=== PATIENT | female | born 1960 | race Caucasian/White ===

== ENCOUNTER 2020-05-04 08:19 | Outpatient (CLI) | payer MEDICARE, MEDICAID, SELFPAY ==
[2020-05-04 09:36] LABS: Hematocrit 47.3 % (37.0-47.0); Hemoglobin 15.8 g/dL (12.0-15.0); Mean Corpuscular HGB Conc 33.4 g/dl (32-36); Mean Corpuscular Hemoglobin 32.7 pg (26-34); Mean Corpuscular Volume 97.9 fl (80-100); Mean Platelet Volume 8.9 fl (7.4-10.4); Platelet Count Result 335 k/mm3 (150-375); Red Blood Count 4.83 M/mm3 (4.2-5.4); Red Cell Distribution Width 12.2 % (11.5-14.5); White Blood Count 8.7 K/mm3 (4.5-10.0)
[2020-05-04 09:40] LABS: Add Urine Microscopic? YES; Appearance Urine Cloudy (Clear); Bacteria Urine Trace /hpf; Bilirubin Urine Negative (Negative); Blood Urine Negative (Negative); Color Urine Yellow (Yellow); Glucose Urine UA Negative (Negative); Ketones Urine Negative (Negative); Leukocyte Esterase Ur 3+ LEU/UL (Negative); Mucus Urine Moderate /lpf; Nitrate Urine Negative (Negative); Protein Urine Negative (Negative); Squamous Epithelial Cell Urine Many /hpf (Few); WBC Urine 0-3 /hpf
[2020-05-04 09:57] LABS: Alanine Aminotransferase 13 U/L (4-35); Albumin Level 4.2 g/dL (3.5-5.1); Alkaline Phosphatase 93 U/L (38-126); Anion Gap 6 mmol/L (8-16); Aspartate Amino Transferase 19 U/L (14-36); Bilirubin,Total 0.4 mg/dL (0.2-1.3); Blood Urea Nitrogen 10 mg/dL (7-17); Calcium 9.5 mg/dL (8.4-10.2); Carbon Dioxide 36 mmol/L (22-30); Chloride 98 mmol/L (98-107); Cholesterol 194 mg/dL (0-200); Estimated Glomerular Filt Rate > 60; Glucose 105 mg/dL (65-105); HDL Direct 43 mg/dL; Phosphorus 3.5 mg/dL (2.5-4.5); Potassium 2.9 mmol/L (3.4-5.0); Sodium 140 mmol/L (137-145); Triglycerides 84 mg/dL (<150)
[2020-05-04 10:08] LABS: LDL Cholesterol Direct 136 mg/dL
[2020-05-04 10:41] LABS: Vitamin D 25 Hydroxy 51.4 ng/mL
[2020-05-04 11:49] LABS: Iron 63 ug/dL (37-170); Percent Iron Saturation 21 % (20-50)
== END 2020-05-04 08:20 | disposition home or self-care (01) ==
PROVIDERS: PCP Emergency Medicine; Visit Provider Emergency Medicine
DX: D75.1 Secondary polycythemia (principal); F13.20 Sedative, hypnotic or anxiolytic dependence, uncomplicated; G47.30 Sleep apnea, unspecified; J43.9 Emphysema, unspecified; M85.89 Other specified disorders of bone density and structure, multiple sites; G89.4 Chronic pain syndrome; D64.9 Anemia, unspecified; E78.5 Hyperlipidemia, unspecified; Z00.01 Encounter for general adult medical examination with abnormal findings
CPT/HCPCS: 36415; 80061; 80069; 80076; 81001; 82306; 82728; 83540; 83550; 85027

== ENCOUNTER 2020-05-30 12:25 | Outpatient (CLI) | payer MEDICARE, MEDICAID, SELFPAY ==
--- NOTE | ~2020-05-30 | MM_ITS ---
EXAMINATION: MM screening [facility] BI w bandar HISTORY: Screening mammogram TECHNIQUE: Craniocaudal and mediolateral oblique 3-D tomosynthesis images were obtained and synthetic 2-D images were generated. CAD analysis was submitted and interpreted. COMPARISON: 04/01/2019, 03/04/2019 BREAST PARENCHYMAL COMPOSITION: The breasts are almost entirely fatty. FINDINGS: There is no evidence of suspicious mass, calcification, or architectural distortion to sugg est malignancy in either breast. There has been no suspicious interval change. IMPRESSION: 1. No mammographic evidence of malignancy. 2. Recommend routine screening mammography in one year. BI-RADS Category 1: Negative Reviewed, dictated and finalized at location A. PRESSER
== END 2020-05-30 12:26 | disposition home or self-care (01) ==
LOC: ANHIMG 12:29
PROVIDERS: PCP Emergency Medicine; Visit Provider Emergency Medicine
DX: Z12.31 Encounter for screening mammogram for malignant neoplasm of breast (principal)
CPT/HCPCS: 77063; 77067

== ENCOUNTER 2020-07-17 09:42 | Outpatient (CLI) | payer MEDICARE, MEDICAID, SELFPAY ==
[2020-07-17 10:24] LABS: Albumin Level 4.1 g/dL (3.5-5.1); Anion Gap 0 mmol/L (8-16); Blood Urea Nitrogen 6 mg/dL (7-17); Calcium 9.1 mg/dL (8.4-10.2); Carbon Dioxide 37 mmol/L (22-30); Chloride 100 mmol/L (98-107); Estimated Glomerular Filt Rate > 60; Glucose 78 mg/dL (65-105); Magnesium 1.7 mg/dL (1.6-2.3); Phosphorus 4.1 mg/dL (2.5-4.5); Sodium 137 mmol/L (137-145)
== END 2020-07-17 09:43 | disposition home or self-care (01) ==
PROVIDERS: PCP Emergency Medicine; Visit Provider Emergency Medicine
DX: E87.6 Hypokalemia (principal); R31.9 Hematuria, unspecified
CPT/HCPCS: 36415; 80069; 83735

== ENCOUNTER → 2020-07-24 03:22 | Outpatient (CLI) | payer MEDICARE, MEDICAID, SELFPAY ==
[2020-07-24 20:31] LABS: SARS-CoV-2 RNA PCR Negative
== END ==
PROVIDERS: PCP Emergency Medicine; Visit Provider Internal Medicine Gastroenterology
DX: Z01.812 Encounter for preprocedural laboratory examination (principal); Z20.822 Contact with and (suspected) exposure to COVID-19
CPT/HCPCS: C9803; U0003; U0005

== ENCOUNTER 2020-07-27 01:32 | Day surgery (SDC) | payer MEDICARE, MEDICAID, SELFPAY ==
[2020-07-18 12:14] VITALS: BMI 28.9
[2020-07-27 07:52] VITALS: BP 140/78; PULSE 128; RESP 16; TEMP 36.8; O2SAT 95; BMI 28.3
[2020-07-27] MEDS: LACTATED RINGERS 1,000 ML 150 ML IV CONT (08:09)
--- NOTE | 2020-07-27 08:37 | WPDANESEPPF ---
Anes - Initial Pre Proc Eval Procedure: Operation Date: 07/27/20 09:00 Proposed Procedures p Esophagogastroduodenoscopy & Colonoscopy - Jacoby Mandel MD Date/Time: 07/27/20 08:37 Surgeon: Jacoby Mandel MD Pre Op Diagnosis: diarrhea, nausea Patient Data Age: 60 Gender: F Height: 5 ft 3 in Weight: 72.5 kg Last Vital Signs Temp 98.2 F 07/27/20 07:52 Pulse 128 H 07/27/20 07:52 Resp 16 07/27/20 07:52 BP 140/78 07/27/20 07:52 Pulse Ox 95 07/27/20 07:52 Allergies Allergy/AdvReac Type Severity Reaction Status Date / Time No Known Allergies Allergy Mild Verified 07/27/20 07:50 Home Medications Medication Instructions Recorded Confirmed Type albuterol sulfate [Ventolin HFA] 1 inh INHALATION QID PRN 07/18/20 07/27/20 History cholecalciferol (vitamin D3) 1,250 mcg PO WEEKLY 07/18/20 07/18/20 History clonazepam [Klonopin] 1 mg PO BID 07/18/20 07/27/20 History duloxetine [Cymbalta] 60 mg PO DAILY 07/18/20 07/27/20 History acubfskwxyl-ihuryenvi-cmiczibi 1 inh INHALATION DAILY 07/18/20 07/27/20 History [Trelegy Ellipta] hydrocodone-acetaminophen 1 tablet PO Q8H PRN 07/18/20 07/27/20 History omeprazole 20 mg PO DAILY 07/18/20 07/27/20 History Patient hx anesthesia problems: none Family hx anesthesia problems: none [facility] Past Medical History Medical History (Updated 07/27/20 @ 08:33 by Gonzalo Burris MD) Bipolar 1 disorder COPD (chronic obstructive pulmonary disease) GERD (gastroesophageal reflux disease) MARGARITA (obstructive sleep apnea) Social History Social History Smoking packs per day: 1 Smoking cigarettes per day: 20.0 Years smoked: 40 Smoking pack-years: 40.00 Smoking status: Current every day smoker Tobacco type: cigarettes Alcohol intake: current Living arrangements: with family Gender identity (if verbalized by the patient): Female Spiritual care concerns: No Anes - Eval Final PreProcedure Day of Procedure 07/27/20 08:37 Patient weight: overweight Heart: regular rate and rhythm Lungs: clear to auscultation Airway: Mallampati scale class II Neurological: alert and oriented Last oral intake: >/= 8 hours ASA classification: III Emergent: no Anesthetic plan: proceed Anesthesia type and monitoring: general GIVS and standard monitoring Informed Consent: The patient's anesthetic plan and its attendant risks and benefits were discussed with the patient/family/POA. Questions were solicited and answers provided to the satisfaction of the patient/family/POA.
--- NOTE | 2020-07-27 08:48 | PM.HPGS ---
History of Present Illness History of Present Illness Consent: Risks, benefits, and alternatives have been discussed and questions answered. Patient agrees to proceed with procedure. Chief complaint: diarrhea, nausea Narrative: Shelley Gomez is a 60 year old female with epigastric pain and nausea/diarrhea better with omeprazole. Never had scopes. Review of Systems Constitutional: Constitutional: Denies headache(s) and Denies weakness Eyes: Eyes: Denies blurry vision ENT: Reports Normal hearing present, Denies headache(s) and Denies neck pain Cardiovascular: Cardiovascular: Denies chest pain and Denies dyspnea Respiratory: Respiratory: Denies dyspnea Gastrointestinal: Gastrointestinal: Reports no additional gastrointestinal complaints Genitourinary: Genitourinary: Denies dysuria Musculoskeletal: Musculoskeletal: Denies neck pain Integumentary/Breasts: Skin/Breast: Denies dry skin Neurologic: Reports Normal hearing present, Denies headache(s) and Denies weakness Psychiatric: Psychiatric: Denies anxiety Endocrine: Endocrine: Denies change in body appearance Hematologic/Lymphatic: Hematologic/Lymphatic: Denies easy bleeding Allergic/Immunologic: Allergic/Immunologic: Denies urticaria PMF Past Medical History Medical History (Updated 07/27/20 @ 08:49 by Jacoby Mandel MD) Bipolar 1 disorder Colon cancer screening COPD (chronic obstructive pulmonary disease) Diarrhea Epigastric pain GERD (gastroesophageal reflux disease) MARGARITA (obstructive sleep apnea) Social History Social History Smoking packs per day: 1 Smoking cigarettes per day: 20.0 Years smoked: 40 Smoking pack-years: 40.00 Smoking status: Current every day smoker Tobacco type: cigarettes Alcohol intake: current Living arrangements: with family Gender identity (if verbalized by the patient): Female Spiritual care concerns: No Meds Home Medications and Allergies Home Medications Medication Instructions Recorded Confirmed Type albuterol sulfate [Ventolin HFA] 1 inh INHALATION QID PRN 07/18/20 07/27/20 History cholecalciferol (vitamin D3) 1,250 mcg PO WEEKLY 07/18/20 07/18/20 History clonazepam [Klonopin] 1 mg PO BID 07/18/20 07/27/20 History duloxetine [Cymbalta] 60 mg PO DAILY 07/18/20 07/27/20 History agtwhgmplrj-bebnwhooz-spuqojyu 1 inh INHALATION DAILY 07/18/20 07/27/20 History [Trelegy Ellipta] hydrocodone-acetaminophen 1 tablet PO Q8H PRN 07/18/20 07/27/20 History omeprazole 20 mg PO DAILY 07/18/20 07/27/20 History Allergies Allergy/AdvReac Type Severity Reaction Status Date / Time No Known Allergies Allergy Mild Verified 07/27/20 07:50 Vital Signs Vital Signs - 24 hr 07/27/20 07:52 Temperature 98.2 F Pulse Rate 128 H Respiratory Rate 16 Blood Pressure 140/78 Pulse Oximetry 95 Exam Const: General: comfortable and no acute distress HENMT: General nose exam: Normal nares present Eyes: General: appearance normal, both eyes and all related structures Neck: Neck: no JVD Resp: Auscultation: clear to auscultation bilaterally Cardio: Rate: regular rate Rhythm: regular rhythm GI: Inspection: non-distended GI Palp: Yes Soft to palpation Skin: General skin exam: normal color Neuro: General: gait normal Speech: normal speech Extrem: General: normal to inspection Psych: Mental Status: mental status grossly normal Assessment and Plan Assessment and plan (1) Epigastric pain: Code(s): R10.13 - Epigastric pain Status: Acute Assessment and Plan: egd with bx (2) Colon cancer screening: Code(s): Z12.11 - Encounter for screening for malignant neoplasm of colon Status: Acute Assessment and Plan: colonoscopy (3) Diarrhea: Code(s): R19.7 - Diarrhea, unspecified Status: Acute
[2020-07-27] MEDS: BENZOCAINE (*SP) 60 ML SPRAY CAN (HURRICAINE) 1 SPRAY MUCOUS MEM (08:54)
--- NOTE | 2020-07-27 09:12 | SUR.OPER ---
EGD ENDED 902, COLONOSCOPY STARTED 905
[2020-07-27 09:26] VITALS: BP 113/68; PULSE 99; RESP 21; O2SAT 92
[2020-07-27 09:36] VITALS: BP 97/55; PULSE 93; RESP 18; O2SAT 92
== END 2020-07-27 10:05 | disposition home or self-care (01) ==
PROVIDERS: PCP Emergency Medicine; Visit Provider Internal Medicine Gastroenterology
PROC: 0DJ08ZZ Inspection of Upper Intestinal Tract, Via Natural or Artificial Opening Endoscopic (ICD-10-PCS; CPT 43235; principal; 2020-07-27 09:00)
DX: Z12.11 Encounter for screening for malignant neoplasm of colon (principal); D12.0 Benign neoplasm of cecum; K57.30 Diverticulosis of large intestine without perforation or abscess without bleeding; K64.8 Other hemorrhoids; R19.7 Diarrhea, unspecified; K29.50 Unspecified chronic gastritis without bleeding; D13.1 Benign neoplasm of stomach; K21.9 Gastro-esophageal reflux disease without esophagitis; J44.9 Chronic obstructive pulmonary disease, unspecified; G47.33 Obstructive sleep apnea (adult) (pediatric); F31.9 Bipolar disorder, unspecified; Z79.51 Long term (current) use of inhaled steroids; F17.210 Nicotine dependence, cigarettes, uncomplicated
CPT/HCPCS: 45385; 45380; 43239; 43251; 88305; 88342; C9803; J2704; J7120; U0003; U0005

== ENCOUNTER 2020-08-15 12:06 | Outpatient (CLI) | payer MEDICARE, MEDICAID, SELFPAY ==
[2020-08-15 12:51] LABS: Add Urine Microscopic? YES; Appearance Urine Clear (Clear); Bilirubin Urine Negative (Negative); Blood Urine Negative (Negative); Color Urine Yellow (Yellow); Glucose Urine UA Negative (Negative); Ketones Urine Negative (Negative); Leukocyte Esterase Ur 1+ LEU/UL (NEGATIVE); Mucus Urine Rare /lpf; Nitrate Urine Negative (Negative); Protein Urine Negative (Negative); RBC Urine 0-2 /hpf (0-2); Specific Grav Ur 1.011 (1.001-1.035); Squamous Epithelial Cell Urine Few /hpf (Few); Urobilinogen Urine Negative mg/dL (<2.0); WBC Urine 0-3 /hpf (0-3)
== END 2020-08-15 12:07 | disposition home or self-care (01) ==
PROVIDERS: PCP Emergency Medicine; Visit Provider Emergency Medicine
DX: E87.6 Hypokalemia (principal); R31.9 Hematuria, unspecified
CPT/HCPCS: 81001

== ENCOUNTER 2020-10-05 13:36 | Outpatient (CLI) | payer MEDICARE, MEDICAID, SELFPAY ==
--- NOTE | ~2020-10-05 | CT_ITS ---
EXAMINATION:CT lung screening DATE: 10/05/2020 14:34 INDICATION: Personal history of tobacco dependence. Current smoker with 40 pack year history. TECHNIQUE: Computed tomography (CT) of the chest was performed without intravenous contrast. Automate d exposure control and iterative reconstruction technique were employed. The dose-length product (DLP ) was 121.71 mGy-cm. COMPARISON: Chest CT 04/25/2016 FINDINGS: There is mild emphysema. There is a stable 6 mm pleural-based nodule in right upper lobe. C alcified right lung nodules and calcified right hilar lymph nodes are consistent with old granulomato us disease. There is a stable 5 mm nodule in left upper lobe. There are a few stable nodules measurin g up to 4 mm. No pleural effusion. The heart size is normal. No pericardial effusion. Calcifications in the spleen are consistent with old granulomatous disease. There is mild chronic anterior wedging o f multiple vertebral bodies. There is severe cervical and thoracic spondylosis. IMPRESSION: 1. Lung-RADS category 2: Benign appearance or behavior. Continue annual screening with noncontrast lo w-dose chest CT in 12 months. Reviewed, dictated and finalized at location A. IMPRESSION: 1. Lung-RADS category 2: Benign appearance or behavior. Continue annual screeni ng with noncontrast low-dose chest CT in 12 months.
== END 2020-10-05 13:37 | disposition home or self-care (01) ==
LOC: ANHIMG 13:39
PROVIDERS: PCP Emergency Medicine; Visit Provider Internal Medicine Pulmonary Disease
DX: Z12.2 Encounter for screening for malignant neoplasm of respiratory organs (principal); Z87.891 Personal history of nicotine dependence
CPT/HCPCS: 71271

== ENCOUNTER 2020-10-30 13:51 | Outpatient (CLI) | payer MEDICARE, MEDICAID, SELFPAY ==
[2020-10-30 15:19] LABS: Albumin Level 4.4 g/dL (3.5-5.1); Anion Gap 4 mmol/L (8-16); Blood Urea Nitrogen 9 mg/dL (7-17); Calcium 9.8 mg/dL (8.4-10.2); Carbon Dioxide 33 mmol/L (22-30); Chloride 100 mmol/L (98-107); Estimated Glomerular Filt Rate > 60; Glucose 91 mg/dL (65-110); Phosphorus 3.6 mg/dL (2.5-4.5); Potassium 4.3 mmol/L (3.4-5.0); Sodium 137 mmol/L (137-145)
== END 2020-10-30 13:52 | disposition home or self-care (01) ==
PROVIDERS: PCP Emergency Medicine; Visit Provider Emergency Medicine
DX: E87.6 Hypokalemia (principal)
CPT/HCPCS: 36415; 80069

== ENCOUNTER 2020-11-02 16:37 | Outpatient (CLI) | payer MEDICARE, MEDICAID, SELFPAY ==
--- NOTE | ~2020-11-02 | MR_ITS ---
EXAMINATION: MR brain/brain stem wo con EXAM DATE: 11/02/2020 17:16 INDICATION: Migraine headaches. TECHNIQUE: Magnetic resonance imaging (MRI) of the brain/brain stem obtained without contrast. Lion al T1, axial diffusion, gradient echo (T2*), T1, T2, FLAIR sequences obtained. There is no prior st udy for comparison. FINDINGS: There are no areas of restricted diffusion to suggest acute infarction. There is no acute hemorrhage seen on the T2*, a hemosiderin sensitive sequence. No intraparenchymal brain mass lesion. There is mild periventricular and subcortical T2/FLAIR signal hyperintensity, nonspecific but probab ly related to small vessel ischemic disease (microangiopathy). There are no extra-axial collectio ns. Flow voids are seen in the cerebral arteries on the T2-weighted sequences consistent with their expected patency. Right vertebral artery may end in the posterior inferior cerebellar artery. The orb its are unremarkable. Soft tissue is unremarkable. Trace right mastoid effusion. IMPRESSION: 1. No acute intracranial findings. 2. Chronic age related findings. Reviewed, dictated and finalized at location B.
== END 2020-11-02 16:38 | disposition home or self-care (01) ==
LOC: ANHIMG 16:43
PROVIDERS: PCP Emergency Medicine; Visit Provider Emergency Medicine
DX: G43.909 Migraine, unspecified, not intractable, without status migrainosus (principal)
CPT/HCPCS: 70551

== ENCOUNTER 2021-06-10 10:14 | Outpatient (CLI) | payer MEDICARE, MEDICAID, SELFPAY ==
[2021-06-10 11:11] LABS: Basophils Percent Auto 0.6 % (0.2-1.2); Eosinophils Absolute Auto 0.1 K/mm3 (0-0.3); Eosinophils Percent Auto 1.4 % (0-4.4); Hematocrit 45.8 % (37.0-47.0); Immature Granulocyte Absolute 0.04 K/mm3 (0.00-0.031); Immature Granulocyte Percent A 0.8 % (0-0.5); Lymphocytes Absolute Auto 1.46 K/mm3 (0.9-3.2); Lymphocytes Percent Auto 28.6 % (18.3-44.2); Mean Corpuscular HGB Conc 32.8 g/dl (32-36); Mean Corpuscular Hemoglobin 32.2 pg (26-34); Mean Corpuscular Volume 98.3 fl (80-100); Mean Platelet Volume 8.9 fl (7.4-10.4); Monocytes Absolute Auto 0.5 K/mm3 (0.1-0.6); Monocytes Percent Auto 8.8 % (2.6-8.5); Neutrophils Absolute Auto 3.1 K/mm3 (1.3-6.7); Neutrophils Percent Auto 59.8 % (45.5-73.1); Platelet Count Result 281 k/mm3 (150-375); Red Blood Count 4.66 M/mm3 (4.2-5.4); Red Cell Distribution Width 13.3 % (11.5-14.5); White Blood Count 5.1 K/mm3 (4.5-10.0)
[2021-06-10 11:26] LABS: Alanine Aminotransferase 15 U/L (4-35); Albumin Level 4.2 g/dL (3.5-5.1); Alkaline Phosphatase 84 U/L (38-126); Anion Gap 2 mmol/L (8-16); Aspartate Amino Transferase 24 U/L (14-36); Bilirubin,Total 0.4 mg/dL (0.2-1.3); Blood Urea Nitrogen 4 mg/dL (7-17); Carbon Dioxide 35 mmol/L (22-30); Chloride 100 mmol/L (98-107); Cholesterol 160 mg/dL (0-200); Estimated Glomerular Filt Rate > 60; Glucose 92 mg/dL (65-110); HDL Direct 36 mg/dL; Magnesium 1.6 mg/dL (1.6-2.3); Phosphorus 3.3 mg/dL (2.5-4.5); Potassium 3.2 mmol/L (3.4-5.0); Sodium 137 mmol/L (137-145); Triglycerides 89 mg/dL (<150)
[2021-06-10 11:38] LABS: LDL Cholesterol Direct 92 mg/dL
[2021-06-10 11:41] LABS: Vitamin D 25 Hydroxy 29.1 ng/mL
[2021-06-10 12:14] LABS: Add Urine Microscopic? YES; Appearance Urine Cloudy (Clear); Bacteria Urine Trace /hpf; Bilirubin Urine Negative (Negative); Blood Urine Negative (Negative); Color Urine Yellow (Yellow); Glucose Urine UA Negative (Negative); Ketones Urine Negative (Negative); Leukocyte Esterase Ur 3+ LEU/UL (Negative); Mucus Urine Rare /lpf; Nitrate Urine Negative (Negative); Protein Urine Negative (Negative); Specific Grav Ur 1.009 (1.001-1.035); Squamous Epithelial Cell Urine Few /hpf (Few); Urobilinogen Urine Negative mg/dL (<2.0); WBC Urine 0-3 /hpf
[2021-06-10 12:31] LABS: Folic Acid 2.8 ng/mL (2.76->20)
[2021-06-12 09:53] LABS: PCP NEGATIVE ng/mL (<25)
[2021-06-19 16:02] LABS: Amphetamines NEGATIVE; Barbiturates NEGATIVE
[2021-06-19 16:03] LABS: Benzodiazepines POSITIVE; Cocaine Metabolites NEGATIVE
[2021-06-19 16:04] LABS: Marijuana Metabolites NEGATIVE
== END 2021-06-10 10:15 | disposition home or self-care (01) ==
PROVIDERS: PCP Emergency Medicine; Visit Provider Emergency Medicine
DX: D13.30 Benign neoplasm of unspecified part of small intestine (principal); E87.6 Hypokalemia; F13.20 Sedative, hypnotic or anxiolytic dependence, uncomplicated; G43.909 Migraine, unspecified, not intractable, without status migrainosus; G47.30 Sleep apnea, unspecified; G89.4 Chronic pain syndrome; K21.9 Gastro-esophageal reflux disease without esophagitis; K31.7 Polyp of stomach and duodenum; K63.5 Polyp of colon; M85.80 Other specified disorders of bone density and structure, unspecified site; R31.9 Hematuria, unspecified; Z79.899 Other long term (current) drug therapy
CPT/HCPCS: 36415; 80061; 80069; 80076; 80307; 81001; 82306; 82607; 82746; 83735; 84443; 85025

== ENCOUNTER 2021-07-29 15:13 | Outpatient (CLI) | payer MEDICARE, MEDICAID, SELFPAY ==
--- NOTE | ~2021-07-29 | MM_ITS ---
EXAMINATION: MM screening [facility] BI w bandar HISTORY: Screening TECHNIQUE: Craniocaudal and mediolateral oblique 3-D tomosynthesis images were obtained and synthetic 2-D images were generated. CAD analysis was submitted and interpreted. COMPARISON: Comparison to multiple prior studies sequentially, with oldest reviewed study dated 01/01. BREAST PARENCHYMAL COMPOSITION: The breasts are almost entirely fatty. FINDINGS: There is no evidence of suspicious mass, calcification, or architectural distortion to sugg est malignancy in either breast. There has been no suspicious interval change. IMPRESSION: 1. No mammographic evidence of malignancy. 2. Recommend routine screening mammography in one year. BI-RADS Category 1: Negative Reviewed, dictated and finalized at location A.
== END 2021-07-29 15:14 | disposition home or self-care (01) ==
LOC: ANHIMG 15:20
PROVIDERS: PCP Emergency Medicine; Visit Provider Emergency Medicine
DX: Z12.31 Encounter for screening mammogram for malignant neoplasm of breast (principal)
CPT/HCPCS: 77063; 77067

== ENCOUNTER 2021-10-04 02:01 | Day surgery (SDC) | payer MEDICARE, MEDICAID, SELFPAY ==
[2021-09-19 14:48] VITALS: BMI 28.3
[2021-10-04 09:56] VITALS: BP 144/83; PULSE 102; RESP 18; TEMP 36.6; O2SAT 94; BMI 28.9
[2021-10-04] MEDS: LACTATED RINGERS 1,000 ML 150 ML IV CONT (10:04)
--- NOTE | 2021-10-04 10:20 | PM.HPGS ---
History of Present Illness History of Present Illness Consent: Risks, benefits, and alternatives have been discussed and questions answered. Patient agrees to proceed with procedure. Chief complaint: intestinal polyp & gastritis Narrative: Shelley Gomez is a 61 year old female with incidental finding of TA polyp in duodenum removed more than 1 year ago, here to reassess site Review of Systems Constitutional: Constitutional: Denies headache(s) and Denies weakness Eyes: Eyes: Denies blurry vision ENT: Reports Normal hearing present, Denies headache(s) and Denies neck pain Cardiovascular: Cardiovascular: Denies chest pain and Denies dyspnea Respiratory: Respiratory: Denies dyspnea Gastrointestinal: Gastrointestinal: Reports no additional gastrointestinal complaints Genitourinary: Genitourinary: Denies dysuria Musculoskeletal: Musculoskeletal: Denies neck pain Integumentary/Breasts: Skin/Breast: Denies dry skin Neurologic: Reports Normal hearing present, Denies headache(s) and Denies weakness Psychiatric: Psychiatric: Denies anxiety Endocrine: Endocrine: Denies change in body appearance Hematologic/Lymphatic: Hematologic/Lymphatic: Denies easy bleeding Allergic/Immunologic: Allergic/Immunologic: Denies urticaria PMFSH Past Medical History Medical History (Updated 10/04/21 @ 10:21 by Jacoby Mandel MD) Bipolar 1 disorder Colon cancer screening COPD (chronic obstructive pulmonary disease) Diarrhea Epigastric pain GERD (gastroesophageal reflux disease) MARGARITA (obstructive sleep apnea) Polyp of duodenum Social History Social History Smoking packs per day: 1 Smoking cigarettes per day: 20.0 Years smoked: 40 Smoking pack-years: 40.00 Smoking status: Current every day smoker Tobacco type: cigarettes Alcohol intake: never Living arrangements: with family Gender identity (if verbalized by the patient): Female Spiritual care concerns: No Meds Home Medications and Allergies Home Medications Medication Instructions Recorded Confirmed Type cholecalciferol (vitamin D3) 1,250 1,250 mcg PO WEEKLY 07/18/20 10/04/21 History mcg (50,000 unit) tablet clonazepam 1 mg tablet (Klonopin) 1 mg PO BID 07/18/20 10/04/21 History duloxetine 60 mg capsule,delayed 60 mg PO DAILY 07/18/20 10/04/21 History release (Cymbalta) hydrocodone 7.5 mg-acetaminophen 1 tablet PO Q8H PRN Pain 07/18/20 10/04/21 History 325 mg tablet fluticasone fur. 100 mcg-umeclid See Rx Instructions .Route 05/24/21 10/04/21 Rx 62.5 mcg-vilant 25 mcg .COMPLEX #60 ea inhalat.powder (Trelegy Ellipta) albuterol sulfate 90 mcg/actuation 1 inh inhalation QID PRN Shortness 06/04/21 10/04/21 Rx aerosol inhaler (Ventolin HFA) Of Breath #8.5 grams Allergies Allergy/AdvReac Type Severity Reaction Status Date / Time No Known Allergies Allergy Mild Verified 10/04/21 09:55 Vital Signs Vital Signs - 24 hr 10/04/21 09:56 Temperature 98 F Pulse Rate 102 H Respiratory Rate 18 Blood Pressure 144/83 H Pulse Oximetry 94 Oxygen Delivery Room Air Exam Const: General: comfortable and no acute distress HENMT: General nose exam: Normal nares present Eyes: General: appearance normal, both eyes and all related structures Neck: Neck: no JVD Resp: Auscultation: clear to auscultation bilaterally Cardio: Rate: regular rate Rhythm: regular rhythm GI: Inspection: non-distended GI Palp: Yes Soft to palpation Skin: General skin exam: normal color Neuro: General: gait normal Speech: normal speech Extrem: General: normal to inspection Psych: Mental Status: mental status grossly normal Assessment and Plan Assessment and plan (1) Polyp of duodenum: Code(s): K31.7 - Polyp of stomach and duodenum Status: Acute Assessment and Plan: egd
--- NOTE | 2021-10-04 10:26 | P.PNAN_ITS ---
Anes - Initial Pre Proc Eval Procedure: Operation Date: 10/04/21 11:00 Proposed Procedures p Esophagogastroduodenoscopy - Jacoby Mandel MD Date/Time: 10/04/21 10:26 Surgeon: Jacoby Mandel MD Pre Op Diagnosis: intestinal polyp & gastritis Patient Data Age: 61 Gender: F Height: 1.6 m Weight: 74 kg Last Vital Signs Temp 98 F 10/04/21 09:56 Pulse 102 H 10/04/21 09:56 Resp 18 10/04/21 09:56 BP 144/83 H 10/04/21 09:56 Pulse Ox 94 10/04/21 09:56 O2 Del Method Room Air 10/04/21 09:56 Allergies Allergy/AdvReac Type Severity Reaction Status Date / Time No Known Allergies Allergy Mild Verified 10/04/21 09:55 Home Medications Medication Instructions Recorded Confirmed Type cholecalciferol (vitamin D3) 1,250 1,250 mcg PO WEEKLY 07/18/20 10/04/21 History mcg (50,000 unit) tablet clonazepam 1 mg tablet (Klonopin) 1 mg PO BID 07/18/20 10/04/21 History duloxetine 60 mg capsule,delayed 60 mg PO DAILY 07/18/20 10/04/21 History release (Cymbalta) hydrocodone 7.5 mg-acetaminophen 1 tablet PO Q8H PRN Pain 07/18/20 10/04/21 History 325 mg tablet fluticasone fur. 100 mcg-umeclid See Rx Instructions .Route 05/24/21 10/04/21 Rx 62.5 mcg-vilant 25 mcg .COMPLEX #60 ea inhalat.powder (Trelegy Ellipta) albuterol sulfate 90 mcg/actuation 1 inh inhalation QID PRN Shortness 06/04/21 10/04/21 Rx aerosol inhaler (Ventolin HFA) Of Breath #8.5 grams Patient hx anesthesia problems: none Family hx anesthesia problems: none Results Review: All pre-operative results and documents have been reviewed as part of the pre- operative evaluation. [facility] Past Medical History Medical History (Updated 10/04/21 @ 10:21 by Jacoby Mandel MD) Bipolar 1 disorder Colon cancer screening COPD (chronic obstructive pulmonary disease) Diarrhea Epigastric pain GERD (gastroesophageal reflux disease) MARGARITA (obstructive sleep apnea) Polyp of duodenum Social History Social History Smoking packs per day: 1 Smoking cigarettes per day: 20.0 Years smoked: 40 Smoking pack-years: 40.00 Smoking status: Current every day smoker Tobacco type: cigarettes Alcohol intake: never Living arrangements: with family Gender identity (if verbalized by the patient): Female Spiritual care concerns: No Anes - Eval Final PreProcedure Day of Procedure 10/04/21 10:26 Patient weight: obese Heart: regular rate and rhythm Lungs: clear to auscultation Airway: Mallampati scale class II Neurological: alert and oriented Last oral intake: >/= 8 hours ASA classification: III Emergent: no Anesthetic plan: proceed Anesthesia type and monitoring: general GIVS and standard monitoring Results Review: All pre-operative results and documents have been reviewed as part of the pre- operative evaluation. Informed Consent: The patient's anesthetic plan and its attendant risks and benefits were discussed with the patient/family/POA. Questions were solicited and answers provided to the satisfaction of the patient/family/POA.
[2021-10-04 10:35] VITALS: BP 120/79; PULSE 92; RESP 16; O2SAT 100
[2021-10-04 10:45] VITALS: BP 115/86; PULSE 100; RESP 19; O2SAT 96
[2021-10-04 10:55] VITALS: BP 152/88; PULSE 85; RESP 14; O2SAT 97
== END 2021-10-04 11:05 | disposition home or self-care (01) ==
PROVIDERS: PCP Emergency Medicine; Visit Provider Internal Medicine Gastroenterology
PROC: 0DJ08ZZ Inspection of Upper Intestinal Tract, Via Natural or Artificial Opening Endoscopic (ICD-10-PCS; CPT 43235; principal; 2021-10-04 11:00)
DX: Z09 Encounter for follow-up examination after completed treatment for conditions other than malignant neoplasm (principal); K29.70 Gastritis, unspecified, without bleeding; Z85.068 Personal history of other malignant neoplasm of small intestine; G47.33 Obstructive sleep apnea (adult) (pediatric); R19.7 Diarrhea, unspecified; R10.13 Epigastric pain; F31.9 Bipolar disorder, unspecified; J44.9 Chronic obstructive pulmonary disease, unspecified; F17.210 Nicotine dependence, cigarettes, uncomplicated; Z79.51 Long term (current) use of inhaled steroids
CPT/HCPCS: 43235; J2704; J7120

== ENCOUNTER 2021-10-10 12:52 | Outpatient (CLI) | payer MEDICARE, MEDICAID, SELFPAY ==
--- NOTE | ~2021-10-10 | CT_ITS ---
EXAMINATION: CT lung screening DATE: 10/10/2021 13:16 INDICATION: Personal history of nicotine dependence, current smoker with 40 pack year history TECHNIQUE: Computed tomography (CT) of the chest was performed without intravenous contrast. The dose -length product (DLP) was 103.96 mGy-cm. Automated exposure control and iterative reconstruction tech Deminos were employed. COMPARISON: 10/05/2020 FINDINGS: There is mild emphysema. There is a stable 6 mm pleural-based nodule of the right upper lob e. A stable 5 mm nodule is present in the left upper lobe. There are additional small, stable pulmona ry nodules which measure up to 4 mm. No new pulmonary nodule is identified. The lungs are free of acu te opacities. No pleural effusion or pneumothorax. Calcified pulmonary nodules and calcified hilar ly mph nodes are consistent with old granulomatous disease. No pathologically enlarged thoracic lymph no luis are identified. The heart size is normal. Punctate calcifications in an otherwise normal spleen l ikely represent healed granulomatous disease. There is chronic mild anterior wedging of multiple thor acic vertebral bodies. IMPRESSION: 1. Lung-RADS category 2: Benign appearance or behavior. Continue annual screening with noncontrast lo w-dose chest CT in 12 months. Reviewed, dictated and finalized at location B. IMPRESSION: 1. Lung-RADS category 2: Benign appearance or behavior. Continue annual screeni ng with noncontrast low-dose chest CT in 12 months.
== END 2021-10-10 12:53 | disposition home or self-care (01) ==
PROVIDERS: PCP Emergency Medicine; Visit Provider Internal Medicine Pulmonary Disease
DX: Z12.2 Encounter for screening for malignant neoplasm of respiratory organs (principal); Z87.891 Personal history of nicotine dependence
CPT/HCPCS: 71271

== ENCOUNTER 2022-01-01 10:52 | Outpatient (CLI) | payer MEDICARE, MEDICAID, SELFPAY ==
[2022-01-01 10:50] VITALS: O2SAT 94
[2022-01-01 11:05] VITALS: PULSE 116; O2SAT 90
[2022-01-01 11:10] VITALS: PULSE 96; O2SAT 93
--- NOTE | 2022-01-01 11:20 | HOMEO2EVAL ---
Evaluation was performed at [facility] Home Oxygen Evaluation RC: Home Oxygen (O2) Evaluation Start: 01/01/22 11:18 Freq: Status: Active Protocol: RPE Activity Type Activity Date Activity User E-sign Co-sign Detail Recorded Client Recorded Date Recorded By Document 01/01/22 10:50 [facility] [email or web address] 01/01/22 11:20 [facility] Document 01/01/22 11:05 [facility] [email or web address] 01/01/22 11:20 [facility] Document 01/01/22 11:10 [facility] [email or web address] 01/01/22 11:20 [facility] 01/01/22 01/01/22 01/01/22 10:50 11:05 11:10 Home O2 Evaluation Test Phase Resting Exercise Resting Oxygen Delivery Room Air Room Air Room Air Pulse Oximetry (90-100 %) 94 90 93 Pulse Rate (60-100 beats/min) 116 H 96 Activity Tolerance Good Good Good Ambulation Distance (feet) 360 Ambulation Distance (meters) 109.72 Treatment Charges O2 Evaluation - Outpatient
== END 2022-01-01 10:53 | disposition home or self-care (01) ==
LOC: ANHPFT 10:54
PROVIDERS: PCP Emergency Medicine; Visit Provider Physician Assistant
DX: R06.02 Shortness of breath (principal)
CPT/HCPCS: 94618

== ENCOUNTER 2022-10-29 08:44 | Outpatient (CLI) | payer MEDICARE, MEDICAID, SELFPAY ==
[2022-10-29 09:46] LABS: Basophils Percent Auto 0.7 % (0.2-1.2); Eosinophils Absolute Auto 0.1 K/mm3 (0-0.3); Eosinophils Percent Auto 2.2 % (0-4.4); Hematocrit 47.2 % (37.0-47.0); Hemoglobin 15.1 g/dL (12.0-15.0); Immature Granulocyte Absolute 0.02 K/mm3 (0.00-0.031); Immature Granulocyte Percent A 0.3 % (0-0.5); Lymphocytes Absolute Auto 2.19 K/mm3 (0.9-3.2); Lymphocytes Percent Auto 36.3 % (18.3-44.2); Mean Corpuscular Hemoglobin 30.5 pg (26-34); Mean Corpuscular Volume 95.4 fl (80-100); Mean Platelet Volume 9.2 fl (7.4-10.4); Monocytes Absolute Auto 0.4 K/mm3 (0.1-0.6); Monocytes Percent Auto 6.6 % (2.6-8.5); Neutrophils Absolute Auto 3.3 K/mm3 (1.3-6.7); Neutrophils Percent Auto 53.9 % (45.5-73.1); Platelet Count Result 268 k/mm3 (150-375); Red Blood Count 4.95 M/mm3 (4.2-5.4); Red Cell Distribution Width 12.7 % (11.5-14.5)
[2022-10-29 10:02] LABS: Alanine Aminotransferase 16 U/L (6-35); Albumin Level 4.4 g/dL (3.5-5.1); Alkaline Phosphatase 72 U/L (38-126); Anion Gap 7 mmol/L (8-16); Aspartate Amino Transferase 23 U/L (14-36); Bilirubin,Total 0.6 mg/dL (0.2-1.3); Blood Urea Nitrogen 9 mg/dL (7-17); Calcium 9.9 mg/dL (8.4-10.2); Carbon Dioxide 33 mmol/L (22-30); Chloride 99 mmol/L (98-107); Cholesterol 146 mg/dL (0-200); Estimated Glomerular Filt Rate > 60; Glucose 102 mg/dL (65-110); HDL Direct 46 mg/dL; Magnesium 1.9 mg/dL (1.6-2.3); Phosphorus 3.8 mg/dL (2.5-4.5); Potassium 3.7 mmol/L (3.4-5.0); Sodium 139 mmol/L (137-145); Triglycerides 95 mg/dL (<150)
[2022-10-29 10:16] LABS: LDL Cholesterol Direct 64 mg/dL
[2022-10-29 10:27] LABS: Appearance Urine Turbid (Clear); Bacteria Urine 4+ /hpf; Bilirubin Urine 2+ (Negative); Blood Urine Negative (Negative); Color Urine Dark Yellow (Yellow); Glucose Urine UA Negative (Negative); Hyaline Casts Urine Present /lpf; Ketones Urine 1+ mg/dL (Negative); Leukocyte Esterase Ur 2+ LEU/UL (Negative); Need Manual Microscopic Reviewed; Nitrate Urine Negative (Negative); Non Pathogenic Casts >20; Protein Urine 1+ mg/dL (Negative); Specific Grav Ur 1.032 (1.001-1.035); Squamous Epithelial Cell Urine Many /hpf (Few); WBC Urine 51-100 /hpf; pH Urine 5.5 (5.0-9.0)
[2022-10-29 10:39] LABS: Add Urine Microscopic? YES
[2022-10-29 11:00] LABS: Iron 98 ug/dL (37-170)
[2022-10-29 11:16] LABS: Vitamin D 25 Hydroxy 55.5 ng/mL
[2022-10-29 11:37] LABS: Percent Iron Saturation 30 % (20-50)
[2022-10-29 11:46] LABS: Folic Acid 4.1 ng/mL (2.76->20)
== END 2022-10-29 08:45 | disposition home or self-care (01) ==
PROVIDERS: PCP Emergency Medicine; Visit Provider Emergency Medicine
DX: D75.1 Secondary polycythemia (principal); E53.8 Deficiency of other specified B group vitamins; E55.9 Vitamin D deficiency, unspecified; E78.5 Hyperlipidemia, unspecified; E87.8 Other disorders of electrolyte and fluid balance, not elsewhere classified; F41.1 Generalized anxiety disorder; G89.4 Chronic pain syndrome; I10 Essential (primary) hypertension; J43.2 Centrilobular emphysema; K31.7 Polyp of stomach and duodenum; M85.80 Other specified disorders of bone density and structure, unspecified site; R31.9 Hematuria, unspecified; R91.1 Solitary pulmonary nodule
CPT/HCPCS: 36415; 80061; 80069; 80076; 81001; 82306; 82607; 82728; 82746; 83540; 83550; 83735; 84443; 85025; 87086

== ENCOUNTER 2022-11-08 10:58 | Outpatient (CLI) | payer MEDICARE, MEDICAID, SELFPAY ==
--- NOTE | ~2022-11-08 | DEXA_ITS ---
Bone Density Report Name: TEQUILA OSEI Age: 62 Sex: Female Ethnicity: White Date of : 1960 Indication: postmenopausal; screening for osteoporosis; height loss; prior fracture; asthma or emphysema; hysterectomy; Referring Provider: EDWINA KAPOOR Study: Bone densitometry was performed. Exam Date: November 08, 2022 Accession number: [id number] Bone Density: Region BMD T-score Z-score Classification AP Spine(L1-L4) 1.039 -0.1 1.5 Normal Femoral Neck (Left) 0.692 -1.4 0.0 Osteopenia Total Hip (Left) 0.881 -0.5 0.6 Normal Femoral Neck (Right) 0.698 -1.4 0.0 Osteopenia Total Hip (Right) 0.812 -1.1 0.0 Osteopenia Total Hip Mean 0.846 -0.8 0.3 Normal World Health Organization criteria for BMD impression classify patients as: Normal (T-score at or above -1.0), Osteopenia (T-score between -1.0 and -2.5), or Osteoporosis (T-score at or below -2.5). 10-year Fracture Risk(1): Major Osteoporotic Fracture 14% Hip Fracture 1.2% Reported Risk Factors: [place] (), Neck BMD=0.692, BMI=28.3, previous fracture (1) FRAX(R) Version 3.08. Fracture probability calculated for an untreated patient. Fracture probability may be lower if the patient has received treatment. Clinical Information Provided by Patient: Has had a low trauma fracture Has used the following medications: Vitamin D Has the following medical conditions: Asthma or Emphysema, Hysterectomy Patient maximum height was 64 Menopause Age: 47 No regular weight bearing exercise Does not regularly consume dairy products Drinks caffeinated beverages Onset of menses at age 13 Number of children 3 Impression: The patient has low bone mass, based on the Left Femoral Neck T-score. The patient has an estimated ten-year risk of hip fracture of 1.2% and an estimated ten-year risk of major fracture of 14%, based on the WHO FRAX algorithm. The patient has risk factors, including: previous fracture. Discussion: BONE DENSITY IS LOW AT ONE OR MORE SKELETAL SITES. This patient's lowest T-score is low at one or more skeletal sites. It meets the World Health Organization's (WHO) criteria for ?low bone mass? (T-score between -1.0 and -2.5). The patient's 10-year risk of fracture as calculated by FRAX is less than the threshold where pharmacological therapy is recommended by the National Osteoporosis Foundation (NOF). However, all treatment decisions require clinical judgment and consideration of individual patient factors, including patient preferences, comorbidities, previous drug use, risk factors not captured in the FRAX model (e.g., frailty, falls, vitamin D deficiency, increased bone turnover, interval significant decline in bone density) and possible under or overestimation of fracture risk by FRAX. The patient should follow a healthful
--- NOTE | ~2022-11-08 | MM_ITS ---
EXAMINATION: MM screening [facility] BI w bandar HISTORY: Screening mammogram TECHNIQUE: Craniocaudal and mediolateral oblique 3-D tomosynthesis images were obtained and synthetic 2-D images were generated. CAD analysis was submitted and interpreted. COMPARISON: 07/29/2021, 05/30/2020, 04/01/2019 BREAST PARENCHYMAL COMPOSITION: There are scattered areas of fibroglandular density. FINDINGS: No suspicious mass, calcification, or architectural distortion are identified in either michael ast to suggest malignancy. There has been no suspicious interval change. IMPRESSION: 1. No mammographic evidence of malignancy. 2. Recommend routine screening mammography in one year. BI-RADS Category 1: Negative Reviewed, dictated and finalized at location A.
== END 2022-11-08 10:59 | disposition home or self-care (01) ==
LOC: ANHIMG 11:00
PROVIDERS: PCP Emergency Medicine; Visit Provider Emergency Medicine
DX: Z12.31 Encounter for screening mammogram for malignant neoplasm of breast (principal); M85.852 Other specified disorders of bone density and structure, left thigh; M85.851 Other specified disorders of bone density and structure, right thigh; Z78.0 Asymptomatic menopausal state
CPT/HCPCS: 77063; 77067; 77080

== ENCOUNTER 2023-08-11 15:40 | Outpatient (CLI) | payer MEDICARE, MEDICAID, SELFPAY ==
--- NOTE | ~2023-08-11 | MR_ITS ---
MRI of the lumbar spine Clinical History: Back pain, sciatica Technique: Axial T2-weighted images, and sagittal T1-weighted, T2-weighted, and and T2 fat-sat images were acquired. COMPARISON: 02/21/2018 Findings: No acute fracture seen. There is minimal grade 1 anterolisthesis of L3 over L4. There is se cecilia degenerative disc narrowing and partial fusion across the L4-L5 disc space is reactive marrow si gnal changes in this region. No suspicious bone marrow signal abnormality seen. At L1-L2, there is mild disc bulge and moderate facet arthropathy. No central canal stenosis. There i s mild left neural foraminal narrowing. Right neural foramen preserved. At L2-L3, there are mild degenerative disc narrowing with minimal disc bulge and moderate to advanced facet arthropathy. No daysi central canal stenosis. There is minimal left neural foraminal narrowing . Right neural foramen preserved. At L3-L4, there is mild disc bulge with severe facet arthropathy. No central canal stenosis. There is mild right neural foraminal narrowing. Left neural foramen preserved. At L4-L5, there is no disc bulge or herniation. There is mild facet arthropathy. No central canal landen nosis. There is probable minimal bilateral neural foraminal narrowing. At L5-S1, there is minimal disc bulge and moderate facet arthropathy. No central canal stenosis. Ther e is probable minimal bilateral neural foraminal narrowing. Paravertebral soft tissues are unremarkable. Impression: Mild degenerative change, as above. Minimal grade 1 anterolisthesis of L3 over L4. Reviewed, dictated and finalized at [facility]. Impression: Mild degenerative change, as above. Minimal grade 1 anterolisthesis of L3 over L4.
== END 2023-08-11 15:41 | disposition home or self-care (01) ==
LOC: ANHIMG 15:43
PROVIDERS: PCP Emergency Medicine; Visit Provider Emergency Medicine
DX: M54.42 Lumbago with sciatica, left side (principal); M47.896 Other spondylosis, lumbar region
CPT/HCPCS: 72148

== ENCOUNTER 2024-03-24 15:44 | Outpatient (CLI) | payer MEDICARE, MEDICAID, SELFPAY ==
--- NOTE | ~2024-03-24 | MM_ITS ---
EXAMINATION: MM screening rocco BI w bandar HISTORY: Screening TECHNIQUE: Craniocaudal and mediolateral oblique 3-D tomosynthesis images were obtained and synthetic 2-D images were generated. CAD analysis was submitted and interpreted. COMPARISON: Comparison to multiple prior studies sequentially, with oldest reviewed study dated . BREAST PARENCHYMAL COMPOSITION: Not Dense: The breasts are almost entirely fatty. FINDINGS: There is no evidence of suspicious mass, calcification, or architectural distortion to sugg est malignancy in either breast. There has been no suspicious interval change. IMPRESSION: 1. No mammographic evidence of malignancy. 2. Recommend routine screening mammography in one year. BI-RADS Category 1: Negative Reviewed, dictated and finalized at location B. 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
== END 2024-03-24 15:45 | disposition home or self-care (01) ==
LOC: ANHIMG 15:47
PROVIDERS: PCP Emergency Medicine; Visit Provider Emergency Medicine
DX: Z12.31 Encounter for screening mammogram for malignant neoplasm of breast (principal)
CPT/HCPCS: 77063; 77067

== ENCOUNTER 2024-04-29 14:35 | Outpatient (CLI) | payer MEDICARE, MEDICAID, SELFPAY ==
--- OUTSIDE RECORDS SUMMARY | 2024-04-29 14:40 | XMS_ITS | Clinical Summary ---
Author Organization [facility] Address [facility] [place] [address] [place] [address] Care Team Providers Care Fire Systems Inspector Name Role Phone Syed Llamas MD Primary Care Provider Wes García MD Unavailable [phone] Angel Luis Verdugo MD Unavailable [phone] Nik Hairston MD Unavailable [phone] Allergies No known active allergies Medications hydrocodone-acet aminophen 7.5-325 MG tabletIndication s:Chronic Pain Take 1 tablet by mouth 4 (four) times daily as needed for Pain. Indications: Chronic Pain 0 8 Active albuterol sulfate HFA 108 (90 Base) MCG/ACT inhalerIndicatio ns:Wheezing Inhale 2 puffs into the lungs every 6 (six) hours as needed for Wheezing. Indications: Wheezing Active vitamin D2, ergocalciferol, (DRISDOL) 75732 UNITS capsuleIndicatio ns:Vitamin D Deficiency Take 50,000 Units by mouth once a week. Indications: Vitamin D Deficiency 2 Active rosuvastatin (CRESTOR) 5 MG tabletIndication s:Blood Cholesterol Abnormal Take 5 mg by mouth nightly at bedtime. Indications: Blood Cholesterol Abnormal 2 Active naLOXone 0.4 MG/ML Solution CartridgeIndicat ions:Overdose Effect inject 1 milliliter by IM route over once, may repeat at 2 to 3 minute intervals as needed 2 Active senna-docusate (SENOKOT-S) 8.6-50 MG tabletIndication s:Constipation Take 1 tablet by mouth 2 (two) times daily. 60 tablet 3 Active OXYGENIndication s:Prevention of COPD Exacerbation 2 L/min by Nasal route nightly at bedtime. Indications: Prevention of COPD Worsening 3 Active Fluticasone-Umec lidin-Vilant (TRELEGY ELLIPTA) 100-62.5-25 MCG/ACT AEROSOL POWDER, BREATH ACTIVATEDIndicat ions:Prevention of COPD Exacerbation Take 1 puff by mouth daily. Indications: Prevention of COPD Worsening 3 Active lidocaine (HM LIDOCAINE PATCH) 4 % patch Place 1 patch onto the skin daily. Remove & Discard patch within 12 hours or as directed by 15 patch 3 Active DULoxetine (CYMBALTA) 60 MG capsule Take 1 capsule (60 mg total) by mouth daily. Active clonazePAM (KLONOPIN) 1 MG tablet Take 1 tablet (1 mg total) by mouth 2 (two) times daily. Active aspirin EC (ECOTRIN) 81 MG tablet Take 1 tablet (81 mg total) by mouth daily. Active Active Problems Problem Noted Date Diagnosed Date Centrilobular emphysema ([facility]/HCC [facility]/HCC) 2021 Overview (04/02/2022): Last Assessment & Plan: The patient has stage III COPD. She will continue with Trelegy 1 puff daily and albuterol MDI p.r.n.. MARGARITA (obstructive sleep apnea) 03/05/2022 Overview (06/15/2023): Last Assessment & Plan: Intolerant to CPAP therapy continues positional therapy with 2 L of oxygen via nasal cannula while sleeping Coronary artery disease invo lving eklutna coronary artery of eklutna heart without angina pectoris 02/04/2022 Hypokalemia 01/30/2022 Hyponatremia 01/29/2022 Left atrial mass 01/29/2022 Overview (06/15/2023): Last Assessment & Plan: Resected without complication. Dr. Melo monitoring Lung nodule 01/29/2022 Overview (06/15/2023): Last Assessment & Plan: CT scan ordered for August of 2023 Tobacco abuse 01/29/2022 Overview (06/15/2023): Last Assessment & Plan: Continues to decrease number cigarettes with ultimate goal of quitting. Patient has a lung cancer screening CT August of 2023 B12 deficiency 12/26/2021 Polycythemia secondary to smoking 04/08/2019 Moderate chronic obstructive pulmonary disease ([facility]) 06/02/2018 Dyspnea on exertion 10/05/2017 Closed fracture of rib of right side 05/13/2017 Heart disease 05/13/2017 Other nonspecific abnormal finding of lung field 05/13/2017 Traumatic pneumothorax 05/12/2017 Female stress incontinence 08/22/2015 Frequency 08/22/2015 Nocturia 08/22/2015 Postmenopausal atrophic vaginitis 08/22/2015 Rectocele 08/22/2015 Recurrent major depressive e pisodes, moderate ([facility]) 01/12/2015 Pain in limb 07/11/2014 Opioid dependence ([facility]) 04/07/2014 Respiratory symptoms 10/10/2013 Abnormal finding on mammography 08/12/2013 Low back pain 03/18/2013 Chronic pain 07/17/2012 Essential hypertension 07/17/2012 Generalized anxiety disorder 07/17/2012 Immunizations Name Administration Dates Next Due Hepatitis A (Generic) 04/06/1998 Influenza (Generic) 03/01/2017,01/17/2014,2009 Influenza Adult (Generic) 02/08/2019,01/14/2018 Pneumococcal (Pneumovax 23) 01/14/2018, 7 Family History Relation Status Comments Brother 1 Alive Brother 2 Alive Mother (Age 83) Sister Alive Social History Tobacco Use Types Packs/Day Years Used Date Smoking Tobacco: Every Day Cigarettes 1 40 Smokeless Tobacco: Never Tobacco Cessation:Ready to Q uit: Not Asked; Counseling Given: Not Answered Comments:Increased from 0.5 ppd to 1 ppd Alcohol Use Standard Drinks/Week Comments No 0 (1 standard drink = 0.6 oz pur e alcohol) quit 2007 OASIS D0700: Social Isolation Answer Da te Recorded Frequency of experiencing loneliness or isolatio n Never 05/29/2022 OASIS A1250: Transportation Answer Date Recorded Lack of Transportation (Medical) No 05/29/2022 Lack of Transportation (Non-Medical) No 05/29/2022 Patient Unable or Declines to Respond No 05/29/2022 OASIS B1300: Health Literacy Answer Pedro e Recorded Frequency of needing help to read materials from doctor or pharmacy Never 05/29/2022 Comments No Sex and Gender Information Value Date Recorded Sex Assigned at Not on file Legal Sex Female 4:31 PM CDT Gender Identity Not on file Sexual Orientation Not on file Last Filed Vital Signs Vital Sign Reading Time Taken Comments Blood Pressure 128/82 07/31/2023 10:31 AM CDT Pulse 98 07/31/2023 10:31 AM CDT Temperature 37.1 ??C (98.7 ??F) 07/31/2023 10:31 AM C DT Respiratory Rate 20 07/31/2023 10:31 AM CDT Oxygen Saturation 98% 07/31/2023 10:31 AM CDT Inhaled Oxygen Concentration - - Weight 74.8 kg (165 lb) 07/31/2023 10:31 AM CDT Height 160 cm (5' 3 ) 07/31/2023 10:31 AM CDT Body Mass Index 29.23 07/31/2023 10:31 AM CDT Plan of Treatment Upcoming Encounters Date Type Department Care Team (Late st Contact Info) Description 05/31/2024 11:00 AM HEARING AID TECHNICIAN Appointment [facility] [place] [address] Angel Luis Verdugo MD [address] [facility]. [facility] [address] [place], [place] [address] 06/21/2024 11:00 AM CDT Office Visit [facility], [facility] [address] [place], [place] [id number] Dilcia Macias, SALON LEADER Three [address] [address] Health Maintenance Due Date Last Done Comments ASCVD LDL 1960 ASCVD Statin 1960 Colorectal Cancer Screening Colonoscopy (10 Years) 1960 Annual Physical 1963 Hepatitis C 1978 DTaP, Tdap and Td Vaccines (1 - Tdap) 1979 Mammogram Screening 2000 Zoster Vaccines (1 of 2) 2010 Lung Cancer Screening 05/12/2018 05/12/2017 Pneumococcal Vaccine: Pediatrics (0 to 5 Years) and At-Risk Patients (6 to 64 Years) (2 of 2 - PCV) 01/14/2019 01/14/2018, 03/01/2017 RSV Immunization or 60+ Years (1 - Risk 60-74 years 1-dose series) 2020 COVID-19 Vaccine ( season) 2023 Influenza Adult (#1) 2024 02/08/2019, 01/14/2018, 03/01/2017, Additional history exists Meningococcal B Vaccine Aged Out No l onger eligible based on patient's age to complete this topic Meningococcal Vaccine Aged Out No alexy todd eligible based on patient's age to complete this topic RSV Immunizations Under 20 Months Aged Out No longer eligible based on patient's age to complete this topic Goals Goal Patient Goal Type Associated Problems Recent Progress Patient-Stated? Author Patient will return to prior living situation and remain independent in ADLs upon discharge from hospital Lifestyle No Monique Her RN Medical Devices Implanted Type Area Ceramics Technician Device Identifier Shelf Expiration Date Model / Serial / Lot Suture Sternotomy Kit - [id number] Implanted:Qty: 1 on 05/01/2022 by Arnaud England RNFA at [facility] Wire N/A: Sternum [employer] 07/05/2026 [id number] / / Description:5 wires used fro m package Wire Sut 18in Myowr2 7;.5 [place]; Ccs-1 Mfil; Cnv - [id number] Implanted:Qty: 1 on 05/01/2022 by Arnaud England RNFA at [facility] Wire N/A: [employer] 09/04/2026 [id number] / / [id number] Description:2 wires used fro m package Procedures Procedure Name Priority Date/Time Associated Diagnosis Comments CT CHEST+ABD+PEL W CON STAT 05/12/2017 12:08 PM HEARING AID TECHNICIAN from Last 3 Months or Most Recently Relevant to Health Maintenance Results * CT CHEST+ABD+PEL W CON (05/12/2017 12:08 PM HEARING AID TECHNICIAN) Anatomical Region Laterality Modality Chest, Abdomen, Pelvis Computed Tomography 05/12/2017 12:2 6 PM HEARING AID TECHNICIAN Impressions 05/12/2017 12:49 PM HEARING AID TECHNICIAN =====IMPRESSION:===== ?? 1. ??Right pneumothorax seen measuring 1 cm from the visceral to the parietal pleura. Fracture of the eighth and likely ninth ribs on the right side are seen. Fracture the seventh and 10th right ribs is also possible. 2. ??Mass in the left atrium. Atrial myxoma or other etiologies possible. Neoplasm is not excluded. 3. ??Multiple small pulmonary nodules in the lungs bilaterally. There is evidence of granulomatous disease which is possible etiology. Early metastasis or other etiologies are not excluded however. 4. ??No evidence of visceral laceration or pneumoperitoneum. 5. ??Small pericardial effusion and/or thickening. Narrative 05/12/2017 12:49 PM HEARING AID TECHNICIAN EXAMINATION: CT Chest, Abdomen and Pelvis with contrast EXAM DATE/TIME: 05/12/2017 12:05 PM REASON FOR EXAM: ??RT ABD pain, 8th rib fx with small pneumothorax on CXR ? COMPARISON: 05/12/2017 TECHNIQUE: Contrast enhanced CT examination of the chest, abdomen, and pelvis was performed with axial and multiplanar reformatted images obtained, ??CT scan was obtained with ? IV contrast. ??100 mL of Isovue 300 contrast was administered intravenously and uneventfully. ? Automated exposure control was utilized for dose reduction. FINDINGS: right pneumothorax is seen. This measures 1 cm from the visceral to the parietal pleura. There is fracture of the eighth right rib laterally. Fracture of the seventh, ninth and 10th right ribs is possible. If present, these are very subtle. The aorta shows no evidence of aneurysm or obvious dissection although present study is not optimized for this etiology. There is a mass in the left atrium measuring 2.2 cm. This extends from the intra-atrial septum. Lymph nodes in the mediastinum are seen which are normal in size. Small pericardial effusion versus thickening is seen. Calcified nodules in the anterior right lung are consistent granulomatous change. Multiple additional small noncalcified nodules are seen in the lungs bilaterally. 4 mm nodule in the right lung on image 41 is seen anteriorly. There is a 9 mm nodule which is pleural-based in the right apex posteriorly.. 6 mm nodule in the posterior left lung is seen. Pleural-based density in the left lung on image 22 is noted. This is adjacent to the major fissure. 3 mm nodule in the anterior left lung on image 77 is noted. No pleural effusion is seen. Mild atelectasis in the right lung in the dependent portion is noted. Subtle bulla versus bleb formation are seen suggestive of emphysematous change. Examination of the abdomen and pelvis shows no evidence of visceral laceration. Calcifications in the spleen are consistent granulomatous change. The pancreas, adrenal glands, kidneys, and gallbladder within normal limits. The appendix is visualized and is within normal limits. The anterior abdominal wall shows very small umbilical hernia without evidence of bowel involvement. No inguinal hernia seen. There is no evidence of bowel obstruction. There is no no pneumoperitoneum is present. No evidence of fracture in the abdomen or pelvis is seen. There is trabecular bony fusion of L4-5, possibly congenital although there is marked spur formation seen in this region. This may alternatively be due to arthropathy. Procedure Note Lionel Stokes MD - 05/12/2017 EXAMINATION: CT Chest, Abdomen and Pelvis with contrast EXAM DATE/TIME: 05/12/2017 12:05 PM REASON FOR EXAM: RT ABD pain, 8th rib fx with small pneumothorax on CXR COMPARISON: 05/12/2017 TECHNIQUE: Contrast enhanced CT examination of the chest, abdomen, and pelvis was performed with axial and multiplanar reformatted images obtained, CT scan was obtained with IV contrast. 100 mL of [id number] contrast was administered intravenously and uneventfully. Automated exposure control was utilized for dose reduction. FINDINGS: right pneumothorax is seen. This measures 1 cm from thevisceral to the parietal pleura. There is fracture of the eighth right rib laterally. Fracture of the seventh, ninth and 10th right ribs ispossible. If present, these are very subtle. The aorta shows no evidence of aneurysm or obvious dissection although present study is not optimized for this etiology. There is a mass in the left atrium measuring 2.2 cm. This extends from the intra-atrial septum. Lymph nodes in the mediastinum are seen which are normal in size. Small pericardial effusion versus thickening is seen. Calcified nodules in the anterior right lung are consistentgranulomatous change. Multiple additional small noncalcified nodules are seen in the lungs bilaterally. 4 mm nodule in the right lung on image 41 is seen anteriorly. There is a 9 mm nodule which is pleural-based in the rightapex posteriorly.. 6 mm nodule in the posterior left lung is seen.Pleural-based density in the left lung on image 22 is noted. This is adjacent to the major fissure. 3 mm nodule in the anterior left lung on image 77 isnoted. No pleural effusion is seen. Mild atelectasis in the right lung in the dependent portion is noted. Subtle bulla versus bleb formation are seen suggestive of emphysematous change. Examination of the abdomen and pelvis shows no evidence of visceral laceration. Calcifications in the spleen are consistent granulomatous change. The pancreas, adrenal glands, kidneys, and gallbladder within normal limits. The appendix is visualized and is within normal limits. The anterior abdominal wall shows very small umbilical hernia without evidence of bowel involvement. No inguinal hernia seen. There is no evidence of bowel obstruction. There is no no pneumoperitoneum is present. No evidence of fracture inthe abdomen or pelvis is seen. There is trabecular bony fusion of L4-5, possibly congenital althoughthere is marked spur formation seen in this region. This may alternatively bedue to arthropathy. =====IMPRESSION:===== 1. Right pneumothorax seen measuring 1 cm from the visceral to the parietal pleura. Fracture of the eighth and likely ninth ribs on theright side are seen. Fracture the seventh and 10th right ribs is alsopossible. 2. Mass in the left atrium. Atrial myxoma or other etiologies possible. Neoplasm is not excluded. 3. Multiple small pulmonary nodules in the lungs bilaterally. There is evidence of granulomatous disease which is possible etiology. Early metastasis or other etiologies are not excluded however. 4. No evidence of visceral laceration or pneumoperitoneum. 5. Small pericardial effusion and/or thickening. Bruno Amezcua [facility] CT Final Result from Last 3 Months or Most Recently Relevant to Health Maintenance [facility] [address] Advance Directives * Full Code (Latest Code Status on File) Date Activated Date Inactivated Comments 05/14/2022 11:30 AM 07/31/2023 10:29 AM * Full Code Date Activated Date Inactivated Comments 05/01/2022 1:00 PM 05/07/2022 3:57 PM Care Teams Fire Systems Inspector Relationship Specialty Start Date End Date Syed Llamas MD PCP - General 08/12/14 Wes García MD [address] [place] [address] Consulting Physician CRITICAL CARE MEDICINE 02/25/22 Angel Luis Verdugo MD Three [facility]. [facility] [address] [place] [address] Consulting Physician CARDIOVASCULAR DISEASE 04/28/22 Nik Hairston MD [address] [facility] [place] [address] Consulting Physician HEMATOLOGY/ONCOLOGY 04/28/22
--- OUTSIDE RECORDS SUMMARY | 2024-04-29 14:40 | XMS_ITS | Continuity of Care Document ---
Author Organization [facility] Address [address] [place] [address] [place] [address] Phone Care Team Providers Care Telecommunicator Supervisor Name Role Phone Syed Llamas MD Unavailable Unavailable Allergies, Adverse Reactions, Alerts Substance Reaction Status Criticality No Known Allergies Active No Inform ation Medications Medication Instructions Dosage Effective Dates (start - stop) Status Comments Adderall 20 mg tablet take 1 tablet by oral route every day before breakfast 20 MG - Active hydrocodone 7.5 mg-acetaminophen 325 mg tablet take 1 tablet by oral route 3 times every day as needed for pain as needed 1 tablet - Active PRN for pain, avoid driving or operate machines Klonopin 1 mg tablet take 1 tablet by oral route 2 times every day as needed 1 MG - Active avoid drivin g or operate machines, PRn for anxiety amitriptyline 50 mg tablet take 1 tablet by oral route every day at bedtime 50 MG - Active avoid driving or operate machines potassium chloride ER 20 mEq tablet,extended release take 1 tablet by oral route every day with food 20 MEQ - Active Crestor 5 mg tablet take 1 tablet by oral route every day 5 MG - Active Vitamin D2 1,250 mcg (50,000 unit) capsule take 1 capsule by oral route every week - Active Cymbalta 60 mg capsule,delayed release take 1 capsule by oral route every day 60 MG - Active Syringe 3 mL 21 gauge x 1 use for b12 injection - Active naloxone 0.4 mg/mL injection syringe inject 1 milliliter by IM route over once, may repeat at 2 to 3 minute intervals as needed - Active Trelegy Ellipta 100 mcg-62.5 mcg-25 mcg powder for inhalation inhale 1 puff by inhalation route every day at the same time each day 1.00 puff - Active Ventolin HFA 90 mcg/actuation aerosol inhaler inhale 2 puff by inhalation route every 4 - 6 hours as needed as needed - Active PRN for SOB Procedures Procedure Date PREV VISIT, EST, AGE 40-64 OFFICE/OUTPATIENT VISIT, EST OFFICE/OUTPATIENT VISIT, EST OFFICE/OUTPATIENT VISIT, EST OFFICE/OUTPATIENT VISIT, EST OFFICE/OUTPATIENT VISIT, EST OFFICE/OUTPATIENT VISIT, EST OFFICE/OUTPATIENT VISIT, EST OFFICE/OUTPATIENT VISIT, EST OFFICE/OUTPATIENT VISIT, EST OFFICE/OUTPATIENT VISIT, EST OFFICE/OUTPATIENT VISIT, EST OFFICE/OUTPATIENT VISIT, EST OFFICE/OUTPATIENT VISIT, EST OFFICE/OUTPATIENT VISIT, EST OFFICE/OUTPATIENT VISIT, EST OFFICE/OUTPATIENT VISIT, EST OFFICE/OUTPATIENT VISIT, EST OFFICE/OUTPATIENT VISIT, EST OFFICE/OUTPATIENT VISIT, EST PREV VISIT, EST, AGE 40-64 OFFICE/OUTPATIENT VISIT, EST OFFICE/OUTPATIENT VISIT, EST OFFICE/OUTPATIENT VISIT, EST OFFICE/OUTPATIENT VISIT, EST OFFICE/OUTPATIENT VISIT, EST OFFICE/OUTPATIENT VISIT, EST OFFICE/OUTPATIENT VISIT, EST OFFICE/OUTPATIENT VISIT, EST OFFICE/OUTPATIENT VISIT, EST OFFICE/OUTPATIENT VISIT, EST OFFICE/OUTPATIENT VISIT, EST OFFICE/OUTPATIENT VISIT, EST OFFICE/OUTPATIENT VISIT, EST OFFICE/OUTPATIENT VISIT, EST OFFICE/OUTPATIENT VISIT, EST OFFICE/OUTPATIENT VISIT, EST OFFICE/OUTPATIENT VISIT, EST OFFICE/OUTPATIENT VISIT, EST OFFICE/OUTPATIENT VISIT, EST OFFICE/OUTPATIENT VISIT, EST PREV VISIT, EST, AGE 40-64 OFFICE/OUTPATIENT VISIT, EST OFFICE/OUTPATIENT VISIT, EST OFFICE/OUTPATIENT VISIT, EST OFFICE/OUTPATIENT VISIT, EST OFFICE/OUTPATIENT VISIT, EST OFFICE/OUTPATIENT VISIT, EST OFFICE/OUTPATIENT VISIT, EST OFFICE/OUTPATIENT VISIT, EST OFFICE/OUTPATIENT VISIT, EST OFFICE/OUTPATIENT VISIT, EST OFFICE/OUTPATIENT VISIT, EST OFFICE/OUTPATIENT VISIT, EST OFFICE/OUTPATIENT VISIT, EST OFFICE/OUTPATIENT VISIT, EST OFFICE/OUTPATIENT VISIT, EST PPPS, subseq visit OFFICE/OUTPATIENT VISIT, EST OFFICE/OUTPATIENT VISIT, EST OFFICE/OUTPATIENT VISIT, EST OFFICE/OUTPATIENT VISIT, EST OFFICE/OUTPATIENT VISIT, EST OFFICE/OUTPATIENT VISIT, EST OFFICE/OUTPATIENT VISIT, EST OFFICE/OUTPATIENT VISIT, EST OFFICE/OUTPATIENT VISIT, EST OFFICE/OUTPATIENT VISIT, EST OFFICE/OUTPATIENT VISIT, EST OFFICE/OUTPATIENT VISIT, EST OFFICE/OUTPATIENT VISIT, EST OFFICE/OUTPATIENT VISIT, EST PPPS, initial visit OFFICE/OUTPATIENT VISIT, EST OFFICE/OUTPATIENT VISIT, EST OFFICE/OUTPATIENT VISIT, EST OFFICE/OUTPATIENT VISIT, EST OFFICE/OUTPATIENT VISIT, EST OFFICE/OUTPATIENT VISIT, EST OFFICE/OUTPATIENT VISIT, EST OFFICE/OUTPATIENT VISIT, EST OFFICE/OUTPATIENT VISIT, EST OFFICE/OUTPATIENT VISIT, EST OFFICE/OUTPATIENT VISIT, EST OFFICE/OUTPATIENT VISIT, EST Initial preventive exam OFFICE/OUTPATIENT VISIT, EST OFFICE/OUTPATIENT VISIT, EST OFFICE/OUTPATIENT VISIT, EST OFFICE/OUTPATIENT VISIT, EST OFFICE/OUTPATIENT VISIT, EST OFFICE/OUTPATIENT VISIT, EST OFFICE/OUTPATIENT VISIT, EST OFFICE/OUTPATIENT VISIT, EST OFFICE/OUTPATIENT VISIT, EST OFFICE/OUTPATIENT VISIT, EST OFFICE/OUTPATIENT VISIT, EST OFFICE/OUTPATIENT VISIT, EST OFFICE/OUTPATIENT VISIT, EST OFFICE/OUTPATIENT VISIT, EST PREV VISIT, EST, AGE 40-64 OFFICE/OUTPATIENT VISIT, EST OFFICE/OUTPATIENT VISIT, EST OFFICE/OUTPATIENT VISIT, EST OFFICE/OUTPATIENT VISIT, EST OFFICE/OUTPATIENT VISIT, EST OFFICE/OUTPATIENT VISIT, EST OFFICE/OUTPATIENT VISIT, EST OFFICE/OUTPATIENT VISIT, EST OFFICE/OUTPATIENT VISIT, EST OFFICE/OUTPATIENT VISIT, EST OFFICE/OUTPATIENT VISIT, EST OFFICE/OUTPATIENT VISIT, EST OFFICE/OUTPATIENT VISIT, EST OFFICE/OUTPATIENT VISIT, EST OFFICE/OUTPATIENT VISIT, EST PREV VISIT, EST, AGE 40-64 OFFICE/OUTPATIENT VISIT, EST OFFICE/OUTPATIENT VISIT, EST OFFICE/OUTPATIENT VISIT, EST OFFICE/OUTPATIENT VISIT, EST OFFICE/OUTPATIENT VISIT, EST OFFICE/OUTPATIENT VISIT, EST OFFICE/OUTPATIENT VISIT, EST OFFICE/OUTPATIENT VISIT, EST OFFICE/OUTPATIENT VISIT, EST OFFICE/OUTPATIENT VISIT, EST OFFICE/OUTPATIENT VISIT, EST OFFICE/OUTPATIENT VISIT, EST OFFICE/OUTPATIENT VISIT, EST PREV VISIT, EST, AGE 40-64 OFFICE/OUTPATIENT VISIT, EST OFFICE/OUTPATIENT VISIT, EST OFFICE/OUTPATIENT VISIT, EST OFFICE/OUTPATIENT VISIT, EST OFFICE/OUTPATIENT VISIT, EST OFFICE/OUTPATIENT VISIT, EST OFFICE/OUTPATIENT VISIT, EST OFFICE/OUTPATIENT VISIT, EST OFFICE/OUTPATIENT VISIT, EST OFFICE/OUTPATIENT VISIT, EST OFFICE/OUTPATIENT VISIT, EST OFFICE/OUTPATIENT VISIT, EST OFFICE/OUTPATIENT VISIT, EST OFFICE/OUTPATIENT VISIT, EST OFFICE/OUTPATIENT VISIT, EST OFFICE/OUTPATIENT VISIT, EST OFFICE/OUTPATIENT VISIT, EST OFFICE/OUTPATIENT VISIT, EST OFFICE/OUTPATIENT VISIT, EST OFFICE/OUTPATIENT VISIT, EST OFFICE/OUTPATIENT VISIT, EST OFFICE/OUTPATIENT VISIT, EST OFFICE/OUTPATIENT VISIT, EST OFFICE/OUTPATIENT VISIT, EST OFFICE/OUTPATIENT VISIT, EST OFFICE/OUTPATIENT VISIT, EST OFFICE/OUTPATIENT VISIT, EST OFFICE/OUTPATIENT VISIT, NEW Advance Directives Directive Yes / No Effective Date File Name No Information Encounters Encounter Description Practice Location Reason(s) For Visit Diagnoses Date Provider Providers Copied on Encounter PREV VISIT, EST, AGE 40-64 [facility], [address] [place], [place] [address]gege Olivier, [place], [place], [address], tel:[phone] [facility] physical (chief complaint) Encounter for general adult medical examination without abnormal findings 5 Farhad Lnych. [address], [place], [place], [address] , [place]. [phone] OFFICE/OUTPA TIENT VISIT, [facility], [address] [place], [address], tel:[phone] [facility] pain (chief complaint) anxiety1 (chief complaint) ADD (chief complaint) insomnia1 (chief complaint) Attention deficitChronic pain syndromeGeneralized anxiety disorderPrimary insomniaEncntr screen mammogram for malignant neoplasm of breast 4 Farhad Wing [address], [place], [place], [address] , [place]. [phone] OFFICE/OUTPA TIENT VISIT, [facility], [address] [place], [address], [place] tel:[phone] [facility] pain (chief complaint) anixety1 (chief complaint) ADD (chief complaint) Attention deficitChronic pain syndromeGeneralized anxiety disorder 4 Farhad Wing [address], [place], [place], [address] , [place]. [phone] OFFICE/OUTPA TIENT VISIT, [facility], [address] [place], [address], [place] tel:[phone] [facility] pain (chief complaint) anxiety1 (chief complaint) ADD (chief complaint) hernia1 (chief complaint) Attention deficitChronic pain syndromeGeneralized Anxiety DisorderIncisional hernia without obstruction or gangrene 4 Farhad Wing [address], [place], [place], [address] , [place]. tel:[phone] OFFICE/OUTPA TIENT VISIT, [facility], [address] [place], [address], tel:[phone] [facility] pain (chief complaint) anxiety1 (chief complaint) ADD (chief complaint) Attention deficitChronic pain syndromeGeneralized Anxiety Disorder Farhad Lynch. [address], [place], [place], [address] , [place]. tel:[phone] OFFICE/OUTPA TIENT VISIT, [facility], [address] [place], [address], tel:[phone] [facility] pain (chief complaint) anxiety1 (chief complaint) ADD (chief complaint) Attention deficitChronic pain syndromeGeneralized anxiety disorderEncntr screen mammogram for malignant neoplasm of breast Farhad Lynch. [address], [place], [place], [address] , [place]. tel:[phone] OFFICE/OUTPA TIENT VISIT, [facility], [address] [place], [address], [place] tel:[phone] [facility] pain (chief complaint) anxiet1 (chief complaint) memory loss1 (chief complaint) Chronic pain syndromeGeneralized anxiety disorderMemory lossAttention deficit 4 Farhad Lynch. [address] [place], [address] , [place]. tel:[phone] OFFICE/OUTPA TIENT VISIT, [facility], [address] [place], [address], [place] tel:[phone] [facility] pain (chief complaint) anxiety1 (chief complaint) skin (chief complaint) cough1 (chief complaint) Chronic pain syndromeGeneralized Anxiety DisorderSeborrheic keratosisAcute bronchitis Farhad Lynch. [address] [place], [address] , [place]. tel:[phone] OFFICE/OUTPA TIENT VISIT, [facility], [address] [place], [address], [place] tel:[phone] [facility] pain (chief complaint) anxiety1 (chief complaint) lung nodule1 (chief complaint) nevus (chief complaint) Nevus, non-neoplasticGener alized anxiety disorderSolitary lung noduleChronic pain syndrome 4 Farhad Wing [address], [place], [place], [address] , [place]. tel:[phone] OFFICE/OUTPA TIENT VISIT, [facility], [address], [place], [place], [address], [place] tel:[phone] [facility] back pain1 (chief complaint) Other spondylosis, lumbosacral region 4 Farhad Wing [address], [address], [place], [place], [address] , [place]. tel:[phone] OFFICE/OUTPA TIENT VISIT, [facility], [address], [place], [place], [address], [place] tel:[phone] [facility] pain (chief complaint) anxiety1 (chief complaint) lung nodule1 (chief complaint) back pain1 (chief complaint) nevus1 (chief complaint) Generalized Anxiety DisorderSolitary lung noduleLumbago with sciatica, left sideNevus, non-neoplasticVentr al hernia 4 Farhad Wing [address], [address], [place], [place], [address] , [place]. tel:[phone] OFFICE/OUTPA TIENT VISIT, [facility], [address] [place], [place], [address], [place] tel:[phone] [facility] pain (chief complaint) anxiety1 (chief complaint) KCL (chief complaint) lung nodule1 (chief complaint) Chronic pain syndromeGeneralized Anxiety DisorderHypokalemia Solitary lung nodule 4 Farhad Wing [address], [place], [place], [address] , [place]. tel:[phone] OFFICE/OUTPA TIENT VISIT, [facility], [address] [place], [place], [address], [place] tel:[phone] [facility] pain (chief complaint) anxiety1 (chief complaint) osteopenia 1 (chief complaint) HLP (chief complaint) Chronic pain syndromeGeneralized Anxiety DisorderMixed hyperlipidemiaOther specified disorder of bone density 4 Farhad Wing [address], [address], [place], [place], [address] , [place]. tel:[phone] OFFICE/OUTPA TIENT VISIT, [facility], [address] [place], [address], [place] tel:[phone] [facility] pain (chief complaint) anxiety1 (chief complaint) cataract1 (chief complaint) insomnia1 (chief complaint) Chronic pain syndromeGeneralized Anxiety DisorderOther insomniaOther age-related cataract 4 Farhad Wing [address], [address], [place], [place], [address] , [place]. tel:[phone] OFFICE/OUTPA TIENT VISIT, [facility], [address] [place], [address], [place] tel:[phone] [facility] pain (chief complaint) anxiety1 (chief complaint) insomnia1 (chief complaint) Chronic pain syndromeGeneralized Anxiety DisorderOther insomnia 3 Farhad Wing [address], [place], [place], [address] , [place]. tel:[phone] OFFICE/OUTPA TIENT VISIT, [facility], [address] [place] [place], [address], [place] tel:[phone] [facility] pain (chief complaint) anxiety1 (chief complaint) insomnia1 (chief complaint) Chronic pain syndromeGeneralized Anxiety DisorderOther insomniaObstructive Sleep Apnea Hypopnea 3 Farhad Wing [address], [place], [place], [address] , [place]. tel:[phone] OFFICE/OUTPA TIENT VISIT, [facility], [address] [place] [place], [address], [place] tel:[phone] [facility] hernia1 (chief complaint) pain (chief complaint) anxiety1 (chief complaint) Generalized Anxiety DisorderChronic pain syndromeIncisional hernia without obstruction or gangrene 3 Farhad Lynch. [address], [place], [place], [address] , [place]. tel:[phone] OFFICE/OUTPA TIENT VISIT, [facility], [address] [place], [address], [place] tel:[phone] [facility] pain (chief complaint) anxiety1 (chief complaint) HTN (chief complaint) bulge1 (chief complaint) kCL (chief complaint) Ventral herniaChronic pain syndromeEssential (primary) hypertensionGeneral ized Anxiety DisorderHypokalemia 3 Farhad Wing [address], [address], [place], [place], [address] , [place]. tel:[phone] OFFICE/OUTPA TIENT VISIT, [facility], [address] [place], [address], [place] [phone] [facility] pain (chief complaint) anxiety1 (chief complaint) HNT (chief complaint) Chronic pain syndromeGeneralized Anxiety DisorderEssential (primary) hypertension 3 Farhad Wing [address], [place], [place], [address] , [place]. tel:[phone] OFFICE/OUTPA TIENT VISIT, [facility], [address] [place], [address], [place] tel:[phone] [facility] hematuria1 (chief complaint) polycythem ia1 (chief complaint) lung nodule1 (chief complaint) pain (chief complaint) anxiety1 (chief complaint) Chronic pain syndromeSolitary lung noduleGeneralized Anxiety DisorderSecondary polycythemiaAsympto matic microscopic hematuria 3 Farhad Wing [address], [address], [place], [place], [address] , [place]. tel:[phone] PREV VISIT, EST, AGE 40-64 [facility], [address], [place], [place], [address], [place] tel:[phone] [facility] physical (chief complaint) Encounter for general adult medical exam w abnormal findingsGeneralized Anxiety DisorderChronic pain syndromeSolitary lung noduleEssential (primary) hypertensionCentril obular emphysemaHypokalemi aOther specified disorder of bone density 0 3 Farhad Lynch. [address], [place], [place], [address] , [place]. tel:[phone] OFFICE/OUTPA TIENT VISIT, [facility], [address], [place], [place], [address], tel:[phone] [facility] anxiety1 (chief complaint) pain (chief complaint) emphysema1 (chief complaint) sick (chief complaint) Chronic pain syndromeGeneralized Anxiety DisorderSolitary lung noduleAcute bronchitisArteriosc lerosis of cahuilla coronary artery without angina pectoris 3 Farhad Lynch. [address], [place], [place], [address] , [place]. tel:[phone] OFFICE/OUTPA TIENT VISIT, EST [facility], [address] [place], [address], [place] tel:[phone] [facility] anxiety1 (chief complaint) pain (chief complaint) lung nodule1 (chief complaint) Chronic pain syndromeGeneralized Anxiety DisorderOther specified disorder of bone densitySolitary lung noduleEncounter for oth screening for malignant neoplasm of breast 3 Farhad Lynch. [address], [place], [place], [address] , [place]. tel:[phone] OFFICE/OUTPA TIENT VISIT, EST [facility], [address], [place], [place], [address], [place] tel:[phone] [facility] anxiety1 (chief complaint) pain (chief complaint) osteopenia 1 (chief complaint) CAD (chief complaint) Other specified disorder of bone densityChronic pain syndromeGeneralized Anxiety DisorderTobacco useArteriosclerosis of cahuilla coronary artery without angina pectoris 3 Farhad Syed. [address], [place], [place], [address] , [place]. tel:[phone] OFFICE/OUTPA TIENT VISIT, [facility], [address], [place], [place], [address], [place] tel:[phone] [facility] anxiety1 (chief complaint) pain (chief complaint) CAD (chief complaint) tobacco1 (chief complaint) Chronic pain syndromeGeneralized Anxiety DisorderArterioscle rosis of cahuilla coronary artery without angina pectorisTobacco use 3 Farhad Syed. [address], [place], [place], [address] , [place]. tel:[phone] OFFICE/OUTPA TIENT VISIT, [facility], [address], [place], [place], [address], [place] tel:[phone] [facility] CAD (chief complaint) anxiety1 (chief complaint) pain (chief complaint) Benign neoplasm of connective tissueChronic pain syndromeGeneralized Anxiety DisorderArterioscle rosis of cahuilla coronary artery without angina pectoris 3 Farhad Lynch. [address], [place], [place], [address] , [place]. tel:[phone] OFFICE/OUTPA TIENT VISIT, [facility], [address] [place], [address], [place] tel:[phone] [facility] pain (chief complaint) anxiety1 (chief complaint) atrial myxoma1 (chief complaint) HTN (chief complaint) Chronic pain syndromeGeneralized Anxiety DisorderEssential (primary) hypertensionBenign neoplasm of connective tissue 3 Farhad Lynch. [address], [place], [place], [address] , [place]. tel:[phone] OFFICE/OUTPA TIENT VISIT, [facility], [address], [place], [place], [address], [place] tel:[phone] [facility] pain (chief complaint) anxiety1 (chief complaint) CAD (chief complaint) Arteriosclerosis of cahuilla coronary artery without angina pectorisChronic pain syndromeGeneralized anxiety disorderBenign neoplasm of connective tissue 2 Farhad Lynch. [address], [address], [place], [place], [address] , [place]. tel:[phone] OFFICE/OUTPA TIENT VISIT, [facility], [address] [place], [address], [place] tel:[phone] [facility] pain (chief complaint) anxiety1 (chief complaint) CAD (chief complaint) COPD1 (chief complaint) Benign neoplasm of connective tissueCentrilobular emphysemaSolitary lung noduleGeneralized anxiety disorderChronic pain syndromeArterioscle rosis of cahuilla coronary artery without angina pectoris 2 Farhad Lynch. [address], [place], [place], [address] , [place]. [phone] OFFICE/OUTPA TIENT VISIT, [facility], [address] [place], [address], [place] tel:[phone] [facility] atrial mass1 (chief complaint) Solitary lung noduleCentrilobular emphysemaInfluenzaB enign neoplasm of connective tissueArteriosclero sis of cahuilla coronary artery without angina pectoris 2 Farhad Wing [address], [place], [place], [address] , [place]. [phone] OFFICE/OUTPA TIENT VISIT, [facility], [address] [place], [address], [place] tel:[phone] [facility] pain (chief complaint) anxiety1 (chief complaint) headache1 (chief complaint) b12 (chief complaint) KCL (chief complaint) Chronic pain syndromeGeneralized anxiety disorderMigraine w/o aura, not intractable, w/o status migrainosusPrimary central sleep apneaCentrilobular emphysemaFolate deficiencyHypokalem ia 2 Farhad Lycnh. [address], [address], [place], [place], [address] , [place]. tel:[phone] OFFICE/OUTPA TIENT VISIT, [facility], [address], [place], [place], [address], tel:[phone] [facility] anxiety1 (chief complaint) pain (chief complaint) headache1 (chief complaint) Chronic pain syndromeGeneralized Anxiety DisorderMigraine w/o aura, not intractable, w/o status migrainosus 2 Farhad Lynch. [address], [place], [place], [address] , [place]. tel:[phone] OFFICE/OUTPA TIENT VISIT, [facility], [address] [place], [place], [address], tel:[phone] [facility] anxiety1 (chief complaint) pain (chief complaint) stomach1 (chief complaint) Chronic gastritis without bleedingChronic pain syndromeGeneralized Anxiety Disorder 2 Farhad Lynch. [address], [place], [place], [address] , [place]. tel:[phone] OFFICE/OUTPA TIENT VISIT, [facility], [address] [place], [address], [place] tel:[phone] [facility] anxiety1 (chief complaint) pain (chief complaint) tobacco1 (chief complaint) gastric polyp1 (chief complaint) Chronic pain syndromeGeneralized anxiety disorderTobacco usePolyp of stomach 2 Farhad Lynch. [address], [place], [place], [address] , [place]. tel:[phone] OFFICE/OUTPA TIENT VISIT, [facility], [address] [place], [address], [place] tel:[phone] [facility] pain (chief complaint) anxiety1 (chief complaint) tobacco1 (chief complaint) Chronic pain syndromeGeneralized Anxiety DisorderTobacco use 2 Farhad Lynch. [address], [place], [place], [address] , [place]. tel:[phone] OFFICE/OUTPA TIENT VISIT, [facility], [address], [place], [place], [address], [place] tel:[phone] [facility] b12 (chief complaint) gastritis1 (chief complaint) pain (chief complaint) Chronic pain syndromePolyp of stomachDeficiency of other specified B group vitamins 2 Farhad Lynch. [address], [place], [place], [address] , [place]. tel:[phone] OFFICE/OUTPA TIENT VISIT, [facility], [address], [place], [place], [address], [place] tel:[phone] [facility] anxiety1 (chief complaint) pain (chief complaint) anxiety1 (chief complaint) GERD1 (chief complaint) hematura1 (chief complaint) Chronic pain syndromeAnxiolytic dependencePolyp of stomachHematuria 2 Farhad Lynch. [address], [place], [place], [address] , [place]. tel:[phone] OFFICE/OUTPA TIENT VISIT, [facility], [address] [place], [address], [place] tel:[phone] [facility] anxiety1 (chief complaint) pain (chief complaint) hemauria1 (chief complaint) b12 (chief complaint) Chronic pain syndromeFolate deficiencyHematuria Anxiolytic dependenceEncounter for oth screening for malignant neoplasm of breast 2 Farhad Lynch. [address], [place], [place], [address] , [place]. tel:[phone] OFFICE/OUTPA TIENT VISIT, [facility], [address] [place], [address], [place] tel:[phone] [facility] anxiet1 (chief complaint) pain (chief complaint) kcl (chief complaint) osteopenia 1 (chief complaint) b12 (chief complaint) hematuria1 (chief complaint) HematuriaHypokalemi aDeficiency of other specified B group vitaminsOth disrd of bone density and structure, unspecified siteChronic pain syndromeAnxiolytic dependence 2 Farhad Lynch. [address], [place], [place], [address] , [place]. tel:[phone] OFFICE/OUTPA TIENT VISIT, EST [facility], [address], [place], [place], [address], [place] tel:[phone] [facility] anxiety1 (chief complaint) pain (chief complaint) breast1 (chief complaint) Chronic pain syndromeAnxiolytic dependenceEncounter for oth screening for malignant neoplasm of breast 2 Farhad Lynch. [address], [place], [place], [address] , [place]. tel:[phone] PREV VISIT, EST, AGE 40-64 [facility], [address], [place], [place], [address], [place] tel:[phone] [facility] Medicine physical (chief complaint) Encounter for general adult medical exam w abnormal findingsMigrainePol yp of colonSleep apneaHypokalemiaAnx iolytic dependenceChronic pain syndrome 2 Farhad Lynch. [address], [address], [place], [place], [address] , [place]. tel:[phone] OFFICE/OUTPA TIENT VISIT, EST [facility], [address], [place], [place], [address], [place] tel:[phone] [facility] Medicine anxiety1 (chief complaint) pain (chief complaint) Chronic pain syndromeAnxiolytic dependence 1 Farhad Lynch. [address], [place], [place], [address] , [place]. tel:[phone] OFFICE/OUTPA TIENT VISIT, EST [facility], [address], [place], [place], [address], [place] tel:[phone] [facility] anxiety1 (chief complaint) pain (chief complaint) headache1 (chief complaint) MigraineAnxiolytic dependenceChronic pain syndromeSleep apnea 1 Farhad Lynch. [address], [place], [place], [address] , [place]. tel:[phone] OFFICE/OUTPA TIENT VISIT, [facility], [address] [place], [place], [address], tel:[phone] [facility] anxiety1 (chief complaint) pain (chief complaint) Chronic pain syndromeAnxiolytic dependence 1 Farhad Lynch. [address], [place], [place], [address] , [place]. tel:[phone] OFFICE/OUTPA TIENT VISIT, [facility], [address] [place], [place], [address], [place] tel:[phone] [facility] anxiety1 (chief complaint) pain (chief complaint) nausea1 (chief complaint) Anxiolytic dependenceChronic pain syndromeBenign neoplasm of small intestinePolyp of colon 1 Farhad Lynch. [address] [place] [place], [address] , [place]. tel:[phone] OFFICE/OUTPA TIENT VISIT, [facility], [address] [place], [place], [address], [place] tel:[phone] [facility] headache1 (chief complaint) low k (chief complaint) pain (chief complaint) anxiety1 (chief complaint) Chronic pain syndromeAnxiolytic dependenceMigraineH ypokalemia 1 Farhad Lynch. [address] [place] [place], [address] , [place]. tel:[phone] OFFICE/OUTPA TIENT VISIT, [facility], [address] [place], [address], [place] tel:[phone] [facility] pain1 (chief complaint) headache1 (chief complaint) anxiety1 (chief complaint) hypokalemi a1 (chief complaint) MigraineHypokalemia Chronic pain syndromeAnxiolytic dependenceTobacco use 1 Farhad Lynch. [address] [place], [address] , [place]. tel:[phone] OFFICE/OUTPA TIENT VISIT, [facility], [address] [place] [place], [address], [place] tel:[phone] [facility] anxiety1 (chief complaint) pain (chief complaint) gastric polyp1 (chief complaint) headache1 (chief complaint) MigraineAnxiolytic dependenceChronic pain syndromePolyp of stomach and duodenumGERD w/o esophagitis 1 Farhad Wing [address], [place], [place], [address] , [place]. tel:[phone] OFFICE/OUTPA TIENT VISIT, [facility], [address] [place] [place], [address], [place] tel:[phone] [facility] adenoma1 (chief complaint) anxiety1 (chief complaint) hematuria1 (chief complaint) headache1 (chief complaint) pain (chief complaint) Anxiolytic dependenceChronic pain syndromeHematuriaPo lyp of colonMigraine 1 Farhad Wing [address], [place], [place], [address] , [place]. tel:[phone] OFFICE/OUTPA TIENT VISIT, [facility], [address] [place], [address], [place] tel:[phone] [facility] headache1 (chief complaint) anxiety1 (chief complaint) hypokalemi a1 (chief complaint) nausea1 (chief complaint) hematuria1 (chief complaint) headache1 (chief complaint) HypokalemiaNauseaCh ronic pain syndromeAnxiolytic dependenceHematuria Headache, unspecifiedOth disrd of bone density and structure, unspecified site 1 Farhad Wing [address], [place], [place], [address] , [place]. tel:[phone] OFFICE/OUTPA TIENT VISIT, [facility], [address] [place] [place], [address], [place] tel:[phone] [facility] pain (chief complaint) anxiety1 (chief complaint) nausea1 (chief complaint) headache1 (chief complaint) COPD1 (chief complaint) Headache, unspecifiedEmphysem aChronic pain syndromeAnxiolytic dependenceNauseaHyp okalemia 1 Farhad Wing [address], [place], [place], [address] , . tel:[phone] OFFICE/OUTPA TIENT VISIT, [facility], [address] [place] [place], [address], [place] [phone] [facility] pain (chief complaint) anxiety1 (chief complaint) headache1 (chief complaint) COPD1 (chief complaint) nausea1 (chief complaint) NauseaEmphysemaChro pipe pain syndromeAnxiolytic dependenceMigraineH ypokalemia 1 Farhad Wing [address], [place], [place], [address] , [place]. [phone] OFFICE/OUTPA TIENT VISIT, [facility], [address] [place] [place], [address], [place] tel:[phone] [facility] low KCL (chief complaint) polycythem ia1 (chief complaint) hematuria1 (chief complaint) HematuriaSecondary polycythemiaHypokal emiaDiarrheaNausea 1 aFrhad Wing [address], [place], [place], [address] , [place]. tel:[phone] OFFICE/OUTPA TIENT VISIT, [facility], [address] [place] [place], [address], [place] tel:[phone] [facility] pain (chief complaint) anxiety1 (chief complaint) mammo (chief complaint) headache1 (chief complaint) Chronic pain syndromeAnxiolytic dependenceMigraineE ncounter for oth screening for malignant neoplasm of breast 1 Farhad Wing [address], [place], [place], [address] , [place]. tel:[phone] OFFICE/OUTPA TIENT VISIT, [facility], [address], [place], [place], [address], [place] tel:[phone] [facility] chronic pain1 (chief complaint) anxiety1 (chief complaint) Chronic pain syndromeAnxiolytic dependence 0 Farhad Wing [address], [place], [place], [address] , [place]. [phone] OFFICE/OUTPA TIENT VISIT, [facility], [address], [place], [place], [address], [place] tel:[phone] [facility] physical (chief complaint) Encounter for general adult medical exam w abnormal findingsChronic pain syndromeAnxiolytic dependenceEmphysema Sleep apneaSecondary polycythemia 0 Farhad Wing [address], [place], [place], [address] , [place]. [phone] OFFICE/OUTPA TIENT VISIT, [facility], [address], [place], [place], [address], [place] tel:[phone] [facility] pain (chief complaint) anxiety1 (chief complaint) ear pain1 (chief complaint) Otalgia, left earChronic pain syndromeAnxiolytic dependence 0 Farhad Wing [address], [place], [place], [address] , [place]. tel:[phone] OFFICE/OUTPA TIENT VISIT, [facility], [address] [place], [address], [place] tel:[phone] [facility] back pain (chief complaint) anxiety1 (chief complaint) Chronic pain syndromeAnxiolytic dependence 0 Farhad Lynch. [address], [place], [place], [address] , [place]. tel:[phone] OFFICE/OUTPA TIENT VISIT, [facility], [address] [place] [place], [address], [place] tel:[phone] [facility] pain1 (chief complaint) anxiety1 (chief complaint) glucose1 (chief complaint) COPD1 (chief complaint) EmphysemaSecondary polycythemiaAnxioly tic dependenceChronic pain syndromeMetabolic syndrome 0 Farhad Lynch. [address], [place], [place], [address] , [place]. [phone] OFFICE/OUTPA TIENT VISIT, [facility], [address], [place], [place], [address], [place] tel:[phone] [facility] pain (chief complaint) anxiety1 (chief complaint) Chronic pain syndromeAnxiolytic dependence 0- 0 Farhad Lynch. [address], [place], [place], [address] , [place]. [phone] OFFICE/OUTPA TIENT VISIT, [facility], [address], [place], [place], [address], [place] tel:[phone] [facility] pain (chief complaint) anxiety1 (chief complaint) COPD1 (chief complaint) tobacco1 (chief complaint) Chronic pain syndromeGeneralized anxiety disorderTobacco useEmphysema 0 Farhad Lynch. [address], [place], [place], [address] , [place]. [phone] OFFICE/OUTPA TIENT VISIT, [facility], [address], [place], [place], [address], [place] tel:[phone] [facility] pain (chief complaint) anxiety1 (chief complaint) osteopenia 1 (chief complaint) lung (chief complaint) Generalized anxiety disorderChronic pain syndromeOth disrd of bone density and structure, unspecified siteTobacco use 0 0 Farhad Lynch. [address], [place], [place], [address] , [place]. tel:[phone] OFFICE/OUTPA TIENT VISIT, [facility], [address], [place], [place], [address], [place] tel:[phone] [facility] pain (chief complaint) anxiety1 (chief complaint) Chronic pain syndromeAnxiolytic dependence Jul- 0 Farhad Lynch. [address], [place], [place], [address] , [place]. tel:[phone] OFFICE/OUTPA TIENT VISIT, [facility], [address], [place], [place], [address], [place] tel:[phone] [facility] pain1 (chief complaint) anxiety1 (chief complaint) Chronic pain syndromeAnxiolytic dependence Jun- 0 Farhad Lynch. [address], [place], [place], [address] , [place]. tel:[phone] Referring Provider: Clinton Cooper [address], [place], [place], [address]. tel:[phone] OFFICE/OUTPA TIENT VISIT, [facility], [address], [place], [place], [address], [place] tel:[phone] [facility] pain (chief complaint) anxiety1 (chief complaint) polycythem ia1 (chief complaint) Anxiolytic dependenceChronic pain syndromeSecondary polycythemiaSleep apnea May- 0 Farhad Wing [address], [place], [place], [address] , [place]. tel:[phone] Referring Provider: Clinton Cooper [address], [place], [place], [address]. tel:[phone] OFFICE/OUTPA TIENT VISIT, [facility], [address], [place], [place], [address], [place] tel:[phone] [facility] pain1 (chief complaint) anxiety1 (chief complaint) polycythem ia1 (chief complaint) osteopenia 1 (chief complaint) Chronic pain syndromeSecondary polycythemiaAnxioly tic dependenceOth disrd of bone density and structure, unspecified siteFolate deficiency Apr- 0 Farhad Wing [address], [place], [place], [address] , [place]. tel:[phone] Referring Provider: Clinton Cooper [address], [place], [place], [address]. tel:[phone] OFFICE/OUTPA TIENT VISIT, [facility], [address], [place], [place], [address], [place] tel:[phone] [facility] anxiety1 (chief complaint) pain1 (chief complaint) Chronic pain syndromeAnxiolytic dependence 0-201 9 Farhad Lynch. [address], [place], [place], [address] , [place]. tel:[phone] Referring Provider: Clinton Cooper [address], [place], [place], [address]. tel:[phone] OFFICE/OUTPA TIENT VISIT, [facility], [address], [place], [place], [address], [place] tel:[phone] [facility] polychermi a1 (chief complaint) depression 1 (chief complaint) Secondary polycythemiaInsomni aAnxiolytic dependence 3 9 Farhad Lynch. [address], [place], [place], [address] , [place]. tel:[phone] Referring Provider: Clinton Cooper [address], [place], [place], [address]. tel:[phone] OFFICE/OUTPA TIENT VISIT, [facility], [address], [place], [place], [address], [place] tel:[phone] [facility] folate (chief complaint) polycythem ia1 (chief complaint) anxiety1 (chief complaint) chronic pain (chief complaint) Secondary polycythemiaFolate deficiencyHyperglyc emiaChronic pain syndromeAnxiolytic dependence 9 9 Farhad Lynch. [address], [place], [place], [address] , [place]. tel:[phone] Referring Provider: Clinton Cooper [address], [place], [place], [address]. tel:[phone] OFFICE/OUTPA TIENT VISIT, [facility], [address], [place], [place], [address], [place] tel:[phone] [facility] PHysical (chief complaint) Encounter for general adult medical exam w abnormal findingsChronic pain syndromeOth disrd of bone density and structure, unspecified siteEmphysemaSecond enmanuel polycythemiaSleep apneaGeneralized anxiety disorder 9 Farhad Lynch. [address], [place], [place], [address] , [place]. tel:[phone] Referring Provider: Clinton Cooper [address], [place], [place], [address]. tel:[phone] OFFICE/OUTPA TIENT VISIT, [facility], [address], [place], [place], [address], [place] tel:[phone] [facility] chronic pain (chief complaint) anxiety1 (chief complaint) osteopenia 1 (chief complaint) sleep apnea1 (chief complaint) Sleep apneaChronic pain syndromeOth disrd of bone density and structure, unspecified siteAnxiolytic dependence 9 Farhad Wing [address], [place], [place], [address] , [place]. tel:[phone] Referring Provider: Clinton Cooper [address], [place], [place], [address]. tel:[phone] OFFICE/OUTPA TIENT VISIT, [facility], [address], [place], [place], [address], [place] tel:[phone] [facility] chronic pain (chief complaint) anxiety1 (chief complaint) Chronic pain syndromeGeneralized anxiety disorder 9 Farhad Lynch. [address], [place], [place], [address] , [place]. tel:[phone] OFFICE/OUTPA TIENT VISIT, [facility], [address], [place], [place], [address], [place] tel:[phone] [facility] anxiety1 (chief complaint) pain1 (chief complaint) Chronic pain syndromeGeneralized anxiety disorder 9 Llamas Syed. [address], [place], [place], [address] , [place]. tel:[phone] Referring Provider: Clinton Cooper [address], [place], [place], [address]. tel:[phone] OFFICE/OUTPA TIENT VISIT, [facility], [address], [place], [place], [address], [place] tel:[phone] [facility] anxiety1 (chief complaint) back pain1 (chief complaint) osteopenia 1 (chief complaint) folate1 (chief complaint) sleep apnea1 (chief complaint) Generalized anxiety disorderChronic pain syndromeFolate deficiencyOth disrd of bone density and structure, unspecified siteSleep apnea 9 Farhad Lynch. [address], [place], [place], [address] , [place]. tel:[phone] Referring Provider: Clinton Cooper [address], [place], [place], [address]. tel:[phone] OFFICE/OUTPA TIENT VISIT, [facility], [address], [place], [place], [address], [place] tel:[phone] [facility] chronic pain (chief complaint) anxiety1 (chief complaint) postmeno1 (chief complaint) Chronic pain syndromeGeneralized anxiety disorderPostmenopau mikie statusEmphysema 9 Farhad Lynch. [address], [place], [place], [address] , [place]. tel:[phone] OFFICE/OUTPA TIENT VISIT, [facility], [address], [place], [place], [address], [place] tel:[phone] [facility] chrnoic pain (chief complaint) anxiety1 (chief complaint) Chronic pain syndromeGeneralized anxiety disorderTobacco use 9 Farhad Lynch. [address], [place], [place], [address] , [place]. tel:[phone] Referring Provider: Clinton Cooper [address], [place], [place], [address]. tel:[phone] OFFICE/OUTPA TIENT VISIT, [facility], [address], [place], [place], [address], [place] tel:[phone] [facility] chronic pain1 (chief complaint) anxiety1 (chief complaint) COPD1 (chief complaint) shoulder pain1 (chief complaint) sleep apnea1 (chief complaint) EmphysemaChronic pain syndromeGeneralized anxiety disorderPain in left shoulderSleep apnea 9 Farhad Lynch. [address], [place], [place], [address] , [place]. [phone] Referring Provider: Clinton Cooper [address], [place], [place], [address]. tel:[phone] OFFICE/OUTPA TIENT VISIT, [facility], [facility] [address], [place], [place], [address], [place] tel:[phone] [facility] chronic pain (chief complaint) anxiety1 (chief complaint) Chronic pain syndromeEmphysema 9 Farhad Lynch. [address], [place], [place], [address] , [place]. tel:[phone] Referring Provider: Clinton Cooper [address], [place], [place], [address]. tel:[phone] OFFICE/OUTPA TIENT VISIT, [facility], [address], [place], [place], [address], [place] tel:[phone] [facility] back pain1 (chief complaint) anxiety1 (chief complaint) COPD1 (chief complaint) sleep apnea1 (chief complaint) EmphysemaGeneralize d anxiety disorderChronic pain syndromeSleep apnea 9 Farhad Lynch. [address], [place], [place], [address] , [place]. [phone] Referring Provider: Clinton Cooper [address], [place], [place], [address]. tel:[phone] OFFICE/OUTPA TIENT VISIT, [facility], [address], [place], [place], [address], [place] tel:[phone] [facility] chronic pain1 (chief complaint) anxiety1 (chief complaint) Chronic pain syndromeGeneralized anxiety disorder 8 Farhad Lynch. [address], [place], [place], [address] , [place]. tel:[phone] OFFICE/OUTPA TIENT VISIT, [facility], [address], [place], [place], [address], [place] tel:[phone] [facility] folate1 (chief complaint) polycyther mia1 (chief complaint) sleep apnea1 (chief complaint) back pain1 (chief complaint) anxiety1 (chief complaint) EmphysemaSecondary polycythemiaFolate deficiencyChronic pain syndromeSleep apneaGeneralized anxiety disorder 8 Farhad Lynch. [address], [place], [place], [address] , [place]. tel:[phone] Referring Provider: Clinton Cooper [address], [place], [place], [address]. tel:[phone] OFFICE/OUTPA TIENT VISIT, [facility], [address], [place], [place], [address], [place] tel:[phone] [facility] Physical (chief complaint) Encounter for general adult medical exam w abnormal findingsEmphysemaSl eep apneaSecondary polycythemiaChronic pain syndrome 8 Farhad Lynch. [address], [place], [place], [address] , [place]. tel:[phone] Referring Provider: Clinton Cooper [address], [place], [place], [address]. tel:[phone] OFFICE/OUTPA TIENT VISIT, [facility], [address], [place], [place], [address], [place] tel:[phone] [facility] polycyther mia1 (chief complaint) folate1 (chief complaint) anxiety1 (chief complaint) back pain1 (chief complaint) COPD1 (chief complaint) Secondary polycythemiaFolate deficiencyChronic pain syndromeGeneralized anxiety disorderEmphysema 8 Farhad Lynch. [address], [place], [place], [address] , [place]. tel:[phone] Referring Provider: Clinton Cooper [address], [place], [place], [address]. tel:[phone] OFFICE/OUTPA TIENT VISIT, [facility], [address], [place], [place], [address], [place] tel:[phone] [facility] Medicine D (chief complaint) polychermi a1 (chief complaint) folate1 (chief complaint) back pain1 (chief complaint) anxiety1 (chief complaint) Secondary polycythemiaFolate deficiencyVitamin D deficiency, unspecifiedChronic pain syndromeGeneralized anxiety disorderSleep apnea 8 Farhad Lynch. [address], [place], [place], [address] , [place]. tel:[phone] Referring Provider: Clinton Cooper [address], [place], [place], [address]. tel:[phone] OFFICE/OUTPA TIENT VISIT, [facility], [address] [place], [place], [address], [place] tel:[phone] [facility] chronic pain1 (chief complaint) anxiety1 (chief complaint) sleep anpea1 (chief complaint) COPD1 (chief complaint) glucose1 (chief complaint) Chronic pain syndromeGeneralized anxiety disorderEmphysemaSl eep apneaHyperglycemia 8 Farhad Lynch. [address], [place], [place], [address] , [place]. tel:[phone] Referring Provider: Clinton Cooper [address], [place], [place], [address]. tel:[phone] OFFICE/OUTPA TIENT VISIT, [facility], [address] [place], [address], [place] tel:[phone] [facility] chronic pain1 (chief complaint) anxiety1 (chief complaint) COPD1 (chief complaint) Chronic pain syndromeEmphysemaGe neralized anxiety disorder 8 Farhad Wing [address], [place], [place], [address] , [place]. tel:[phone] Referring Provider: Clinton Cooper [address], [place], [place], [address]. tel:[phone] OFFICE/OUTPA TIENT VISIT, [facility], [address], [place], [place], [address], [place] tel:[phone] [facility] COPD1 (chief complaint) chronic pain (chief complaint) aniety1 (chief complaint) Body mass index (BMI) 28.0-28.9, adultEmphysemaChron ic pain syndromeGeneralized anxiety disorder 8 Farhad Wing [address], [place], [place], [address] , [place]. tel:[phone] Referring Provider: Clinton Cooper [address], [place], [place], [address]. tel:[phone] OFFICE/OUTPA TIENT VISIT, [facility], [address], [place], [place], [address], [place] tel:[phone] [facility] chronic pain (chief complaint) HLP (chief complaint) COPD1 (chief complaint) anxiety1 (chief complaint) Body mass index (BMI) 28.0-28.9, adultEmphysemaHyper lipidemiaGeneralize d anxiety disorderChronic pain syndrome 8 Farhad Wing [address], [place], [place], [address] , [place]. tel:[phone] OFFICE/OUTPA TIENT VISIT, [facility], [address], [place], [place], [address], [place] tel:[phone] [facility] COPD1 (chief complaint) chronic pain (chief complaint) anxiety1 (chief complaint) EmphysemaChronic pain syndromeGeneralized anxiety disorderTobacco use 8 Farhad Lynch. [address], [place], [place], [address] , [place]. tel:[phone] Referring Provider: Clinton Cooper [address], [place], [place], [address]. tel:[phone] OFFICE/OUTPA TIENT VISIT, [facility], [address], [place], [place], [address], [place] tel:[phone] [facility] back pain1 (chief complaint) anxiety1 (chief complaint) tobacco1 (chief complaint) rib fx1 (chief complaint) Chronic pain syndromeGeneralized anxiety disorderEmphysemaCh est pain 8 Farhad Wing [address], [place], [place], [address] , [place]. tel:[phone] Referring Provider: [address], [place], [place], [address]. tel:[phone] OFFICE/OUTPA TIENT VISIT, [facility], [address], [place], [place], [address], [place] tel:[phone] [facility] anxiety1 (chief complaint) chronic pain1 (chief complaint) tobacco1 (chief complaint) colon Ca (chief complaint) mole1 (chief complaint) Nevus, non-neoplasticGener alized anxiety disorderChronic pain syndromeEmphysema 8 Farhad Wing [address], [place], [place], [address] , [place]. tel:[phone] Referring Provider: Clinton [address], [place], [address]. tel:[phone] OFFICE/OUTPA TIENT VISIT, [facility], [address], [place], [place], [address], [place] tel:[phone] [facility] chronic pain (chief complaint) anxiety1 (chief complaint) Chronic pain syndromeGeneralized anxiety disorder 7 Farhad Wing [address], [place], [place], [address] , [place]. tel:[phone] Referring Provider: Clinton Cooper [address], [place], [place], [address]. tel:[phone] OFFICE/OUTPA TIENT VISIT, [facility], [address], [place], [address], [place] tel:[phone] [facility] COPD1 (chief complaint) anxiety1 (chief complaint) chronic pain1 (chief complaint) incontinen ce1 (chief complaint) Generalized anxiety disorderMixed incontinenceCOPDChr onic pain syndrome 7 Farhad Lynch. [address], [place], [place], [address] , [place]. tel:[phone] Referring Provider: Clinton Cooper [address], [place], [place], [address]. tel:[phone] OFFICE/OUTPA TIENT VISIT, [facility], [address], [place], [place], [address], [place] tel:[phone] [facility] anxiety1 (chief complaint) chronic pain1 (chief complaint) liver disease1 (chief complaint) incontinen ce1 (chief complaint) Chronic pain syndromeGeneralized anxiety disorderLiver diseaseMixed incontinence Farhad Lynch. [address], [place], [place], [address] , [place]. tel:[phone] Referring Provider: Clinton Cooper [address], [place], [place], [address]. tel:[phone] OFFICE/OUTPA TIENT VISIT, [facility], [address], [place], [place], [address], [place] tel:[phone] [facility] chronic meli (chief complaint) anxiety1 (chief complaint) COPD1 (chief complaint) folic (chief complaint) Chronic pain syndromeFolate deficiencyGeneraliz ed anxiety disorderCOPD 7 Farhad Lynch. [address], [place], [place], [address] , [place]. tel:[phone] Referring Provider: Clinton Cooper [address], [place], [place], [address]. tel:[phone] PREV VISIT, EST, AGE 40-64 [facility], [address], [place], [place], [address], [place] tel:[phone] [facility] PHysical (chief complaint) Encounter for general adult medical exam w abnormal findingsHyperlipide miaFolate deficiencyChronic pain syndrome aFrhad Lynch. [address], [place], [place], [address] , [place]. tel:[phone] Referring Provider: Clinton Cooper [address] [facility], [place], [place], [address]. tel:[phone] OFFICE/OUTPA TIENT VISIT, [facility], [address], [place], [place], [address], [place] [phone] [facility] chronic pain1 (chief complaint) anxiety1 (chief complaint) oAb (chief complaint) liver disease1 (chief complaint) Liver diseaseOveractive bladderGeneralized Anxiety DisorderChronic pain syndrome Farhad Lynch. [address], [place], [place], [address] , [place]. tel:[phone] Referring Provider: Clinton Cooper [address], [place], [place], [address]. tel:[phone] OFFICE/OUTPA TIENT VISIT, [facility], [address], [place], [place], [address], [place] tel:[phone] [facility] back pain1 (chief complaint) anxiety1 (chief complaint) COPD1 (chief complaint) Chronic pain syndromeGeneralized anxiety disorderCOPDTobacco use Farhad Lynch. [address], [place], [place], [address] , [place]. tel:[phone] Referring Provider: Clinton Cooper [address], [place], [address]. tel:[phone] OFFICE/OUTPA TIENT VISIT, [facility], [address], [place], [place], [address], [place] tel:[phone] [facility] back pain1 (chief complaint) anxiety1 (chief complaint) HLP (chief complaint) tobacco1 (chief complaint) Chronic pain syndromeGeneralized anxiety disorderTobacco useHyperlipidemia 7 Farhad Lynch. [address], [place], [place], [address] , [place]. tel:[phone] Referring Provider: Clinton Cooper [address], [place], [place], [address]. tel:[phone] OFFICE/OUTPA TIENT VISIT, [facility], [address], [place], [place], [address], [place] tel:[phone] [facility] COPD1 (chief complaint) chronic pain1 (chief complaint) anxiety1 (chief complaint) COPDChronic pain syndromeGeneralized anxiety disorderBody mass index (BMI) 31.0-31.9, adult August-0 7 Farhad Lynch. [address], [place], [address] , [place]. tel:[phone] Referring Provider: Clinton Cooper [address], [place], [place], [address]. tel:[phone] OFFICE/OUTPA TIENT VISIT, [facility], [address], [place], [place], [address], [place] tel:[phone] [facility] cough1 (chief complaint) Acute bronchitis, unspecified 7 Farhad Lynch. [address], [place], [place], [address] , [place]. tel:[phone] Referring Provider: Clinton Cooper [address], [place], [place], [address]. tel:[phone] OFFICE/OUTPA TIENT VISIT, [facility], [address], [place], [address], [place] tel:[phone] [facility] back pain1 (chief complaint) anxiety1 (chief complaint) COPD1 (chief complaint) sleep apnea1 (chief complaint) COPDChronic pain syndromeGeneralized anxiety disorderSleep apnea Jul-0 7 Farhad Lynch. [address], [place], [place], [address] , [place]. tel:[phone] Referring Provider: Clinton Cooper [address], [place], [place], [address]. tel:[phone] OFFICE/OUTPA TIENT VISIT, [facility], [address], [place], [place], [address], [place] tel:[phone] [facility] Anxiety1 (chief complaint) back pain1 (chief complaint) COPD1 (chief complaint) tobacco1 (chief complaint) COPDChronic pain syndromeGeneralized Anxiety DisorderTobacco use Jun- 7 Farhad Wing [address], [place], [place], [address] , [place]. [phone] Referring Provider: Clinton Cooper [address], [place], [place], [address]. tel:[phone] OFFICE/OUTPA TIENT VISIT, [facility], [address], [place], [place], [address], [place] tel:[phone] [facility] LFT (chief complaint) lung nodule (chief complaint) chronic pain1 (chief complaint) anxiety1 (chief complaint) HyperglycemiaLiver diseaseSolitary lung noduleChronic pain syndrome Fe0 7 Farhad Wing [address], [place], [address] , [place]. [phone] Referring Provider: Clinton Cooper [address], [place], [place], [address]. tel:[phone] OFFICE/OUTPA TIENT VISIT, [facility], [address], [place], [place], [address], [place] tel:[phone] [facility] COPD1 (chief complaint) back pain1 (chief complaint) anxiety1 (chief complaint) DM (chief complaint) HyperglycemiaLiver diseaseHyperlipidem iaCOPD 7 Farhad Lynch. [address], [place], [place], [address] , [place]. tel:[phone] Referring Provider: Clinton [address], [place], [place], [address]. tel:[phone] OFFICE/OUTPA TIENT VISIT, [facility], [address], [place], [place], [address], [place] tel:[phone] [facility] anxiety1 (chief complaint) back pain1 (chief complaint) COPD1 (chief complaint) tobacco1 (chief complaint) Chronic pain syndromeGeneralized anxiety disorderTobacco useEmphysema 6 Farhad Lynch. [address], [place], [place], [address] , [place]. tel:[phone] Referring Provider: Clinton Cooper [address], [place], [place], [address]. tel:[phone] OFFICE/OUTPA TIENT VISIT, [facility], [address], [place], [place], [address], [place] tel:[phone] [facility] COPD1 (chief complaint) back apin (chief complaint) anxiety1 (chief complaint) COPDGeneralized anxiety disorderChronic pain syndrome 6 Farhad Lynch. [address], [place], [place], [address] , [place]. tel:[phone] Referring Provider: Clinton Cooper [address], [place], [place], [address]. tel:[phone] OFFICE/OUTPA TIENT VISIT, [facility], [address], [place], [place], [address], [place] tel:[phone] [facility] bronchitis 1 (chief complaint) COPD1 (chief complaint) Acute bronchitisCOPD 6 Farhad Lynch. [address], [place], [place], [address] , [place]. tel:[phone] Referring Provider: Clinton Cooper [address], [place], [place], [address]. tel:[phone] OFFICE/OUTPA TIENT VISIT, EST [facility], [address], [place], [place], [address], [place] [phone] [facility] back pain1 (chief complaint) anxiety1 (chief complaint) COPD1 (chief complaint) COPDChronic pain syndromeGeneralized anxiety disorder Sep-2 6 Farhad Lynch. [address], [place], [place], [address] , [place]. tel:[phone] Referring Provider: Clinton Cooper [address], [place], [place], [address]. tel:[phone] OFFICE/OUTPA TIENT VISIT, EST [facility], [address], [place], [place], [address], [place] tel:[phone] [facility] LBP (chief complaint) COPD (chief complaint) Anxiety1 (chief complaint) Chronic pain syndromeGeneralized anxiety disorderEmphysema Dec-0 6 Farhad Lynch. [address], [place], [place], [address] , [place]. tel:[phone] Referring Provider: Clinton Cooper [address], [place], [place], [address]. tel:[phone] PREV VISIT, EST, AGE 40-64 [facility], [address], [place], [place], [address], [place] tel:[phone] [facility] Physical (chief complaint) Encounter for general adult medical exam w abnormal findingsEmphysemaLu mbagoGeneralized anxiety disorderEncntr for general adult medical exam w/o abnormal findings 0 6 Farhad Lynch. [address], [place], [place], [address] , [place]. tel:[phone] Referring Provider: Clinton Cooper [address], [place], [place], [address]. tel:[phone] OFFICE/OUTPA TIENT VISIT, [facility], [address], [place], [place], [address], [place] tel:[phone] [facility] SOB1 (chief complaint) back pain1 (chief complaint) anxiety1 (chief complaint) DyspneaGeneralized anxiety disorderLumbagoEnco unter for oth screening for malignant neoplasm of breast 6 Farhad Lynch. [address], [place], [place], [address] , [place]. tel:[phone] Referring Provider: Clinton Cooper [address], [place], [place], [address]. tel:[phone] OFFICE/OUTPA TIENT VISIT, [facility], [address], [place], [place], [address], [place] tel:[phone] [facility] sleep apnea1 (chief complaint) LBP1 (chief complaint) SOB (chief complaint) Sleep apneaDyspneaChronic pain syndromeGeneralized anxiety disorder 6 Farhad Lynch. [address], [place], [place], [address] , [place]. tel:[phone] Referring Provider: Clinton Cooper [address], [place], [place], [address]. tel:[phone] OFFICE/OUTPA TIENT VISIT, [facility], [address], [place], [place], [address], [place] tel:[phone] [facility] chronic pain (chief complaint) sleep apnea1 (chief complaint) Anxiety1 (chief complaint) Sleep apneaChronic pain syndromeGeneralized Anxiety Disorder 6 Farhad Lynch. [address], [place], [place], [address] , [place]. tel:[phone] Referring Provider: Clinton Cooper [address], [place], [place], [address]. tel:[phone] OFFICE/OUTPA TIENT VISIT, [facility], [address], [place], [place], [address], [place] tel:[phone] [facility] back pain (chief complaint) sleep apnea (chief complaint) anxiety1 (chief complaint) Other sleep apneaGeneralized anxiety disorderChronic pain syndromeEncounter for screening for osteoporosis 6 Farhad Lynch. [address], [place], [place], [address] , [place]. tel:[phone] Referring Provider: Clinton Cooper [address], [place], [address]. tel:[phone] OFFICE/OUTPA TIENT VISIT, [facility], [address], [place], [place], [address], [place] tel:[phone] [facility] anxiety1 (chief complaint) chronic pain (chief complaint) sleep apnea (chief complaint) Generalized anxiety disorderOther sleep apneaChronic pain syndrome Jun-0 6 Farhad Lynch. [address], [place], [place], [address] , [place]. tel:[phone] Referring Provider: Clinton Cooper [address], [place], [place], [address]. tel:[phone] OFFICE/OUTPA TIENT VISIT, [facility], [address], [place], [place], [address], [place] tel:[phone] [facility] Anxiety1 (chief complaint) LBP (chief complaint) sleep apnea (chief complaint) Generalized anxiety disorderOther insomniaOther sleep apneaChronic pain syndrome 0 6 Farhad Lynch. [address], [place], [place], [address] , [place]. tel:[phone] Referring Provider: Clinton Cooper [address], [place], [place], [address]. tel:[phone] OFFICE/OUTPA TIENT VISIT, [facility], [address], [place], [place], [address], [place] tel:[phone] [facility] Anxiety1 (chief complaint) chronic pain1 (chief complaint) Other sleep apneaOther insomniaGeneralized anxiety disorderEssential (primary) hypertension 6 Farhad Lynch. [address], [place], [place], [address] , [place]. [phone] Referring Provider: Clinton [address], [place], [place], [address]. tel:[phone] OFFICE/OUTPA TIENT VISIT, [facility], [address], [place], [place], [address], [place] tel:[phone] [facility] back pain1 (chief complaint) anxiety1 (chief complaint) low K (chief complaint) ear pain1 (chief complaint) HypokalemiaGenerali zed Anxiety DisorderChronic pain syndromeAcute upper respiratory infection, unspecified 5 Farhad Lynch. [address], [place], [place], [address] , [place]. tel:[phone] Referring Provider: Clinton [address], [place], [address]. tel:[phone] OFFICE/OUTPA TIENT VISIT, [facility], [address], [place], [place], [address], [place] tel:[phone] [facility] lumbago1 (chief complaint) Anxiety1 (chief complaint) cough1 (chief complaint) Other spondylosis, lumbosacral regionGeneralized anxiety disorderAcute bronchitis, unspecified 5 Farhad Wing [address], [place], [place], [address] , [place]. [phone] Referring Provider: Clinton Cooper [address], [place], [place], [address]. tel:[phone] OFFICE/OUTPA TIENT VISIT, [facility], [address], [place], [place], [address], [place] tel:[phone] [facility] axillary pain (chief complaint) lumbago (chief complaint) Anxiety1 (chief complaint) leg pain1 (chief complaint) Dietary surveillance and counselingMajor depressive disorder, recurrent, moderateOther spondylosis, lumbosacral regionLumbago with sciatica, left side 5 Farhad Lynch. [address], [place], [place], [address] , [place]. [phone] Referring Provider: Clinton Cooper [address], [place], [place], [address]. tel:[phone] OFFICE/OUTPA TIENT VISIT, [facility], [address], [place], [place], [address], [place] [phone] [facility] back pain (chief complaint) depression (chief complaint) axillary pain (chief complaint) Dietary surveillance and counselingMajor depression disorder with single episode of mild depressionLumbagoHy pokalemiaAxillary pain 5 Farhad Lynch. [address], [place], [place], [address] , [place]. tel:[phone] Referring Provider: Clinton Cooper [address], [place], [place], [address]. tel:[phone] OFFICE/OUTPA TIENT VISIT, [facility], [address], [place], [place], [address], [place] tel:[phone] [facility] anxiety (chief complaint) back apin (chief complaint) anxiety (chief complaint) Dietary surveillance and counselingLumbagoGe neralized anxiety disorder 5 Farhad Lynch. [address], [place], [place], [address] , [place]. [phone] Referring Provider: Clinton Cooper [address], [place], [place], [address]. tel:[phone] PREV VISIT, EST, AGE 40-64 [facility], [address], [place], [address], [place] tel:[phone] [facility] PHysical (chief complaint) Dietary surveillance and counselingRoutine medical exam 5 Farhad Lynch. [address], [place], [place], [address] , [place]. [phone] Referring Provider: Clinton Cooper [address], [place], [place], [address]. tel:[phone] OFFICE/OUTPA TIENT VISIT, [facility], [address], [place], [place], [address], [place] tel:[phone] [facility] back pain (chief complaint) Anxiety (chief complaint) Other chronic painGeneralized anxiety disorderScreening mammogram 5 Farhad Lynch. [address], [place], [place], [address] , [place]. [phone] Referring Provider: Clinton Cooper [address], [place], [place], [address]. tel:[phone] OFFICE/OUTPA TIENT VISIT, [facility], [address], [place], [place], [address], [place] tel:[phone] [facility] back pain (chief complaint) anxiety (chief complaint) HTN (chief complaint) LumbagoGeneralized anxiety disorderHypertensio n, UnspecifiedOpioid type dependence, unspecified use 5 Farhad Lynch. [address], [place], [address] , [place]. tel:[phone] Referring Provider: Clinton Cooper [address], [place], [place], [address]. tel:[phone] OFFICE/OUTPA TIENT VISIT, [facility], [address], [place], [place], [address], [place] tel:[phone] [facility] ear pain (chief complaint) right axillary (chief complaint) back pain (chief complaint) Pain in limbCHRONIC PAIN NECGeneralized anxiety disorder 5 Farhad Lynch. [address], [place], [place], [address] , [place]. tel:[phone] Referring Provider: Clinton Cooper [address], [place], [place], [address]. tel:[phone] OFFICE/OUTPA TIENT VISIT, [facility], [address], [place], [place], [address], [place] tel:[phone] [facility] back pain (chief complaint) anxiety (chief complaint) LumbagoGeneralized anxiety disorderMajor depressive affective disorder, single episode, mild degree 5 Farhad Lynch. [address], [place], [place], [address] , [place]. tel:[phone] Referring Provider: Syed Llamas, [address], [place], [place], [address]. tel:[phone] OFFICE/OUTPA TIENT VISIT, [facility], [address], [place], [place], [address], [place] tel:[phone] [facility] back pain (chief complaint) anxiety (chief complaint) LumbagoGeneralized anxiety disorder 5 Farhad Lynch. [address], [place], [place], [address] , [place]. tel:[phone] Referring Provider: Clinton Cooper [address], [place], [place], [address]. tel:[phone] OFFICE/OUTPA TIENT VISIT, [facility], [address], [place], [address], [place] tel:[phone] [facility] anxiety (chief complaint) back pain (chief complaint) Generalized anxiety disorderLumbagoClos ed fracture of sacrum and coccyx without mention of spinal cord injuryOpioid type dependence, unspecified use 5 Farhad Lynch. [address], [place], [address] , [place]. tel:[phone] Referring Provider: Clinton Cooper [address], [place], [place], [address]. tel:[phone] OFFICE/OUTPA TIENT VISIT, [facility], [address], [place], [place], [address], [place] tel:[phone] [facility] back pain (chief complaint) tailbone pain (chief complaint) Closed fracture of sacrum and coccyx without mention of spinal cord injuryLumbago 4 Farhad Lynch. [address], [place], [place], [address] , [place]. tel:[phone] Referring Provider: Clinton Cooper [address], [place], [place], [address]. tel:[phone] OFFICE/OUTPA TIENT VISIT, [facility], [address], [place], [place], [address], [place] tel:[phone] [facility] back pain (chief complaint) anxiety (chief complaint) LumbagoGeneralized anxiety disorder 4 Farhad Lynch. [address], [place], [place], [address] , [place]. tel:[phone] Referring Provider: Clinton Cooper [address], [place], [place], [address]. tel:[phone] OFFICE/OUTPA TIENT VISIT, [facility], [address], [place], [place], [address], [place] tel:[phone] [facility] back pain (chief complaint) Anxiety (chief complaint) CHRONIC PAIN NECGeneralized anxiety disorder 4 Farhad Lynch. [address], [place], [place], [address] , [place]. tel:[phone] Referring Provider: Clinton Cooper [address], [place], [place], [address]. tel:[phone] OFFICE/OUTPA TIENT VISIT, [facility], [address], [place], [place], [address], [place] tel:[phone] [facility] back pain (chief complaint) anxiety (chief complaint) LumbagoGeneralized anxiety disorder 4 Farhad Lynch. [address], [place], [place], [address] , [place]. tel:[phone] Referring Provider: Clinton Cooper [address], [place], [place], [address]. tel:[phone] OFFICE/OUTPA TIENT VISIT, [facility], [address], [place], [place], [address], [place] tel:[phone] [facility] back pain (chief complaint) anxiety (chief complaint) Generalized anxiety disorderLumbago 4 Farhad Lynch. [address], [place], [place], [address] , [place]. tel:[phone] Referring Provider: Clinton Cooper [address], [place], [place], [address]. tel:[phone] OFFICE/OUTPA TIENT VISIT, [facility], [address], [place], [place], [address], [place] tel:[phone] [facility] anxiety (chief complaint) back pain (chief complaint) CHRONIC PAIN NECGeneralized anxiety disorder 4 Farhad Lynch. [address], [place], [place], [address] , [place]. tel:[phone] Referring Provider: Clinton Cooper [address], [place], [place], [address]. tel:[phone] OFFICE/OUTPA TIENT VISIT, [facility], [address], [place], [place], [address], [place] tel:[phone] [facility] anxiety (chief complaint) SOB (chief complaint) back pain (chief complaint) Generalized anxiety disorderLumbagoResp iratory abnormality, unspecifiedDietary surveillance and counseling 4 Farhad Lynch. [address], [place], [place], [address] , [place]. tel:[phone] Referring Provider: Clinton Cooper [address], [place], [place], [address]. tel:[phone] OFFICE/OUTPA TIENT VISIT, [facility], [address], [place], [place], [address], [place] tel:[phone] [facility] [facility] (chief complaint) anxiety (chief complaint) Generalized anxiety disorderLumbago 4 Farhad Lynch. [address], [place], [place], [address] , [place]. tel:[phone] Referring Provider: Clinton Cooper [address], [place], [place], [address]. tel:[phone] OFFICE/OUTPA TIENT VISIT, [facility], [address], [place], [place], [address], [place] tel:[phone] [facility] back pain (chief complaint) anxiety (chief complaint) abnormal mammogram (chief complaint) Dietary surveillance and counselingHypertens ion, UnspecifiedLumbagoG eneralized anxiety disorderUnspecified abnormal mammogram 4 Farhad Wing [address], [place], [place], [address] , [place]. [phone] Referring Provider: Clinton Cooper [address], [place], [place], [address]. tel:[phone] OFFICE/OUTPA TIENT VISIT, [facility], [address], [place], [place], [address], [place] tel:[phone] [facility] back pain (chief complaint) anxiety (chief complaint) chornic pain (chief complaint) Dietary surveillance and counselingCHRONIC PAIN NECGeneralized anxiety disorder 4 Farhad Alonzo [address], [place], [place], [address] , [place]. [phone] Referring Provider: Clinton Cooper [address], [place], [place], [address]. tel:[phone] OFFICE/OUTPA TIENT VISIT, [facility], [address], [place], [place], [address], [place] tel:[phone] [facility] anxiety (chief complaint) back pain (chief complaint) Dietary surveillance and counselingGeneraliz ed anxiety disorderLumbago 4 Farhad Wing [address], [place], [place], [address] , [place]. tel:[phone] Referring Provider: Syed Llamas, [address], [place], [place], [address]. tel:[phone] OFFICE/OUTPA TIENT VISIT, [facility], [address], [place], [place], [address], [place] [phone] [facility] back pain (chief complaint) anxiety (chief complaint) knee pain (chief complaint) Dietary surveillance and counselingGeneraliz ed anxiety disorderLumbago 4 Farhad Lynch. [address], [place], [place], [address] , [place]. tel:[phone] Referring Provider: Clinton Cooper [address], [place], [place], [address]. tel:[phone] OFFICE/OUTPA TIENT VISIT, [facility], [address], [place], [place], [address], [place] [phone] [facility] back pain (chief complaint) anxiety (chief complaint) Dietary surveillance and counselingLumbagoGe neralized anxiety disorder 4 Farhad Lynch. [address], [place], [place], [address] , [place]. tel:[phone] Referring Provider: Clinton Cooper [address], [place], [place], [address]. tel:[phone] OFFICE/OUTPA TIENT VISIT, [facility], [address], [place], [place], [address], [place] tel:[phone] [facility] anxiety (chief complaint) back pain (chief complaint) Dietary surveillance and counselingGeneraliz ed anxiety disorderMajor depressive affective disorder, single episode, mild degreeLumbago 3 Farhad Lynch. [address], [place], [place], [address] , [place]. tel:[phone] Referring Provider: Clinton Cooper [address], [place], [place], [address]. tel:[phone] OFFICE/OUTPA TIENT VISIT, [facility], [address], [place], [place], [address], [place] tel:[phone] [facility] back pain (chief complaint) anxiety (chief complaint) Generalized anxiety disorderCHRONIC PAIN NECDietary surveillance and counseling 3 Farhad Lynch. [address], [place], [place], [address] , [place]. tel:[phone] Referring Provider: Syed Llamas, [address], [place], [place], [address]. tel:[phone] OFFICE/OUTPA TIENT VISIT, [facility], [address], [place], [place], [address], [place] tel:[phone] [facility] back pain (chief complaint) anxiety (chief complaint) Dietary surveillance and counselingLumbagoGe neralized anxiety disorder 3 Farhad Lynch. [address], [place], [place], [address] , [place]. tel:[phone] Referring Provider: Clinton Cooper [address], [place], [place], [address]. tel:[phone] OFFICE/OUTPA TIENT VISIT, [facility], [address], [place], [place], [address], [place] tel:[phone] [facility] back pain (chief complaint) anxiety (chief complaint) Dietary surveillance and counselingCHRONIC PAIN NECGeneralized anxiety disorder 3 Farhad Lynch. [address], [place], [place], [address] , [place]. tel:[phone] Referring Provider: Clinton Cooper [address], [place], [place], [address]. tel:[phone] OFFICE/OUTPA TIENT VISIT, [facility], [address], [place], [place], [address], [place] tel:[phone] [facility] anxiety (chief complaint) back pain (chief complaint) Dietary surveillance and counselingCHRONIC PAIN NECGeneralized anxiety disorderMajor depressive affective disorder, single episode, mild degree 3 Farhad Lynch. [address], [place], [place], [address] , [place]. [phone] Referring Provider: Clinton Cooper [address], [place], [place], [address]. tel:[phone] OFFICE/OUTPA TIENT VISIT, [facility], [address], [place], [place], [address], [place] tel:[phone] [facility] anxiety (chief complaint) back pain (chief complaint) HLP (chief complaint) Dietary surveillance and counselingGeneraliz ed anxiety disorderCHRONIC PAIN NECHypertension, Unspecified 3 Farhad Lynch. [address], [place], [place], [address] , [place]. tel:[phone] Referring Provider: Clinton Cooper [address], [place], [place], [address]. tel:[phone] [facility], [address], [place], [place], [address], [place] tel:[phone] [facility] Unspecified abnormal mammogram 3 Farhad Lynch. [address], [place], [place], [address] , [place]. [phone] Referring Provider: Clinton Cooper [address], [place], [place], [address]. tel:[phone] OFFICE/OUTPA TIENT VISIT, [facility], [address], [place], [place], [address], [place] tel:[phone] [facility] back pain (chief complaint) anxiety (chief complaint) abnormal mammogram (chief complaint) Dietary surveillance and counselingGeneraliz ed anxiety disorderCHRONIC PAIN NEC 3 Farhad Lynch. [address], [place], [place], [address] , [place]. [phone] Referring Provider: Clinton Cooper [address], [place], [place], [address]. tel:[phone] OFFICE/OUTPA TIENT VISIT, [facility], [address] [place], [address], tel:[phone] [facility] chronic pain (chief complaint) anxiety (chief complaint) HTN (chief complaint) lesion (chief complaint) Dietary surveillance and counselingCHRONIC PAIN NECGeneralized anxiety disorder 3 Farhad Lynch. [address] [place], [address] , [place]. [phone] Referring Provider: Syed Llamas, [address] [facility] [address], [place], [place], [address]. tel:[phone] OFFICE/OUTPA TIENT VISIT, [facility], [address], [place], [place], [address], tel:[phone] [facility] anxiety (chief complaint) chronic pain (chief complaint) HTN (chief complaint) Dietary surveillance and counselingCHRONIC PAIN NECGeneralized anxiety disorderHypertensio n, Unspecified 3 Farhad Lynch. [address], [place], [place], [address] , [place]. tel:[phone] Family History Family Member Type Diagnosis Age At Onset Brother Problem (finding) Alive and well Mother Problem (finding) Alive and well Father Problem (finding) Unknown Disease Payers Payer name Insurance type Covered democrat ID Authormiltona tielisa(s) [facility] [id number] Social History Type Description Quantity Date Captured Comments Alcohol Use Details No Caffeine Use Details Unknown Tobacco Use Status Heavy cigarette smok er (20-39 cigs/day) Smoking Status Heavy tobacco smoker Sex Female Vital Signs Date / Time: Height Weight BMI Pulse Rate Blood Pressure Temperature Respiratory Rate Body Surface Area Head Circumference BMI percentile Pulse Ox Inhaled Ox 2:51 PM 63.00 in 159.00 lbs 28.1 7 kg/m eter (2) 88 /min 120/74 mm[Hg] 98.1 F 16 /min Chief Complaint And Reason For Visit From encounter dated 04/25/2024 14:42'. physical (chief complaint). Description: Pt needs annual physical. Pt has chronic anxiety and depression with bipolar .Pt takes cymbalta and klonopin and doing ok.. Pt denies any suicidal or homicidal thought Pt denies any crying spells. Pt has chronic low back pain Pt denies any saddle area paresthesia Pt denies any loss of bowel or bladder control. Pt has DDD. Pt has COPD .Pt takes trelegy and she sees pulmonary .Pt denies any hemoptysis, worsening sob or cough. Pt still smoking. Pt has osteopenia .Pt takes calcium and D and is working on weight bearing exercise. Pt takes kcl for chronic low kcl. Pt currently doing ok .Pt denies any other complaints. Pt has CAD Pt sees cardiology Pt has HLP Pt takes crestor .Pt denies any myalgia. Plan Of Treatment Date Type Action Status Goal Zoster vaccine. Due on due Goal Pap/HPV testing. Due on due Goal FOBT. Due on due Goal Tdap. Due on due Goal Td vaccine. Due on due Goal Influenza vaccine. Due on due Goal Sigmoidoscopy. Due on due Goal Depression screening. Due on due Goal Lipid panel. Due on 025 due Goal Lipid panel. Due on 024 due Goal Depression screening. Due on due Goal Sigmoidoscopy. Due on due Goal Influenza vaccine. Due on due Goal Zoster vaccine. Due on due Goal Pap/HPV testing. Due on due Goal FOBT. Due on due Goal Tdap. Due on due Goal Td vaccine. Due on due Goal FOBT. Due on due Goal Pap/HPV testing. Due on due Goal Zoster vaccine. Due on due Goal Influenza vaccine. Due on due Goal Sigmoidoscopy. Due on due Goal Depression screening. Due on due Goal Lipid panel. Due on due Goal Tdap. Due on due Goal Td vaccine. Due on due Goal Td vaccine. Due on due Goal Tdap. Due on due Goal FOBT. Due on due Goal Pap/HPV testing. Due on due Goal Zoster vaccine. Due on due Goal Influenza vaccine. Due on due Goal Sigmoidoscopy. Due on due Goal Depression screening. Due on due Goal Lipid panel. Due on due Goal Td vaccine. Due on due Goal Tdap. Due on due Goal FOBT. Due on due Goal Pap/HPV testing. Due on due Goal Zoster vaccine. Due on due Goal Influenza vaccine. Due on due Goal Sigmoidoscopy. Due on due Goal Depression screening. Due on due Goal Lipid panel. Due on due Goal Td vaccine. Due on due Goal Tdap. Due on due Goal FOBT. Due on due Goal Pap/HPV testing. Due on due Goal Zoster vaccine. Due on due Goal Influenza vaccine. Due on due Goal Sigmoidoscopy. Due on due Goal Depression screening. Due on due Goal Lipid panel. Due on due Goal Lipid panel. Due on due Goal Depression screening. Due on due Goal Sigmoidoscopy. Due on due Goal Influenza vaccine. Due on due Goal Td vaccine. Due on due Goal Tdap. Due on due Goal FOBT. Due on due Goal Pap/HPV testing. Due on due Goal Zoster vaccine. Due on due Goal Zoster vaccine. Due on due Goal Pap/HPV testing. Due on due Goal FOBT. Due on due Goal Tdap. Due on due Goal Td vaccine. Due on due Goal Lipid panel. Due on due Goal Depression screening. Due on due Goal Sigmoidoscopy. Due on due Goal Influenza vaccine. Due on Ju n due Goal Influenza vaccine. Due on Ma due Goal Zoster vaccine. Due on due Goal Pap/HPV testing. Due on due Goal FOBT. Due on due Goal Tdap. Due on due Goal Td vaccine. Due on due Goal Lipid panel. Due on due Goal Depression screening. Due on due Goal Sigmoidoscopy. Due on due Goal Influenza vaccine. Due on due Goal Zoster vaccine. Due on due Goal Pap/HPV testing. Due on due Goal FOBT. Due on due Goal Sigmoidoscopy. Due on due Goal Depression screening. Due on due Goal Lipid panel. Due on due Goal Td vaccine. Due on due Goal Tdap. Due on due Goal Influenza vaccine. Due on Ap due Goal Zoster vaccine. Due on due Goal Pap/HPV testing. Due on due Goal FOBT. Due on due Goal Sigmoidoscopy. Due on due Goal Depression screening. Due on due Goal Lipid panel. Due on due Goal Td vaccine. Due on due Goal Tdap. Due on due Goal Tdap. Due on due Goal Td vaccine. Due on due Goal Lipid panel. Due on due Goal Depression screening. Due on due Goal Influenza vaccine. Due on due Goal Zoster vaccine. Due on due Goal Pap/HPV testing. Due on due Goal FOBT. Due on due Goal Sigmoidoscopy. Due on due Goal Sigmoidoscopy. Due on due Goal FOBT. Due on due Goal Pap/HPV testing. Due on due Goal Zoster vaccine. Due on due Goal Influenza vaccine. Due on due Goal Tdap. Due on due Goal Td vaccine. Due on due Goal Lipid panel. Due on due Goal Depression screening. Due on due Goal Depression screening. Due on due Goal Lipid panel. Due on due Goal Sigmoidoscopy. Due on due Goal FOBT. Due on due Goal Pap/HPV testing. Due on due Goal Zoster vaccine. Due on due Goal Influenza vaccine. Due on due Goal Tdap. Due on due Goal Td vaccine. Due on due Goal Pap/HPV testing. Due on due Goal FOBT. Due on due Goal Sigmoidoscopy. Due on due Goal Lipid panel. Due on due Goal Depression screening. Due on due Goal Zoster vaccine. Due on due Goal Influenza vaccine. Due on due Goal Tdap. Due on due Goal Td vaccine. Due on due Goal Influenza vaccine. Due on due Goal Zoster vaccine. Due on due Goal Pap/HPV testing. Due on due Goal FOBT. Due on due Goal Sigmoidoscopy. Due on due Goal Lipid panel. Due on due Goal Depression screening. Due on due Goal Td vaccine. Due on due Goal Tdap. Due on due Goal Tdap. Due on due Goal Td vaccine. Due on due Goal Influenza vaccine. Due on Oc due Goal Zoster vaccine. Due on due Goal Pap/HPV testing. Due on due Goal FOBT. Due on due Goal Sigmoidoscopy. Due on due Goal Lipid panel. Due on 023 due Goal Depression screening. Due on due Goal Depression screening. Due on due Goal Lipid panel. Due on 023 due Goal Sigmoidoscopy. Due on due Goal FOBT. Due on due Goal Tdap. Due on due Goal Td vaccine. Due on due Goal Influenza vaccine. Due on Oc due Goal Zoster vaccine. Due on due Goal Pap/HPV testing. Due on due Goal Pap/HPV testing. Due on due Goal Zoster vaccine. Due on due Goal Influenza vaccine. Due on due Goal Depression screening. Due on due Goal Lipid panel. Due on 023 due Goal Sigmoidoscopy. Due on due Goal FOBT. Due on due Goal Tdap. Due on due Goal Td vaccine. Due on due Goal Td vaccine. Due on due Goal Tdap. Due on due Goal FOBT. Due on due Goal Pap/HPV testing. Due on due Goal Zoster vaccine. Due on due Goal Influenza vaccine. Due on due Goal Depression screening. Due on due Goal Lipid panel. Due on 023 due Goal Sigmoidoscopy. Due on due Goal Sigmoidoscopy. Due on due Goal Lipid panel. Due on 023 due Goal Depression screening. Due on due Goal Td vaccine. Due on due Goal Tdap. Due on due Goal FOBT. Due on due Goal Pap/HPV testing. Due on due Goal Zoster vaccine. Due on due Goal Influenza vaccine. Due on due Goal Influenza vaccine. Due on due Goal Zoster vaccine. Due on due Goal Pap/HPV testing. Due on due Goal FOBT. Due on due Goal Sigmoidoscopy. Due on due Goal Lipid panel. Due on due Goal Depression screening. Due on due Goal Td vaccine. Due on due Goal Tdap. Due on due Goal Tdap. Due on due Goal Td vaccine. Due on due Goal Influenza vaccine. Due on Wi due Goal Zoster vaccine. Due on due Goal Pap/HPV testing. Due on due Goal FOBT. Due on due Goal Sigmoidoscopy. Due on due Goal Lipid panel. Due on due Goal Depression screening. Due on due Goal Influenza vaccine. Due on due Goal Zoster vaccine. Due on due Goal Pap/HPV testing. Due on due Goal Depression screening. Due on due Goal Lipid panel. Due on due Goal Sigmoidoscopy. Due on due Goal FOBT. Due on due Goal Tdap. Due on due Goal Td vaccine. Due on due Goal Pap/HPV testing. Due on due Goal Zoster vaccine. Due on due Goal Influenza vaccine. Due on Wi due Goal Depression screening. Due on due Goal Lipid panel. Due on due Goal Sigmoidoscopy. Due on due Goal FOBT. Due on due Goal Tdap. Due on due Goal Td vaccine. Due on due Goal Pap/HPV testing. Due on due Goal Zoster vaccine. Due on due Goal Influenza vaccine. Due on due Goal Depression screening. Due on due Goal Lipid panel. Due on due Goal Sigmoidoscopy. Due on due Goal FOBT. Due on due Goal Tdap. Due on due Goal Td vaccine. Due on due Goal Td vaccine. Due on due Goal Tdap. Due on due Goal FOBT. Due on due Goal Pap/HPV testing. Due on due Goal Zoster vaccine. Due on due Goal Influenza vaccine. Due on due Goal Depression screening. Due on due Goal Lipid panel. Due on due Goal Sigmoidoscopy. Due on due Goal Depression screening. Due on due Goal Td vaccine. Due on due Goal Tdap. Due on due Goal FOBT. Due on due Goal Pap/HPV testing. Due on due Goal Zoster vaccine. Due on due Goal Influenza vaccine. Due on due Goal Sigmoidoscopy. Due on due Goal Lipid panel. Due on due Goal Td vaccine. Due on due Goal Tdap. Due on due Goal FOBT. Due on due Goal Lipid panel. Due on due Goal Sigmoidoscopy. Due on due Goal Influenza vaccine. Due on due Goal Zoster vaccine. Due on due Goal Pap/HPV testing. Due on due Goal Depression screening. Due on due Goal Depression screening. Due on due Goal Td vaccine. Due on due Goal Tdap. Due on due Goal FOBT. Due on due Goal Lipid panel. Due on due Goal Sigmoidoscopy. Due on due Goal Influenza vaccine. Due on due Goal Zoster vaccine. Due on due Goal Pap/HPV testing. Due on due Goal Depression screening. Due on due Goal Lipid panel. Due on due Goal Sigmoidoscopy. Due on due Goal Influenza vaccine. Due on Oc due Goal Td vaccine. Due on due Goal Tdap. Due on due Goal Pap/HPV testing. Due on due Goal Zoster vaccine. Due on due Goal FOBT. Due on due Goal FOBT. Due on due Goal Zoster vaccine. Due on due Goal Pap/HPV testing. Due on due Goal Tdap. Due on due Goal Td vaccine. Due on due Goal Depression screening. Due on due Goal Lipid panel. Due on due Goal Sigmoidoscopy. Due on due Goal Influenza vaccine. Due on Se due Goal Influenza vaccine. Due on due Goal Sigmoidoscopy. Due on due Goal Lipid panel. Due on due Goal FOBT. Due on due Goal Zoster vaccine. Due on due Goal Pap/HPV testing. Due on due Goal Tdap. Due on due Goal Td vaccine. Due on due Goal Depression screening. Due on due Goal Depression screening. Due on due Goal Td vaccine. Due on due Goal Tdap. Due on due Goal Influenza vaccine. Due on due Goal Sigmoidoscopy. Due on due Goal Lipid panel. Due on due Goal FOBT. Due on due Goal Zoster vaccine. Due on due Goal Pap/HPV testing. Due on due Goal FOBT. Due on due Goal Pap/HPV testing. Due on due Goal Zoster vaccine. Due on due Goal Depression screening. Due on due Goal Td vaccine. Due on due Goal Tdap. Due on due Goal Influenza vaccine. Due on due Goal Sigmoidoscopy. Due on due Goal Lipid panel. Due on due Goal FOBT. Due on due Goal Pap/HPV testing. Due on due Goal Zoster vaccine. Due on due Goal Depression screening. Due on due Goal Td vaccine. Due on due Goal Tdap. Due on due Goal Influenza vaccine. Due on due Goal Sigmoidoscopy. Due on due Goal Lipid panel. Due on due Goal Lipid panel. Due on due Goal Sigmoidoscopy. Due on due Goal Influenza vaccine. Due on due Goal Tdap. Due on due Goal Td vaccine. Due on due Goal FOBT. Due on due Goal Pap/HPV testing. Due on due Goal Zoster vaccine. Due on due Goal Depression screening. Due on due Goal Depression screening. Due on due Goal Zoster vaccine. Due on due Goal Pap/HPV testing. Due on due Goal Lipid panel. Due on due Goal Sigmoidoscopy. Due on due Goal Influenza vaccine. Due on due Goal Tdap. Due on due Goal Td vaccine. Due on due Goal FOBT. Due on due Goal FOBT. Due on due Goal Td vaccine. Due on due Goal Tdap. Due on due Goal Depression screening. Due on due Goal Zoster vaccine. Due on due Goal Pap/HPV testing. Due on due Goal Lipid panel. Due on due Goal Sigmoidoscopy. Due on due Goal Influenza vaccine. Due on due Goal FOBT. Due on due Goal Td vaccine. Due on due Goal Tdap. Due on due Goal Depression screening. Due on due Goal Zoster vaccine. Due on due Goal Pap/HPV testing. Due on due Goal Lipid panel. Due on due Goal Sigmoidoscopy. Due on due Goal Influenza vaccine. Due on due Goal Influenza vaccine. Due on due Goal Sigmoidoscopy. Due on due Goal Lipid panel. Due on due Goal Pap/HPV testing. Due on due Goal FOBT. Due on due Goal Td vaccine. Due on due Goal Tdap. Due on due Goal Depression screening. Due on due Goal Zoster vaccine. Due on due Goal Zoster vaccine. Due on due Goal Depression screening. Due on due Goal Tdap. Due on due Goal Td vaccine. Due on due Goal Influenza vaccine. Due on due Goal Sigmoidoscopy. Due on due Goal Lipid panel. Due on due Goal Pap/HPV testing. Due on due Goal FOBT. Due on due Goal FOBT. Due on due Goal Pap/HPV testing. Due on due Goal Zoster vaccine. Due on due Goal Depression screening. Due on due Goal Tdap. Due on due Goal Td vaccine. Due on due Goal Influenza vaccine. Due on due Goal Sigmoidoscopy. Due on due Goal Lipid panel. Due on due Goal Lipid panel. Due on due Goal Sigmoidoscopy. Due on due Goal Influenza vaccine. Due on due Goal Td vaccine. Due on due Goal Tdap. Due on due Goal FOBT. Due on due Goal Pap/HPV testing. Due on due Goal Zoster vaccine. Due on due Goal Depression screening. Due on due Goal Pap/HPV testing. Due on due Goal Zoster vaccine. Due on due Goal Depression screening. Due on due Goal Lipid panel. Due on due Goal Sigmoidoscopy. Due on due Goal Influenza vaccine. Due on due Goal Td vaccine. Due on due Goal Tdap. Due on due Goal FOBT. Due on due Goal FOBT. Due on due Goal Tdap. Due on due Goal Td vaccine. Due on due Goal Influenza vaccine. Due on due Goal Sigmoidoscopy. Due on due Goal Pap/HPV testing. Due on due Goal Zoster vaccine. Due on due Goal Depression screening. Due on due Goal Lipid panel. Due on due Goal Lipid panel. Due on due Goal Depression screening. Due on due Goal Zoster vaccine. Due on due Goal FOBT. Due on due Goal Tdap. Due on due Goal Td vaccine. Due on due Goal Influenza vaccine. Due on due Goal Sigmoidoscopy. Due on due Goal Pap/HPV testing. Due on due Goal Pap/HPV testing. Due on due Goal Sigmoidoscopy. Due on due Goal Lipid panel. Due on due Goal Depression screening. Due on due Goal Zoster vaccine. Due on due Goal FOBT. Due on due Goal Tdap. Due on due Goal Td vaccine. Due on due Goal Influenza vaccine. Due on due Goal Pap/HPV testing. Due on due Goal Sigmoidoscopy. Due on due Goal Lipid panel. Due on due Goal Depression screening. Due on due Goal Zoster vaccine. Due on due Goal FOBT. Due on due Goal Tdap. Due on due Goal Td vaccine. Due on due Goal Influenza vaccine. Due on due Goal Pap/HPV testing. Due on due Goal Sigmoidoscopy. Due on due Goal Lipid panel. Due on due Goal Depression screening. Due on due Goal Zoster vaccine. Due on due Goal FOBT. Due on due Goal Tdap. Due on due Goal Td vaccine. Due on due Goal Influenza vaccine. Due on Ap due Goal Influenza vaccine. Due on Ma due Goal Td vaccine. Due on due Goal Tdap. Due on due Goal FOBT. Due on due Goal Zoster vaccine. Due on due Goal Depression screening. Due on due Goal Lipid panel. Due on due Goal Sigmoidoscopy. Due on due Goal Pap/HPV testing. Due on due Goal Depression screening. Due on due Goal Lipid panel. Due on due Goal Sigmoidoscopy. Due on due Goal Pap/HPV testing. Due on due Goal Influenza vaccine. Due on due Goal Td vaccine. Due on due Goal Tdap. Due on due Goal FOBT. Due on due Goal Zoster vaccine. Due on due Goal Depression screening. Due on due Goal Lipid panel. Due on due Goal Sigmoidoscopy. Due on due Goal Pap/HPV testing. Due on due Goal Influenza vaccine. Due on due Goal Td vaccine. Due on due Goal Tdap. Due on due Goal FOBT. Due on due Goal Zoster vaccine. Due on due Goal Colonoscopy. Due on due Goal Depression screening. Due on due Goal Lipid panel. Due on due Goal Sigmoidoscopy. Due on due Goal Pap/HPV testing. Due on due Goal Influenza vaccine. Due on due Goal Td vaccine. Due on due Goal Tdap. Due on due Goal FOBT. Due on due Goal Zoster vaccine. Due on due Goal Colonoscopy. Due on due Goal Depression screening. Due on due Goal Lipid panel. Due on due Goal Sigmoidoscopy. Due on due Goal Pap/HPV testing. Due on due Goal Influenza vaccine. Due on due Goal Td vaccine. Due on due Goal Tdap. Due on due Goal FOBT. Due on due Goal Zoster vaccine. Due on due Goal FOBT. Due on due Goal Tdap. Due on due Goal Td vaccine. Due on due Goal Influenza vaccine. Due on due Goal Pap/HPV testing. Due on due Goal Sigmoidoscopy. Due on due Goal Lipid panel. Due on due Goal Depression screening. Due on due Goal Colonoscopy. Due on due Goal Depression screening. Due on due Goal Lipid panel. Due on due Goal Sigmoidoscopy. Due on due Goal Pap/HPV testing. Due on due Goal Influenza vaccine. Due on due Goal Td vaccine. Due on due Goal Tdap. Due on due Goal FOBT. Due on due Goal FOBT. Due on due Goal Tdap. Due on due Goal Td vaccine. Due on due Goal Influenza vaccine. Due on due Goal Pap/HPV testing. Due on due Goal Sigmoidoscopy. Due on due Goal Lipid panel. Due on due Goal Depression screening. Due on due Goal Colonoscopy. Due on due Goal FOBT. Due on due Goal Tdap. Due on due Goal Td vaccine. Due on due Goal Influenza vaccine. Due on due Goal Pap/HPV testing. Due on due Goal Sigmoidoscopy. Due on due Goal Lipid panel. Due on due Goal Depression screening. Due on due Goal Colonoscopy. Due on due Goal FOBT. Due on due Goal Tdap. Due on due Goal Td vaccine. Due on due Goal Influenza vaccine. Due on due Goal Pap/HPV testing. Due on due Goal Sigmoidoscopy. Due on due Goal Lipid panel. Due on due Goal Depression screening. Due on due Goal Colonoscopy. Due on due Goal Colonoscopy. Due on due Goal Depression screening. Due on due Goal Lipid panel. Due on due Goal Sigmoidoscopy. Due on due Goal Pap/HPV testing. Due on due Goal Influenza vaccine. Due on due Goal Td vaccine. Due on due Goal Tdap. Due on due Goal FOBT. Due on due Goal Colonoscopy. Due on due Goal Depression screening. Due on due Goal Lipid panel. Due on due Goal Sigmoidoscopy. Due on due Goal Pap/HPV testing. Due on due Goal Influenza vaccine. Due on due Goal Td vaccine. Due on due Goal Tdap. Due on due Goal FOBT. Due on due Goal Sigmoidoscopy. Due on due Goal Pap/HPV testing. Due on due Goal Influenza vaccine. Due on due Goal Td vaccine. Due on due Goal Tdap. Due on due Goal FOBT. Due on due Goal Colonoscopy. Due on due Goal Depression screening. Due on due Goal Lipid panel. Due on due Goal Lipid panel. Due on due Goal Depression screening. Due on due Goal Colonoscopy. Due on due Goal FOBT. Due on due Goal Tdap. Due on due Goal Td vaccine. Due on due Goal Influenza vaccine. Due on due Goal Pap/HPV testing. Due on due Goal Sigmoidoscopy. Due on due Goal Sigmoidoscopy. Due on due Goal Lipid panel. Due on due Goal Depression screening. Due on due Goal Colonoscopy. Due on due Goal FOBT. Due on due Goal Tdap. Due on due Goal Td vaccine. Due on due Goal Influenza vaccine. Due on due Goal Pap/HPV testing. Due on due Goal Tobacco cessation counseling completed Goal Sigmoidoscopy. Due on due Goal Lipid panel. Due on due Goal Depression screening. Due on due Goal Colonoscopy. Due on due Goal FOBT. Due on due Goal Tdap. Due on due Goal Td vaccine. Due on due Goal Influenza vaccine. Due on due Goal Pap/HPV testing. Due on due Goal Tobacco cessation counseling completed Goal Pap/HPV testing. Due on due Goal Influenza vaccine. Due on due Goal Td vaccine. Due on due Goal Tdap. Due on due Goal FOBT. Due on due Goal Colonoscopy. Due on due Goal Depression screening. Due on due Goal Lipid panel. Due on due Goal Sigmoidoscopy. Due on due Goal Special diet education compl eted Goal Pap/HPV testing. Due on due Goal Influenza vaccine. Due on due Goal Td vaccine. Due on due Goal Tdap. Due on due Goal FOBT. Due on due Goal Colonoscopy. Due on due Goal Depression screening. Due on due Goal Lipid panel. Due on due Goal Sigmoidoscopy. Due on due Goal Tobacco cessation counseling completed Goal Special diet education compl eted Goal Pap/HPV testing. Due on due Goal Influenza vaccine. Due on due Goal Td vaccine. Due on due Goal Tdap. Due on due Goal FOBT. Due on due Goal Colonoscopy. Due on due Goal Depression screening. Due on due Goal Lipid panel. Due on due Goal Sigmoidoscopy. Due on due Goal Tobacco cessation counseling completed Goal Special diet education compl eted Goal Sigmoidoscopy. Due on due Goal Lipid panel. Due on due Goal Depression screening. Due on due Goal Colonoscopy. Due on due Goal FOBT. Due on due Goal Tdap. Due on due Goal Td vaccine. Due on due Goal Influenza vaccine. Due on due Goal Pap/HPV testing. Due on due Goal Tobacco cessation counseling completed Goal Special diet education compl eted Goal Sigmoidoscopy. Due on due Goal Lipid panel. Due on due Goal Depression screening. Due on due Goal Colonoscopy. Due on due Goal FOBT. Due on due Goal Tdap. Due on due Goal Td vaccine. Due on due Goal Influenza vaccine. Due on due Goal Pap/HPV testing. Due on due Goal Tobacco cessation counseling completed Goal Special diet education compl eted Goal Pap/HPV testing. Due on due Goal Influenza vaccine. Due on due Goal Td vaccine. Due on due Goal Tdap. Due on due Goal FOBT. Due on due Goal Colonoscopy. Due on due Goal Depression screening. Due on due Goal Lipid panel. Due on due Goal Sigmoidoscopy. Due on due Goal Tobacco cessation counseling completed Goal Special diet education compl eted Goal Lipid panel. Due on due Goal Depression screening. Due on due Goal Colonoscopy. Due on due Goal FOBT. Due on due Goal Tdap. Due on due Goal Td vaccine. Due on due Goal Influenza vaccine. Due on due Goal Pap/HPV testing. Due on due Goal Sigmoidoscopy. Due on due Goal Tobacco cessation counseling completed Goal Special diet education compl eted Goal Sigmoidoscopy. Due on due Goal Pap/HPV testing. Due on due Goal Influenza vaccine. Due on due Goal Td vaccine. Due on due Goal Tdap. Due on due Goal FOBT. Due on due Goal Colonoscopy. Due on due Goal Depression screening. Due on due Goal Lipid panel. Due on due Goal Special diet education compl eted Goal Sigmoidoscopy. Due on due Goal Pap/HPV testing. Due on due Goal Influenza vaccine. Due on due Goal Td vaccine. Due on due Goal Tdap. Due on due Goal FOBT. Due on due Goal Colonoscopy. Due on due Goal Depression screening. Due on due Goal Lipid panel. Due on due Goal Special diet education compl eted Goal Sigmoidoscopy. Due on due Goal Pap/HPV testing. Due on due Goal Influenza vaccine. Due on due Goal Td vaccine. Due on due Goal Tdap. Due on due Goal FOBT. Due on due Goal Colonoscopy. Due on due Goal Depression screening. Due on due Goal Lipid panel. Due on due Goal Tobacco cessation counseling completed Goal Special diet education compl eted Goal Sigmoidoscopy. Due on due Goal Pap/HPV testing. Due on due Goal Influenza vaccine. Due on due Goal Td vaccine. Due on due Goal Tdap. Due on due Goal FOBT. Due on due Goal Colonoscopy. Due on due Goal Depression screening. Due on due Goal Lipid panel. Due on due Goal Tobacco cessation counseling completed Goal Special diet education compl eted Goal Sigmoidoscopy. Due on due Goal Pap/HPV testing. Due on due Goal Influenza vaccine. Due on due Goal Td vaccine. Due on due Goal Tdap. Due on due Goal FOBT. Due on due Goal Colonoscopy. Due on due Goal Depression screening. Due on due Goal Lipid panel. Due on due Goal Tobacco cessation counseling completed Goal Special diet education compl eted Goal Sigmoidoscopy. Due on due Goal Pap/HPV testing. Due on due Goal Influenza vaccine. Due on due Goal Td vaccine. Due on due Goal Tdap. Due on due Goal FOBT. Due on due Goal Colonoscopy. Due on due Goal Depression screening. Due on due Goal Lipid panel. Due on due Goal Tobacco cessation counseling completed Goal Special diet education compl eted Goal Sigmoidoscopy. Due on due Goal Pap/HPV testing. Due on due Goal Influenza vaccine. Due on due Goal Td vaccine. Due on 18 due Goal Tdap. Due on due Goal FOBT. Due on due Goal Colonoscopy. Due on due Goal Depression screening. Due on due Goal Lipid panel. Due on due Goal Tobacco cessation counseling completed Goal Special diet education compl eted Goal Td vaccine. Due on 18 due Goal Tdap. Due on due Goal FOBT. Due on due Goal Colonoscopy. Due on due Goal Depression screening. Due on due Goal Lipid panel. Due on due Goal Sigmoidoscopy. Due on due Goal Pap/HPV testing. Due on due Goal Influenza vaccine. Due on due Goal Tobacco cessation counseling completed Goal Special diet education compl eted Goal Td vaccine. Due on 18 due Goal Tdap. Due on due Goal FOBT. Due on due Goal Colonoscopy. Due on due Goal Influenza vaccine. Due on due Goal Pap/HPV testing. Due on due Goal Sigmoidoscopy. Due on due Goal Depression screening. Due on due Goal Lipid panel. Due on due Goal Tobacco cessation counseling completed Goal Special diet education compl eted Goal Td vaccine. Due on 18 due Goal Tdap. Due on due Goal FOBT. Due on due Goal Colonoscopy. Due on due Goal Influenza vaccine. Due on due Goal Pap/HPV testing. Due on due Goal Sigmoidoscopy. Due on due Goal Depression screening. Due on due Goal Lipid panel. Due on due Goal Prescribed dietary intake co mpleted Goal Tdap. Due on due Goal Td vaccine. Due on due Goal Lipid panel. Due on due Goal Depression screening. Due on due Goal Sigmoidoscopy. Due on due Goal Pap/HPV testing. Due on due Goal Influenza vaccine. Due on due Goal Colonoscopy. Due on due Goal FOBT. Due on due Goal Special diet education compl eted Goal FOBT. Due on due Goal Colonoscopy. Due on due Goal Influenza vaccine. Due on due Goal Pap/HPV testing. Due on due Goal Sigmoidoscopy. Due on due Goal Depression screening. Due on due Goal Lipid panel. Due on due Goal Td vaccine. Due on due Goal Tdap. Due on due Goal Special diet education compl eted Goal Tdap. Due on due Goal Td vaccine. Due on due Goal Lipid panel. Due on due Goal Depression screening. Due on due Goal Sigmoidoscopy. Due on due Goal Pap/HPV testing. Due on due Goal Influenza vaccine. Due on due Goal Colonoscopy. Due on due Goal FOBT. Due on due Goal Special diet education compl eted Goal FOBT. Due on due Goal Td vaccine. Due on due Goal Tdap. Due on due Goal Colonoscopy. Due on due Goal Influenza vaccine. Due on due Goal Pap/HPV testing. Due on due Goal Sigmoidoscopy. Due on due Goal Depression screening. Due on due Goal Lipid panel. Due on due Goal Special diet education compl eted Goal FOBT. Due on due Goal Td vaccine. Due on 18 due Goal Tdap. Due on due Goal Colonoscopy. Due on due Goal Influenza vaccine. Due on due Goal Pap/HPV testing. Due on due Goal Sigmoidoscopy. Due on due Goal Depression screening. Due on due Goal Lipid panel. Due on due Goal Special diet education compl eted Goal FOBT. Due on due Goal Td vaccine. Due on 18 due Goal Tdap. Due on due Goal Colonoscopy. Due on due Goal Influenza vaccine. Due on due Goal Pap/HPV testing. Due on due Goal Sigmoidoscopy. Due on due Goal Depression screening. Due on due Goal Lipid panel. Due on due Goal Special diet education compl eted Goal Depression screening. Due on due Goal Sigmoidoscopy. Due on due Goal Pap/HPV testing. Due on due Goal Influenza vaccine. Due on due Goal Colonoscopy. Due on due Goal Tdap. Due on due Goal Td vaccine. Due on 18 due Goal FOBT. Due on due Goal Sigmoidoscopy. Due on due Goal Pap/HPV testing. Due on due Goal Colonoscopy. Due on due Goal Td vaccine. Due on due Goal Influenza vaccine. Due on due Goal Tdap. Due on due Goal FOBT. Due on due Goal Depression screening. Due on due Goal FOBT. Due on due Goal Td vaccine. Due on due Goal Colonoscopy. Due on due Goal Depression screening. Due on due Goal Sigmoidoscopy. Due on due Goal Pap/HPV testing. Due on due Goal Tdap. Due on due Goal Influenza vaccine. Due on due Goal Influenza vaccine. Due on due Goal Depression screening. Due on due Goal Colonoscopy. Due on due Goal Sigmoidoscopy. Due on due Goal Td vaccine. Due on due Goal FOBT. Due on due Goal Pap/HPV testing. Due on due Goal Tdap. Due on due Goal Td vaccine. Due on due Goal Depression screening. Due on due Goal Sigmoidoscopy. Due on due Goal Tdap. Due on due Goal Influenza vaccine. Due on due Goal FOBT. Due on due Goal Pap/HPV testing. Due on due Goal Colonoscopy. Due on due Goal Depression screening. Due on due Goal Pap/HPV testing. Due on due Goal Colonoscopy. Due on due Goal Sigmoidoscopy. Due on due Goal FOBT. Due on due Goal Influenza vaccine. Due on due Goal Td vaccine. Due on due Goal Tdap. Due on due Goal Pap/HPV testing. Due on due Goal Td vaccine. Due on due Goal Tdap. Due on due Goal Sigmoidoscopy. Due on due Goal Depression screening. Due on due Goal FOBT. Due on due Goal Colonoscopy. Due on due Goal Influenza vaccine. Due on due Goal Pap/HPV testing. Due on due Goal FOBT. Due on due Goal Tdap. Due on due Goal Colonoscopy. Due on due Goal Sigmoidoscopy. Due on due Goal Td vaccine. Due on due Goal Influenza vaccine. Due on due Goal Depression screening. Due on due Goal Influenza vaccine. Due on due Goal Sigmoidoscopy. Due on due Goal FOBT. Due on due Goal Tdap. Due on due Goal Td vaccine. Due on due Goal Pap/HPV testing. Due on due Goal Depression screening. Due on due Goal Colonoscopy. Due on due Goal Td vaccine. Due on due Goal Influenza vaccine. Due on due Goal Colonoscopy. Due on due Goal Pap/HPV testing. Due on due Goal Tdap. Due on due Goal FOBT. Due on due Goal Sigmoidoscopy. Due on due Goal Depression screening. Due on due Goal Depression screening. Due on due Goal Tdap. Due on due Goal Pap/HPV testing. Due on due Goal Td vaccine. Due on due Goal Colonoscopy. Due on due Goal FOBT. Due on due Goal Sigmoidoscopy. Due on due Goal Influenza vaccine. Due on due Goal FOBT. Due on due Goal Influenza vaccine. Due on due Goal Pap/HPV testing. Due on due Goal Depression screening. Due on due Goal Td vaccine. Due on due Goal Sigmoidoscopy. Due on due Goal Tdap. Due on due Goal Colonoscopy. Due on due Goal FOBT. Due on due Goal Colonoscopy. Due on due Goal Td vaccine. Due on due Goal Depression screening. Due on due Goal Influenza vaccine. Due on due Goal Sigmoidoscopy. Due on due Goal Tdap. Due on due Goal Pap/HPV testing. Due on due Goal Sigmoidoscopy. Due on due Goal Td vaccine. Due on due Goal Depression screening. Due on due Goal FOBT. Due on due Goal Colonoscopy. Due on due Goal Influenza vaccine. Due on due Goal Pap/HPV testing. Due on due Goal Tdap. Due on due Goal Depression screening. Due on due Goal Tdap. Due on due Goal Colonoscopy. Due on due Goal Sigmoidoscopy. Due on due Goal Td vaccine. Due on due Goal Influenza vaccine. Due on due Goal Pap/HPV testing. Due on due Goal FOBT. Due on due Goal Tdap. Due on due Goal Colonoscopy. Due on due Goal Td vaccine. Due on due Goal Depression screening. Due on due Goal Influenza vaccine. Due on due Goal Sigmoidoscopy. Due on due Goal Pap/HPV testing. Due on due Goal FOBT. Due on due Goal Td vaccine. Due on due Goal Tdap. Due on due Goal Sigmoidoscopy. Due on due Goal Colonoscopy. Due on due Goal Influenza vaccine. Due on due Goal Pap/HPV testing. Due on due Goal Depression screening. Due on due Goal FOBT. Due on due Goal Colonoscopy. Due on due Goal Td vaccine. Due on due Goal Influenza vaccine. Due on Oc due Goal Tdap. Due on due Goal Sigmoidoscopy. Due on due Goal Pap/HPV testing. Due on due Goal FOBT. Due on due Goal Depression screening. Due on due Goal Colonoscopy. Due on due Goal Td vaccine. Due on due Goal Depression screening. Due on due Goal FOBT. Due on due Goal Pap/HPV testing. Due on due Goal Tdap. Due on due Goal Influenza vaccine. Due on Oc due Goal Sigmoidoscopy. Due on due Goal Sigmoidoscopy. Due on due Goal Tdap. Due on due Goal Influenza vaccine. Due on due Goal Td vaccine. Due on 16 due Goal Pap/HPV testing. Due on due Goal Depression screening. Due on due Goal Colonoscopy. Due on 016 due Goal FOBT. Due on due Goal Sigmoidoscopy. Due on due Goal FOBT. Due on due Goal Td vaccine. Due on 16 due Goal Pap/HPV testing. Due on due Goal Colonoscopy. Due on due Goal Tdap. Due on due Goal Depression screening. Due on due Goal Influenza vaccine. Due on due Goal Pap/HPV testing. Due on due Goal Sigmoidoscopy. Due on due Goal Influenza vaccine. Due on due Goal Tdap. Due on due Goal Td vaccine. Due on 16 due Goal FOBT. Due on due Goal Colonoscopy. Due on 016 due Goal Depression screening. Due on due Goal Td vaccine. Due on 16 due Goal Colonoscopy. Due on 016 due Goal Pap/HPV testing. Due on due Goal Influenza vaccine. Due on due Goal Tdap. Due on due Goal FOBT. Due on due Goal Depression screening. Due on due Goal Sigmoidoscopy. Due on due Goal FOBT. Due on due Goal Td vaccine. Due on 16 due Goal Influenza vaccine. Due on due Goal Sigmoidoscopy. Due on due Goal Colonoscopy. Due on due Goal Tdap. Due on due Goal Pap/HPV testing. Due on due Goal Depression screening. Due on due Goal Colonoscopy. Due on due Goal Pap/HPV testing. Due on due Goal Influenza vaccine. Due on due Goal Td vaccine. Due on due Goal Sigmoidoscopy. Due on due Goal Tdap. Due on due Goal FOBT. Due on due Goal Depression screening. Due on due Goal Pap/HPV testing. Due on due Goal Tdap. Due on due Goal Td vaccine. Due on 16 due Goal Influenza vaccine. Due on due Goal Colonoscopy. Due on due Goal FOBT. Due on due Goal Depression screening. Due on due Goal Sigmoidoscopy. Due on due Goal Pap/HPV testing. Due on due Goal Depression screening. Due on due Goal Influenza vaccine. Due on due Goal Td vaccine. Due on 16 due Goal Colonoscopy. Due on 016 due Goal FOBT. Due on due Goal Tdap. Due on due Goal Sigmoidoscopy. Due on due Goal Depression screening. Due on due Goal Pap/HPV testing. Due on due Goal Influenza vaccine. Due on due Goal Colonoscopy. Due on 016 due Goal Tdap. Due on due Goal Td vaccine. Due on 16 due Goal Sigmoidoscopy. Due on due Goal FOBT. Due on due Goal Td vaccine. Due on 16 due Goal Sigmoidoscopy. Due on due Goal FOBT. Due on due Goal Tdap. Due on due Goal Colonoscopy. Due on 016 due Goal Depression screening. Due on due Goal Influenza vaccine. Due on due Goal Pap/HPV testing. Due on due Goal Colonoscopy. Due on 015 due Goal Depression screening. Due on due Goal Tdap. Due on due Goal Pap/HPV testing. Due on due Goal Sigmoidoscopy. Due on due Goal Td vaccine. Due on 15 due Goal Influenza vaccine. Due on due Goal FOBT. Due on due Goal Colonoscopy. Due on 015 due Goal Sigmoidoscopy. Due on due Goal FOBT. Due on due Goal Depression screening. Due on due Goal Influenza vaccine. Due on due Goal Td vaccine. Due on 15 due Goal Tdap. Due on due Goal Pap/HPV testing. Due on due Goal Td vaccine. Due on due Goal Tdap. Due on due Goal FOBT. Due on due Goal Depression screening. Due on due Goal Colonoscopy. Due on due Goal Pap/HPV testing. Due on due Goal Influenza vaccine. Due on due Goal Sigmoidoscopy. Due on due Goal Pap/HPV testing. Due on due Goal Tdap. Due on due Goal Depression screening. Due on due Goal Influenza vaccine. Due on due Goal Td vaccine. Due on 15 due Goal Sigmoidoscopy. Due on due Goal FOBT. Due on due Goal Colonoscopy. Due on due Goal Pap/HPV testing. Due on due Goal Tdap. Due on due Goal Depression screening. Due on due Goal Colonoscopy. Due on due Goal Sigmoidoscopy. Due on due Goal Influenza vaccine. Due on due Goal Td vaccine. Due on due Goal FOBT. Due on due Goal Depression screening. Due on due Goal Tdap. Due on due Goal Influenza vaccine. Due on due Goal Sigmoidoscopy. Due on due Goal Colonoscopy. Due on due Goal FOBT. Due on due Goal Pap/HPV testing. Due on due Goal Td vaccine. Due on 15 due Goal Colonoscopy. Due on due Goal Depression screening. Due on due Goal FOBT. Due on due Goal Influenza vaccine. Due on due Goal Pap/HPV testing. Due on due Goal Sigmoidoscopy. Due on due Goal Td vaccine. Due on 15 due Goal Tdap. Due on due Goal Tobacco cessation counseling completed Goal Tobacco cessation counseling completed Goal Tobacco cessation counseling completed Goal Tobacco cessation counseling completed Goal Tobacco cessation counseling completed Goal Tobacco cessation counseling completed Goal Tobacco cessation counseling completed Goal Tobacco cessation counseling completed Goal Tobacco cessation counseling completed Goal Tobacco cessation counseling completed Goal Tobacco cessation counseling completed Referral Ordered: Plastic Surgery (related to Nevus, non-neoplastic) ordered Referral Ordered: Referrals: Plastic Surgery. Evaluate and treat ordered Referral Referred To: Rodolfo Johnson [address] [place], [id number] Ordered: Referrals: Rodolfo Johnson. Evaluate and treat ordered Referral Ordered: Cardiology (related to Arteriosclerosis of cahuilla coronary artery without angina pectoris) ordered Referral Ordered: Referrals: Cardiology. Evaluate and treat ordered Referral Ordered: Wes Adorno -[facility] Phys[facility] : Psychiatry & Neurology : Neurology (related to Migraine w/o aura, not intractable, w/o status migrainosus) ordered Referral Referred To: Wes Adorno [address] [place] [address]
[address] [place], [place] [id number] Ordered: Referrals: [facility] Phys[facility] : Psychiatry & Neurology : Neurology. Wes Adorno. Evaluate and treat ordered Referral Ordered: Urology (related to Hematuria) ordered Referral Ordered: Referrals: Urology. Evaluate and treat ordered Referral Ordered: MRI BRAIN W/O DYE ordered Referral Referred To: Cesia HOBBS, aKndace Padilla [address] [facility]
[address] [place], [place], [phone] Ordered: Referrals: Kandace Callaway MD. Evaluate and treat ordered Referral Ordered: COLONOSCOPY AND BIOPSY ordered Referral Ordered: Hematology (related to Secondary polycythemia) ordered Referral Ordered: Referrals: Hematology. Evaluate and treat ordered Referral Ordered: Pulmonology (related to Emphysema) ordered Referral Ordered: Deep Toribio (related to Nevus, non-neoplastic) ordered Referral Referred To: Deep Toribio [facility] [address] [place], [place] [phone] Ordered: Referrals: Deep Toribio. Evaluate and treat ordered Referral Ordered: LAURI HERNANDEZ (related to Mixed incontinence) ordered Referral Referred To: LAURI HERNANDEZ [address] [place], [place], [id number] Ordered: Referrals: LAURI HERNANDEZ. Evaluate and treat ordered Referral Ordered: US EXAM, ABDOM, COMPLETE ordered Referral Ordered: CT THORAX W/O DYE ordered Referral Ordered: Pulmonology (related to Dyspnea) ordered Referral Ordered: CHEST X-RAY PA/LAT TWO-VIEWS ordered Referral Ordered: DXA BONE DENSITY, AXIAL ordered Referral Ordered: Pulmonology (related to Other sleep apnea) ordered Referral Ordered: Referrals: Pulmonology. Evaluate and treat ordered Referral Ordered: Angel Luis Velasco (related to Axillary pain) ordered Referral Referred To: Angel Luis Velasco [address] [place], [phone] Ordered: Referrals: Angel Luis Velasco. Evaluate and treat ordered Referral Ordered: MAMMOGRAM, SCREENING ordered Referral Ordered: US EXAM, EXTREMITY Bilateral axillary ordered Referral Ordered: Referral: Ortho Surg. ordered Referral Ordered: US ARTERIAL ANKLE/BRACIAL IND Bilateral ordered Referral Ordered: MRI LUMBAR SPINE W/O DYE ordered Referral Ordered: MAMMOGRAM, ONE BREAST L ordered Referral Ordered: MAMMOGRAM, ONE BREAST ordered Referral Ordered: LUMBAR XRAY AP AND LAT ONLY ordered Referral Ordered: MAMMOGRAM, BOTH BREASTS ordered Appointment Shelley Gomez BOOKED History Of Present Illness Encounter Date Complaint History Of Prese nt Illness physical Pt needs annual physical. Pt has chronic anxiety and depression with bipolar .Pt takes cymbalta and klonopin and doing ok.. Pt denies any suicidal or homicidal thought Pt denies any crying spells. Pt has chronic low back pain Pt denies any saddle area paresthesia Pt denies any loss of bowel or bladder control. Pt has DDD. Pt has COPD .Pt takes trelegy and she sees pulmonary .Pt denies any hemoptysis, worsening sob or cough. Pt still smoking. Pt has osteopenia .Pt takes calcium and D and is working on weight bearing exercise. Pt takes kcl for chronic low kcl. Pt currently doing ok .Pt denies any other complaints. Pt has CAD Pt sees cardiology Pt has HLP Pt takes crestor .Pt denies any myalgia. pain Pt has chronic l ow back pain. Pt denies any worsening pain Pt denies any loss of bladder control. .Pt failed NSAID and ultram and neurontin. Pt denies any saddle area paresthesia. Pt c/o worsening low back pain with left sciatica and left upper leg paresthesia. Pt had MRI done which showed mild DDD only . anxiety1 Pt has chronic a nxiety and depression Pt takes cymbalta and klonopin PRN and doing ok Pt denies any suicidal or homicidal thought Pt denies any crying spells. ADD Pt has attention issue with fatigue Pt takes adderall and it does help with her energy level and focus .Pt wants to go higher dose of adderall insomnia1 Pt has chronic i nsomnia pt doing ok with amitriptyline. Pt needs it refilled pt does have sleep apnea but she does not want to use cpap pain Pt has chronic l ow back pain. Pt denies any worsening pain Pt denies any loss of bladder control. .Pt failed NSAID and ultram and neurontin. Pt denies any saddle area paresthesia. Pt c/o worsening low back pain with left sciatica and left upper leg paresthesia. Pt had MRI done which showed mild DDD only . anixety1 Pt has chronic a nxiety and depression Pt takes cymbalta and klonopin PRN and doing ok Pt denies any suicidal or homicidal thought Pt denies any crying spells. ADD Patient has ADD. Patient has inattentive type. Patient feels scatterbrained. Patient feel poor focus and difficulty completing tasks. Patient states that Adderall is helping with symptoms. Patient feels more focused. Pt feels more energy. Patient denies any headache, dry mouth, headache, chest pain. Patient denies any appetite loss. hernia1 Pt has incisiona l hernia Pt denies any size change of pain pain Pt has chronic l ow back pain. Pt denies any worsening pain Pt denies any loss of bladder control. .Pt failed NSAID and ultram and neurontin. Pt denies any saddle area paresthesia. Pt c/o worsening low back pain with left sciatica and left upper leg paresthesia. Pt had MRI done which showed mild DDD only . anxiety1 Pt has chronic a nxiety and depression Pt takes cymbalta and klonopin PRN and doing ok Pt denies any suicidal or homicidal thought Pt denies any crying spells. ADD Patient has ADD. Patient has inattentive type. Patient feels scatterbrained. Patient feel poor focus and difficulty completing tasks. Patient states that Adderall is helping with symptoms. Patient feels more focused. Pt feels more energy. Patient denies any headache, dry mouth, headache, chest pain. Patient denies any appetite loss. pain Pt has chronic l ow back pain. Pt denies any worsening pain Pt denies any loss of bladder control. .Pt failed NSAID and ultram and neurontin. Pt denies any saddle area paresthesia. Pt c/o worsening low back pain with left sciatica and left upper leg paresthesia. Pt had MRI done which showed mild DDD only . anxiety1 Pt has chronic a nxiety and depression Pt takes cymbalta and klonopin PRN and doing ok Pt denies any suicidal or homicidal thought Pt denies any crying spells. ADD Patient has ADD. Patient has inattentive type. Patient feels scatterbrained. Patient feel poor focus and difficulty completing tasks. Patient states that Adderall is helping with symptoms. Patient feels more focused. Pt feels more energy. Patient denies any headache, dry mouth, headache, chest pain. Patient denies any appetite loss. Pt feels more motivated with adderall ADD Patient has ADD. Patient has inattentive type. Patient feels scatterbrained. Patient feel poor focus and difficulty completing tasks. Patient states that Adderall is helping with symptoms. Patient feels more focused. Pt feels more energy. Patient denies any headache, dry mouth, headache, chest pain. Patient denies any appetite loss. Pt states that her mood is better with adderall. pain Pt has chronic l ow back pain. Pt denies any worsening pain Pt denies any loss of bladder control. .Pt failed NSAID and ultram and neurontin. Pt denies any saddle area paresthesia. Pt c/o worsening low back pain with left sciatica and left upper leg paresthesia. Pt had MRI done which showed mild DDD only . anxiety1 Pt has chronic a nxiety and depression Pt takes cymbalta and klonopin PRN and doing ok Pt denies any suicidal or homicidal thought Pt denies any crying spells. anxiet1 Pt has chronic a nxiety and depression Pt takes cymbalta and klonopin PRN and doing ok Pt denies any suicidal or homicidal thought Pt denies any crying spells. pain Pt has chronic l ow back pain. Pt denies any worsening pain Pt denies any loss of bladder control. .Pt failed NSAID and ultram and neurontin. Pt denies any saddle area paresthesia. Pt c/o worsening low back pain with left sciatica and left upper leg paresthesia. Pt had MRI done which showed mild DDD only . memory loss1 Pt c/o short ter m memory loss Pt is very forgetful. Pt denies any headache or mental status change. Pt also has attention issue cough1 Pt c/o acute ons et of productive cough with yellow phlegm for 4-5 days Pt does have COPD and she sees pulmonary and she is on trelegy and albuterol PRn Pt denies any hemoptysis Pt denies any worsening sob. pain Pt has chronic l ow back pain. Pt denies any worsening pain Pt denies any loss of bladder control. .Pt failed NSAID and ultram and neurontin. Pt denies any saddle area paresthesia. Pt c/o worsening low back pain with left sciatica and left upper leg paresthesia. Pt had MRI done which showed mild DDD only . anxiety1 Pt has chronic a nxiety and depression Pt takes cymbalta and klonopin PRN and doing ok Pt denies any suicidal or homicidal thought Pt denies any crying spells. skin Pt has dark pigm ented skin lesion right breast Pt had biopsy done recently and suture removed and she has not head about the pathology result yet pain Pt has chronic l ow back pain. Pt denies any worsening pain Pt denies any loss of bladder control. .Pt failed NSAID and ultram and neurontin. Pt denies any saddle area paresthesia. Pt c/o worsening low back pain with left sciatica and left upper leg paresthesia. Pt had MRI done which showed mild DDD only . anxiety1 Pt has chronic a nxiety and depression Pt takes cymbalta and klonopin PRN and doing ok Pt denies any suicidal or homicidal thought Pt denies any crying spells. lung nodule1 Pt has lung nodu le Pt had chest Ct done recently which showed stable nodule. nevus Pt has nevus jack und breast and she just saw Dr. phillip and had it removed this morning . back pain1 Pt has chronic l ow back pain with left sciatica and numbness and tingling and burning feeling left upper thigh. pt states that the left sciatica to left upper thigh symptoms have been worse lately Pt denies any loss of bowel or bladder control or saddle area paresthesia. Pt had MRi of L spine done which showed mild DDD and anterolisthesis of L3 and L4. pain Pt has chronic l ow back pain. Pt denies any worsening pain Pt denies any loss of bladder control. Pt takes norco PRN and doing ok. Pt denies any new symptoms .Pt failed NSAID and ultram and neurontin. Pt denies any saddle area paresthesia. anxiety1 Pt has chronic a nxiety and depression Pt takes cymbalta and klonopin PRn and doing ok Pt denies any suicidal or homicidal thought. Pt denies any crying spells lung nodule1 Pt has lung nodu le Pt is long time smoker. Pt has COPD and she is on trelegy and doing ok. Pt denies any hemoptysis nevus1 Pt notices a wilfredo den dark raised lesion right breast area for several months and she notices some spreading dark area around it recently Pt denies any bleeding back pain1 Pt has chronic l ow back pain with left sciatica and numbness and tingling and burning feeling left upper thigh since one week ago. pt states that the left sciatica to left upper thigh started one week ago Pt denies any loss of bowel or bladder control or saddle area paresthesia Pt went to ER last thursday and she was given ketorolac shot which did not help pain Pt has chronic l ow back pain. Pt denies any worsening pain Pt denies any loss of bladder control. Pt takes norco PRN and doing ok. Pt denies any new symptoms .Pt failed NSAID and ultram and neurontin. Pt denies any saddle area paresthesia. anxiety1 Pt has chronic a nxiety and depression Pt takes cymbalta and klonopin PRn and doing ok Pt denies any suicidal or homicidal thought. Pt denies any crying spells KCL Pt has history o f low KCL pt takes kcl Pt denies any chest pain or palpitation lung nodule1 Pt has lung nodu le Pt sees pulmonary Pt denies any hemoptysis, cough. pt is on trelegy and albuterol PRN anxiety1 Pt has chronic a nxiety and depression Pt takes cymbalta and klonopin PRn and doing ok Pt denies any suicidal or homicidal thought. Pt denies any crying spells osteopenia1 Pt has osteopeni a Pt takes calcium and D Pt needs vitamin D refilled HLP Pt has HLP Pt asuncion douglas Pt denies any myalgia pain Pt has chronic l ow back pain. Pt denies any worsening pain Pt denies any loss of bladder control. Pt takes norco PRN and doing ok. Pt denies any new symptoms .Pt failed NSAID and ultram and neurontin. Pt denies any saddle area paresthesia. pain Pt has chronic l ow back pain. Pt denies any worsening pain Pt denies any loss of bladder control. Pt takes norco PRN and doing ok. Pt denies any new symptoms .Pt failed NSAID and ultram and neurontin. Pt denies any saddle area paresthesia. anxiety1 Pt has chronic a nxiety and depression Pt takes cymbalta and klonopin PRn and doing ok Pt denies any suicidal or homicidal thought. Pt denies any crying spells cataract1 Pt has bilateral cataract and she will have left cataract surgery done soon under [facility] Pt needs surgical clearance insomnia1 Pt has chronic i nsomnia Pt has sleep apnea but she does not use cpap Pt states that she took amitriptyline 50 mg qhs since last month and she sleeps ok now. pain Pt has chronic l ow back pain. Pt denies any worsening pain Pt denies any loss of bladder control. Pt takes norco PRN and doing ok. Pt denies any new symptoms .Pt failed NSAID and ultram and neurontin. Pt denies any saddle area paresthesia. anxiety1 Pt has chronic a nxiety and depression Pt takes cymbalta and klonopin PRn and doing ok Pt denies any suicidal or homicidal thought. Pt denies any crying spells insomnia1 Pt has chronic i nsomnia due to anxiety .Pt can not shut her brain down while trying to fall asleep. Pt tried amitriptyline 25 mg qhs but has not helped . pain Pt has chronic l ow back pain. Pt denies any worsening pain Pt denies any loss of bladder control. Pt takes norco PRN and doing ok. Pt denies any new symptoms .Pt failed NSAID and ultram and neurontin. Pt denies any saddle area paresthesia. anxiety1 Pt has chronic a nxiety and depression Pt takes cymbalta and klonopin PRn and doing ok Pt denies any suicidal or homicidal thought. Pt denies any crying spells insomnia1 Pt has chronic i nsomnia Pt failed OTC meds .Pt has difficulty falling asleep for hours. anxiety1 Pt has chronic a nxiety and depression pt takes cymbalta and klonopin PRn and doing ok Pt denies any suicidal or homicidal thought. Pt denies any crying spells hernia1 Pt has small inc isional hernia but she rarely has any pain Pt denies any nausea, vomiting, constipation and diarrhea Pt saw Dr. Velasco and was told the hernia is not big and since she has only mild symptoms, no surgery recommended at this time . pain Pt has chronic l ow back pain. Pt denies any worsening pain Pt denies any loss of bladder control. Pt takes norco PRN and doing ok. Pt denies any new symptoms .Pt failed NSAID and ultram and neurontin. Pt denies any saddle area paresthesia. 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 Pt denies any chest pain. Her bp is ok bulge1 Pt notices a bul ge around epigastric area whenever she coughs or lying flat. Pt denies any pain Pt did have surgical scar around the area. Pt denies any pain kCL Pt has low KCL. Pt is on KCL. Pt needs refilled pain Pt has chronic l ow back pain. Pt denies any worsening pain Pt denies any loss of bladder control. Pt takes norco PRN and doing ok. Pt denies any new symptoms .Pt failed NSAID and ultram and neurontin. Pt denies any saddle area paresthesia. Pt states that is in worsening pain and she wants more norco per day anxiety1 Pt has chronic a nxiety and depression pt takes cymbalta and klonopin PRn and doing ok Pt denies any suicidal or homicidal thought. Pt denies any crying spells anxiety1 Pt has chronic a nxiety and depression pt takes cymbalta and klonopin PRn and doing ok Pt denies any suicidal or homicidal thought. Pt denies any crying spells HNT Pt has mild HTn Pt takes toprol. Pt denies any chest pain or headache pain Pt has chronic l ow back pain. Pt denies any worsening pain Pt denies any loss of bladder control. Pt takes norco PRN and doing ok. Pt denies any new symptoms .Pt failed NSAID and ultram and neurontin. Pt denies any saddle area paresthesia. Pt states that is in worsening pain and she wants more norco per day lung nodule1 Pt has lung nodu le and she just had chest Ct done in august Pt denies any hemoptysis pain Pt has chronic l ow back pain. Pt denies any worsening pain Pt denies any loss of bladder control. Pt takes norco PRN and doing ok. Pt denies any new symptoms .Pt failed NSAID and ultram and neurontin. Pt denies any saddle area paresthesia anxiety1 Pt has chronic a nxiety and depression pt takes cymbalta and klonopin PRn and doing ok Pt denies any suicidal or homicidal thought. Pt denies any crying spells hematuria1 Pt has hematuria . pt has mild proteinuria. Pt had negative CTU and also cytology and also cystoscope by urology last year. Pt denies any urinary symptoms Pt denies any flank pain pt had repeat UA done which showed hematuria polycythemia1 Pt has secondary polycythemia Pt is seeing hematology without any diagnosis. Pt does smoke and she has untreated sleep apnea. physical Pt needs annual physical. Pt has chronic anxiety and depression with bipolar .Pt takes cymbalta and klonopin and doing ok. Pt no longer sees psychiatrist . Pt denies any suicidal or homicidal thought Pt denies any crying spells. Pt has chronic low back pain Pt denies any saddle area paresthesia Pt denies any loss of bowel or bladder control. Pt has DDD. Pt has COPD .Pt takes trelegy and she sees pulmonary .Pt denies any hemoptysis, worsening sob or cough. Pt still smoking. Pt has osteopenia .Pt takes calcium and D and is working on weight bearing exercise. Pt takes kcl for chronic low kcl. Pt currently doing ok .Pt denies any other complaints. Pt has CAD Pt sees cardiology Pt is on toprol and crestor. sick Pt c/o acute ons et of productive cough with green phlegm and purulent running nose. Pt denies any fever Pt denies any worsening sob. anxiety1 Pt has chronic a nxiety and depression pt takes cymbalta and klonopin PRn and doing ok Pt denies any suicidal or homicidal thought. Pt denies any crying spells pain Pt has chronic l ow back pain. Pt denies any worsening pain Pt denies any loss of bladder control. Pt takes norco PRN and doing ok. Pt denies any new symptoms .Pt failed NSAID and ultram and neurontin. Pt denies any saddle area paresthesia emphysema1 Pt has emphysema Pt sees pulmonary and she juts had stable chest Ct per patient. Her lung nodule is stable per patient from chest CT last month by pulmonary per patient .Pt is on trelegy and albuterol now anxiety1 Pt has chronic a nxiety and depression pt takes cymbalta and klonopin PRn and doing ok Pt denies any suicidal or homicidal thought. Pt denies any crying spells pain Pt has chronic l ow back pain. Pt denies any worsening pain Pt denies any loss of bladder control. Pt takes norco PRN and doing ok. Pt denies any new symptoms .Pt failed NSAID and ultram and neurontin. Pt denies any saddle area paresthesia lung nodule1 Pt has lung nodu le Pt sees pulmonary and she had chest ct done last week by pulmonary. anxiety1 Pt has chronic a nxiety and depression pt takes cymbalta and klonopin PRn and doing ok Pt denies any suicidal or homicidal thought. Pt denies any crying spells pain Pt has chronic l ow back pain. Pt denies any worsening pain Pt denies any loss of bladder control. Pt takes norco PRN and doing ok. Pt denies any new symptoms .Pt failed NSAID and ultram and neurontin. Pt denies any saddle area paresthesia CAD Pt has CAD with atrial myxoma removal recently. Pt denies any chest pain or sob Pt is off eliquis now Pt is on Toprol osteopenia1 Pt has osteopeni a. Pt takes calcium and D. Pt denies any fx anxiety1 Pt has chronic a nxiety and depression pt takes cymbalta and klonopin PRn and doing ok Pt denies any suicidal or homicidal thought. Pt denies any crying spells pain Pt has chronic l ow back pain. Pt denies any worsening pain Pt denies any loss of bladder control. Pt takes norco PRN and doing ok. Pt denies any new symptoms .Pt failed NSAID and ultram and neurontin. Pt denies any saddle area paresthesia CAD Pt has CAD and a lso atrial mass removal recently. Pt is on crestor .Pt is on eliquis and also toprol now by cardiology and CT surgeon Pt denies any chest pain or palpitation. Pt denies any sob tobacco1 Pt smokes 1 PPD. Pt wants to quit smoking . pain Pt has chronic l ow back pain. Pt denies any worsening pain Pt denies any loss of bladder control. Pt takes norco PRN and doing ok. Pt denies any new symptoms .Pt failed NSAID and ultram and neurontin. Pt denies any saddle area paresthesia anxiety1 Pt has chronic a nxiety and depression pt takes cymbalta and klonopin PRn and doing ok Pt denies any suicidal or homicidal thought. Pt denies any crying spells CAD Pt has CAD and s he is no crestor Pt just had open heart surgery for atrial myxoma removal. Pt has some post up chest wall pain Pt needs pain meds refilled Pt also started on two medication and one is for HTN and the other one she does not know what is for and she does not know the name of it Pt denies any chest pain or sob pain Pt has chronic l ow back pain. Pt denies any worsening pain Pt denies any loss of bladder control. Pt takes norco PRN and doing ok. Pt denies any new symptoms .Pt failed NSAID and ultram and neurontin. Pt denies any saddle area paresthesia anxiety1 Pt has chronic a nxiety and depression pt takes cymbalta and klonopin PRn and doing ok Pt denies any suicidal or homicidal thought. Pt denies any crying spells atrial myxoma1 Pt has CAD and a trial myxoma. pt is not on any blood thinners now and she will have cardiac surgery next week. Pt denies any chest pain or palpitation or sob HTN Pt has mild HTN Pt is extremely nervous about the incoming surgery. Pt denies any chest pain or headache .Pt is not on any bp meds pain Pt has chronic l ow back pain. Pt denies any worsening pain Pt denies any loss of bladder control. Pt takes norco PRN and doing ok. Pt denies any new symptoms .Pt failed NSAID and ultram and neurontin. Pt denies any saddle area paresthesia anxiety1 Pt has chronic a nxiety and depression pt takes cymbalta and klonopin PRn and doing ok Pt denies any suicidal or homicidal thought. Pt denies any crying spells CAD Pt has CAD and s he also has atrial myxoma. Pt denies any chest pain ,Pt has trae with Ct surgeon in several weeks to discuss surgery. Pt started crestor 4 weeks ago. pt denies any myalgia. Pt has appointment with [facility] next week. PT denies any chest pain pain Pt has chronic l ow back pain. Pt denies any worsening pain Pt denies any loss of bladder control. Pt takes norco PRN and doing ok. Pt denies any new symptoms .Pt failed NSAID and ultram and neurontin. Pt denies any saddle area paresthesia anxiety1 Pt has chronic a nxiety and depression pt takes cymbalta and klonopin PRn and doing ok Pt denies any suicidal or homicidal thought. Pt denies any crying spells CAD Pt has CAD and s he also has atrial myxoma. Pt denies any chest pain ,Pt has trae with Ct surgeon next week. Pt started crestor two weeks ago. pt denies any myalgia COPD1 Pt has COPD and she has night time oxygen desaturation per pulmonary and she will get night time oxygen per pulmonary Pt also will repeat chest CT by pulmonary in 6 months due to nodule atrial mass1 pt recently went to hospital for fever, weakness and sob. Pt tested positive for influenza A. She received supplement oxygen while in hospital. Pt underwent cardiac cath which showed CAD. Pt also had 6 mins walking test which she did not qualify for home oxygen. Pt does have COPD and pulmonary nodule. Pt received tamiflu. Pt currently feels much better. Pt denies any chest pain or sob or fever or weakness . pain Pt has chronic l ow back pain. Pt denies any worsening pain Pt denies any loss of bladder control. Pt takes norco PRN and doing ok. Pt denies any new symptoms .Pt failed NSAID and ultram and neurontin. Pt denies any saddle area paresthesia anxiety1 Pt has chronic a nxiety and depression pt takes cymbalta and klonopin PRn and doing ok Pt denies any suicidal or homicidal thought. Pt denies any crying spells headache1 Pt has chronic h eadache. Pt has trae with neurology soon for headache. Pt saw pulmonary and was told that she needs to use cpap at night since her oxygen is low at night, which may cause headache. Pt does have sleep apnea but she does not want to use cpap b12 Pt has low b12 P t gets b12 injection monthly Pt needs b12 refilled KCL Pt has low KCL P t denies any chest pain or palpitation. Pt takes kcl anxiety1 Pt has chronic a nxiety and depression pt takes cymbalta and klonopin PRn and doing ok Pt denies any suicidal or homicidal thought. Pt denies any crying spells pain Pt has chronic l ow back pain. Pt denies any worsening pain Pt denies any loss of bladder control. Pt takes norco PRN and doing ok. Pt denies any new symptoms .Pt failed NSAID and ultram and neurontin. Pt denies any saddle area paresthesia headache1 Pt has chronic m igraine headache .Pt has daily throbbing headache with nausea Pt failed topamax Pt also has some tension headache as well. Pt had normal MRI of brain. Pt denies any acute headache Pt denies any head injury or waking up at night with headache anxiety1 Pt has chronic a nxiety and depression pt takes cymbalta and klonopin PRn and doing ok Pt denies any suicidal or homicidal thought. Pt denies any crying spells pain Pt has chronic l ow back pain. Pt denies any worsening pain Pt denies any loss of bladder control. Pt takes norco PRN and doing ok. Pt denies any new symptoms .Pt failed NSAID and ultram and neurontin. Pt denies any saddle area paresthesia stomach1 Pt states that s he started to have GERD and stomach burning again lately. Pt had EGD done last month which showed gastritis only. Pt denies any daysi abdominal pain or nausea. Pt denies any early satiety or appetite loss. Pt restarted omeprazole again on her own but she needs refill anxiety1 Pt has chronic a nxiety and depression pt takes cymbalta and klonopin PRn and doing ok Pt denies any suicidal or homicidal thought. Pt denies any crying spells pain Pt has chronic l ow back pain. Pt denies any worsening pain Pt denies any loss of bladder control. Pt takes norco PRN and doing ok. Pt denies any new symptoms .Pt failed NSAID and ultram and neurontin. Pt denies any saddle area paresthesia tobacco1 Pt is long time smoker Pt sees pulmonary. Pt just had LDCT which was normal. Pt is on trelegy per pulmonary gastric polyp1 Pt has history o f gastric polyp. Pt denies any GERD Pt had EGD done 3 weeks ago which showed gastris only without polyp pain Pt has chronic l ow back pain. Pt denies any worsening pain Pt denies any loss of bladder control. Pt takes norco PRN and doing ok. Pt denies any new symptoms .Pt failed NSAID and ultram and neurontin. Pt denies any saddle area paresthesia anxiety1 Pt has chronic a nxiety and depression Pt takes cymbalta and klonopin and doing ok. Pt denies any suicidal or homicidal thought pt denies any crying spells. Pt doing ok with Cymbalta and klonopin tobacco1 Pt has 41 pack y ear tobacco pt needs lDCT for lung CA screening Pt denies any hemoptysis, sob or cough b12 Pt has low B12. Pt has been getting b12 injection and she feels more energy. pain Pt has chronic l ow back pain. Pt denies any worsening pain Pt denies any loss of bladder control. Pt takes norco PRN and doing ok. Pt denies any new symptoms .Pt failed NSAID and ultram and neurontin. Pt denies any saddle area paresthesia gastritis1 Pt has gastritis and gastric polyp Pt will repeat EGD soon. Pt restarted omeprazole due to recurrent gastric burning feeling. Pt denies any GERD or abdominal pain pain Pt has chronic l ow back pain. Pt denies any worsening pain Pt denies any loss of bladder control. Pt takes norco PRN and doing ok. Pt denies any new symptoms .Pt failed NSAID and ultram and neurontin. Pt denies any saddle area paresthesia anxiety1 anxiety1 Pt has chronic a nxiety and depression Pt takes cymbalta and klonopin and doing ok. Pt weaned herself off lamictal due to weird dreams. Pt denies any suicidal or homicidal thought pt denies any crying spells. Pt doing ok with Cymbalta and klonopin GERD1 Pt has gastritis and some adenoma gastric polyp pt has not been on PPI due to lack of GERD. Pt has trae with GI for EGD soon hematura1 Pt has hematuria . Pt denies any urinary symptoms Pt went to see urology. She had negative UA and cytology and cysto as well. pt was told she is ok now anxiety1 Pt has chronic a nxiety and depression and mood swings Pt denies any suicidal or homicidal thought. Pt denies any crying spells. Pt is seeing psychiatry SENIOR QUALITY TECHNICIAN at [place] and she takes cymbalta, klonopin and lamictal and doing ok currently pain Pt has chronic l ow back pain. Pt denies any worsening pain Pt denies any loss of bladder control. Pt takes norco PRN and doing ok. Pt denies any new symptoms .Pt failed NSAID and ultram and neurontin. Pt denies any saddle area paresthesia hemauria1 Pt has hematuria . Pt denies any urinary symptoms Pt has trae with urology next week b12 Pt has low b12 P t started b12 injection recently and she feels more energy kcl Pt has low kcl P t has not been taking kcl daily. osteopenia1 Pt has osteopeni a Pt takes calcium and D. Pt has low D again b12 Pt has low B12 p t feels chronic fatigue. hematuria1 Pt has recurrent hematuria pt denies any urinary symptoms. pt denies any flank pain anxiet1 Pt has chronic a nxiety and depression and mood swings Pt denies any suicidal or homicidal thought. Pt denies any crying spells. Pt is seeing psychiatry SENIOR QUALITY TECHNICIAN at [place] and she takes cymbalta, klonopin and lamictal and doing ok currently pain Pt has chronic l ow back pain. Pt denies any worsening pain Pt denies any loss of bladder control. Pt takes norco PRN and doing ok. Pt denies any new symptoms .Pt failed NSAID and ultram and neurontin. Pt denies any saddle area paresthesia pain Pt has chronic l ow back pain. Pt denies any worsening pain Pt denies any loss of bladder control. Pt takes norco PRN and doing ok. Pt denies any new symptoms .Pt failed NSAID and ultram and neurontin. Pt denies any saddle area paresthesia breast1 Pt denies any br east issue .Pt needs mammogram anxiety1 Pt has chronic a nxiety and depression and mood swings Pt denies any suicidal or homicidal thought. Pt denies any crying spells. Pt is seeing psychiatry SENIOR QUALITY TECHNICIAN at [place] and she takes cymbalta, klonopin and lamictal and doing ok currently physical Pt needs annual physical. Pt has chronic anxiety and depression with bipolar Pt sees psychiatrist .Pt takes cymbalta, lamictal and klonopin. Pt denies any suicidal or homicidal thought Pt denies any crying spells. Pt has chronic low back pain Pt denies any saddle area paresthesia Pt denies any loss of bowel or bladder control. Pt has DDD. Pt has COPD .Pt takes trelegy and she sees pulmonary .Pt denies any hemoptysis, worsening sob or cough. Pt still smoking. Pt has osteopenia .Pt takes calcium and D and is working on weight bearing exercise. Pt takes kcl for chronic low kcl. Pt currently doing ok .Pt denies any other complaints anxiety1 Pt has chronic a nxiety and depression and mood swings Pt denies any suicidal or homicidal thought. Pt denies any crying spells. Pt is seeing psychiatry SENIOR QUALITY TECHNICIAN at [place] and she takes cymbalta, klonopin and risperdal and doing ok currently pain Pt has chronic l ow back pain. Pt denies any worsening pain Pt denies any loss of bladder control. Pt takes norco PRN and doing ok. Pt denies any new symptoms .Pt failed NSAID and ultram and neurontin. Pt denies any saddle area paresthesia anxiety1 Pt has chronic a nxiety and depression and mood swings Pt denies any suicidal or homicidal thought. Pt denies any crying spells. Pt is seeing psychiatry SENIOR QUALITY TECHNICIAN at [place] and she takes cymbalta, klonopin and risperdal and doing ok currently headache1 Pt states that s he still has intermittent pressure headache, Pt denies any nausea, photophobia Pt denies any head injury or waking up at night with headache ,Pt notices more headache when she is stressed out. Pt denies any acute headache Pt had normal MRI of brain. Pt denies any vision change. Pt failed topamax. she usually wakes up in the morning with headache. Pt does have sleep apnea but she refuses to wear cpap pain Pt has chronic l ow back pain. Pt denies any worsening pain Pt denies any loss of bladder control. Pt takes norco PRN and doing ok. Pt denies any new symptoms .Pt failed NSAID and ultram and neurontin. Pt denies any saddle area paresthesia anxiety1 Pt has chronic a nxiety and depression and mood swings Pt denies any suicidal or homicidal thought. Pt denies any crying spells. Pt is seeing psychiatry SEN[facility] QUALITY TECHNICIAN at [place] and she takes cymbalta, klonopin and risperdal and doing ok currently pain Pt has chronic l ow back pain. Pt denies any worsening pain Pt denies any loss of bladder control. Pt takes norco PRN and doing ok. Pt denies any new symptoms .Pt failed NSAID and ultram and neurontin pain Pt has chronic l ow back pain. Pt denies any worsening pain Pt denies any loss of bladder control. Pt takes norco PRN and doing ok. Pt denies any new symptoms .Pt failed NSAID and ultram and neurontin anxiety1 Pt has chronic a nxiety and depression and mood swings Pt denies any suicidal or homicidal thought Pt feels more depressed with mood swings Pt is seeing psychiatry SEN[facility] QUALITY TECHNICIAN at [place] and she takes cymbalta, klonopin and risperdal and doing ok nausea1 Pt has history o f nausea and vague abd pain. Pt was on omeprazole. Pt states that she weaned herself off omeprazole several months ago since she no longer has any nausea or abd pain. Pt had colonoscopy done which showed tubular adenoma polyp and also tubular adenoma around small intestine Pt denies any change of bowel or weight loss or bleeding. Pt denies any GERD headache1 Pt has stress he adache Pt denies any head injury or waking up at night with headache Pt had normal MRi of brain Pt states that she only notices headache when she is stressed out . anxiety1 Pt has chronic a nxiety and depression and mood swings Pt denies any suicidal or homicidal thought Pt feels more depressed with mood swings Pt is seeing psychiatry SEN[facility] QUALITY TECHNICIAN at [place] and she takes cymbalta, klonopin and risperdal and doing ok pain Pt has chronic l ow back pain. Pt denies any worsening pain Pt denies any loss of bladder control. Pt takes norco PRN and doing ok. Pt denies any new symptoms .Pt failed NSAID and ultram and neurontin low k Pt has low KCL. Pt has been taking kcl and her renal function is ok anxiety1 Pt has chronic a nxiety and depression and mood swings Pt denies any suicidal or homicidal thought Pt feels more depressed with mood swings Pt saw a psychiatry SENIOR QUALITY TECHNICIAN at [place] and she was started on risperdal but she has not started it yet . pain1 Pt has chronic l ow back pain. Pt denies any worsening pain Pt denies any loss of bladder control. Pt takes norco PRN and doing ok. Pt denies any new symptoms .Pt failed NSAID and ultram and neurontin headache1 Pt still has lexx quent stress headache Pt denies any head injury or waking up at night with headache Pt still has not done MRI yet. Pt tried topamax but did not help pt has daily throbbing and pressure headache Pt has nausea and photophobia with headache. Pt has a lot of stress Pt denies head injury or waking up at night with headache. MRI of brain was again approved but she has not scheduled yet. Pt denies any acute headache hypokalemia1 Pt has persisten t low KCL. pt takes KCL. Pt denies any chest pain or palpitation anxiety1 Pt has chronic a nxiety and depression ,Pt takes cymbalta and klonopin PRn and doing ok Pt denies any suicidal or homicidal thought. Pt denies any crying spells. pain Pt has chronic l ow back pain. Pt denies any worsening pain Pt denies any loss of bladder control. Pt takes norco PRN and doing ok. 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 Pt has chronic GERD and she is doing well with omeprazole Pt denies any abd pain. headache1 Pt still has lexx quent stress headache Pt denies any head injury or waking up at night with headache Pt still has not done MRI yet. Pt tried topamax but did not help pt has daily throbbing and pressure headache Pt has nausea and photophobia with headache. Pt has a lot of stress Pt denies head injury or waking up at night with headache anxiety1 Pt has chronic a nxiety and depression ,Pt takes cymbalta and klonopin PRn and doing ok Pt denies any suicidal or homicidal thought. Pt denies any crying spells. hematuria1 Pt denies any UT I symptoms Pt had another UA done which was normal No hematuria Pt denies any flank pain headache1 Pt still has lexx quent stress headache Pt denies any head injury or waking up at night with headache Pt still has not done MRI yet. Pt is off topamax since it did not help pain Pt has chronic l ow back pain. Pt denies any worsening pain Pt denies any loss of bladder control. Pt takes norco PRN and doing ok. Pt denies any new symptoms .Pt failed NSAID and ultram and neurontin adenoma1 Pt has tubular a denoma on small intestine and also cecal area. Pt was told by nurse that she needs to repeat endoscopy in 5 years. Pt denies any GI bleeding Pt is on omeprazole daily and no nausea hematuria1 Pt denies any ut i symptoms .Pt could not urinate during last lab. Pt will go back tomorrow for above headache1 Pt still has lexx quent stress headache Pt denies any head injury or waking up at night with headache Pt has not done MRi yet. headache1 Pt has chronic l ow back pain. Pt denies any worsening pain Pt denies any loss of bladder control. Pt takes norco PRN and doing ok. Pt denies any new symptoms .Pt failed NSAID and ultram anxiety1 Pt has chronic a nxiety and depression ,Pt takes cymbalta and klonopin PRn and doing ok Pt denies any suicidal or homicidal thought. Pt denies any crying spells. hypokalemia1 Pt has persisten t low KCL. pt has mild intermittent diarrhea. pt denies any chest pain or headache . nausea1 Pt states that n ausea resolved with omeprazole. Pt has EGD and colonoscopy scheduled this Thursday. COPD Pt has COPD Pt t ildefonso bowman .Pt states that she has not heard from pulmonary yet. Pt denies any hemoptysis worsening sob or any cough headache1 pt c/o recurrent throbbing headache for 6 months Pt denies any head injury or waking up at night with headache Pt notices pain around back of neck and frontal area as well. Pt has headache almost daily. Pt states that topamax has not helped at all. Pt denies any nausea or photophobia. Pt states that she has headache daily and is around 6/10. Pt denies any radiculopathy nausea Pt states that n ausea resolved with omeprazole Pt denies any GERD Pt still has chronic non bloody diarrhea. Pt has trae with GI next month. Pt denies any abd pain anxiety Pt has chronic a nxiety and depression ,Pt takes cymbalta and klonopin PRn and doing ok Pt denies any suicidal or homicidal thought. Pt denies any crying spells. pain Pt has chronic l ow back pain. Pt denies any worsening pain Pt denies any loss of bladder control. Pt takes norco PRN and doing ok. Pt denies any new symptoms .Pt failed NSAID and ultram headache1 pt c/o recurrent throbbing headache for 3-4 months Pt denies any head injury or waking up at night with headache Pt notices pain around back of neck and frontal area as well. Pt has headache almost daily. Pt states that topamax has not helped at all. anxiety1 Pt has chronic a nxiety and depression ,Pt takes cymbalta and klonopin PRn and doing ok Pt denies any suicidal or homicidal thought. Pt denies any crying spells. pain Pt has chronic l ow back pain. Pt denies any worsening pain Pt denies any loss of bladder control. Pt takes norco PRN and doing ok. Pt denies any new symptoms .Pt failed NSAID and ultram nausea1 Pt has chronic n ausea and diarrhea. Pt denies any abdominal pain Pt has been taking omeprazole daily since two weeks ago Pt denies any daysi GERD. COPD Pt has COPD Pt s till smokes Pt uses trelegy and ventolin. Pt uses albuterol 1-2 per day still pt denies any hemoptysis, worsening sob or cough low KCL Pt has low KCL P t denies any chest pain or palpitation pt states that she has been having frequent non-bloody diarrhea for the past several months along with nausea without abd pain .Pt denies any vomiting Pt states that she feels nauseated all the time, worse in the morning and sometimes after food. polycythemia1 Pt has chronic p olycythemia Pt smokes and she has sleep apnea and she does not want to quit smoking or use cpap .Pt is seeing hematology hematuria1 Pt has microscop ic hematuria Pt denies any pelvic pain. Pt denies any urinary frequency or urgency or dysuria k.Pt denies any flank pain pain Pt has chronic l ow back pain. Pt denies any worsening pain Pt denies any loss of bladder control. Pt takes norco PRN and doing ok. Pt denies any new symptoms .Pt failed NSAID and ultram anxiety1 Pt has chronic a nxiety and depression ,Pt takes cymbalta and klonopin PRn and doing ok Pt denies any suicidal or homicidal thought. Pt denies any crying spells. mammo Pt denies any br east issue Pt needs screening mammo headache1 Pt c/o recurrent headache x 3 months Pt denies any head injury or waking up at night with headache .Pt c/o throbbing headache frontal area. Pt states that the headache is stress related. Pt has photophobia and nausea with headache. Pt states that she has been going through a lot of stress lately chronic pain1 Pt has chronic l ow back pain. Pt denies any worsening pain Pt denies any loss of bladder control. Pt takes norco PRN and doing ok. Pt denies any new symptoms .Pt failed NSAID and ultram anxiety1 Pt has chronic a nxiety and depression ,Pt takes cymbalta and klonopin PRn and doing ok Pt denies any suicidal or homicidal thought. Pt denies any crying spells. physical Pt needs annual physical Pt has chronic anxiety and depression. Pt denies any suicidal or homicidal thought .Pt denies any crying spells. Pt takes cymbalta and klonopin PRN and doing ok. Pt has choric low back pain, Pt denies any worsening pain ,pt denies any loss of bladder control. Pt has COPD. Pt sees pulmonary. Pt uses trelegy and she uses ventolin PRN. Pt denies any other complaints anxiety1 Pt has chronic a nxiety and depression Pt is on cymbalta and klonopin and doing ok. Pt denies any suicidal or homicidal thought. Pt denies any crying spells Pt denies any mood swings. pain Pt has chronic l ow back pain due to DDD Pt denies any worsening pain pt denies any loss of bladder control. Pt failed NSAID and ultram. Pt takes norco PRN for pain and doing ok. pt has mild sciatica and leg numbness. ear pain1 Pt c/o left ear pain for two weeks. Pt denies any hearing loss Pt denies any drainage. Pt denies any jaw pain Pt denies any ear injury or trauma or any water in left ear. Pt denies any sore throat back pain Additional infor mation: Pt has chronic low back pain due to DDD Pt denies any worsening pain pt denies any loss of bladder control. Pt failed NSAID and ultram. Pt takes norco PRN for pain and doing ok. pt has mild sciatica and leg numbness. anxiety1 Pt has chronic a nxiety and depression. Pt restarted cymbalta 60 mg and she is on klonopin Pt is off latuda Pt denies any mood swings or any suicidal or homicidal thought anxiety1 Pt has chronic a nxiety and depression with bipolar disorder pt states that she stopped taking cymbalta and Latuda recently since both medication causes upset stomach for her. Pt denies any suicidal or homicidal thought Pt denies any crying spells. Pt denies any mood swings currently pain1 Pt has chronic l ow back pain due to DDD Pt denies any worsening pain pt denies any loss of bladder control. Pt failed NSAID and ultram. Pt takes norco PRN for pain and doing ok. pt has mild sciatica and leg numbness. glucose1 Pt has elevated A1c Pt denies any polyuria, polydipsia. COPD1 Pt has COPD. Pt still smoking Pt uses trelegy now. Pt uses ventolin daily .Pt sees pulmonary pain Pt has chronic l ow back pain due to DDD Pt denies any worsening pain pt denies any loss of bladder control. Pt failed NSAID and ultram. Pt takes norco PRN for pain and doing ok. pt has mild sciatica and leg numbness. anxiety1 Pt has chronic a nxiety and depression. Pt takes cymbalta, latuda and klonopin. Pt denies any suicidal or homicidal thought. Pt has bipolar and mood swings. Pt doing ok currently. Pt denies any crying spells. tobacco1 Pt still smoking Pt had negative LDCT pain Pt has chronic l ow back pain due to DDD Pt denies any worsening pain pt denies any loss of bladder control. Pt failed NSAID and ultram. Pt takes norco PRN for pain and doing ok. pt has mild sciatica and leg numbness. Pt failed neurontin anxiety1 Pt has chronic a nxiety and depression. Pt takes cymbalta, latuda and klonopin. Pt denies any suicidal or homicidal thought. Pt has bipolar and mood swings. Pt doing ok currently. Pt denies any crying spells. COPD Pt has COPD .Pt denies any acute sob. PT denies any hemoptysis Pt takes anoro and she uses albuterol 2-3 per week pain Pt has chronic l ow back pain due to DDD Pt denies any worsening pain pt denies any loss of bladder control. Pt failed NSAID and ultram. Pt takes norco PRN for pain and doing ok. pt has mild sciatica and leg numbness. Pt failed neurontin anxiety1 Pt has chronic a nxiety and depression. Pt takes cymbalta, latuda and klonopin. Pt denies any suicidal or homicidal thought. Pt has bipolar and mood swings. Pt doing ok currently. Pt denies any crying spells. Pt no longer sees her psychiatrist osteopenia1 Pt has osteopeni a. Pt takes calcium and D. Pt needs vitamin D refilled lung Pt sees pulmonar y Pt needs LDCT Pt states that she has trae for LDCT for lung CA screening in two weeks from pulmonary Pt denies any hemoptysis, worsening sob or cough pain Pt has chronic l ow back pain due to DDD Pt denies any worsening pain pt denies any loss of bladder control. Pt failed NSAID and ultram. Pt takes norco PRN for pain and doing ok. pt has mild sciatica and leg numbness. Pt failed neurontin anxiety1 Pt has chronic a nxiety and depression. Pt takes cymbalta, latuda and klonopin. Pt denies any suicidal or homicidal thought. Pt has bipolar and mood swings. Pt doing ok currently. Pt denies any crying spells. pain1 Pt has chronic l ow back pain due to DDD Pt denies any worsening pain pt denies any loss of bladder control. Pt failed NSAID and ultram. Pt takes norco PRN for pain and doing ok. pt has mild sciatica and leg numbness. Pt states that neurontin makes her sick so she stopped taking it. anxiety1 Pt has chronic a nxiety and depression. Pt takes cymbalta, latuda and klonopin. Pt denies any suicidal or homicidal thought. Pt has bipolar and mood swings. Pt doing ok currently. pain Pt has chronic l ow back pain due to DDD Pt denies any worsening pain pt denies any loss of bladder control. Pt failed NSAID and ultram. Pt takes norco PRN for pain and doing ok. pt has mild sciatica and leg numbness. anxiety1 Pt has chronic a nxiety and depression. Ptt takes cymbalta, latuda and klonopin. Pt denies any suicidal or homicidal thought. Pt has bipolar and mood swings. Pt doing ok currently. polycythemia1 Pt has polycyehm ia1 Pt has normal iron. Pt just saw hematology and was told due to sleep apnea and smoking . Her iron and ferritin was missed recently. Pt had some lab done by hematology anxiety1 Pt has chronic a nxiety and depression. Ptt takes cymbalta, latuda and klonopin pt no longer sees psychiatrist. Pt denies any suicidal or homicidal thought. Pt has bipolar and mood swings. Pt doing ok currently. osteopenia1 Pt is on calcium and D. Pt is not working on weight bearing exercise polycythemia1 pt has polycythe dalia. Pt has sleep apnea and she smokes. Pt just seen hematology and had some lab. Pt was told that it is due to smoking and also sleep apnea. PIt feels mildly fatigue. Pt wants b12 shot pain1 Pt has chronic l ow back pain due to DDD Pt denies any worsening pain pt denies any loss of bladder control. Pt failed NSAID and ultram. Pt takes norco PRN for pain and doing ok pain1 Pt has chronic l ow back pain due to DDD Pt denies any worsening pain pt denies any loss of bladder control. Pt failed NSAID and ultram. Pt takes norco PRN for pain and doing ok anxiety1 Pt has chronic a nxiety and depression. Ptt takes cymbalta, latuda and klonopin pt no longer sees psychiatrist. Pt denies any suicidal or homicidal thought. Pt has bipolar and mood swings. Pt doing ok currently. depression1 Pt has bipolar d epression and insomnia Pt was seeing psychiatrist but she got mad during her last visit and she walked out of her office pt needs medication refills pt told me she was just started Abilify recently for insomnia. Pt also takes cymbalta and also latuda. Pt denies any delusional disorder pt denies any suicidal or homicidal thought Pt denies any crying spells polychermia1 Pt has not heard from hematology yet Pt does not use cpap pt smoke heavily chronic pain Pt has chronic l ow back pain due to DDD Pt denies any worsening pain pt denies any loss of bladder control. Pt failed NSAID and ultram. Pt takes norco PRN for pain and doing ok folate pt has low folat e and high glucose pt denies any polyuria, polydipsia. Pt denies any neuropathy symptoms polycythemia1 Pt has intermitt ent polycythemia Pt smokes and she has sleep apnea but she is noncompliant with cpap. lab did not do iron due to medicare payment issue anxiety1 Pt has chronic a nxiety and depression. Ptt takes cymbalta, latuda and klonopin pt sees psychiatrist Pt denies any suicidal or homicidal thought. Pt has bipolar and mood swings. Pt doing ok currently. Pt sees psychiatrist PHysical Pt needs annual physical. Pt has chronic low back pain Pt denies any worsening pain, Pt denies any loss of bladder control. pt takes norco PRN for pain Pt failed NSAID and ultram. Pt has anxiety and depression and bipolar. Pt takes cymbalta and latuda and klonopin PRN Pt doing ok. Pt sees psychiatrist. Pt has COPD. Pt uses anoro and ventolin Pt uses ventolin 1-2 per day Pt denies any hemoptysis, worsening sob or cough. Pt has osteopenia. Pt takes calcium and D chronic pain Pt has chronic l ow back pain due to DDD Pt denies any worsening pain pt denies any loss of bladder control. Pt failed NSAID and ultram. Pt takes norco PRN for pain and doing ok anxiety1 Pt has chronic a nxiety and depression. Ptt takes cymbalta, latuda and klonopin pt sees psychiatrist Pt denies any suicidal or homicidal thought. Pt has bipolar and mood swings. Pt doing ok currently. 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 Pt snores. Pt does not use CPAP. pt states that she could not tolerate CPAP anxiety1 Pt has chronic a nxiety and depression. Ptt takes cymbalta, latuda and klonopin pt sees psychiatrist Pt denies any suicidal or homicidal thought. Pt has bipolar and mood swings. Pt doing ok currently chronic pain Pt has chronic l ow back pain due to DDD Pt denies any worsening pain pt denies any loss of bladder control. Pt failed NSAID and ultram. Pt takes norco PRN for pain and doing ok anxiety1 Pt has chronic a nxiety and depression Pt takes cymbalta, latuda and klonopin PRN and doing ok. Pt sees psychiatrist Pt denies any suicidal or homicidal thought. pt denies any feeling of hopelessness pain1 Pt has chronic l ow back pain due to DDD Pt denies any worsening pain pt denies any loss of bladder control. Pt failed NSAID and ultram sleep apnea1 Pt has sleep anatomic pathology manager ea. Pt does not use CPAP. Pt is noncompliant. Pt does feel fatigue and she does snore anxiety1 Pt has chronic a nxiety and depression Pt takes cymbalta, latuda and klonopin PRN and doing ok. Pt sees psychiatrist Pt denies any suicidal or homicidal thought back pain1 Pt has chronic l ow back pain due to DDD Pt denies any worsening pain pt denies any loss of bladder control. Pt failed NSAID and ultram osteopenia1 Pt has mild oste openia left hip area. Pt denies any fracture. Pt takes calcium and vitamin nD folate1 Pt stopped takin g folic acid on her own. Her folate was ok recently chronic pain Pt has chronic b ack pain pt has DDD Pt denies any worsening pain pt denies any loss of bladder control. Pt failed NSAID and ultram anxiety1 Pt has chronic a nxiety and depression Pt takes klonopin, latuda and cymbalta. Pt sees psychiatrist Pt denies any suicidal or homicidal thought. Pt denies any crying spells postmeno1 Pt needs bone de nsity. pt has low D Pt denies any fx chrnoic pain Pt has chronic b ack pain Pt has DDD Pt denies any worsening pain Pt denies any loss of bladder control. Pt doing ok with norco for pain PRN. Pt failed NSAID and ultram anxiety1 Pt has chronic a nxiety and depression Pt takes cymbalta and klonopin Pt denies any suicidal or homicidal thought. Pt takes latuda also Pt denies any issue now chronic pain1 Pt has chronic l ow back pain Pt has DDD Pt denies any worsening pain. Pt denies any loss of bladder control. Pt failed NSAID and ultram. pt takes norco PRN for pain anxiety1 Pt has chronic a nxiety and depression. Pt takes cymbalta, trazodone, latuda and klonopin PRN Pt sees psychiatrist Pt denies any suicidal or homicidal thought. pt denies any crying spells shoulder pain1 Pt c/o left shou lder blader pain for several weeks with radiation to left elbow. Pt denies any numbness Pt denies any weakness. Pt denies any neck pain. COPD1 Pt has emphysema . Pt still smoking. Pt uses Anoro and also albuterol PRn. Pt denies any acute sob. Pt states that she uses albuterol daily pt is out of albuterol and she wants ventolin refilled and she could not get a hold of her pulmonary. Pt denies any coughing or hemoptysis sleep apnea1 Pt has sleep anatomic pathology manager ea but she does NOT use CPAP. Pt states that mask does not work. Pt denies any snoring or fatigue now chronic pain Pt has chronic l ow back and pelvic pain Pt takes norco PRN for pain. pt has mild sciatica and leg numbness. Pt denies any loss of bladder control. Pt doing ok with pain meds. anxiety1 Pt has chronic a nxiety and depression Pt takes cymbalta, trazodone, latuda and klonopin. Pt denies any suicidal or homicidal thought. Pt sees psychiatrist back pain1 Pt has chronic l ow back pain. pt has DDd. pt denies any worsening pain Pt denies any loss of bladder control. Pt has 6/10 pain anxiety1 Pt has chronic a nxiety and depression and bipolar. Pt sees psychiatrist. Pt takes cymbalta, trazodone, latuda, klonopin PRN. Pt denies any suicidal or homicidal thought. pt denies any crying spells COPD1 Pt has COPD. Pt still smoking. Pt sees pulmonary. Pt uses anoro and ventolin PRN. Pt uses ventolin 3-4 times per week. pt denies any acute sob. sleep apnea1 Pt has sleep anatomic pathology manager ea pt is noncompliant with cpap. Pt does not use daily. 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 Patient denies any suicidal homicidal thoughts. Patient denies any crying spells. Patient denies any hopelessness. Patient takes Cymbalta, Latuda, Klonopin, and trazodone. Patient sees psychiatrist chronic pain1 Patient has pull socket assembler pipe low back pain. Patient complained of mild sciatica with right leg numbness and tingling. Patient denies any loss of bowel bladder control. Patient failed NSAID and tramadol. Patient has 6 out of 10 pain daily. Patient complained of sharp pain. Patient denies any worsening pain. Pt has DDD on MRI folate1 Pt has history o f low folate and she is on folate. Her folic acid is normal polycythermia1 polycythemia res olved. Her level is ok now. Her iron is ok sleep apnea1 Pt has sleep anatomic pathology manager ea. Pt uses cpap nightly and doing ok. Pt denies any fatigue or memory loss back pain1 Pt has chronic l ow back pain Pt denies any worsening pain. Pt denies any loss of bladder control. Pt has DDD on MRI of lumbar anxiety1 Pt takes cymbalt a, klonopin and latuda. Pt sees psychiatrist. pt is off lamictal. Pt doing ok. Pt sees psychiatrist. Pt denies any suicidal or homicidal thought Physical PT needs annual physical. Pt has sleep apnea but she is noncompliant with cpap. Pt has anxiety and depression Pt takes cymbalta, lamictal and klonopin and latuda. Pt sees psychiatrist Pt denies any suicidal or homicidal thought. Pt denies any crying spells. Pt has polycythemia. Pt does smoke heavily. Pt has chronic severe low back pain pt has sciatica and leg numbness. Pt denies any loss of bladder control. Pt feels that her low back pain has been worse lately. Pt sees pulmonary for COPD. back pain1 Pt has chronic l ow back pain. Pt denies any worsening pain. Pt denies any loss of bladder control. Pt has DDD .Pt failed NSAID and ultram. Pt takes norco PRN for pain and doing ok COPD1 Pt has emphysema ;. Pt takes anoro and albuterol PRN. Pt uses albuterol about once per day on average. Pt still smoking. Pt needs albuterol refilled. Pt denies any acute sob polycythermia1 Pt has polycythe dalia. Pt smokes and she has sleep apnea but she is noncompliant with cpap folate1 Pt did not start folic acid last month. Pt told me pharmacy never gave her the folic acid anxiety1 Pt has chronic a nxiety and depression. Pt takes cymbalta, latuda lamictal and klonopin PRn and doing ok Pt denies any suicidal or homicidal thought. Pt denies any crying spells D Pt has low vitam in D polychermia1 Pt has mild poly cythemia Pt has sleep apnea but she is noncompliant with cpap Pt also smokes folate1 Pt has low folat e back pain1 Pt has chronic l ow back pain Pt denies any worsening pain Pt denies any loss of bladder control. Pt has 6/10 pain. Pt failed NSAID and ultram anxiety1 Pt has chronic a nxiety and depression Pt takes cymbalta and klonopin and latuda and lamictal. Pt sess psychiatrist Pt denies any suicidal or homicidal thought chronic pain1 Pt has chronic l ow back pain Pt has sciatica and leg numbness. pt denies any worsening pain Pt denies any loss of bladder control. Pt take norco sand soma PRN for pain and doing ok Pt failed flexeril and robaxin and ultram and NSAID anxiety1 Pt has chronic a nxiety and depression Pt has bipolar Pt takes cymbalta, trazodone, latuda, lamictal and klonopin PRN . Pt is seeing psychiatrist pt denies any suicidal or homicidal thought. Pt denies any crying spells sleep anpea1 Pt has sleep anatomic pathology manager ea. Pt has been using CPAP nightly and doing ok. Pt denies any snoring and she is sleeping better now COPD1 Pt has COPD. pt uses anoro daily and she uses ventolin 1-2 per day Pt still smoking. Pt denies any acute sob Pt needs albuterol refilled. Pt sees pulmonary glucose1 Pt has history o f mildly high glucose and A1c pt denies any polyuria, polydipsia anxiety1 Pt has chronic a nxiety and depression. pt takes cymbalta, trazodone and klonopin PRN and doing ok. pt denies any suicidal or homicidal thought. Pt denies any crying spells COPD1 Pt is on anoro o nly now She stopped incruse. chronic pain1 Pt has chronic l ow back pain. pt has DDD pt has sciatica and leg numbness. Pt failed NSAID and ultram. Pt has been on opioid for long time. aniety1 Pt has chronic a nxiety and depression and bipolar disorder. Pt takes cymbalta, Lamictal and trazodone and latuda and klonopin PRN. Pt is seeing psychiatrist. Pt denies any suicidal or homicidal thought. Pt denies any crying spells chronic pain Pt has chronic b ack pain Pt denies any worsening pain Pt denies any loss of bladder control. COPD1 Pt has COPD. Pt just seen pulmonary. Pt is on incruse and ventolin and neb. Pt was started on anoro also? chronic pain Pt has chronic l ow back pain. Pt has DDD Pt denies any worsening pain. Pt denies any loss of bladder control. Pt has 7/10 pain COPD1 Pt has copd. Pt has NO idea what she is supposes to use. Pt states that incruse is not covered. Pt states that she has no idea if she is using it. Pt uses venotlin daily. Pt denies any acute sob Pt went to see her pulmonary but the doctor had emergency and had to leave so she rescheduled for next month anxiety1 Pt has chronic a nxiety and depression. Pt has bipolar. Pt takes klonopin, cymbalta, latuda and lamictal. Pt sees psychiatrist. Pt denies any suicidal thought. Pt denies any suicidal or homicidal thought. Pt denies any crying spells HLP Pt has HLP pt underwood s been doing low fat and low carb diet. COPD1 Pt has COPD. pt stills smoking. Pt uses incruse and she uses venotlin 1-2 per day. Pt denies any acute sob chronic pain Pt has chronic l ow back pain. Pt denies any worsening pain. Pt denies any loss of bladder control anxiety1 pt has chronic a nxiety and depression. Pt takes cymbalta, latuda and klonpin PRN. Pt sess psychaitrist. Pt denies any suicidal or homicidal thought rib fx1 pt slipped and f ell and she has right rib fracture 3 weeks. Pt was admited to [facility]. Pt had collapsed lung and she was on oxygen. SHe is ok now. Pt was told by hospital MD that she may need daily oxygen back pain1 Pt has chronic l ow back pain. Pt denies any worsening pain. Pt denie sany loss of bladder control. Pt has 7/10 pain anxiety1 Pt takes cymbalt a, lamictal and latuda, and klonopin. Pt denies any sucidal or homicidal thought. Pt denies any crying spells tobacco1 Pt has COPD. Pt takes incurse and ventolin PRn Pt uses ventolin daily. Pt failed symbicort Pt denies any acute sob anxiety1 Pt has chrnoic a nxiety and depression. Pt has bipolar. Pt takes cymbalta, latuda, lamictal and klonpin PRN Pt sees psychaitirst. Pt deneis any suicidal or homicidal thought chronic pain1 Pt has chronic l ow back pain. pt denies any worsenign pain Pt denies any loss of bladder control tobacco1 Pt has 45 pack y ear tobacco. Pt still smoking. Pt denies any acute sob colon Ca Pt has negative fecal globin. Pt denies any GI issue mole1 Pt has a dark mo le on right medial breast for several years, getting bigger. Pt denies any bleeding or scab chronic pain Pt has chrnoic l ow back pain. pt takes norco PRn for pain .Pt doing ok. Pt has DDD. Pt denies any loss of bladder control anxiety1 pt has anxiety a nd depression and bipolar. pt takes latuda, lamictal and also klonopin PRN COPD1 Pt has COPD. Pt states that her insurance does not take symbicort since insurance does not cover it. Pt takes incruse and venotlin PRn Pt takes venotlin once per day. Pt still smoking anxiety1 Pt has chronic a nxiety and depression and bipolar. Pt takes lamcital, latuda and klonopin and trazodone and cymbalta. Pt has a lot of social issue. Pt denies any suicidal or homicidal thought. Pt denies any crying spells chronic pain1 Pt has chornic l ow back. Pt takes norco and soma and doing ok. pt denies any worsening pain. Pt denies any loss of bowel or bladder control incontinence1 Pt has incontine nce. Pt just seen urology and she is being worked up. Pt denies any UTI symptoms anxiety1 Pt has chronic a nxiety and depression and bipolar. Pt takes trazodone, latuda and lamictal and also klonpin and cymbalta form psychiatrist. Pt denies any suicidal or homicidal thought. Pt denies any crying spells chronic pain1 Pt has chronic l ow back pain Pt denies any worsening meli Pt denies any loss of bladder control. Pt takes norco and soma for pain and doing ok. liver disease1 Pt has history o f liver disease and she does not have hepatiitis. Pt just had normal ultrsaound incontinence1 Pt has urge and also stress incontinence. Pt is urinary frequency and uregency. 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 Pt does not think it is helping. Pt needs to wear pad a lot of time. chronic meli Pt has chronic l ow back pain. pt takes norco and soma and doing ok. pt denies any wrosening pain Pt denies any loss of bladder cotnrol anxiety1 Pt has chronic a nxiety and depression. Pt sees psychiatrist. Pt takes klonpin in addition to SSRIs. Pt denies any suicidal or homicidal thought. Pt denies any crying spells. COPD1 Pt has emphysema . Pt continues to smoke. Pt uses incurse and symbicort and ventolin PRN. Pt onl uses venotlin 1-2 per day now. Pt denies any acute sob folic Pt is taking fol ic acid. pt denies any difference in terms of her feeling PHysical Pt needs annual physical. Pt has chronic low back pain and anxiety and depression. Pt takes norco for pain. pt failed NSAid. Pt failed PT. PT recently went to hospital for suicidal thought. Pt takes cymbalta, latuda, buspar and klonpin. Pt is seeing psychiatrist. Pt states that she just felt stressed out. Pt denies any current suicidal thought. Pt also has COPD. Pt takes symbicort and incruse and ventolin PRN. Pt uses venotlin daily. Pt still smoking. Pt has not done liver ultrasound yet. Pt deneis any GI issue liver disease1 Pt has hsitory o f mild elevated LFT. Pt denies any abd pain chronic pain1 Pt has chronic l ow back pain. Pt takes norco and soma for pain and doing ok Pt denies any worsening pain Pt denies any loss of bladder control anxiety1 Pt has chronic a nxiety and depression and bipolar. Pt sees psychiatrist Pt is on cymbalta and latuda and klonpin PRN. Pt denies any suicidal or homicidal thought Pt denies any crying spells oAb Pt has OAB Pt underwood s urinary urgency and frequency. Pt sees urology and she is on oxybutynin now. pt doing ok Pt denies any dysuria back pain1 Pt has chronic l ow back pain Pt atke felecia and norco PRN for pain Pt has sciatica and leg numbness Pt denies any loss of bladder control. Pt denies any wrosening pain anxiety1 Pt has chronic a nxiety and depression and bipolar Pt takes abilify and klonpin and something else but she does not know. Pt is off paxil and wellbutrin. Pt doing ok Pt denies any suicidal or homicdial thought Pt denies any crying spells COPD1 Pt has COPD Pt t akes symbicort, incurse and venotlin Pt states that venotlin once every other day. Pt denies any sob Pt still smoking Pt has lung nodule. back pain1 Pt has chronic l ow back pain. Pt denies any loss of bowel or bladder control. Pt denies any worsening pain. Pt has DDD anxiety1 Pt has chronic a nxiety and depression. Pt takes paxil and wellbutrin and buspar and klonopin and doing ok. Pt denies any suicidal or homicidal thouight. Pt deniesany crying spells. Pt also just started abilify and she feels better HLP Pt has HLP. Pt h as been trying low fat and low carb diet tobacco1 Pt smokes about one pack per day. Pt does not want to quit COPD1 Pt uses symbicor t, incurse and ventolin PRN. Pt still smoking. Pt uses ventolin daily. Pt denies any acute sob chronic pain1 Pt has chronic l ow back pain. Pt denies any loss of bowel or bladder control. Pt denies any worsening pain. Pt takes norco and soma PRN for pain. anxiety1 Pt has chronic a nxiety and depression and mood swings. Pt takes klonpin, buspar, paxil and wellbutrin and doing ok. Pt denies any suicidal or homicidal thought. Pt denies any cyring spells. cough1 Pt c/o productiv e coughing for one week. Pt c/o running nose Pt has mild wheezing. Pt has chronic sob due to copd and smoking Pt denies any chest pain. Pt tried and failed OTC meds. back pain1 Pt has chronic l ow back pain. Pt takes norco for pain. Pt denies any worsening pain. Pt deneis any loss of bowel or bladder cotnrol anxiety1 Pt has chronic a nxiety and depression. Pt takes paxil, abilify, wellbutrin, klonpin and buspar. Pt deneisa ny suiciadl or homicidal thought. Pt denies any cying spells. COPD1 Pt has copd. Pt is very confused which one she takes. Pt has no idea of name of it. Pt thinks that she is on symbicort, incursee and venotlin PRN. 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 Pt uses CPAP nightly. Pt doing ok Pt feels more energy Anxiety1 Pt has chronic a nxiety and depression and betina swings. Pt teks paxil, abilify, wellbutrin, klonopin and buspar. Pt sees psychiatrist Pt denies any sucidal or homicdial thoutght. Pt denies any crying spells. Pt currently doing ok back pain1 Pt has chronic l ow back pain. Pt denies any loss of bowel or bladder control. pt denies any worsening pain. Pt has 7/10 pain COPD1 Pt uses aerospan and incurse. Pt uses venotlin several times per day. Pt continues to smoke about 1 PPD. Pt denies any acute soB tobacco1 Pt smokes about one pack pe day. Pt wants to quit LFT Pt has history o f mild elevation of LFT. Her repeat LFT is ok. No hepatitis Pt deneis any abd apin lung nodule Pt has small placido g nodule and she alsl has COPD. Pt is on inhalers. Pt still smoking now. Pt denies any acute sob. Pt is on aerospan and ellipta now. Pt doing ok chronic pain1 Pt has chornic l ow back pain. Pt denies any loss of bowel or bladder control. pt denies any worsening pain. Pt denies any loss of bowel or bladder control anxiety1 Pt has chronic a nxiety and depression. Pt takes wellbutrin, abilify and paxil and klonopin. Pt sees psychiatrist. Pt recently failed nicoderm patch for smoking cessation COPD1 pt has COPD. Pt has not done Ct yet. Pt uses ventolin daily and incruse ellipta. Qvar is not coverred. Pt still smoking. Pt denies any acute SOB back pain1 Pt has chornic l ow back pain. Pt denies any worsening pain. Pt has 7/10 pain due to DDD. Pt denies any loss of bowel or bladder control anxiety1 Pt has chronic a nxiety and depression and bipoar and insomnia. Pt takes buspar, wellbutrin, abilify, trazodone, lamictal and paxil. Pt sees psychiatrist. pt denies any suicidal or homicidal thought. Pt takes klonpin PRN for anxiety. Pt doing ok. Pt denies any crying spells DM Pt has mild high glucose and LFt. Pt has mild HLP. Pt has low D and low folate. pt denies any polyuria, polydipsia COPD1 Pt has COPD. Pt uses ellipta once per day and she uses ventolin up to 3 times per day .Pt still feels SOB tobacco1 Pt has 30 pack y ear history of smoking. anxiety1 Pt has chronic a nxiety and depression and bipoar disorder. Pt takes wellbutrin, paxil, abilfy and klonpin and buspar. Pt sees psychiatrist. Pt denies any suicidal or homicidal thought. Pt denies any crying spells back pain1 Pt has chronic l ow back pain. Pt denies any worsening pain. Pt has bilateral sciatica. Pt has 7./10pain. Pt takes norco for pain and doing ok. Pt denies any loss of bowel or bladder control anxiety1 Pt has anxiety a nd depression. Pt takes klonpin and also wellbutrin and paxil and buspar and abilify now. PT denies any sucidial or homicidal thought COPD1 Pt has COPD. Pt was given incruse ellipita. Pt takes venotlin PRN. Pt has not been using ventolin at all. Pt also has been using atrovent also? Pt is very noncompliant and confused. Pt denies any acute SOB back apin Pt has chronic l ow back. Pt denies any loss of bowel or bladder control. Pt takes norco for apin PRN. Pt states that she averages 4 per day. Pt has 6/10 pain bronchitis1 Pt c/o acute cou ghing for one week with green phlegm. Pt denies any chest pain or SOB. Pt has COPD. Pt failed OTC meds Pt denies any fever COPD1 Pt has been usin g elliita and ventolin and doing ok. Pt denies any acute SOB back pain1 Pt has chronic l ow back pain. Pt denies any worsening pain .Pt denies any loss of bowel or bladder control. Pt has 7/10 back pain daily anxiety1 Pt is seeing psy chiatrist. Pt is on klonpin. Pt is on buspar. Pt is on other SSRI but she does not remember the name. Pt doing ok. IPt denies any suicidal or homicdial thought. Pt still feels irritable COPD1 Pt states that a trovent is not coverred. Pt feels soB frequently. Pt still smoking Anxiety1 Pt has chronic a nxeity and depression and bipolar Pt takes wellbutrin, paxil, bupsar, seroquel now. Pt is not on lamictal anymore. Pt sees psychaitrist. pt denies any suciiadl or homicdial thought COPD Pt has COPD. Pt takes atrovent and feels less SOB and overall better Pt uses albuterol BID PRN for now. Pt still smoking LBP Pt has chronic L BP. Pt denies any worsening panir or any loss of amber or bladder control. Pt has sciatica and leg numbness but not worse Physical Pt needs annual physical. Pt has chronic low back pain. Pt c/o sciatica. Pt denies any loss of bowel or bladder control. Pt denies any worsening pain. Pt has chronic anxiety and depression and bipolar. Pt takes paxil, wellbutrin, klonpin and buspar and seroquel and lamictal. Pt sees psychiatrist Pt denies any suicidal or homcidial thought. Pt does have crying spells. Pt also recenlty had PFT done which showed emphysema Pt uses ventolin PRn. Pt uses ventolin daily due to SOB. Pt denies any acute SOB SOB1 Pt has been havi ng SOB but ventolin helps well. Pt denies any worsenign symptoms. Pt has not done chest xray or pFT yet. Pt denies any acute SOB back pain1 Pt has chronic l ow back pain with sciatica and numnbess. Pt takes norco and she thinks that her back pain is getting worse. Pt denies any loss of bowel or bladder control anxiety1 Pt has chronic a nxiety and depression and bipolar. Pt takesa paxil, wellbutrin, klonopin and buspar and seroqul and lamictal. Pt sees psychiatrist and counseling. Pt denies any suicidal or homicidal thought. 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 Pt just started CPAP and she is tolerating the CPAP ok. Pt uses it throughout the night LBP1 Pt has chronic l ow back pain. Pt denies any loss of bowel or bladder control. Pt denies any crying spells. Pt is seeing psychiatrist. pt feels very irritable and angry all the time. Pt denies any suiciadl or homicidal thought. SOB Pt feels SOB int ermittently for 6 months. Pt denies any acute chest pain or SOB. Pt smokes for many years. chronic pain Pt has chronic l ow back pain. Pt has severe pain. Pt denies any loss of bowel or bladder control. Pt denies any worsening pain. Pt has sciatica and leg numbness. sleep apnea1 Pt is waiting fo r CPAP set up. Anxiety1 Pt has chronic a nxiety and depression. Pt just seen psychiatry and she is on lamictal now and her buspar dose is increased. Pt is on wellbutrin, paxil, klopnin, bupar , seroquel and lamictal now. Pt denies any suicidal or homicdial thought. pt still feels depressed and stressed out anxiety1 Pt has severe an xiety and depression. Pt takes wellbutirn, paxil, klonpin, seroquel and buspar Pt denies any suicidal or homicidal thought. Pt does have crying spells. Pt has a lot of social stress. Pt checked herself into [facility] for 5 days due to stress. Pt felt better now. Pt unable to see psychiatrit due to insurance. sleep apnea Relevant history : a BMI of 28.67. Additional information: Pt just had CPAP done last Thursday. Pt has sleep apnea. back pain Additional infor mation: Pt has chronic low back pain. Pt denies any worsening pain. Pt denies any loss of bowel or bladder control. sleep apnea Relevant history : a BMI of 28.67. Additional information: Pt has sleep apnea. Pt is waiting for CPAP study. PT feels chronic fatigue. chronic pain Pt has chronic l ow back pain. Pt denies any loss of bowel or bladder control. Pt has severe pain. Pt is nonsurgical. PT has sciatica and leg numnbess. Pt takes pain meds. anxiety1 Pt has chronic a nxiety and depression and bipolar. Pt takes paxil, wellbutrin, klonopin, buspar and seroquel. Pt just seen psychiatrist recently from the disabiltiy. Pt is seeing counselor now. Pt is working on disability. Pt unable to work and she feels extremely stressed out. Pt denies any suicidal or homicidal thought. Pt denies any feeling of hopelessness. PT has crying spells. LBP Pt has chronic L BP. Pt has severe pain. Pt has dDD. Pt is not surgical candidate Pt denies any loss of bowel or bladder control Anxiety1 Pt has chronic a nxiety and depression. Pt has severe mood swings. pt denies any sucididal or homicidal thought. Pt is extremely stressed out. Pt is taking wellbutrin, buspar klopin, paxil and seroquel now Pt doing ok. Pt has appoitnment with psychiatrist next week. Pt still has crying spells. sleep apnea Relevant history : a BMI of 27.81. The patient is also experiencing depression and insomnia. The patient denies wheezing. Additional information: Pt has snoring and feels fatigue. pt has appointment for sleep study next week. Anxiety1 Pt has chronic a nxiety and depression and mood swings and chronic anger issue and crying spells. Pt is seeing counselor. Pt is int he process of seeing a psychiatrist. Pt has been having trouble with insomnia. Pt snores at night Pt feels fatigue in the morning. Pt states that her mid does not shut down at night. Pt denies any suicidal or homicidal thought. Pt has crying spells. chronic pain1 Pt has chronic l ow back pain. Pt has bilateral sciatica and leg numnbess. Pt denies any worsening pain. Pt takes norco and soma for pain. Pt denies any wrosening pain back pain1 Pt has chronic l ow back pain Pt has 8/10 back pain. Pt is not surgiccal candidate. Pt denies any loss of bowel or bladder control. Pt c/o bilateral sciatica and numnbess. Pt denies any worsening pain anxiety1 Pt has chronic a xniety and depression and mood swings. Pt is seeing counseling. Pt takes wellbutrin, paxil, lamictal and klonpin and buspar Pt denies any suiciadl or homicidal thought. Pt still has some crying spells. Pt denies any feeling kym hopelessness. Pt feels worse during holidays low K Pt denies any pa lpitation. Pt denies any cramp. Her KCL and magnesium is normal ear pain1 Pt c/o left ear pain and sore throat for one week. Pt denies any headache or sinus problem. Pt denies any fever, chill. Pt denies any coughign. Pt denies any recent travel lumbago1 Pt has chronic l ow back pain Pt denies any loss of bowel or bladder control. Pt has sciatica and leg numbness. Pt recently seen neurosurgery and again no surgery recommended per patient. Pt denies any worsening pain Anxiety1 Pt has chornic a nxiety and depression and mood swings. Pt denies any suicidal or homicidal thought. Pt is taking paxil, lamictal and klopin and buspar. Pt still feels very depressed. Pt has situational depression. Pt has not been working for over one year and she is very depressed about it. Pt also has financial difficulty. Pt has crying spells. cough1 Pt c/o coughing up phleam for one week. Pt c/o sore throat and sinus congestion. Pt denies any fever or recent travel. Pt failed OTC meds Anxiety1 Pt has chronic a nxiety and depression and mood swings and she is severely stressed out. Pt denies any suicidal or homicidal thought. Pt denies any numbness and she has bilateral sciatica.. Pt takes paxil, wellbutrin, klonpin and lamcital. Pt states that her anxiety is not well controlled. Pt wants higher dose of klonopin. Pt states that wellbutrin helps her depression leg pain1 Pt has bilateral leg pain and some tingling for several months. Pt denies any claudication. Pt denies any calf pain axillary pain Pt has bilateral axillary pain for several months Pt denies any redness or swelling. Pt has some lymphnode on the ultrasound. Pt denies any breast issue or breast pain. Pt denies any other lymphnode Pt tried to contact Dr. Velasco but was told they dont have referral. Pt denies any fever lumbago Pt has chronic l ow back pain. Pt has 8/10 severe pain. Pt denies ny loss of bowel or bladder control. Pt is not surgical candidate. Pt has bilateral sciatica, Pt has chornic leg numbness axillary pain Pt has bilateral axillary pain. Pt has some benign lymphnode on ultrasound back pain Additional infor mation: Pt has chornic severe low back pain. Pt has sciatica. Pt has some vague upper leg numbness. Pt states that her pain is 7/10. Pt denies any worsening pain. depression The patient pres ents with anxious/fearful thoughts but denies fatigue. The patient denies any vomiting and weight gain. Additional information: Pt has chronic anxiety and depression. Pt takes paxil, klonpin and lamcital. PT denies any suicidal thought. Pt has been feeling more depressed Pt has been crying all day. [facility] anxiety back apin Pt has chrnic lo w back pain. Pt had fall injury recently. pt denies any loss of bowel or bladder control. Pt states that pain is worse anxiety Pt has chornic a nxiety and depression due to back pain and her social situation. Pt wants higher dose of klonopin. Pt denies any suicidal or homicdial thought PHysical Pt needs annual physical. Pt has chronic back pain. Pt denies any suicidal thought. Pt has anxiety and depression. Pt takes paxil, lamictal and klopnin. Pt denies any suicidal thought. 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 Pt denies any loss of bowel or bladder control. Pt c/o bilateral sciatica. back pain Additional infor mation: Pt has chronic LBP. pt denies any loss of bowel or bladder control. Pt denies any worsenig pain. Anxiety Additional infor mation: Pt has chronic anxiety and depression. Pt takes paxil, klonopin and lamcital and doing ok. Instructions Date Instruction Additional Infor mation Quit smoking Related to Chron ic pain syndrome Special diet education Related t o Body mass index (BMI) 27.0-27.9, adult Quit smoking Related to [place] polycythemia Special diet education Related t o Body mass index (BMI) 27.0-27.9, adult Special diet education Related t o Body mass index (BMI) 27.0-27.9, adult Quit smoking Related to [place] polycythemia Quit smoking Related to [place] polycythemia Special diet education Related t o Body mass index (BMI) 27.0-27.9, adult Quit smoking Related to Sleep apnea Special diet education Related t o Body mass index (BMI) 27.0-27.9, adult Special diet education Related t o Body mass index (BMI) 27.0-27.9, adult Quit smoking Related to Chron ic pain syndrome Special diet education Related t o Body mass index (BMI) 27.0-27.9, adult Quit smoking Related to Chron ic pain syndrome Special diet education Related t o Body mass index (BMI) 26.0-26.9, adult Quit smoking Related to Gener alized anxiety disorder Increase physical activity Relat ed to Chronic pain syndrome Quit smoking Related to Chron ic pain syndrome Special diet education Related t o Body mass index (BMI) 27.0-27.9, adult Weight management Related to Chr onic pain syndrome Special diet education Related t o Body mass index (BMI) 27.0-27.9, adult Quit smoking Related to Chron ic pain syndrome Special diet education Related t o Body mass index (BMI) 27.0-27.9, adult Quit smoking Related to Chron ic pain syndrome Special diet education Related t o Body mass index (BMI) 28.0-28.9, adult Quit smoking Related to Chron ic pain syndrome Quit smoking Related to Emphy sema Special diet education Related t o Body mass index (BMI) 28.0-28.9, adult Special diet education Related t o Body mass index (BMI) 28.0-28.9, adult Quit smoking Related to Chron ic pain syndrome Special diet education Related t o Body mass index (BMI) 28.0-28.9, adult Quit smoking Related to Emphy sema Quit smoking Related to Encou nter for general adult medical exam w abnormal findings Special diet education Related t o Body mass index (BMI) 28.0-28.9, adult Prescribed dietary intake Relate d to Body mass index (BMI) 28.0-28.9, adult Quit smoking Related to Secon sal[place] polycythemia Special diet education Related t o Body mass index (BMI) 28.0-28.9, adult Quit smoking Related to [place] polycythemia Special diet education Related t o Body mass index (BMI) 28.0-28.9, adult Increase physical activity Relat ed to Generalized anxiety disorder Quit smoking Related to Gener alized anxiety disorder Weight management Related to Gen eralized anxiety disorder Special diet education Related t o Body mass index (BMI) 28.0-28.9, adult Quit smoking Related to Chron ic pain syndrome Special diet education Related t o Body mass index (BMI) 28.0-28.9, adult Quit smoking Related to Emphy sema Special diet education Related t o Body mass index (BMI) 28.0-28.9, adult Quit smoking Related to Emphy sema Special diet education Related t o Body mass index (BMI) 29.0-29.9, adult Quit smoking Related to Emphy sema Prescribed Activity and Exercise Education Related to Dietary Surveillance and Counseling Prescribed Diet Educ ation/Lifestyle Education Regarding Diet Related to Dietary Surveillance and Counseling Quit smoking Related to Chron ic pain syndrome Prescribed Activity and Exercise Education Related to Dietary Surveillance and Counseling Prescribed Diet Educ ation/Lifestyle Education Regarding Diet Related to Dietary Surveillance and Counseling Quit smoking Related to Nevus , non-neoplastic Prescribed Activity and Exercise Education Related to Dietary Surveillance and Counseling Prescribed Diet Educ ation/Lifestyle Education Regarding Diet Related to Dietary Surveillance and Counseling Prescribed Activity and Exercise Education Related to Dietary Surveillance and Counseling Prescribed Diet Educ ation/Lifestyle Education Regarding Diet Related to Dietary Surveillance and Counseling Increase physical activity Relat ed to Generalized anxiety disorder Quit smoking Related to Gener alized anxiety disorder Weight management Related to Gen eralized anxiety disorder Prescribed Activity and Exercise Education Related to Dietary Surveillance and Counseling Prescribed Diet Educ ation/Lifestyle Education Regarding Diet Related to Dietary Surveillance and Counseling Increase physical activity Relat ed to Chronic pain syndrome Quit smoking Related to Chron ic pain syndrome Weight management Related to Chr onic pain syndrome Prescribed Activity and Exercise Education Related to Dietary Surveillance and Counseling Prescribed Diet Educ ation/Lifestyle Education Regarding Diet Related to Dietary Surveillance and Counseling Increase physical activity Relat ed to Chronic pain syndrome Quit smoking Related to Chron ic pain syndrome Weight management Related to Chr onic pain syndrome Prescribed Diet Educ ation/Lifestyle Education Regarding Diet Related to Dietary Surveillance and Counseling Perform monthly self breast examinations. Related to Encntr for general adult medical exam w/o abnormal findings Quit smoking. Related to Encnt r for general adult medical exam w/o abnormal findings Increase activity. Related to En cntr for general adult medical exam w/o abnormal findings Prescribed Activity and Exercise Education Related to Dietary Surveillance and Counseling Prescribed Activity and Exercise Education Related to Dietary Surveillance and Counseling Prescribed Diet Educ ation/Lifestyle Education Regarding Diet Related to Dietary Surveillance and Counseling Quit smoking Related to Liver disease Prescribed Activity and Exercise Education Related to Dietary Surveillance and Counseling Prescribed Diet Educ ation/Lifestyle Education Regarding Diet Related to Dietary Surveillance and Counseling Prescribed Diet Educ ation/Lifestyle Education Regarding Diet Related to Dietary Surveillance and Counseling Prescribed Activity and Exercise Education Related to Dietary Surveillance and Counseling Prescribed Diet Educ ation/Lifestyle Education Regarding Diet Related to Dietary Surveillance and Counseling Prescribed Activity and Exercise Education Related to Dietary Surveillance and Counseling Prescribed Activity and Exercise Education Related to Dietary Surveillance and Counseling Prescribed Diet Educ ation/Lifestyle Education Regarding Diet Related to Dietary Surveillance and Counseling Prescribed Activity and Exercise Education Related to Dietary Surveillance and Counseling Prescribed Diet Educ ation/Lifestyle Education Regarding Diet Related to Dietary Surveillance and Counseling Prescribed Activity and Exercise Education Related to Dietary Surveillance and Counseling Prescribed Diet Educ ation/Lifestyle Education Regarding Diet Related to Dietary Surveillance and Counseling Prescribed Activity and Exercise Education Related to Dietary Surveillance and Counseling Prescribed Diet Educ ation/Lifestyle Education Regarding Diet Related to Dietary Surveillance and Counseling Prescribed Activity and Exercise Education Related to Dietary Surveillance and Counseling Prescribed Diet Educ ation/Lifestyle Education Regarding Diet Related to Dietary Surveillance and Counseling Prescribed Activity and Exercise Education Related to Dietary Surveillance and Counseling Prescribed Diet Educ ation/Lifestyle Education Regarding Diet Related to Dietary Surveillance and Counseling Prescribed Activity and Exercise Education Related to Dietary Surveillance and Counseling Prescribed Diet Educ ation/Lifestyle Education Regarding Diet Related to Dietary Surveillance and Counseling Prescribed Activity and Exercise Education Related to Dietary Surveillance and Counseling Prescribed Diet Educ ation/Lifestyle Education Regarding Diet Related to Dietary Surveillance and Counseling Prescribed Activity and Exercise Education Related to Dietary Surveillance and Counseling Prescribed Diet Educ ation/Lifestyle Education Regarding Diet Related to Dietary Surveillance and Counseling Prescribed Activity and Exercise Education Related to Dietary Surveillance and Counseling Prescribed Diet Educ ation/Lifestyle Education Regarding Diet Related to Dietary Surveillance and Counseling Prescribed Diet Educ ation/Lifestyle Education Regarding Diet Related to Dietary Surveillance and Counseling Prescribed Activity and Exercise Education Related to Dietary Surveillance and Counseling Prescribed Activity and Exercise Education Related to Dietary Surveillance and Counseling Prescribed Diet Educ ation/Lifestyle Education Regarding Diet Related to Dietary Surveillance and Counseling Prescribed Activity and Exercise Education Related to Dietary Surveillance and Counseling Prescribed Diet Educ ation/Lifestyle Education Regarding Diet Related to Dietary Surveillance and Counseling Prescribed Activity and Exercise Education Related to Dietary Surveillance and Counseling Prescribed Diet Educ ation/Lifestyle Education Regarding Diet Related to Dietary Surveillance and Counseling Prescribed Activity and Exercise Education Related to Dietary Surveillance and Counseling Prescribed Diet Educ ation/Lifestyle Education Regarding Diet Related to Dietary Surveillance and Counseling Prescribed Diet Educ ation/Lifestyle Education Regarding Diet Related to Dietary Surveillance and Counseling Prescribed Activity and Exercise Education Related to Dietary Surveillance and Counseling Prescribed Diet Educ ation/Lifestyle Education Regarding Diet Related to Dietary Surveillance and Counseling Prescribed Activity and Exercise Education Related to Dietary Surveillance and Counseling Dietary counseling Related to Di etary surveillance counseling Decrease caloric intake Related to Dietary surveillance counseling Dietary counseling Related to Di etary surveillance counseling Decrease caloric intake Related to Dietary surveillance counseling Dietary counseling Related to Di etary surveillance counseling Decrease caloric intake Related to Dietary surveillance counseling Dietary counseling Related to Di etary surveillance counseling Decrease caloric intake Related to Dietary surveillance counseling Dietary counseling Related to Di etary surveillance counseling Decrease caloric intake Related to Dietary surveillance counseling Dietary counseling Related to Di etary surveillance counseling Decrease caloric intake Related to Dietary surveillance counseling Decrease caloric intake Related to Dietary surveillance counseling Dietary counseling Related to Di etary surveillance counseling Dietary counseling Related to Di etary surveillance counseling Decrease caloric intake Related to Dietary surveillance counseling Decrease caloric intake Related to Dietary surveillance counseling Dietary counseling Related to Di etary surveillance counseling Dietary counseling Related to Di etary surveillance counseling Decrease caloric intake Related to Dietary surveillance counseling Decrease caloric intake Related to Dietary surveillance counseling Dietary counseling Related to Di etary surveillance counseling Decrease caloric intake Related to Dietary surveillance counseling Dietary counseling Related to Di etary surveillance counseling Dietary counseling Related to Di etary surveillance counseling Decrease caloric intake Related to Dietary surveillance counseling Dietary counseling Related to Di etary surveillance counseling Decrease caloric intake Related to Dietary surveillance counseling Dietary counseling Related to Di etary surveillance counseling Decrease caloric intake Related to Dietary surveillance counseling Assessments Type Assessment Date assessment Encounter for genera l adult medical examination without abnormal findings Mental Status Date Cognitive Assessment Orientation - Cobalt ed to time, place, person, situation.
--- OUTSIDE RECORDS SUMMARY | 2024-04-29 14:40 | XMS_ITS | Encounter Summary ---
Author Organization [facility] Address [address] [place] [address]. [place] [address] [place] [address] Care Team Providers Care Water Quality Tester Name Role Phone Syed Llamas MD Primary Care Provider [phone] Wes García MD Unavailable [phone] Angel Luis Verdugo MD Unavailable [phone] Nik Hairston MD Unavailable [phone] Encounter Details Date Type Department Care Team (Late st Contact Info) Description 04/28/2022 Prep for Procedure [facility] [place] [address] Valentino Melo MD Three [facility]. [facility] [address] [place] [address] Social History Tobacco Use Types Packs/Day Years Used Date Smoking Tobacco: Every Day Cigarettes 0.5 40 Smokeless Tobacco: Never Alcohol Use Standard Drinks/Week Comments No 0 (1 standard drink = 0.6 oz pur e alcohol) quit 2007 Comments No Sex and Gender Information Value Date Recorded Sex Assigned at Not on file Legal Sex Female 4:31 PM CDT Gender Identity Not on file Sexual Orientation Not on file COVID-19 Exposure Response Date Recorded In the last 10 days, have yo u been in contact with someone who was confirmed or suspected to have Coronavirus/COVID-19? No / Unsure 05/01/2022 5:09 AM HOME AID documented as of this encounter Functional Status documented as of this encounter Mental Status * Question Answer Entry Date Author Status Because of a physical, mental, or emotional condition, do you have serious difficulty concentrating, remembering, or making decisions? No 05/01/2022 5:30 PM HOME AID Gladys Amezcua RN A ctive documented in this encounter Plan of Treatment Upcoming Encounters Date Type Department Care Team (Late st Contact Info) Description 05/31/2024 11:00 AM HOME AID Appointment [facility] Non Invasive Cardiology ONE [facility] [place] [address] Angel Luis Verdugo MD Three [facility]. [facility] [address] [place] [address] 06/21/2024 11:00 AM CDT Office Visit [facility] [address] [facility], [facility] [address] [place], [place] [address] Dilcia Macias NP Three [facility] [address] [place], [place] [id number] documented as of this encounter Visit Diagnoses Diagnosis Preop examination- Primary Preoperative examination, unspecified documented in this encounter Care Teams Water Quality Tester Relationship Specialty Start Date End Date Syed Llamas MD PCP - General 08/12/14 Wes García MD [address] [place] [address] Consulting Physician CRITICAL CARE MEDICINE 02/25/22 Angel Luis Verdugo MD [facility]. [facility] [address] [place], [place] [address] Consulting Physician CARDIOVASCULAR DISEASE 04/28/22 Nik Hairston MD [address] [place] [address] Consulting Physician HEMATOLOGY/ONCOLOGY 04/28/22 documented as of this encounter
--- OUTSIDE RECORDS SUMMARY | 2024-04-29 14:41 | XMS_ITS | Clinical Summary ---
Author Organization [facility] Address [address] [place] [id number] Care Team Providers Care Visual Stylist Name Role Phone Syed Llamas MD Primary Care Provider [phone] Syed Llamas MD Unavailable [phone] Allergies No known active allergies Medications cyanocobalamin (Vitamin B-12) 1,000 mcg/mL injection Inject 1 mL (1,000 mcg total) into the muscle as instructed every 30 (thirty) days Active clonazePAM (KlonoPIN) 1 mg tablet Take 1 tablet (1 mg total) by mouth 2 (two) times a day Active HYDROcodone-wendy taminophen (NORCO) 7.5-325 mg per tablet Take 1 tablet by mouth 3 (three) times a day as needed for pain Active DULoxetine DR (CYMBALTA) 60 mg capsule Take 1 capsule (60 mg total) by mouth nightly Active nicotine (NICODERM CQ) 21 mgIndications:N icotine Dependence Place 1 patch on the skin daily 30 patch 2 Active Additional Information Patient not taking.Reported on 07/16/2022 rosuvastatin (CRESTOR) 5 mg tablet Take 1 tablet (5 mg total) by mouth daily 2 Active apixaban (ELIQUIS) 5 mg tablet Take 1 tablet (5 mg total) by mouth 2 (two) times a day Active lidocaine (ASPERCREME) 4 % adhesive patch,medicated Place 1 patch on the skin daily 3 Active metoprolol XL (TOPROL-XL) 50 mg extended release tablet Take 1 tablet (50 mg total) by mouth daily 3 Active potassium chloride ER 20 mEq CR tablet Take 1 tablet (20 mEq total) by mouth 3 Active senna-docusate (PERICOLACE) 8.6-50 mg Take 1 tablet by mouth 2 (two) times a day 3 Active traMADoL (ULTRAM) 50 mg tablet Take 1 tablet (50 mg total) by mouth 3 Active ergocalciferol (VITAMIN D) 50,000 unit capsule Take 1 capsule (50,000 Units total) by mouth 3 Active azithromycin (ZITHROMAX) 250 mg tabletIndicatio ns:Centrilobula r emphysema (HCC) Take 2 tablets the first day, then 1 tablet daily for 4 days. 6 tablet 4 Active Additional Information Patient not taking.Reported on 11/04/2023 dextroamphetami ne-amphetamine (ADDERALL) 10 mg tablet Take 1 tablet (10 mg total) by mouth daily before breakfast 4 Active amitriptyline (ELAVIL) 50 mg tablet Take 1 tablet (50 mg total) by mouth nightly at bedtime Active cyanocobalamin 2,000 mcg tablet Take 1 tablet (2,000 mcg total) by mouth daily Active albuterol HFA (PROVENTIL HFA,VENTOLIN HFA,PROAIR HFA) 90 mcg/actuation inhalerIndicati ons:Centrilobul ar emphysema (HCC) INHALE 2 PUFFS BY MOUTH EVERY 6 HOURS NEEDED FOR WHEEZING OR SHORTNESS OF BREATH 8.5 g 5 4 Active fluticasone-ume clidin-vilanter (Trelegy Ellipta) 100-62.5-25 mcg inhalerIndicati ons:Centrilobul ar emphysema (HCC) INHALE 1 PUFF BY MOUTH EVERY NIGHT 60 each 5 4 Active Active Problems Problem Noted Date Diagnosed Date Centrilobular emphysema 03/05/2022 Assessment & Plan (11/04/2023 3:02 PM CDT): The patient has a history of stage III COPD and continues on Trelegy 1 puff daily and albuterol MDI on a p.r.n. basis. I will reorder PFTs since her last PFTs were from 2021 Assessment & Plan (04/29/2023 2:34 PM STEEL WELDER): The patient will continue with Trelegy 1 puff daily and rinse mouth after use. She continues albuterol on a p.r.n. basis and up to 4 times a day as needed for symptom control. I have ordered a Z-Mor due to the increased cough. I did encourage the patient to decrease cigarette use Assessment & Plan (10/22/2022 1:56 PM CDT): Will continue with Trelegy. The patient has an albuterol inhaler/nebulizer she may use on a p.r.n. basis and up to 4 times a day as needed for symptom control. Assessment & Plan (07/16/2022 2:57 PM CDT): Patient will continue with Trelegy 1 puff daily. The patient was 2 L of oxygen with activity The patient has an albuterol inhaler to use on a p.r.n. basis. Assessment & Plan (03/05/2022 9:57 AM STEEL WELDER): The patient has stage III COPD. She will continue with Trelegy 1 puff daily and albuterol MDI p.r.n.. MARGARITA (obstructive sleep apnea) 03/05/2022 Assessment & Plan (11/04/2023 3:02 PM CDT): She is intolerant of CPAP therapy Assessment & Plan (04/29/2023 2:02 PM STEEL WELDER): Intolerant to CPAP therapy continues positional therapy with 2 L of oxygen via nasal cannula while sleeping Assessment & Plan (10/22/2022 1:56 PM CDT): The patient continues with positional therapy with 2 L of oxygen via nasal cannula. The patient is intolerant of CPAP Assessment & Plan (07/16/2022 2:56 PM CDT): Will continue with positional therapy in 2 L of oxygen while sleeping. Assessment & Plan (03/05/2022 9:58 AM STEEL WELDER): She continues to use oxygen at 2 liters/minute via nasal cannula while sleeping. She was intolerant of CPAP. Coronary artery disease invo [place]ving [place] coronary artery of [place] heart without angina pectoris 02/04/2022 Hypokalemia 01/30/2022 Influenza A with respiratory manifestations 01/05 Left atrial mass 01/29/2022 Assessment & Plan (04/29/2023 2:02 PM STEEL WELDER): Resected without complication. Dr. Melo monitoring Assessment & Plan (10/22/2022 1:54 PM CDT): Resected by April 2022. No complication Assessment & Plan (07/16/2022 2:58 PM CDT): Will continue to follow with Dr. 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 She has decided to postpone the procedure and will have it done in April [address] [facility] by Dr. Valentino Melo. Hyponatremia 01/29/2022 Personal history of tobacco use 01/29/2022 Assessment & Plan (11/04/2023 3:01 PM CDT): The patient continues to smoke 1 pack of cigarettes per day and has smoked for 40 years. I did encourage her to quit smoking. I will order another screening chest CT for August 2024 Assessment & Plan (04/29/2023 2:01 PM STEEL WELDER): Continues to decrease number cigarettes with ultimate goal of quitting. Patient has a lung cancer screening CT August of 2023 Assessment & Plan (10/22/2022 1:55 PM CDT): Patient was encouraged to decrease the number of cigarettes use. She is smoking up to 2 packs per day for over 40 years. I have ordered a lung cancer screening CT for August of 2023 Assessment & Plan (07/16/2022 2:57 PM CDT): The patient continues to smoke half a pack of cigarettes per day for 40 years. I have ordered a lung cancer screening CT and recommended the patient decrease the number of cigarettes use per day. We have also signed a parking placard for the patient due to for emphysema and oxygen requirements. Assessment & Plan (03/05/2022 9:58 AM STEEL WELDER): She continues to smoke 1/2 pack of cigarettes per day and is trying to quit. Lung nodule 01/29/2022 Assessment & Plan (11/04/2023 3:01 PM CDT): The lung nodules are stable on the most recent screening chest CT Assessment & Plan (04/29/2023 2:02 PM STEEL WELDER): CT scan ordered for August of 2023 Assessment & Plan (10/22/2022 1:55 PM CDT): CT scan has been ordered for August of 2023 Assessment & Plan (07/16/2022 2:56 PM CDT): I have ordered a CT scan. Assessment & Plan (03/05/2022 9:58 AM STEEL WELDER): The patient has pulmonary nodules measuring up to 7 mm in diameter. If she does not come back to see me, she states that she will have serial chest CTs performed by Dr. Llamas in [place]. I did recommend that she follow-up with me in 3 months and I will order another chest CT at that time if she decides to continue to follow with me. B12 deficiency 12/26/2021 Polycythemia secondary to smoking 04/08/2019 Assessment & Plan (11/04/2023 3:02 PM CDT): The most recent CBC in our system revealed a normal H&H. Assessment & Plan (04/29/2023 2:01 PM STEEL WELDER): Patient continues to try to decrease the number of cigarettes and is followed by Hematology/Oncology and vitamin B12 shots Assessment & Plan (10/22/2022 1:55 PM CDT): I did encourage the patient to decrease the cigarette use. She continues to follow with Oncology and vitamin B12 shots Assessment & Plan (07/16/2022 2:56 PM CDT): The patient will continue with Oncology due to the polycythemia Other nonspecific abnormal finding of lung field 05/13/2017 Heart disease 05/13/2017 Closed fracture of rib of right side 05/13/2017 Traumatic hemopneumothorax 05/12/2017 Rectocele 08/22/2015 Postmenopausal atrophic vaginitis 08/22/2015 Nocturia 08/22/2015 Frequency 08/22/2015 Female stress incontinence 08/22/2015 Recurrent major depressive episodes, moderate Pain in limb 07/11/2014 Opioid dependence 04/07/2014 Respiratory symptoms 10/10/2013 Abnormal finding on mammography 08/12/2013 Low back pain 03/18/2013 Generalized anxiety disorder 07/17/2012 Essential hypertension 07/17/2012 Chronic pain 07/17/2012 Recurrent major depressive disorder 08/07/2010 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 Respiratory [address] [place] [address] Centrilobular emphysema (HCC) Discharge Disposition: Discharge to home or self care from Last 3 Months Immunizations Name Administration Dates Next Due Hep A, Unspecified 04/06/1998 Influenza, Trivalent, Preservative Free, Intramu scular 04/06/2009 PPD TEST 11/04/2010 Surgical History Surgery Date Site/Laterality Comments TX SALPINGO-OOPHORECTOMY COMPL/PRTL UNI/BI SPX Salpingo-oophorectomy Right Side - (Added by TW Conv) Medical History Medical History Date Comments Smoker For years Coronary artery disease invo lving [place] coronary artery of [place] heart without angina pectoris 02/04/2022 Essential hypertension 07/17/2012 Family History Medical History Relation Name Comments No Known Problems Father No Known Problems Mother Relation Name Status Comments Father Mother Social History Tobacco Use Types Packs/Day Years Used Date Smoking Tobacco: Every Day Cigarettes 1 30 Tobacco Cessation:Ready to Q uit: Not Asked; Counseling Given: Not Answered AUDIT-C Answer Date Recorded Frequency of Alcohol Consumption Not on file 10/22/2022 Q2: How many drinks containi ng alcohol do you have on a typical day when you are drinking? Patient does not drink Frequency of Binge Drinking Not on file 10/04 Comments Unknown Sex and Gender Information Value Date Recorded Sex Assigned at Not on file Legal Sex Female 8:18 AM STEEL WELDER Gender Identity Not on file Sexual Orientation Not on file Obstetrics History Last Filed Vital Signs Vital Sign Reading Time Taken Comments Blood Pressure 111/87 11/04/2023 2:41 PM CDT Pulse 101 11/04/2023 2:41 PM CDT Temperature 36.7 ??C (98 ??F) 11/04/2023 2:4 1 PM CDT Respiratory Rate 18 11/04/2023 2:41 PM CDT Oxygen Saturation 98% 04/20/2024 10: 45 AM STEEL WELDER albuterol neb with PFT per protocol Inhaled Oxygen Concentration - - Weight 72.1 kg (159 lb) 11/04/2023 2:41 PM CDT Height 160 cm (5' 3 ) 11/04/2023 2:41 PM CDT Body Mass Index 28.17 11/04/2023 2:41 PM CDT Plan of Treatment Health Maintenance Due Date Last Done Comments Cervical Cancer Screening 1960 Colon Cancer Screening-Colonoscopy 1960 Depression Screening 1960 Hepatitis C Screening 1960 DTaP/Tdap/Td Vaccine (1 - Tdap) 1971 Hepatitis B Screening 1978 Regular Well Visit/Exam 18-64 1978 Zoster Vaccine (1 of 2) 2010 Breast Cancer Screening-Mammogram 09/18/2013 013 Pneumococcal vaccine <65 (2 of 2 - PCV) 01/14/2019 01/14/2018, 03/01/2017 Influenza Vaccine (#1) 2023 , 01/14/2018, 03/01/2017, Additional history exists Lung Cancer Screening 08/12/2024 08/12/2023 Medical Devices Implanted Type Area Hvac Mechanic Device Identifier Shelf Expiration Date Model / Serial / Lot [employer] Device Clsr Perclose Prostyle Sut-Mediatd Closure-Repair Sys [id number] - [id number] Implanted:Qty: 1 on 02/03/2022 by Issac Gonzáles MD at [facility] [employer] 11/04/2023 [id number] / / [id number] Procedures Procedure Name Priority Date/Time Associated Diagnosis Comments PULMONARY FUNCTION TEST (PFT) Routine 04/20/2024 11:14 AM STEEL WELDER Centrilobular emphysema (HCC) CT LUNG CANCER SCREENING Schedule Routine, Read Routine (OP Routine) 08/12/2023 2:56 PM CDT Lung nodule Centrilobular emphysema (HCC) Personal history of tobacco use SCREENING MAMMOGRAM 2D BILATERAL Routine 09/18/2012 9:11 AM CDT from Last 3 Months or Most Recently Relevant to Health Maintenance Results * Pulmonary Function Test - (04/20/2024 11:14 AM STEEL WELDER) FVC POST 1.86 L 04/20/2024 11:16 AM [facility] 115 network disks FEV1 POST 0.91 L 04/20/2024 11:16 AM [facility] 115 network disks [id number] 48.76 % 04/20/2024 11:16 AM [facility] 115 network disks XEX17-14% POST 0.39 L/s 04/20/2024 11:16 AM [facility] 115 network disks PEF POST 2.31 L/s 04/20/2024 11:16 AM [facility] DLCOc SB 6.67 ml/(min*mm Hg) 04/20/2024 11:16 AM [facility] 115 network disks DLCO/VA PRE 2.56 ml/(min*mm Hg*L) 04/20/2024 11:16 AM [facility] 115 network disks VA 2.61 L 04/20/2024 11:16 AM [facility] 115 network disks TLC PRE 3.94 L 04/20/2024 11:16 AM [facility] VC PRE 1.74 L 04/20/2024 11:16 AM [facility] IC PRE 1.44 L 04/20/2024 11:16 AM [facility] FRC PL PRE 2.52 L 04/20/2024 11:16 AM [facility] ERV PRE 0.32 L 04/20/2024 11:16 AM [facility] RV PRE 2.21 L 04/20/2024 11:16 AM [facility] RAW PRE 17.48 cmH2O*s/L 04/20/2024 11:16 AM [facility] VTG 3.09 L 04/20/2024 11:16 AM [facility] FVC PRE 1.33 L 04/20/2024 11:16 AM [facility] FEV1 PRE 0.79 L 04/20/2024 11:16 AM [facility] [id number] 59.64 % 04/20/2024 11:16 AM [facility] JQP03-57% PRE 0.44 L/s 04/20/2024 11:16 AM [facility] PEF PRE 2.42 L/s 04/20/2024 11:16 AM [facility] Anatomical Region Laterality Modality PFT 04/20/2024 10:0 4 AM STEEL WELDER Impressions 04/24/2024 6:18 AM [facility] 1. ??Ohdbbwiz-mz-lhodcl obstructive ventilatory limitation 2. ??There is a significant positive bronchodilator response 3. ??Severe diffusion impairment 4. ??During 6 minute walk test the patient ambulated 890 ft on ambient air with lowest oxygen saturation of 94% Electronically signed by Errol Goncalves MD Pulmonary & Critical Care Narrative 04/24/2024 6:18 AM [facility] PULMONARY FUNCTION TESTS Shelley Gomez 64 y.o. 04/24/2024 INTERPRETATION Please see technologist's comments mentioned in attached results report. SPIROMETRY: ??Pre bronchodilator FEV1 is 34 % predicted, FVC is 45 % predicted, FEV1/FVC is 0.6 Bronchodilator response: ??Yes Inspection of the patient's flow-volume loops shows: ??Scooping of the expiratory limbs. LUNG VOLUMES: Lung volumes by body plethysmography: ??TLC is 83 % predicted, RV is 115 % predicted DLCO: ??Unadjusted for hemoglobin and carboxyhemoglobin DLCO is 31 % predicted us Johnson Marrero MD PFT ORDERABLES Final Res ult * CT Lung Cancer Screening (08/12/2023 2:56 PM CDT) Anatomical Region Laterality Modality Chest N/A Computed Tomogra phy 08/13/2023 1:08 PM CDT Narrative 08/13/2023 1:22 PM CDT EXAM DESCRIPTION: ?? CT LUNG CANCER SCREENING REASON FOR STUDY: Screening CT of the chest in a ?? current ??smoker with a ??30 ?? pack year smoking history. Additional history: None. TECHNIQUE: Low dose CT scan of the chest was performed without intravenous contrast using helical scanning technique. The exam extends from the lung apices through the lung bases. Automatic exposure control was used as a dose optimization technique. NOTE: This study was performed for the specific purposes of lung cancer screening and is not an alternative to diagnostic chest CT. RADIATION DOSE: CT dose index volume (CTDIvol) = ?? 1.9 ??mGy COMPARISON: ?? CT chest 08/07/2022 FINDINGS: SMOKING RELATED LUNG DISEASE: ?? Mild emphysema LUNG NODULES: ?? Bilateral stable pulmonary nodules including 3 mm nodule in the left upper lobe (3/55), 5 mm subpleural nodule in the left apex (3/44), 7 mm subpleural nodule at the right apex (3/49), 3 mm nodule in the posterior right upper lobe (3/80), 3 mm subpleural nodule in the anterior right upper lobe (3/72). Stable partially calcified perifissural nodule in the right lung, likely representing lymph nodes. CORONARY ARTERY CALCIFICATION: ??No OTHER: ?No focal consolidation, pleural effusion or pneumothorax. Normal-sized heart without pericardial effusion. Normal caliber of the great vessels. Atherosclerotic calcification of the aorta and coronary arteries. ??No thoracic lymphadenopathy. Visualized upper abdomen demonstrates no acute findings. No suspicious osseous findings. IMPRESSION: ?? Stable bilateral pulmonary nodules measuring up to 7 mm. ??No new pulmonary nodules. Lung-RADS category ??2: Benign appearance or behavior. Recommendation: ??Low dose Screening CT of chest in 12 months. THIS IS AN ELECTRONICALLY VERIFIED FINAL REPORT 08/13/2023 1:22 PM - Electronically signed by ??Rochelle Trinh M.D. FT D: ??08/13/2023 1:22 PM T: Report ID: [id number] Reading Location: ??[id number] Procedure Note Rochelle Aleman MD - 08/13/2023 EXAM DESCRIPTION: CT LUNG CANCER SCREENING REASON FOR STUDY: Screening CT of the chest in a current smoker with a30 pack year smoking history. Additional history: None. TECHNIQUE: Low dose CT scan of the chest was performed without intravenous contrast using helical scanning technique. The exam extends from the lung apices through the lung bases. Automatic exposure control was used as adose optimization technique. NOTE: This study was performed for the specific purposes of lung cancer screening and is not an alternative to diagnostic chest CT. RADIATION DOSE: CT dose index volume (CTDIvol) = 1.9 mGy COMPARISON: CT chest 08/07/2022 FINDINGS: SMOKING RELATED LUNG DISEASE: Mild emphysema LUNG NODULES: Bilateral stable pulmonary nodules including 3 mm nodulein the left upper lobe (3/55), 5 mm subpleural nodule in the left apex(3/44), 7 mm subpleural nodule at the right apex (3/49), 3 mm nodule in theposterior right upper lobe (3/80), 3 mm subpleural nodule in the anterior rightupper lobe (3/72). Stable partially calcified perifissural nodule in the right lung, likely representing lymph nodes. CORONARY ARTERY CALCIFICATION: No OTHER: No focal consolidation, pleural effusion or pneumothorax. Normal-sized heart without pericardial effusion. Normal caliber of thegreat vessels. Atherosclerotic calcification of the aorta and coronary arteries.No thoracic lymphadenopathy. Visualized upper abdomen demonstrates no acute findings. No suspicious osseous findings. IMPRESSION: Stable bilateral pulmonary nodules measuring up to 7 mm. Nonew pulmonary nodules. Lung-RADS category 2: Benign appearance or behavior. Recommendation: Low dose Screening CT of chest in 12 months. THIS IS AN ELECTRONICALLY VERIFIED FINAL REPORT 08/13/2023 1:22 PM - Electronically signed by Rochelle Trinh M.D. FT T: Report ID: [id number] Reading Location: [id number] Megan Whitley SLAB INSTALLER IMG CT PROCEDURES Final Res ult * Screening Mammogram 2D Bilateral (09/18/2012 9:11 AM CDT) Anatomical Region Laterality Modality Breast Bilateral Mammography 09/18/2012 9:11 AM CDT Impressions 09/29/2012 1:03 PM CDT 1. Multiple masses in the left breast. Recommend return to the imaging center for spot compression views and ultrasound. 2. No mammographic evidence of malignancy in the right breast. Routine annual screening mammography of the right breast is recommended. ASSESSMENT: ??BI-RADS: 0 INCOMPLETE. Additional imaging required. THIS IS AN ELECTRONICALLY VERIFIED REPORT 09/29/2012 1:01 PM: ??Amrani Deutsch M.D. Armani Deutsch M.D. NH:jose carlos 09:28 AM 12:51 PM [EOD] Narrative 09/29/2012 1:03 PM CDT EXAMINATION: ??BILATERAL DIGITAL SCREENING MAMMOGRAM HISTORY: ??Routine screening. COMPARISON: ??No prior studies available for comparison FINDINGS: The breast tissue is predominantly fatty-replaced. There are several masses in the central and inferior left breast at middle depth. There is no dominant mass in the right breast. There has been no suspicious interval change in the right breast. There is no suspicious calcification or architectural distortion. CAD was utilized to evaluate this mammogram. Procedure Note Provider, MD Debora - 08/20/2020 EXAMINATION: BILATERAL DIGITAL SCREENING MAMMOGRAM HISTORY: Routine screening. COMPARISON: No prior studies available for comparison FINDINGS: The breast tissue is predominantly fatty-replaced. There are several masses in the central and inferior left breast at middle depth. There is no dominant mass in the right breast. There has been nosuspicious interval change in the right breast. There is no suspicious calcification or architectural distortion. CAD was utilized to evaluate this mammogram. IMPRESSION: 1. Multiple masses in the left breast. Recommend return to the imagingcenter for spot compression views and ultrasound. 2. No mammographic evidence of malignancy in the right breast. Routineannual screening mammography of the right breast is recommended. ASSESSMENT: BI-RADS: 0 INCOMPLETE. Additional imaging required. THIS IS AN ELECTRONICALLY VERIFIED REPORT 09/29/2012 1:01 PM: Armani Deutsch M.D. Armani Deutsch M.D. NH:jose carlos 09:28 AM 12:51 PM [EOD] Syed Llamas MD IMG MAMMO PROCEDURES Final R esult from Last 3 Months or Most Recently Relevant to Health Maintenance Insurance [employer] MEDICARE SOLUTIONS [facility] MED[facility] Address: [address] [address] [place] [address] [employer]PA IDPA Advance Directives For more information, please contact: [phone] * Full Code (Latest Code Status on File) Date Activated Date Inactivated Comments 01/29/2022 3:57 PM 02/06/2022 9:47 PM Care Teams Visual Stylist Relationship Specialty Start Date End Date Syed Llamas MD [address] [place] [address] PCP - General Family Medicine 01/29/22 Syed Llamas MD [address] [place] [address] Family Medicine 01/29/22
--- OUTSIDE RECORDS SUMMARY | 2024-04-29 14:41 | XMS_ITS | Referral Summary ---
Author Organization [facility] Address [address] [place] [id number] Care Team Providers Care Makeup Artistry Instructor Name Role Phone Syed Llamas MD Primary Care Provider [phone] Syed Llamas MD Unavailable [phone] Encounters Date Type Department Care Team Description 04/20/2024 9:59 AM PACK OPERATOR - 04/20/2024 11:59 PM PACK OPERATOR Hospital Encounter [facility] [place] [address] Centrilobular emphysema (HCC) Discharge Disposition: Discharge to home or self care from Last 3 Months Allergies No known active allergies Medications cyanocobalamin [...] 2021 Assessment & Plan (04/29/2023 2:34 PM PACK OPERATOR): The patient will continue with Trelegy 1 [...] basis. Assessment & Plan (03/05/2022 9:57 AM PACK OPERATOR): The patient has stage III COPD. She will continue with Trelegy 1 puff daily and albuterol MDI p.r.n.. MARGARITA (obstructive sleep apnea) 03/05/2022 Assessment & Plan (11/04/2023 3:02 PM CDT): She is intolerant of CPAP therapy Assessment & Plan (04/29/2023 2:02 PM PACK OPERATOR): Intolerant to CPAP therapy continues positional therapy [...] sleeping. Assessment & Plan (03/05/2022 9:58 AM PACK OPERATOR): She continues to use oxygen at 2 liters/minute via nasal cannula while sleeping. She was intolerant of CPAP. Coronary artery disease invo lving platinum coronary artery of platinum heart without angina pectoris 02/04/2022 Hypokalemia 01/30/2022 Influenza A with respiratory manifestations 01/05 Left atrial mass 01/29/2022 Assessment & Plan (04/29/2023 2:02 PM PACK OPERATOR): Resected without complication. Dr. Melo monitoring Assessment & Plan (10/22/2022 1:54 PM CDT): Resected by April 2022. No complication Assessment & Plan (07/16/2022 2:58 PM CDT): Will continue to follow with Dr. 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 She has decided to postpone the procedure and will have it done in April 2022 at [facility] by Dr. Valentino Melo. Hyponatremia 01/29/2022 Personal history of tobacco use 01/29/2022 Assessment & Plan (11/04/2023 3:01 PM CDT): The patient continues to smoke 1 pack of cigarettes per day and has smoked for 40 years. I did encourage her to quit smoking. I will order another screening chest CT for August 2024 Assessment & Plan (04/29/2023 2:01 PM PACK OPERATOR): Continues to decrease number cigarettes with ultimate [...] requirements. Assessment & Plan (03/05/2022 9:58 AM PACK OPERATOR): She continues to smoke 1/2 pack of cigarettes per day and is trying to quit. Lung nodule 01/29/2022 Assessment & Plan (11/04/2023 3:01 PM CDT): The lung nodules are stable on the most recent screening chest CT Assessment & Plan (04/29/2023 2:02 PM PACK OPERATOR): CT scan ordered for August of 2023 Assessment & Plan (10/22/2022 1:55 PM CDT): CT scan has been ordered for August of 2023 Assessment & Plan (07/16/2022 2:56 PM CDT): I have ordered a CT scan. Assessment & Plan (03/05/2022 9:58 AM PACK OPERATOR): The patient has pulmonary nodules measuring up to 7 mm in diameter. If she does not come back to see me, she states that she will have serial chest CTs performed by Dr. Llamas in [place]. I did recommend that she follow-up with me in 3 months and I will order another chest CT at that time if she decides to continue to follow with me. B12 deficiency 12/26/2021 Polycythemia secondary to smoking 04/08/2019 Assessment & Plan (11/04/2023 3:02 PM CDT): The most recent CBC in our system revealed a normal H&H. 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 Immunizations Name Administration Dates Next Due Hep A, Unspecified 04/06/1998 Influenza, Trivalent, Preservative Free, Intramu scular 04/06/2009 PPD TEST 11/04/2010 Social History Tobacco Use Types Packs/Day Years [...] on file Legal Sex Female 8:18 AM PACK OPERATOR Gender Identity Not on file Sexual Orientation Not on file Last Filed Vital Signs Vital Sign Reading Time Taken Comments Blood Pressure 111/87 11/04/2023 2:41 PM CDT Pulse 101 11/04/2023 2:41 PM CDT Temperature 36.7 ??C (98 ??F) 11/04/2023 2:4 1 PM CDT Respiratory Rate 18 11/04/2023 2:41 PM CDT Oxygen Saturation 98% 04/20/2024 10: 45 AM PACK OPERATOR albuterol neb with PFT per protocol Inhaled Oxygen Concentration - - Weight 72.1 kg (159 lb) 11/04/2023 2:41 PM CDT Height 160 cm (5' 3 ) 11/04/2023 2:41 PM CDT Body Mass Index 28.17 11/04/2023 2:41 PM CDT Plan of Treatment Not on file Medical Devices Implanted Type Area Strap Folding Machine Operator Device Identifier Shelf Expiration Date Model / Serial / Lot [employer] Device Clsr Perclose Prostyle Sut-Mediatd Closure-Repair Sys [id number] - [id number] Implanted:Qty: 1 on 02/03/2022 by Issac Gonzáles MD at [facility] [employer] 11/04/2023 [id number] / / [id number] Procedures Procedure Name Priority Date/Time Associated Diagnosis Comments PULMONARY FUNCTION TEST (PFT) Routine 04/20/2024 11:14 AM PACK OPERATOR Centrilobular emphysema (HCC) CT LUNG CANCER SCREENING Schedule Routine, Read Routine (OP Routine) 08/12/2023 2:56 PM CDT Lung nodule Centrilobular emphysema (HCC) Personal history of tobacco use SCREENING MAMMOGRAM 2D BILATERAL Routine 09/18/2012 9:11 AM CDT from Last 3 Months or Most Recently Relevant to Health Maintenance Results * Pulmonary Function Test - (04/20/2024 11:14 AM PACK OPERATOR) FVC POST 1.86 L 04/20/2024 11:16 AM [facility] FEV1 POST 0.91 L 04/20/2024 11:16 AM [facility] [id number] 48.76 % 04/20/2024 11:16 AM [facility] JTS76-83% POST 0.39 L/s 04/20/2024 11:16 AM [facility] PEF POST 2.31 L/s 04/20/2024 11:16 AM [facility] DLCOc SB 6.67 ml/(min*mm Hg) 04/20/2024 11:16 AM [facility] DLCO/VA PRE 2.56 ml/(min*mm Hg*L) 04/20/2024 11:16 AM [facility] VA 2.61 L 04/20/2024 11:16 AM [facility] TLC PRE 3.94 L 04/20/2024 11:16 AM [facility] VC PRE 1.74 L 04/20/2024 11:16 AM [facility] IC PRE 1.44 L 04/20/2024 11:16 AM [facility] FRC PL PRE 2.52 L 04/20/2024 11:16 AM [facility] ERV PRE 0.32 L 04/20/2024 11:16 AM [facility] RV PRE 2.21 L 04/20/2024 11:16 AM [facility] RAW PRE 17.48 cmH2O*s/L 04/20/2024 11:16 AM [facility] VTG 3.09 L 04/20/2024 11:16 AM [facility] FVC PRE 1.33 L 04/20/2024 11:16 AM [facility] FEV1 PRE 0.79 L 04/20/2024 11:16 AM [facility] [id number] 59.64 % 04/20/2024 11:16 AM [facility] UIC12-93% PRE 0.44 L/s 04/20/2024 11:16 AM [facility] PEF PRE 2.42 L/s 04/20/2024 11:16 AM [facility] Anatomical Region Laterality Modality PFT 04/20/2024 10:0 4 AM PACK OPERATOR Impressions 04/24/2024 6:18 AM PACK OPERATOR 1. ??Hcsclfft-rb-tuaccm obstructive ventilatory limitation 2. ??There is a significant positive bronchodilator response 3. ??Severe diffusion impairment 4. ??During 6 minute walk test the patient ambulated 890 ft on ambient air with lowest oxygen saturation of 94% Electronically signed by Errol Goncalves MD Pulmonary & Critical Care Narrative 04/24/2024 6:18 AM PACK OPERATOR PULMONARY FUNCTION TESTS Shelley Gomez 64 y.o. [...] D: ??08/13/2023 1:22 PM T: Report ID: [id number] Reading Location: ??[id number] Procedure Note Rochelle Aleman MD - 08/13/2023 [...] Rochelle Trinh M.D. FT T: Report ID: [id number] Reading Location: [place] [address] Megan Whitley NP IM CT PROCEDURES Final Res ult * Screening [...] AN ELECTRONICALLY VERIFIED REPORT 09/29/2012 1:01 PM: ??Armani Deutsch M.D. Armani Deutsch M.D. [place]:jose carlos [...] Most Recently Relevant to Health Maintenance Insurance [employer] MED[employer]IONS [employer] IDPA Advance Directives For more information, please contact: [phone] * Full Code (Latest Code Status on File) Date Activated Date Inactivated Comments 01/29/2022 3:57 PM 02/06/2022 9:47 PM Care Teams Makeup Artistry Instructor Relationship Specialty Start Date End Date Syed Llamas MD [address] [place] [address] PCP - General Family Medicine 01/29/22 Syed Llamas MD [address] [place] [address] Family Medicine 01/29/22
[2024-04-29 15:21] LABS: Basophils Percent Auto 0.7 % (0.2-1.2); Eosinophils Absolute Auto 0.1 K/mm3 (0-0.3); Eosinophils Percent Auto 1.6 % (0-4.4); Hematocrit 42.4 % (37.0-47.0); Hemoglobin 13.5 g/dL (12.0-15.0); Immature Granulocyte Absolute 0.02 K/mm3 (0.00-0.031); Immature Granulocyte Percent A 0.4 % (0-0.5); Lymphocytes Absolute Auto 2.23 K/mm3 (0.9-3.2); Lymphocytes Percent Auto 40.2 % (18.3-44.2); Mean Corpuscular HGB Conc 31.8 g/dl (32-36); Mean Corpuscular Hemoglobin 30.8 pg (26-34); Mean Corpuscular Volume 96.6 fl (80-100); Monocytes Absolute Auto 0.4 K/mm3 (0.1-0.6); Monocytes Percent Auto 6.7 % (2.6-8.5); Neutrophils Absolute Auto 2.8 K/mm3 (1.3-6.7); Neutrophils Percent Auto 50.4 % (45.5-73.1); Platelet Count Result 270 k/mm3 (150-375); Red Blood Count 4.39 M/mm3 (4.2-5.4); Red Cell Distribution Width 12.3 % (11.5-14.5); White Blood Count 5.6 K/mm3 (4.5-10.0)
[2024-04-29 15:33] LABS: Alanine Aminotransferase 16 U/L (6-35); Albumin Level 4.2 g/dL (3.5-5.1); Alkaline Phosphatase 71 U/L (38-126); Anion Gap 5 mmol/L (4-12); Aspartate Amino Transferase 23 U/L (14-36); Bilirubin,Total 0.5 mg/dL (0.2-1.3); Blood Urea Nitrogen 10 mg/dL (7-17); Calcium 9.3 mg/dL (8.4-10.2); Carbon Dioxide 32 mmol/L (22-30); Chloride 100 mmol/L (98-107); Estimated Glomerular Filt Rate > 60; Glucose 95 mg/dL (65-110); Phosphorus 3.2 mg/dL (2.5-4.5); Potassium 3.6 mmol/L (3.4-5.0); Sodium 137 mmol/L (137-145)
[2024-04-29 16:14] LABS: Vitamin D 25 Hydroxy 60.5 ng/mL
[2024-04-29 16:20] LABS: Add Urine Microscopic? YES; Appearance Urine Cloudy (Clear); Bacteria Urine 3+ /hpf; Bilirubin Urine Negative (Negative); Blood Urine Negative (Negative); Color Urine Yellow (Yellow); Glucose Urine UA Negative (Negative); Ketones Urine Trace mg/dL (Negative); Leukocyte Esterase Ur 1+ LEU/UL (Negative); Nitrate Urine Negative (Negative); Non Pathogenic Casts 0-2; Protein Urine Trace mg/dL (Negative); RBC Urine 0-2 /hpf (0-2); Specific Grav Ur 1.027 (1.001-1.035); Squamous Epithelial Cell Urine Moderate /hpf (Few)
[2024-04-29 17:45] LABS: Free T4 Free Thyroxine Reflex 1.31 ng/dL (0.78-2.19)
[2024-04-29 19:03] LABS: Total Triiodothyronine (T3) 1.51 NG/ML (0.97-1.69)
[2024-04-30 22:04] LABS: Amphetamines POSITIVE ng/mL (<500); Barbiturates NEGATIVE ng/mL (<300); Benzodiazepines POSITIVE ng/mL (<100); Cocaine Metabolite NEGATIVE ng/mL (<150); Marijuana Metabolite POSITIVE ng/mL (<20); Methadone Metabolite NEGATIVE ng/mL (<100); Opiates POSITIVE ng/mL (<100); Oxidant NEGATIVE mcg/mL (<200); PCP NEGATIVE ng/mL (<25); pH 6.2 (4.5-9.0)
== END 2024-04-29 14:36 | disposition home or self-care (01) ==
PROVIDERS: PCP Emergency Medicine; Visit Provider Emergency Medicine
DX: E55.9 Vitamin D deficiency, unspecified (principal); E87.6 Hypokalemia; F51.01 Primary insomnia; I78.1 Nevus, non-neoplastic; J20.9 Acute bronchitis, unspecified; K43.2 Incisional hernia without obstruction or gangrene; L82.1 Other seborrheic keratosis; M47.897 Other spondylosis, lumbosacral region; M85.80 Other specified disorders of bone density and structure, unspecified site; R41.3 Other amnesia; R41.840 Attention and concentration deficit; R91.1 Solitary pulmonary nodule; Z12.31 Encounter for screening mammogram for malignant neoplasm of breast
CPT/HCPCS: 36415; 80069; 80076; 80307; 81001; 82306; 84439; 84443; 84480; 85025

== ENCOUNTER 2024-12-22 08:46 | Outpatient (CLI) | payer MEDICARE, MEDICAID, SELFPAY ==
--- OUTSIDE RECORDS SUMMARY | 2024-12-21 09:02 | XMS_ITS | Continuity of Care Document ---
Author Organization [facility] Address [address] [place] [address] [place] [address] Phone Care Team Providers Care Inspector Plumbing Name Role Phone Syed Llamas MD Unavailable Unavailable Allergies, Adverse Reactions, Alerts Substance Reaction Status Criticality No Known Allergies Active No Inform ation Medications Medication Instructions Dosage Effective Dates (start - stop) Status Comments Klonopin 1 mg tablet take 1 tablet by oral route 2 times every day as needed for F41.1 1 MG - Active avoid driving or operate machines, PRn for anxiety hydrocodone 10 mg-acetaminophen 325 mg tablet take 1 by Oral route 3 times every day as needed for G89.4 1 - Active PRN for pain, avoid driving or operate machines Adderall 20 mg tablet take 1 tablet by oral route every day before breakfast 20 MG - Active Cymbalta 60 mg capsule,delayed release take 1 capsule by oral route every day - Active Crestor 5 mg tablet take 1 tablet by oral route every day 5 MG - Active amitriptyline 50 mg tablet take 1 tablet by oral route every day at bedtime 50 MG - Active avoid driving or operate machines Vitamin D2 1,250 mcg (50,000 unit) capsule take 1 capsule by oral route every week - Active Syringe 3 mL 21 gauge [...] Active PRN for SOB Procedures Procedure Date OFFICE/OUTPATIENT VISIT, EST OFFICE/OUTPATIENT VISIT, EST OFFICE/OUTPATIENT [...] EST OFFICE/OUTPATIENT VISIT, EST OFFICE/OUTPATIENT VISIT, EST -2023 OFFICE/OUTPATIENT VISIT, EST OFFICE/OUTPATIENT VISIT, EST OFFICE/OUTPATIENT [...] EST OFFICE/OUTPATIENT VISIT, EST OFFICE/OUTPATIENT VISIT, EST -2019 PPPS, subseq visit OFFICE/OUTPATIENT VISIT, EST OFFICE/OUTPATIENT [...] Diagnoses Date Provider Providers Copied on Encounter OFFICE/OUTPA TIENT VISIT, [facility], [address], [place], [place], [address], [place] tel:[phone] [facility] pain (chief complaint) ADD (chief complaint) anxiety1 (chief complaint) Attention deficitChronic pain syndromeGeneralized anxiety disorder 5 Farhad Lynch. [address], [place], [place], [address] , [place]. tel:[phone] OFFICE/OUTPA TIENT VISIT, [facility], [address] [place] [address], [place] tel:[phone] [facility] pain (chief complaint) leg pain (chief complaint) ADD (chief complaint) anxieyt1 (chief complaint) Attention deficitChronic pain syndromeGeneralized Anxiety DisorderClaudicatio n 5 Llamas Syed. [address], [place], [place], [address] , [place]. tel:[phone] OFFICE/OUTPA TIENT VISIT, [facility], [address], [place], [place], [address], [place] tel:[phone] [facility] pain (chief complaint) ADD (chief complaint) anxiety1 (chief complaint) claudicati on1 (chief complaint) Attention deficitChronic pain syndromeGeneralized Anxiety DisorderClaudicatio n 5 Llamas Syed. [address], [place], [place], [address] , [place]. tel:[phone] OFFICE/OUTPA TIENT VISIT, [facility], [address] [place] [address], [place] tel:[phone] [facility] pain (chief complaint) anxiety1 (chief complaint) ADD (chief complaint) COPD1 (chief complaint) Chronic pain syndromeAttention deficitGeneralized Anxiety DisorderSolitary lung noduleCentrilobular emphysema Ever- 0 5 Llamas Syed. [address], [place], [place], [address] , [place]. tel:[phone] OFFICE/OUTPA TIENT VISIT, [facility], [address], [place], [place], [address], [place] tel:[phone] [facility] pain (chief complaint) anxiety1 (chief complaint) ADD (chief complaint) insomnia1 (chief complaint) Chronic pain syndromeGeneralized anxiety disorderAttention deficitOther insomniaSolitary lung nodule 5 Llamas Syed. [address], [place], [place], [address] , [place]. tel:[phone] OFFICE/OUTPA TIENT VISIT, [facility], [address], [place], [place], [address], [place] tel:[phone] [facility] pain (chief complaint) anxiety1 (chief complaint) ADD (chief complaint) Attention deficitChronic pain syndromeGeneralized anxiety disorder Jul- 5 Farhad Syed. [address], [place], [place], [address] , [place]. tel:[phone] OFFICE/OUTPA TIENT VISIT, [facility], [address], [place], [place], [address], [place] tel:[phone] [facility] pain1 (chief complaint) ADD (chief complaint) anxiety1 (chief complaint) COPD1 (chief complaint) Attention deficitChronic pain syndromeGeneralized anxiety disorderCentrilobul ar emphysemaSolitary lung nodule 5 Llamas Syed. [address], [place], [place], [address] , [place]. tel:[phone] OFFICE/OUTPA TIENT VISIT, [facility], [address], [place], [place], [address], [place] tel:[phone] [facility] pain (chief complaint) anxiety1 (chief complaint) ADD (chief complaint) HLP (chief complaint) thyroid (chief complaint) Generalized Anxiety DisorderAttention deficitChronic pain syndromeHypokalemia Mixed hyperlipidemiaAbnor mal results of thyroid function studies 5 Farhad Lynch. [address], [place], [place], [address] , [place]. tel:[phone] PREV VISIT, EST, AGE 40-64 [facility], [address], [place], [place], [address], [place] tel:[phone] [facility] physical (chief complaint) Encounter for general adult medical examination without abnormal findings 5 Farhad Lynch. [address], [place], [place], [address] , [place]. tel:[phone] OFFICE/OUTPA TIENT VISIT, [facility], [address], [place], [place], [address], [place] tel:[phone] [facility] pain (chief complaint) anxiety1 (chief complaint) ADD (chief complaint) insomnia1 (chief complaint) Attention deficitChronic pain syndromeGeneralized anxiety disorderPrimary insomniaEncntr screen mammogram for malignant neoplasm of breast 4 Farhad Lynch. [address], [place], [place], [address] , [place]. tel:[phone] OFFICE/OUTPA TIENT VISIT, EST [facility], [address] [place] [address], [place] tel:[phone] [facility] pain (chief complaint) anixety1 (chief complaint) ADD (chief complaint) Attention deficitChronic pain syndromeGeneralized anxiety disorder 4 Farhad Lynch. [address], [place], [place], [address] , [place]. tel:[phone] OFFICE/OUTPA TIENT VISIT, EST [facility], [address], [place], [place], [address], [place] tel:[phone] [facility] pain (chief complaint) anxiety1 (chief complaint) ADD (chief complaint) hernia1 (chief complaint) Attention deficitChronic pain syndromeGeneralized Anxiety DisorderIncisional hernia without obstruction or gangrene 4 Farhad Lynch. [address], [place], [place], [address] , [place]. tel:[phone] OFFICE/OUTPA TIENT VISIT, [facility], [address], [place], [place], [address], [place] tel:[phone] [facility] pain (chief complaint) anxiety1 (chief complaint) ADD (chief complaint) Attention deficitChronic pain syndromeGeneralized Anxiety Disorder 4 Farhad Lynch. [address], [place], [place], [address] , [place]. tel:[phone] OFFICE/OUTPA TIENT VISIT, [facility], [address], [place], [place], [address], [place] tel:[phone] [facility] pain (chief complaint) anxiety1 (chief complaint) ADD (chief complaint) Attention deficitChronic pain syndromeGeneralized anxiety disorderEncntr screen mammogram for malignant neoplasm of breast 4 Farhad Lynch. [address], [place], [place], [address] , [place]. tel:[phone] OFFICE/OUTPA TIENT VISIT, [facility], [address], [place], [place], [address], [place] tel:[phone] [facility] pain (chief complaint) anxiet1 (chief complaint) memory loss1 (chief complaint) Chronic pain syndromeGeneralized anxiety disorderMemory lossAttention deficit 4 Farhad Lynch. [address], [place], [address] , [place]. tel:[phone] OFFICE/OUTPA TIENT VISIT, [facility], [address], [place], [place], [address], [place] tel:[phone] [facility] pain (chief complaint) anxiety1 (chief complaint) skin (chief complaint) cough1 (chief complaint) Chronic pain syndromeGeneralized Anxiety DisorderSeborrheic keratosisAcute bronchitis 4 Llamas Syed. [address], [place], [place], [address] , [place]. tel:[phone] OFFICE/OUTPA TIENT VISIT, [facility], [address], [place], [place], [address], [place] tel:[phone] [facility] pain (chief complaint) anxiety1 (chief complaint) lung nodule1 (chief complaint) nevus (chief complaint) Nevus, non-neoplasticGener alized anxiety disorderSolitary lung noduleChronic pain syndrome 4 Llamas Syed. [address], [place], [place], [address] , [place]. tel:[phone] OFFICE/OUTPA TIENT VISIT, [facility], [address], [place], [place], [address], [place] tel:[phone] [facility] back pain1 (chief complaint) Other spondylosis, lumbosacral region 4 Llamas Syed. [address], [place], [place], [address] , [place]. tel:[phone] OFFICE/OUTPA TIENT VISIT, [facility], [address], [place], [place], [address], [place] tel:[phone] [facility] pain (chief complaint) anxiety1 (chief complaint) lung nodule1 (chief complaint) back pain1 (chief complaint) nevus1 (chief complaint) Generalized Anxiety DisorderSolitary lung noduleLumbago with sciatica, left sideNevus, non-neoplasticVentr al hernia 4 Llamas Syed. [address], [place], [place], [address] , [place]. tel:[phone] OFFICE/OUTPA TIENT VISIT, [facility], [address], [place], [place], [address], [place] tel:[phone] [facility] pain (chief complaint) anxiety1 (chief complaint) KCL (chief complaint) lung nodule1 (chief complaint) Chronic pain syndromeGeneralized Anxiety DisorderHypokalemia Solitary lung nodule 4 Farhad Lynch. [address], [place], [place], [address] , [place]. tel:[phone] OFFICE/OUTPA TIENT VISIT, [facility], [address], [place], [place], [address], [place] tel:[phone] [facility] pain (chief complaint) anxiety1 (chief complaint) osteopenia 1 (chief complaint) HLP (chief complaint) Chronic pain syndromeGeneralized Anxiety DisorderMixed hyperlipidemiaOther specified disorder of bone density 4 Farhad Lynch. [address], [place], [place], [address] , [place]. tel:[phone] OFFICE/OUTPA TIENT VISIT, [facility], [address], [place], [place], [address], [place] tel:[phone] [facility] pain (chief complaint) anxiety1 (chief complaint) cataract1 (chief complaint) insomnia1 (chief complaint) Chronic pain syndromeGeneralized Anxiety DisorderOther insomniaOther age-related cataract 4 Farhad Lynch. [address], [place], [place], [address] , [place]. tel:[phone] OFFICE/OUTPA TIENT VISIT, [facility], [address] [place] [address], [place] tel:[phone] [facility] pain (chief complaint) anxiety1 (chief complaint) insomnia1 (chief complaint) Chronic pain syndromeGeneralized Anxiety DisorderOther insomnia 3 Farhad Lynch. [address], [place], [place], [address] , [place]. tel:[phone] OFFICE/OUTPA TIENT VISIT, [facility], [address], [place], [place], [address], [place] tel:[phone] [facility] pain (chief complaint) anxiety1 (chief complaint) insomnia1 (chief complaint) Chronic pain syndromeGeneralized Anxiety DisorderOther insomniaObstructive Sleep Apnea Hypopnea 3 Farhad Lynch. [address], [place], [place], [address] , [place]. tel:[phone] OFFICE/OUTPA TIENT VISIT, [facility], [address], [place], [place], [address], [place] tel:[phone] [facility] hernia1 (chief complaint) pain (chief complaint) anxiety1 (chief complaint) Generalized Anxiety DisorderChronic pain syndromeIncisional hernia without obstruction or gangrene 3 Farhad Lynch. [address], [place], [place], [address] , [place]. tel:[phone] OFFICE/OUTPA TIENT VISIT, [facility], [address], [place], [place], [address], [place] tel:[phone] [facility] pain (chief complaint) anxiety1 (chief complaint) HTN (chief complaint) bulge1 (chief complaint) kCL (chief complaint) Ventral herniaChronic pain syndromeEssential (primary) hypertensionGeneral ized Anxiety DisorderHypokalemia 3 Farhad Lynch. [address], [place], [place], [address] , [place]. tel:[phone] OFFICE/OUTPA TIENT VISIT, [facility], [address], [place], [place], [address], [place] tel:[phone] [facility] pain (chief complaint) anxiety1 (chief complaint) HNT (chief complaint) Chronic pain syndromeGeneralized Anxiety DisorderEssential (primary) hypertension 3 Farhad Lynch. [address], [place], [place], [address] , [place]. tel:[phone] OFFICE/OUTPA TIENT VISIT, [facility], [address], [place], [place], [address], [place] tel:[phone] [facility] hematuria1 (chief complaint) polycythem ia1 (chief complaint) lung nodule1 (chief complaint) pain (chief complaint) anxiety1 (chief complaint) Chronic pain syndromeSolitary lung noduleGeneralized Anxiety DisorderSecondary polycythemiaAsympto matic microscopic hematuria 3 Farhad Wing [address], [place], [place], [address] , [place]. [phone] PREV VISIT, EST, AGE 40-64 [facility], [address], [place], [place], [address], [place] tel:[phone] [facility] physical (chief complaint) Encounter for general adult medical exam w abnormal findingsGeneralized Anxiety DisorderChronic pain syndromeSolitary lung noduleEssential (primary) hypertensionCentril obular emphysemaHypokalemi aOther specified disorder of bone density 3 Farhad Wing [address], [place], [place], [address] , [place]. [phone] OFFICE/OUTPA TIENT VISIT, [facility], [address], [place], [place], [address], [place] tel:[phone] [facility] anxiety1 (chief complaint) pain (chief complaint) emphysema1 (chief complaint) sick (chief complaint) Chronic pain syndromeGeneralized Anxiety DisorderSolitary lung noduleAcute bronchitisArteriosc lerosis of prairie band coronary artery without angina pectoris 3 Farhad Wing [address], [place], [place], [address] , [place]. tel:[phone] OFFICE/OUTPA TIENT VISIT, EST [facility], [address], [place], [place], [address], [place] tel:[phone] [facility] anxiety1 (chief complaint) pain (chief complaint) lung nodule1 (chief complaint) Chronic pain syndromeGeneralized Anxiety DisorderOther specified disorder of bone densitySolitary lung noduleEncounter for oth screening for malignant neoplasm of breast 3 Farhad Wing [address], [place], [place], [address] , [place]. [phone] OFFICE/OUTPA TIENT VISIT, [facility], [address] [place], [address], [place] tel:[phone] [facility] anxiety1 (chief complaint) pain (chief complaint) osteopenia 1 (chief complaint) CAD (chief complaint) Other specified disorder of bone densityChronic pain syndromeGeneralized Anxiety DisorderTobacco useArteriosclerosis of prairie band coronary artery without angina pectoris 3 Farhad Lynch. [address], [place], [place], [address] , [place]. tel:[phone] OFFICE/OUTPA TIENT VISIT, [facility], [address] [place], [address], [place] tel:[phone] [facility] anxiety1 (chief complaint) pain (chief complaint) CAD (chief complaint) tobacco1 (chief complaint) Chronic pain syndromeGeneralized Anxiety DisorderArterioscle rosis of prairie band coronary artery without angina pectorisTobacco use 3 Farhad Lynch. [address], [place], [place], [address] , [place]. tel:[phone] OFFICE/OUTPA TIENT VISIT, EST [facility], [address] [place], [address], [place] tel:[phone] [facility] CAD (chief complaint) anxiety1 (chief complaint) pain (chief complaint) Benign neoplasm of connective tissueChronic pain syndromeGeneralized Anxiety DisorderArterioscle rosis of prairie band coronary artery without angina pectoris 3 Farhad Lynch. [address], [place], [place], [address] , [place]. tel:[phone] OFFICE/OUTPA TIENT VISIT, [facility], [address] [place], [address], tel:[phone] [facility] pain (chief complaint) anxiety1 (chief complaint) atrial myxoma1 (chief complaint) HTN (chief complaint) Chronic pain syndromeGeneralized Anxiety DisorderEssential (primary) hypertensionBenign neoplasm of connective tissue 3 Llamas Syed. [address], [place], [address] , [place]. tel:[phone] OFFICE/OUTPA TIENT VISIT, [facility], [address], [place], [place], [address], [place] tel:[phone] [facility] pain (chief complaint) anxiety1 (chief complaint) CAD (chief complaint) Arteriosclerosis of prairie band coronary artery without angina pectorisChronic pain syndromeGeneralized anxiety disorderBenign neoplasm of connective tissue 2 Llamas Syed. [address], [place], [address] , [place]. [phone] OFFICE/OUTPA TIENT VISIT, [facility], [address], [place], [place], [address], [place] tel:[phone] [facility] pain (chief complaint) anxiety1 (chief complaint) CAD (chief complaint) COPD1 (chief complaint) Benign neoplasm of connective tissueCentrilobular emphysemaSolitary lung noduleGeneralized anxiety disorderChronic pain syndromeArterioscle rosis of prairie band coronary artery without angina pectoris 2 Farhad Lynch. [address], [place], [place], [address] , [place]. tel:[phone] OFFICE/OUTPA TIENT VISIT, [facility], [address], [place], [place], [address], [place] tel:[phone] [facility] atrial mass1 (chief complaint) Solitary lung noduleCentrilobular emphysemaInfluenzaB enign neoplasm of connective tissueArteriosclero sis of prairie band coronary artery without angina pectoris 2 Farhad Lynch. [address], [place], [place], [address] , [place]. tel:[phone] OFFICE/OUTPA TIENT VISIT, [facility], [address], [place], [place], [address], [place] tel:[phone] [facility] pain (chief complaint) anxiety1 (chief complaint) headache1 (chief complaint) b12 (chief complaint) KCL (chief complaint) Chronic pain syndromeGeneralized anxiety disorderMigraine w/o aura, not intractable, w/o status migrainosusPrimary central sleep apneaCentrilobular emphysemaFolate deficiencyHypokalem ia 2 Farhad Lynch. [address], [place], [place], [address] , [place]. tel:[phone] OFFICE/OUTPA TIENT VISIT, [facility], [address], [place], [place], [address], [place] tel:[phone] [facility] anxiety1 (chief complaint) pain (chief complaint) headache1 (chief complaint) Chronic pain syndromeGeneralized Anxiety DisorderMigraine w/o aura, not intractable, w/o status migrainosus 2 Farhad Lynch. [address], [place], [place], [address] , [place]. tel:[phone] OFFICE/OUTPA TIENT VISIT, [facility], [address], [place], [place], [address], [place] tel:[phone] [facility] anxiety1 (chief complaint) pain (chief complaint) stomach1 (chief complaint) Chronic gastritis without bleedingChronic pain syndromeGeneralized Anxiety Disorder 2 Farhad Lynch. [address], [place], [place], [address] , [place]. tel:[phone] OFFICE/OUTPA TIENT VISIT, [facility], [address], [place], [place], [address], [place] tel:[phone] [facility] anxiety1 (chief complaint) pain (chief complaint) tobacco1 (chief complaint) gastric polyp1 (chief complaint) Chronic pain syndromeGeneralized anxiety disorderTobacco usePolyp of stomach 2 Farhad Syed. [address], [place], [place], [address] , [place]. tel:[phone] OFFICE/OUTPA TIENT VISIT, [facility], [address], [place], [place], [address], [place] tel:[phone] [facility] pain (chief complaint) anxiety1 (chief complaint) tobacco1 (chief complaint) Chronic pain syndromeGeneralized Anxiety DisorderTobacco use 2 Llamas Syed. [address], [place], [place], [address] , [place]. tel:[phone] OFFICE/OUTPA TIENT VISIT, [facility], [address], [place], [place], [address], [place] tel:[phone] [facility] b12 (chief complaint) gastritis1 (chief complaint) pain (chief complaint) Chronic pain syndromePolyp of stomachDeficiency of other specified B group vitamins 2 Llamas Syed. [address], [place], [address] , [place]. tel:[phone] OFFICE/OUTPA TIENT VISIT, [facility], [address], [place], [place], [address], [place] tel:[phone] [facility] anxiety1 (chief complaint) pain (chief complaint) anxiety1 (chief complaint) GERD1 (chief complaint) hematura1 (chief complaint) Chronic pain syndromeAnxiolytic dependencePolyp of stomachHematuria 2 Llamas Syed. [address], [place], [place], [address] , [place]. tel:[phone] OFFICE/OUTPA TIENT VISIT, [facility], [address], [place], [place], [address], [place] tel:[phone] [facility] anxiety1 (chief complaint) pain (chief complaint) hemauria1 (chief complaint) b12 (chief complaint) Chronic pain syndromeFolate deficiencyHematuria Anxiolytic dependenceEncounter for oth screening for malignant neoplasm of breast 2 Llamas Syed. [address], [place], [place], [address] , [place]. tel:[phone] OFFICE/OUTPA TIENT VISIT, [facility], [address], [place], [place], [address], [place] tel:[phone] [facility] anxiet1 (chief complaint) pain (chief complaint) kcl (chief complaint) osteopenia 1 (chief complaint) b12 (chief complaint) hematuria1 (chief complaint) HematuriaHypokalemi aDeficiency of other specified B group vitaminsOth disrd of bone density and structure, unspecified siteChronic pain syndromeAnxiolytic dependence 2 Farhad Lynch. [address], [place], [place], [address] , [place]. tel:[phone] OFFICE/OUTPA TIENT VISIT, EST [facility], [address], [address], [place] tel:[phone] [facility] anxiety1 (chief complaint) pain (chief complaint) breast1 (chief complaint) Chronic pain syndromeAnxiolytic dependenceEncounter for oth screening for malignant neoplasm of breast 2 Farhad Wing [address], [place], [place], [address] , [place]. tel:[phone] PREV VISIT, EST, AGE 40-64 [facility], [address], [place], [place], [address], [place] tel:[phone] [facility] [place] [facility] physical (chief complaint) Encounter for general adult medical exam w abnormal findingsMigrainePol yp of colonSleep apneaHypokalemiaAnx iolytic dependenceChronic pain syndrome 2 Farhad Wing [address], [place], [place], [address] , [place]. tel:[phone] OFFICE/OUTPA TIENT VISIT, EST [facility], [address], [place], [place], [address], [place] tel:[phone] [facility] anxiety1 (chief complaint) pain (chief complaint) Chronic pain syndromeAnxiolytic dependence 1 Farhad Wing [address], [place], [place], [address] , [place]. tel:[phone] OFFICE/OUTPA TIENT VISIT, [facility], [address] [address], [place], [place], [address], [place] tel:[phone] [facility] anxiety1 (chief complaint) pain (chief complaint) headache1 (chief complaint) MigraineAnxiolytic dependenceChronic pain syndromeSleep apnea 1 Farhad Lynch. [address], [place], [place], [address] , [place]. [phone] OFFICE/OUTPA TIENT VISIT, [facility], [address], [place], [place], [address], [place] tel:[phone] [facility] anxiety1 (chief complaint) pain (chief complaint) Chronic pain syndromeAnxiolytic dependence 1 Farhad Wing [address], [address], [place], [place], [address] , [place]. [phone] OFFICE/OUTPA TIENT VISIT, [facility], [address], [place], [place], [address], [place] tel:[phone] [facility] anxiety1 (chief complaint) pain (chief complaint) nausea1 (chief complaint) Anxiolytic dependenceChronic pain syndromeBenign neoplasm of small intestinePolyp of colon 1 Farhad Lynch. [address], [place], [place], [address] , [place]. [phone] OFFICE/OUTPA TIENT VISIT, [facility], [address], [place], [place], [address], [place] tel:[phone] [facility] headache1 (chief complaint) low k (chief complaint) pain (chief complaint) anxiety1 (chief complaint) Chronic pain syndromeAnxiolytic dependenceMigraineH ypokalemia 1 Farhad Lynch. [address], [place], [place], [address] , [place]. [phone] OFFICE/OUTPA TIENT VISIT, [facility], [address], [place], [place], [address], tel:[phone] [facility] pain1 (chief complaint) headache1 (chief complaint) anxiety1 (chief complaint) hypokalemi a1 (chief complaint) MigraineHypokalemia Chronic pain syndromeAnxiolytic dependenceTobacco use 1 Farhad Wing [address], [place], [place], [address] , . tel:[phone] OFFICE/OUTPA TIENT VISIT, [facility], [address], [place], [place], [address], [place] tel:[phone] [facility] anxiety1 (chief complaint) pain (chief complaint) gastric polyp1 (chief complaint) headache1 (chief complaint) MigraineAnxiolytic dependenceChronic pain syndromePolyp of stomach and duodenumGERD w/o esophagitis 1 Farhad Wing [address], [place], [place], [address] , [place]. tel:[phone] OFFICE/OUTPA TIENT VISIT, [facility], [address] [place] [address], [place] tel:[phone] [facility] adenoma1 (chief complaint) anxiety1 (chief complaint) hematuria1 (chief complaint) headache1 (chief complaint) pain (chief complaint) Anxiolytic dependenceChronic pain syndromeHematuriaPo lyp of colonMigraine 1 Farhad Wing [address], [place], [place], [address] , [place]. tel:[phone] OFFICE/OUTPA TIENT VISIT, [facility], [address] [place] [address], [place] tel:[phone] [facility] headache1 (chief complaint) anxiety1 (chief complaint) hypokalemi a1 (chief complaint) nausea1 (chief complaint) hematuria1 (chief complaint) headache1 (chief complaint) HypokalemiaNauseaCh ronic pain syndromeAnxiolytic dependenceHematuria Headache, unspecifiedOth disrd of bone density and structure, unspecified site 1 Farhad Wing [address], [place], [place], [address] , [place]. tel:[phone] OFFICE/OUTPA TIENT VISIT, [facility], [address] [place] [address], [place] tel:[phone] [facility] pain (chief complaint) anxiety1 (chief complaint) nausea1 (chief complaint) headache1 (chief complaint) COPD1 (chief complaint) Headache, unspecifiedEmphysem aChronic pain syndromeAnxiolytic dependenceNauseaHyp okalemia 1 Farhad Lynch. [address], [place], [place], [address] , [place]. tel:[phone] OFFICE/OUTPA TIENT VISIT, [facility], [address], [place], [place], [address], [place] tel:[phone] [facility] pain (chief complaint) anxiety1 (chief complaint) headache1 (chief complaint) COPD1 (chief complaint) nausea1 (chief complaint) NauseaEmphysemaChro pipe pain syndromeAnxiolytic dependenceMigraineH ypokalemia 1 Farhad Lynch. [address], [place], [place], [address] , [place]. tel:[phone] OFFICE/OUTPA TIENT VISIT, [facility], [address] [place] [address], [place] tel:[phone] [facility] low KCL (chief complaint) polycythem ia1 (chief complaint) hematuria1 (chief complaint) HematuriaSecondary polycythemiaHypokal emiaDiarrheaNausea 1 Farhad Lynch. [address], [place], [place], [address] , [place]. tel:[phone] OFFICE/OUTPA TIENT VISIT, [facility], [address] [place] [address], [place] tel:[phone] [facility] pain (chief complaint) anxiety1 (chief complaint) mammo (chief complaint) headache1 (chief complaint) Chronic pain syndromeAnxiolytic dependenceMigraineE ncounter for oth screening for malignant neoplasm of breast 1 Farhad Wing [address], [place], [place], [address] , [place]. tel:[phone] OFFICE/OUTPA TIENT VISIT, [facility], [address], [place], [place], [address], [place] tel:[phone] [facility] chronic pain1 (chief complaint) anxiety1 (chief complaint) Chronic pain syndromeAnxiolytic dependence 0 Farhad Wing [address], [place], [place], [address] , [place]. tel:[phone] OFFICE/OUTPA TIENT VISIT, [facility], [address], [place], [place], [address], [place] tel:[phone] [facility] physical (chief complaint) Encounter for general adult medical exam w abnormal findingsChronic pain syndromeAnxiolytic dependenceEmphysema Sleep apneaSecondary polycythemia 0 Farhad Wing [address], [place], [place], [address] , [place]. tel:[phone] OFFICE/OUTPA TIENT VISIT, [facility], [address], [place], [place], [address], [place] tel:[phone] [facility] pain (chief complaint) anxiety1 (chief complaint) ear pain1 (chief complaint) Otalgia, left earChronic pain syndromeAnxiolytic dependence 0 Farhad Lynch. [address], [place], [place], [address] , [place]. tel:[phone] OFFICE/OUTPA TIENT VISIT, [facility], [address], [place], [place], [address], [place] tel:[phone] [facility] back pain (chief complaint) anxiety1 (chief complaint) Chronic pain syndromeAnxiolytic dependence 0 Farhad Lynch. [address], [place], [place], [address] , [place]. tel:[phone] OFFICE/OUTPA TIENT VISIT, [facility], [address], [place], [place], [address], [place] tel:[phone] [facility] pain1 (chief complaint) anxiety1 (chief complaint) glucose1 (chief complaint) COPD1 (chief complaint) EmphysemaSecondary polycythemiaAnxioly tic dependenceChronic pain syndromeMetabolic syndrome 0 Llamas Syed. [address], [place], [place], [address] , [place]. tel:[phone] OFFICE/OUTPA TIENT VISIT, [facility], [address], [place], [place], [address], [place] tel:[phone] [facility] pain (chief complaint) anxiety1 (chief complaint) Chronic pain syndromeAnxiolytic dependence 0 Farhad Lynch. [address], [place], [place], [address] , [place]. tel:[phone] OFFICE/OUTPA TIENT VISIT, [facility], [address], [place], [place], [address], [place] tel:[phone] [facility] pain (chief complaint) anxiety1 (chief complaint) COPD1 (chief complaint) tobacco1 (chief complaint) Chronic pain syndromeGeneralized anxiety disorderTobacco useEmphysema 0 Farhad Lynch. [address], [place], [place], [address] , [place]. tel:[phone] OFFICE/OUTPA TIENT VISIT, [facility], [address], [place], [place], [address], [place] tel:[phone] [facility] pain (chief complaint) anxiety1 (chief complaint) osteopenia 1 (chief complaint) lung (chief complaint) Generalized anxiety disorderChronic pain syndromeOth disrd of bone density and structure, unspecified siteTobacco use 0 Farhad Lynch. [address], [place], [place], [address] , [place]. tel:[phone] OFFICE/OUTPA TIENT VISIT, [facility], [address], [place], [place], [address], [place] tel:[phone] [facility] pain (chief complaint) anxiety1 (chief complaint) Chronic pain syndromeAnxiolytic dependence Apr-2 0-202 0 Farhad Lynch. [address], [place], [place], [address] , [place]. tel:[phone] OFFICE/OUTPA TIENT VISIT, [facility], [address], [place], [address], [place] tel:[phone] [facility] pain1 (chief complaint) anxiety1 (chief complaint) Chronic pain syndromeAnxiolytic dependence Mar-2 0-202 0 Farhad Lynch. [address], [place], [place], [address] , [place]. tel:[phone] Referring Provider: Clinton Cooper [address], [place], [place], [address]. tel:[phone] OFFICE/OUTPA TIENT VISIT, [facility], [address], [place], [place], [address], [place] tel:[phone] [facility] pain (chief complaint) anxiety1 (chief complaint) polycythem ia1 (chief complaint) Anxiolytic dependenceChronic pain syndromeSecondary polycythemiaSleep apnea Feb-2 0-202 0 Farhad Lynch. [address], [place], [place], [address] , [place]. tel:[phone] Referring Provider: Clinton Cooper [address], [place], [place], [address]. tel:[phone] OFFICE/OUTPA TIENT VISIT, [facility], [address], [place], [place], [address], [place] tel:[phone] [facility] pain1 (chief complaint) anxiety1 (chief complaint) polycythem ia1 (chief complaint) osteopenia 1 (chief complaint) Chronic pain syndromeSecondary polycythemiaAnxioly tic dependenceOth disrd of bone density and structure, unspecified siteFolate deficiency 0 0 Farhad Wing [address], [place], [place], [address] , [place]. tel:[phone] Referring Provider: Clinton Cooper [address], [place], [place], [address]. tel:[phone] OFFICE/OUTPA TIENT VISIT, [facility], [address], [place], [place], [address], [place] tel:[phone] [facility] anxiety1 (chief complaint) pain1 (chief complaint) Chronic pain syndromeAnxiolytic dependence 0- 9 Far[address], [place], [place], [address] , [place]. tel:[phone] Referring Provider: Clinton Cooper [address], [place], [place], [address]. tel:[phone] OFFICE/OUTPA TIENT VISIT, [facility], [address], [place], [place], [address], [place] tel:[phone] [facility] polychermi a1 (chief complaint) depression 1 (chief complaint) Secondary polycythemiaInsomni aAnxiolytic dependence [address], [place], [place], [address] , [place]. tel:[phone] Referring Provider: Clinton Cooper [address], [place], [place], [address]. tel:[phone] OFFICE/OUTPA TIENT VISIT, [facility], [address], [place], [place], [address], [place] tel:[phone] [facility] folate (chief complaint) polycythem ia1 (chief complaint) anxiety1 (chief complaint) chronic pain (chief complaint) Secondary polycythemiaFolate deficiencyHyperglyc emiaChronic pain syndromeAnxiolytic dependence Nov 9 Far[address], [place], [place], [address] , [place]. tel:[phone] Referring Provider: Clinton Cooper [address], [place], [place], [address]. tel:[phone] OFFICE/OUTPA TIENT VISIT, [facility], [address], [place], [place], [address], [place] tel:[phone] [facility] PHysical (chief complaint) Encounter for general adult medical exam w abnormal findingsChronic pain syndromeOth disrd of bone density and structure, unspecified siteEmphysemaSecond enmanuel polycythemiaSleep apneaGeneralized anxiety disorder 9 Farhad Wing [address], [place], [place], [address] , [place]. tel:[phone] Referring Provider: Clinton Cooper [address], [place], [place], [address]. tel:[phone] OFFICE/OUTPA TIENT VISIT, [facility], [address], [place], [place], [address], [place] tel:[phone] [facility] chronic pain (chief complaint) anxiety1 (chief complaint) osteopenia 1 (chief complaint) sleep apnea1 (chief complaint) Sleep apneaChronic pain syndromeOth disrd of bone density and structure, unspecified siteAnxiolytic dependence 9 Far[address], [place], [place], [address] , [place]. [phone] Referring Provider: Clinton Cooper [address], [place], [place], [address]. tel:[phone] OFFICE/OUTPA TIENT VISIT, [facility], [address], [place], [place], [address], [place] tel:[phone] [facility] chronic pain (chief complaint) anxiety1 (chief complaint) Chronic pain syndromeGeneralized anxiety disorder 9 Farhad Wing [address], [place], [place], [address] , [place]. tel:[phone] OFFICE/OUTPA TIENT VISIT, [facility], [address] [place], [address], [place] tel:[phone] [facility] anxiety1 (chief complaint) pain1 (chief complaint) Chronic pain syndromeGeneralized anxiety disorder 9 Farhad Lynch. [address], [place], [place], [address] , [place]. tel:[phone] Referring Provider: Syed Llamas, Clinton Child [facility] A, [place], [place], [address]. tel:[phone] OFFICE/OUTPA TIENT VISIT, [facility], [address] [place], [address], [place] tel:[phone] [facility] anxiety1 (chief complaint) back pain1 (chief complaint) osteopenia 1 (chief complaint) folate1 (chief complaint) sleep apnea1 (chief complaint) Generalized anxiety disorderChronic pain syndromeFolate deficiencyOth disrd of bone density and structure, unspecified siteSleep apnea 9 Farhad Lynch. [address] [place], [address] , [place]. tel:[phone] Referring Provider: Clinton Cooper [facility] A, [place], [place], [address]. tel:[phone] OFFICE/OUTPA TIENT VISIT, [facility], [address] [place], [address], [place] tel:[phone] [facility] chronic pain (chief complaint) anxiety1 (chief complaint) postmeno1 (chief complaint) Chronic pain syndromeGeneralized anxiety disorderPostmenopau mikie statusEmphysema 9 Farhad Lynch. [address], [place], [place], [address] , [place]. tel:[phone] OFFICE/OUTPA TIENT VISIT, [facility], [address] [place], [address], [place] tel:[phone] [facility] chrnoic pain (chief complaint) anxiety1 (chief complaint) Chronic pain syndromeGeneralized anxiety disorderTobacco use 9 Farhad Lynch. [address], [place], [place], [address] , [place]. tel:[phone] Referring Provider: Syed Llamas, [address], [place], [place], [address]. tel:[phone] OFFICE/OUTPA TIENT VISIT, [facility], [address], [place], [place], [address], [place] tel:[phone] [facility] chronic pain1 (chief complaint) anxiety1 (chief complaint) COPD1 (chief complaint) shoulder pain1 (chief complaint) sleep apnea1 (chief complaint) EmphysemaChronic pain syndromeGeneralized anxiety disorderPain in left shoulderSleep apnea 9 Farhad Lynch. [address], [place], [place], [address] , [place]. tel:[phone] Referring Provider: Syed Llamas, [address], [place], [place], [address]. tel:[phone] OFFICE/OUTPA TIENT VISIT, [facility], [address], [place], [place], [address], [place] tel:[phone] [facility] chronic pain (chief complaint) anxiety1 (chief complaint) Chronic pain syndromeEmphysema 9 Farhad Lynch. [address], [place], [place], [address] , [place]. tel:[phone] Referring Provider: Syed Llamas, [address], [place], [place], [address]. tel:[phone] OFFICE/OUTPA TIENT VISIT, [facility], [address], [place], [place], [address], [place] tel:[phone] [facility] back pain1 (chief complaint) anxiety1 (chief complaint) COPD1 (chief complaint) sleep apnea1 (chief complaint) EmphysemaGeneralize d anxiety disorderChronic pain syndromeSleep apnea 9 Farhad Lynch. [address], [place], [place], [address] , [place]. tel:[phone] Referring Provider: Clinton Cooper [address], [place], [place], [address]. tel:[phone] OFFICE/OUTPA TIENT VISIT, [facility], [address], [place], [place], [address], [place] tel:[phone] [facility] chronic pain1 (chief complaint) anxiety1 (chief complaint) Chronic pain syndromeGeneralized anxiety disorder 8 Farhad Lynch. [address], [place], [place], [address] , [place]. tel:[phone] OFFICE/OUTPA TIENT VISIT, [facility], [address], [place], [place], [address], [place] tel:[phone] [facility] folate1 (chief complaint) polycyther mia1 (chief complaint) sleep apnea1 (chief complaint) back pain1 (chief complaint) anxiety1 (chief complaint) EmphysemaSecondary polycythemiaFolate deficiencyChronic pain syndromeSleep apneaGeneralized anxiety disorder 8 Farhad Lynch. [address], [place], [place], [address] , [place]. tel:[phone] Referring Provider: Clinton Cooper [address], [place], [place], [address]. tel:[phone] OFFICE/OUTPA TIENT VISIT, [facility], [address], [place], [place], [address], [place] tel:[phone] [facility] Physical (chief complaint) Encounter for general adult medical exam w abnormal findingsEmphysemaSl eep apneaSecondary polycythemiaChronic pain syndrome 8 Farhad Lynch. [address], [place], [place], [address] , [place]. tel:[phone] Referring Provider: Syed Llamas, [address], [place], [place], [address]. tel:[phone] OFFICE/OUTPA TIENT VISIT, [facility], [address], [place], [place], [address], [place] tel:[phone] [facility] polycyther mia1 (chief complaint) folate1 (chief complaint) anxiety1 (chief complaint) back pain1 (chief complaint) COPD1 (chief complaint) Secondary polycythemiaFolate deficiencyChronic pain syndromeGeneralized anxiety disorderEmphysema 8 Farhad Lynch. [address], [place], [place], [address] , [place]. tel:[phone] Referring Provider: Syed Llamas [address], [place], [place], [address]. tel:[phone] OFFICE/OUTPA TIENT VISIT, [facility], [address], [place], [place], [address], [place] tel:[phone] [facility] D (chief complaint) polychermi a1 (chief complaint) folate1 (chief complaint) back pain1 (chief complaint) anxiety1 (chief complaint) Secondary polycythemiaFolate deficiencyVitamin D deficiency, unspecifiedChronic pain syndromeGeneralized anxiety disorderSleep apnea 8 Farhad Lynch. [address], [place], [place], [address] , [place]. tel:[phone] Referring Provider: Syed Llamas [address], [place], [place], [address]. tel:[phone] OFFICE/OUTPA TIENT VISIT, [facility], [address], [place], [place], [address], [place] tel:[phone] [facility] chronic pain1 (chief complaint) anxiety1 (chief complaint) sleep anpea1 (chief complaint) COPD1 (chief complaint) glucose1 (chief complaint) Chronic pain syndromeGeneralized anxiety disorderEmphysemaSl eep apneaHyperglycemia 8 Farhad Lynch. [address], [place], [place], [address] , [place]. tel:[phone] Referring Provider: Clinton Cooper [address], [place], [place], [address]. tel:[phone] OFFICE/OUTPA TIENT VISIT, [facility], [address], [place], [place], [address], [place] tel:[phone] [facility] chronic pain1 (chief complaint) anxiety1 (chief complaint) COPD1 (chief complaint) Chronic pain syndromeEmphysemaGe neralized anxiety disorder 8 Farhad Wing [address], [place], [address] , [place]. tel:[phone] Referring Provider: Clinton Cooper [address], [place], [place], [address]. tel:[phone] OFFICE/OUTPA TIENT VISIT, [facility], [address], [place], [address], [place] tel:[phone] [facility] COPD1 (chief complaint) chronic pain (chief complaint) aniety1 (chief complaint) Body mass index (BMI) 28.0-28.9, adultEmphysemaChron ic pain syndromeGeneralized anxiety disorder 8 [address], [place], [place], [address] , [place]. tel:[phone] Referring Provider: Clinton Cooper [address], [place], [place], [address]. tel:[phone] OFFICE/OUTPA TIENT VISIT, [facility], [address], [place], [place], [address], [place] tel:[phone] [facility] chronic pain (chief complaint) HLP (chief complaint) COPD1 (chief complaint) anxiety1 (chief complaint) Body mass index (BMI) 28.0-28.9, adultEmphysemaHyper lipidemiaGeneralize d anxiety disorderChronic pain syndrome 8 Farhad Wing [address], [place], [address] , [place]. tel:[phone] OFFICE/OUTPA TIENT VISIT, [facility], [address], [place], [place], [address], [place] tel:[phone] [facility] COPD1 (chief complaint) chronic pain (chief complaint) anxiety1 (chief complaint) EmphysemaChronic pain syndromeGeneralized anxiety disorderTobacco use 8 Farhad Lynch. [address], [place], [place], [address] , [place]. tel:[phone] Referring Provider: Clinton Cooper [address], [place], [place], [address]. tel:[phone] OFFICE/OUTPA TIENT VISIT, [facility], [address], [place], [place], [address], [place] tel:[phone] [facility] back pain1 (chief complaint) anxiety1 (chief complaint) tobacco1 (chief complaint) rib fx1 (chief complaint) Chronic pain syndromeGeneralized anxiety disorderEmphysemaCh est pain 8 Farhad Lynch. [address], [place], [place], [address] , [place]. tel:[phone] Referring Provider: Clinton Cooper [address], [place], [place], [address]. tel:[phone] OFFICE/OUTPA TIENT VISIT, [facility], [address], [place], [address], [place] tel:[phone] [facility] anxiety1 (chief complaint) chronic pain1 (chief complaint) tobacco1 (chief complaint) colon Ca (chief complaint) mole1 (chief complaint) Nevus, non-neoplasticGener alized anxiety disorderChronic pain syndromeEmphysema 8 Farhad Lynch. [address], [place], [address] , [place]. tel:[phone] Referring Provider: Clinton Cooper [address], [place], [place], [address]. tel:[phone] OFFICE/OUTPA TIENT VISIT, [facility], [address], [place], [address], [place] [phone] [facility] chronic pain (chief complaint) anxiety1 (chief complaint) Chronic pain syndromeGeneralized anxiety disorder 7 Farhad Lynch. [address], [place], [address] , [place]. [phone] Referring Provider: Clinton Cooper [address], [place], [place], [address]. tel:[phone] OFFICE/OUTPA TIENT VISIT, [facility], [address], [place], [place], [address], [place] tel:[phone] [facility] COPD1 (chief complaint) anxiety1 (chief complaint) chronic pain1 (chief complaint) incontinen ce1 (chief complaint) Generalized anxiety disorderMixed incontinenceCOPDChr onic pain syndrome Farhad Lynch. [address], [place], [place], [address] , [place]. [phone] Referring Provider: Clinton Cooper [address], [place], [place], [address]. tel:[phone] OFFICE/OUTPA TIENT VISIT, [facility], [address], [place], [place], [address], [place] [phone] [facility] anxiety1 (chief complaint) chronic pain1 (chief complaint) liver disease1 (chief complaint) incontinen ce1 (chief complaint) Chronic pain syndromeGeneralized anxiety disorderLiver diseaseMixed incontinence 7 Farhad Wing [address], [place], [place], [address] , [place]. [phone] Referring Provider: [address], [place], [place], [address]. tel:[phone] OFFICE/OUTPA TIENT VISIT, [facility], [address], [place], [place], [address], [place] tel:[phone] [facility] [place] [facility] chronic meli (chief complaint) anxiety1 (chief complaint) COPD1 (chief complaint) folic (chief complaint) Chronic pain syndromeFolate deficiencyGeneraliz ed anxiety disorderCOPD 7 Farhad Lynch. [address], [place], [place], [address] , [place]. tel:[phone] Referring Provider: Clinton Cooper [address], [place], [place], [address]. tel:[phone] PREV VISIT, EST, AGE 40-64 [facility], [address], [place], [place], [address], [place] tel:[phone] [facility] [place] [facility] PHysical (chief complaint) Encounter for general adult medical exam w abnormal findingsHyperlipide miaFolate deficiencyChronic pain syndrome Farhad Lynch. [address], [place], [place], [address] , [place]. tel:[phone] Referring Provider: Clinton Cooper [address], [place], [place], [address]. tel:[phone] OFFICE/OUTPA TIENT VISIT, EST [facility], [address], [place], [place], [address], [place] tel:[phone] [facility] chronic pain1 (chief complaint) anxiety1 (chief complaint) oAb (chief complaint) liver disease1 (chief complaint) Liver diseaseOveractive bladderGeneralized Anxiety DisorderChronic pain syndrome Farhad Lynch. [address], [place], [place], [address] , [place]. [phone] Referring Provider: Clinton Cooper [address], [place], [place], [address]. tel:[phone] OFFICE/OUTPA TIENT VISIT, EST [facility], [address], [place], [place], [address], [place] tel:[phone] [facility] [place] [facility] back pain1 (chief complaint) anxiety1 (chief complaint) COPD1 (chief complaint) Chronic pain syndromeGeneralized anxiety disorderCOPDTobacco use 7 Farhad Wing [address], [place], [place], [address] , [place]. [phone] Referring Provider: Clinton Cooper [address], [place], [place], [address]. tel:[phone] OFFICE/OUTPA TIENT VISIT, [facility], [address], [place], [place], [address], [place] tel:[phone] [facility] back pain1 (chief complaint) anxiety1 (chief complaint) HLP (chief complaint) tobacco1 (chief complaint) Chronic pain syndromeGeneralized anxiety disorderTobacco useHyperlipidemia 7 Farhad Wing [address], [place], [place], [address] , [place]. [phone] Referring Provider: Clinton Cooper [address], [place], [place], [address]. tel:[phone] OFFICE/OUTPA TIENT VISIT, [facility], [address], [place], [place], [address], [place] tel:[phone] [facility] COPD1 (chief complaint) chronic pain1 (chief complaint) anxiety1 (chief complaint) COPDChronic pain syndromeGeneralized anxiety disorderBody mass index (BMI) 31.0-31.9, adult August-0 7 Farhad [address], [place], [place], [address] , [place]. [phone] Referring Provider: Clinton Cooper [address], [place], [place], [address]. tel:[phone] OFFICE/OUTPA TIENT VISIT, [facility], [address], [place], [place], [address], [place] tel:[phone] [facility] cough1 (chief complaint) Acute bronchitis, unspecified 7 Farhad Wing [address], [place], [address] , [place]. tel:[phone] Referring Provider: Syed Llamas [address], [place], [place], [address]. tel:[phone] OFFICE/OUTPA TIENT VISIT, [facility], [address], [place], [place], [address], [place] tel:[phone] [facility] back pain1 (chief complaint) anxiety1 (chief complaint) COPD1 (chief complaint) sleep apnea1 (chief complaint) COPDChronic pain syndromeGeneralized anxiety disorderSleep apnea Jul-0 3 7 Farhad Lynch. [address], [place], [place], [address] , [place]. [phone] Referring Provider: Syed Llamas [address], [place], [place], [address]. tel:[phone] OFFICE/OUTPA TIENT VISIT, [facility], [address], [place], [place], [address], [place] tel:[phone] [facility] Anxiety1 (chief complaint) back pain1 (chief complaint) COPD1 (chief complaint) tobacco1 (chief complaint) COPDChronic pain syndromeGeneralized Anxiety DisorderTobacco use Jun- 7 Farhad Lynch. [address], [place], [place], [address] , [place]. [phone] Referring Provider: Clinton Cooper [address], [place], [place], [address]. tel:[phone] OFFICE/OUTPA TIENT VISIT, [facility], [address], [place], [place], [address], [place] tel:[phone] [facility] LFT (chief complaint) lung nodule (chief complaint) chronic pain1 (chief complaint) anxiety1 (chief complaint) HyperglycemiaLiver diseaseSolitary lung noduleChronic pain syndrome Fe-0 7 Farhad Lynch. [address], [place], [place], [address] , [place]. [phone] Referring Provider: Syed Llamas, [address], [place], [place], [address]. tel:[phone] OFFICE/OUTPA TIENT VISIT, [facility], [address], [place], [place], [address], [place] tel:[phone] [facility] COPD1 (chief complaint) back pain1 (chief complaint) anxiety1 (chief complaint) DM (chief complaint) HyperglycemiaLiver diseaseHyperlipidem iaCOPD 7 Farhad Lynch. [address], [place], [place], [address] , [place]. tel:[phone] Referring Provider: Clinton Cooper [address], [place], [place], [address]. tel:[phone] OFFICE/OUTPA TIENT VISIT, [facility], [address], [place], [place], [address], [place] tel:[phone] [facility] anxiety1 (chief complaint) back pain1 (chief complaint) COPD1 (chief complaint) tobacco1 (chief complaint) Chronic pain syndromeGeneralized anxiety disorderTobacco useEmphysema 6 Farhad Lynch. [address], [place], [place], [address] , [place]. tel:[phone] Referring Provider: Clinton [address], [place], [place], [address]. tel:[phone] OFFICE/OUTPA TIENT VISIT, [facility], [address], [place], [place], [address], [place] tel:[phone] [facility] COPD1 (chief complaint) back apin (chief complaint) anxiety1 (chief complaint) COPDGeneralized anxiety disorderChronic pain syndrome 6 Farhad Lynch. [address], [place], [place], [address] , [place]. tel:[phone] Referring Provider: Clinton Cooper [address], [place], [place], [address]. tel:[phone] OFFICE/OUTPA TIENT VISIT, EST [facility], [address], [place], [place], [address], [place] tel:[phone] [facility] bronchitis 1 (chief complaint) COPD1 (chief complaint) Acute bronchitisCOPD 6 Farhad Lynch. [address], [place], [place], [address] , [place]. tel:[phone] Referring Provider: Syed Lalmas, [address], [place], [place], [address]. tel:[phone] OFFICE/OUTPA TIENT VISIT, [facility], [address], [place], [place], [address], [place] tel:[phone] [facility] back pain1 (chief complaint) anxiety1 (chief complaint) COPD1 (chief complaint) COPDChronic pain syndromeGeneralized anxiety disorder Sep-2 6 Farhad Lynch. [address], [place], [place], [address] , [place]. tel:[phone] Referring Provider: Clinton Cooper [address], [place], [place], [address]. tel:[phone] OFFICE/OUTPA TIENT VISIT, [facility], [address], [place], [place], [address], [place] tel:[phone] [facility] LBP (chief complaint) COPD (chief complaint) Anxiety1 (chief complaint) Chronic pain syndromeGeneralized anxiety disorderEmphysema Sep-0 6 Farhad Lynch. [address], [place], [place], [address] , [place]. tel:[phone] Referring Provider: Clinton Cooper [address], [place], [place], [address]. tel:[phone] PREV VISIT, EST, AGE 40-64 [facility], [address], [place], [place], [address], [place] tel:[phone] [facility] [place] [facility] Physical (chief complaint) Encounter for general adult medical exam w abnormal findingsEmphysemaLu mbagoGeneralized anxiety disorderEncntr for general adult medical exam w/o abnormal findings 6 Farhad Wing [address], [place], [place], [address] , [place]. tel:[phone] Referring Provider: Clinton [address], [place], [place], [address]. tel:[phone] OFFICE/OUTPA TIENT VISIT, [facility], [address], [place], [place], [address], [place] tel:[phone] [facility] SOB1 (chief complaint) back pain1 (chief complaint) anxiety1 (chief complaint) DyspneaGeneralized anxiety disorderLumbagoEnco unter for oth screening for malignant neoplasm of breast 6 Farhad Wing [address], [place], [place], [address] , [place]. tel:[phone] Referring Provider: Clinton [address], [place], [place], [address]. tel:[phone] OFFICE/OUTPA TIENT VISIT, [facility], [address], [place], [place], [address], [place] tel:[phone] [facility] sleep apnea1 (chief complaint) LBP1 (chief complaint) SOB (chief complaint) Sleep apneaDyspneaChronic pain syndromeGeneralized anxiety disorder 6 Farhad [address], [place], [place], [address] , [place]. tel:[phone] Referring Provider: Clinton [address], [place], [place], [address]. tel:[phone] OFFICE/OUTPA TIENT VISIT, [facility], [address], [place], [place], [address], [place] tel:[phone] [facility] chronic pain (chief complaint) sleep apnea1 (chief complaint) Anxiety1 (chief complaint) Sleep apneaChronic pain syndromeGeneralized Anxiety Disorder 6 Farhad Wing [address], [place], [place], [address] , [place]. tel:[phone] Referring Provider: Clinton Cooper [address], [place], [place], [address]. tel:[phone] OFFICE/OUTPA TIENT VISIT, [facility], [address], [place], [place], [address], [place] tel:[phone] [facility] back pain (chief complaint) sleep apnea (chief complaint) anxiety1 (chief complaint) Other sleep apneaGeneralized anxiety disorderChronic pain syndromeEncounter for screening for osteoporosis Jul-0 6 Farhad Lynch. [address], [place], [place], [address] , [place]. tel:[phone] Referring Provider: Clinton Cooper [address], [place], [place], [address]. tel:[phone] OFFICE/OUTPA TIENT VISIT, [facility], [address], [place], [place], [address], [place] tel:[phone] [facility] anxiety1 (chief complaint) chronic pain (chief complaint) sleep apnea (chief complaint) Generalized anxiety disorderOther sleep apneaChronic pain syndrome 0 6 Farhad Lynch. [address], [place], [place], [address] , [place]. tel:[phone] Referring Provider: Clinton Cooper [address], [place], [place], [address]. tel:[phone] OFFICE/OUTPA TIENT VISIT, [facility], [address], [place], [place], [address], [place] tel:[phone] [facility] Anxiety1 (chief complaint) LBP (chief complaint) sleep apnea (chief complaint) Generalized anxiety disorderOther insomniaOther sleep apneaChronic pain syndrome Fe-0 5 6 Farhad Lynch. [address], [place], [place], [address] , [place]. tel:[phone] Referring Provider: Clinton Cooper [address], [place], [place], [address]. tel:[phone] OFFICE/OUTPA TIENT VISIT, [facility], [address], [place], [place], [address], [place] tel:[phone] [facility] Anxiety1 (chief complaint) chronic pain1 (chief complaint) Other sleep apneaOther insomniaGeneralized anxiety disorderEssential (primary) hypertension 6 Farhad Lynch. [address], [place], [place], [address] , [place]. tel:[phone] Referring Provider: Syed Llamas, [address], [place], [place], [address]. tel:[phone] OFFICE/OUTPA TIENT VISIT, [facility], [address], [place], [place], [address], [place] [phone] [facility] back pain1 (chief complaint) anxiety1 (chief complaint) low K (chief complaint) ear pain1 (chief complaint) HypokalemiaGenerali zed Anxiety DisorderChronic pain syndromeAcute upper respiratory infection, unspecified 5 Farhad Lynch. [address], [place], [place], [address] , [place]. tel:[phone] Referring Provider: Clinton [address], [place], [place], [address]. tel:[phone] OFFICE/OUTPA TIENT VISIT, [facility], [address], [place], [place], [address], [place] [phone] [facility] lumbago1 (chief complaint) Anxiety1 (chief complaint) cough1 (chief complaint) Other spondylosis, lumbosacral regionGeneralized anxiety disorderAcute bronchitis, unspecified 5 Farhad Lynch. [address], [place], [place], [address] , [place]. tel:[phone] Referring Provider: Clinton Cooper [address], [place], [place], [address]. tel:[phone] OFFICE/OUTPA TIENT VISIT, [facility], [address], [place], [place], [address], [place] tel:[phone] [facility] axillary pain (chief complaint) lumbago (chief complaint) Anxiety1 (chief complaint) leg pain1 (chief complaint) Dietary surveillance and counselingMajor depressive disorder, recurrent, moderateOther spondylosis, lumbosacral regionLumbago with sciatica, left side 5 Farhad Lynch. [address], [place], [place], [address] , [place]. tel:[phone] Referring Provider: Clinton Cooper [address], [place], [place], [address]. tel:[phone] OFFICE/OUTPA TIENT VISIT, [facility], [address], [place], [place], [address], [place] tel:[phone] [facility] back pain (chief complaint) depression (chief complaint) axillary pain (chief complaint) Dietary surveillance and counselingMajor depression disorder with single episode of mild depressionLumbagoHy pokalemiaAxillary pain Dec-0 5 Farhad Lynch. [address], [place], [place], [address] , [place]. [phone] Referring Provider: Clinton Cooper [address], [place], [place], [address]. tel:[phone] OFFICE/OUTPA TIENT VISIT, [facility], [address], [place], [place], [address], [place] tel:[phone] [facility] anxiety (chief complaint) back apin (chief complaint) anxiety (chief complaint) Dietary surveillance and counselingLumbagoGe neralized anxiety disorder 5 Farhad Lynch. [address], [place], [place], [address] , [place]. [phone] Referring Provider: Clinton Cooper [address], [place], [place], [address]. tel:[phone] PREV VISIT, EST, AGE 40-64 [facility], [address], [place], [place], [address], [place] tel:[phone] [facility] PHysical (chief complaint) Dietary surveillance and counselingRoutine medical exam 5 Farhad Lynch. [address], [place], [place], [address] , [place]. [phone] Referring Provider: Syed Llamas, [address], [place], [place], [address]. tel:[phone] OFFICE/OUTPA TIENT VISIT, [facility], [address], [place], [place], [address], [place] [phone] [facility] back pain (chief complaint) Anxiety (chief complaint) Other chronic painGeneralized anxiety disorderScreening mammogram 5 Farhad Lynch. [address], [place], [place], [address] , [place]. tel:[phone] Referring Provider: Clinton Cooper [address], [place], [place], [address]. tel:[phone] OFFICE/OUTPA TIENT VISIT, [facility], [address], [place], [place], [address], [place] [phone] [facility] back pain (chief complaint) anxiety (chief complaint) HTN (chief complaint) LumbagoGeneralized anxiety disorderHypertensio n, UnspecifiedOpioid type dependence, unspecified use 5 Farhad Lynch. [address], [place], [place], [address] , [place]. [phone] Referring Provider: Clinton Cooper [address], [place], [place], [address]. tel:[phone] OFFICE/OUTPA TIENT VISIT, [facility], [address], [place], [place], [address], [place] [phone] [facility] ear pain (chief complaint) right axillary (chief complaint) back pain (chief complaint) Pain in limbCHRONIC PAIN NECGeneralized anxiety disorder Apr- 5 Farhad Wing [address], [place], [place], [address] , [place]. [phone] Referring Provider: Clinton Cooper [address], [place], [place], [address]. tel:[phone] OFFICE/OUTPA TIENT VISIT, [facility], [address], [place], [place], [address], [place] tel:[phone] [facility] back pain (chief complaint) anxiety (chief complaint) LumbagoGeneralized anxiety disorderMajor depressive affective disorder, single episode, mild degree Jun- 5 Farhad Wing [address], [place], [place], [address] , [place]. tel:[phone] Referring Provider: Clinton Cooper [address], [place], [place], [address]. tel:[phone] OFFICE/OUTPA TIENT VISIT, [facility], [address], [place], [place], [address], [place] tel:[phone] [facility] back pain (chief complaint) anxiety (chief complaint) LumbagoGeneralized anxiety disorder 5 Farhad Wing [address], [place], [place], [address] , [place]. tel:[phone] Referring Provider: Clinton Cooper [address], [place], [place], [address]. tel:[phone] OFFICE/OUTPA TIENT VISIT, [facility], [address], [place], [place], [address], [place] tel:[phone] [facility] anxiety (chief complaint) back pain (chief complaint) Generalized anxiety disorderLumbagoClos ed fracture of sacrum and coccyx without mention of spinal cord injuryOpioid type dependence, unspecified use 5 Farhad Wing [address], [place], [place], [address] , [place]. tel:[phone] Referring Provider: Clinton Cooper [address], [place], [place], [address]. tel:[phone] OFFICE/OUTPA TIENT VISIT, [facility], [address], [place], [place], [address], [place] tel:[phone] [facility] back pain (chief complaint) tailbone pain (chief complaint) Closed fracture of sacrum and coccyx without mention of spinal cord injuryLumbago 4 Farhad Lynch. [address], [place], [place], [address] , [place]. tel:[phone] Referring Provider: Clinton Cooper [address], [place], [place], [address]. tel:[phone] OFFICE/OUTPA TIENT VISIT, [facility], [address], [place], [place], [address], [place] tel:[phone] [facility] back pain (chief complaint) anxiety (chief complaint) LumbagoGeneralized anxiety disorder 4 Farhad Lynch. [address], [place], [place], [address] , [place]. [phone] Referring Provider: Clinton Cooper [address], [place], [place], [address]. tel:[phone] OFFICE/OUTPA TIENT VISIT, [facility], [address], [place], [place], [address], [place] tel:[phone] [facility] back pain (chief complaint) Anxiety (chief complaint) CHRONIC PAIN NECGeneralized anxiety disorder 4 Farhad Lynch. [address], [place], [place], [address] , [place]. tel:[phone] Referring Provider: Syed Llamas [address], [place], [place], [address]. tel:[phone] OFFICE/OUTPA TIENT VISIT, [facility], [address], [place], [place], [address], [place] tel:[phone] [facility] back pain (chief complaint) anxiety (chief complaint) LumbagoGeneralized anxiety disorder 4 Farhad Lynch. [address], [place], [place], [address] , [place]. [phone] Referring Provider: Clinton Cooper [address], [place], [place], [address]. tel:[phone] OFFICE/OUTPA TIENT VISIT, [facility], [address], [place], [place], [address], [place] tel:[phone] [facility] back pain (chief complaint) anxiety (chief complaint) Generalized anxiety disorderLumbago 4 Farhad Lynch. [address], [place], [place], [address] , [place]. [phone] Referring Provider: Clinton Cooper [address], [place], [place], [address]. tel:[phone] OFFICE/OUTPA TIENT VISIT, [facility], [address], [place], [place], [address], [place] tel:[phone] [facility] anxiety (chief complaint) back pain (chief complaint) CHRONIC PAIN NECGeneralized anxiety disorder 4 Farhad Wing [address], [place], [place], [address] , [place]. [phone] Referring Provider: Clinton Cooper [address], [place], [place], [address]. tel:[phone] OFFICE/OUTPA TIENT VISIT, [facility], [address], [place], [place], [address], [place] tel:[phone] [facility] anxiety (chief complaint) SOB (chief complaint) back pain (chief complaint) Generalized anxiety disorderLumbagoResp iratory abnormality, unspecifiedDietary surveillance and counseling 4 Farhad Wing [address], [place], [place], [address] , [place]. tel:[phone] Referring Provider: Syed Llamas, [address], [place], [place], [address]. tel:[phone] OFFICE/OUTPA TIENT VISIT, [facility], [address], [place], [address], [place] [phone] [facility] back pain (chief complaint) anxiety (chief complaint) Generalized anxiety disorderLumbago 4 Farhad Lynch. [address], [place], [place], [address] , [place]. tel:[phone] Referring Provider: Syed Llamas, [address], [place], [place], [address]. tel:[phone] OFFICE/OUTPA TIENT VISIT, [facility], [address], [place], [place], [address], [place] [phone] [facility] back pain (chief complaint) anxiety (chief complaint) abnormal mammogram (chief complaint) Dietary surveillance and counselingHypertens ion, UnspecifiedLumbagoG eneralized anxiety disorderUnspecified abnormal mammogram 4 Farhad Lynch. [address], [place], [place], [address] , [place]. tel:[phone] Referring Provider: Syed Llamas, [address], [place], [place], [address]. tel:[phone] OFFICE/OUTPA TIENT VISIT, [facility], [address], [place], [place], [address], [place] [phone] [facility] back pain (chief complaint) anxiety (chief complaint) chornic pain (chief complaint) Dietary surveillance and counselingCHRONIC PAIN NECGeneralized anxiety disorder 4 Farhad Lynch. [address], [place], [place], [address] , [place]. tel:[phone] Referring Provider: Syed Llamas, [address], [place], [place], [address]. tel:[phone] OFFICE/OUTPA TIENT VISIT, [facility], [address], [place], [place], [address], [place] tel:[phone] [facility] anxiety (chief complaint) back pain (chief complaint) Dietary surveillance and counselingGeneraliz ed anxiety disorderLumbago 3 4 Farhad Lynch. [address], [place], [place], [address] , [place]. tel:[phone] Referring Provider: Clinton Cooper [address], [place], [place], [address]. tel:[phone] OFFICE/OUTPA TIENT VISIT, [facility], [address], [place], [place], [address], [place] tel:[phone] [facility] back pain (chief complaint) anxiety (chief complaint) knee pain (chief complaint) Dietary surveillance and counselingGeneraliz ed anxiety disorderLuago 4 Farhad Lynch. [address], [place], [place], [address] , [place]. [phone] Referring Provider: Clinton Cooper [address], [place], [place], [address]. tel:[phone] OFFICE/OUTPA TIENT VISIT, [facility], [address], [place], [place], [address], [place] tel:[phone] [facility] back pain (chief complaint) anxiety (chief complaint) Dietary surveillance and counselingLumbagoGe neralized anxiety disorder 0 4 Farhad Lynch. [address], [place], [place], [address] , [place]. [phone] Referring Provider: Clinton Cooper [address], [place], [place], [address]. tel:[phone] OFFICE/OUTPA TIENT VISIT, [facility], [address], [place], [place], [address], [place] tel:[phone] [facility] anxiety (chief complaint) back pain (chief complaint) Dietary surveillance and counselingGeneraliz ed anxiety disorderMajor depressive affective disorder, single episode, mild degreeLumbago 3 Farhad Lynch. [address], [place], [place], [address] , [place]. tel:[phone] Referring Provider: Clinton Cooper [address], [place], [place], [address]. tel:[phone] OFFICE/OUTPA TIENT VISIT, [facility], [address], [place], [place], [address], [place] tel:[phone] [facility] back pain (chief complaint) anxiety (chief complaint) Generalized anxiety disorderCHRONIC PAIN NECDietary surveillance and counseling 3 Farhad Lynch. [address], [place], [place], [address] , [place]. [phone] Referring Provider: Clinton Cooper [address], [place], [place], [address]. tel:[phone] OFFICE/OUTPA TIENT VISIT, [facility], [address], [place], [place], [address], [place] tel:[phone] [facility] back pain (chief complaint) anxiety (chief complaint) Dietary surveillance and counselingLumbagoGe neralized anxiety disorder 3 Farhad Lynch. [address], [place], [place], [address] , [place]. tel:[phone] Referring Provider: Clinton Cooper [address], [place], [place], [address]. tel:[phone] OFFICE/OUTPA TIENT VISIT, [facility], [address], [place], [place], [address], [place] tel:[phone] [facility] back pain (chief complaint) anxiety (chief complaint) Dietary surveillance and counselingCHRONIC PAIN NECGeneralized anxiety disorder 3 Farhad Lynch. [address], [place], [place], [address] , [place]. tel:[phone] Referring Provider: Syed Llamas, [address], [place], [place], [address]. tel:[phone] OFFICE/OUTPA TIENT VISIT, [facility], [address], [place], [place], [address], [place] tel:[phone] [facility] anxiety (chief complaint) back pain (chief complaint) Dietary surveillance and counselingCHRONIC PAIN NECGeneralized anxiety disorderMajor depressive affective disorder, single episode, mild degree 3 Farhad Lynch. [address], [place], [place], [address] , [place]. [phone] Referring Provider: Clinton Cooper [address], [place], [place], [address]. tel:[phone] OFFICE/OUTPA TIENT VISIT, [facility], [address], [place], [place], [address], [place] tel:[phone] [facility] anxiety (chief complaint) back pain (chief complaint) HLP (chief complaint) Dietary surveillance and counselingGeneraliz ed anxiety disorderCHRONIC PAIN NECHypertension, Unspecified 3 Farhad Lynch. [address], [place], [place], [address] , [place]. tel:[phone] Referring Provider: Clinton Cooper [address], [place], [address]. tel:[phone] [facility], [address], [place], [place], [address], [place] tel:[phone] [facility] Unspecified abnormal mammogram 3 Farhad Lynch. [address], [place], [place], [address] , [place]. tel:[phone] Referring Provider: Clinton Cooper [address], [place], [place], [address]. tel:[phone] OFFICE/OUTPA TIENT VISIT, [facility], [address], [place], [place], [address], [place] tel:[phone] [facility] back pain (chief complaint) anxiety (chief complaint) abnormal mammogram (chief complaint) Dietary surveillance and counselingGeneraliz ed anxiety disorderCHRONIC PAIN NEC 3 Farhad Lynch. [address], [place], [place], [address] , [place]. tel:[phone] Referring Provider: Clinton Cooper [address], [place], [place], [address]. tel:[phone] OFFICE/OUTPA TIENT VISIT, [facility], [address], [place], [place], [address], [place] tel:[phone] [facility] chronic pain (chief complaint) anxiety (chief complaint) HTN (chief complaint) lesion (chief complaint) Dietary surveillance and counselingCHRONIC PAIN NECGeneralized anxiety disorder 3 Farhad Wing [address], [place], [place], [address] , [place]. [phone] Referring Provider: Syed Llamas [address], [place], [place], [address]. tel:[phone] OFFICE/OUTPA TIENT VISIT, [facility], [address] [place] [address], [place] tel:[phone] [facility] anxiety (chief complaint) chronic pain (chief complaint) HTN (chief complaint) Dietary surveillance and counselingCHRONIC PAIN NECGeneralized anxiety disorderHypertensio n, Unspecified 3 Farhad Lynch. [address], [place], [place], [address] , [place]. tel:[phone] Family History Family Member Type Diagnosis Age At Onset Brother Problem (finding) Alive and well Mother Problem (finding) Alive and well Father Problem (finding) Unknown Disease Payers Payer name Insurance type Covered constitution party ID Authormiltona tielisa(s) [facility] [id number] Social History Type Description Quantity Date Captured Comments Alcohol Use Details No Caffeine Use Details Unknown Tobacco Use Status Heavy cigarette smok er (20-39 cigs/day) Smoking Status Heavy tobacco smoker Sex Female Vital Signs Date / Time: Height Weight BMI Pulse Rate Blood Pressure Temperature Respiratory Rate Body Surface Area Head Circumference BMI percentile Pulse Ox Inhaled Ox 2:15 PM 63.00 in 155.20 lbs 27.4 9 kg/m eter (2) 102 /min 120/70 mm[Hg] 97.7 F 16 /min Chief Complaint And Reason For Visit From encounter dated 12/21/2024 14:02'. pain (chief complaint). Description: Pt has chronic low back pain. Pt denies any worsening pain Pt denies any loss of bladder control. .Pt failed NSAID and ultram and neurontin. Pt denies any saddle area paresthesia. Pt had MRI done which showed mild DDD only . Pt doing ok with norco 10 mg ADD (chief complaint). Description: Patient has ADD. Patient has inattentive type. Patient feels scatterbrained. Patient feel poor focus and difficulty completing tasks. Patient states that Adderall is helping with symptoms. Patient feels more focused. Pt feels more energy. Patient denies any headache, dry mouth, headache, chest pain. Patient denies any appetite loss. anxiety1 (chief complaint). Description: Pt has chronic anxiety and depression Pt takes cymbalta and klonopin PRN and doing ok Pt denies any suicidal or homicidal thought Pt denies any crying spells. Plan Of Treatment Date Type Action Status Goal Lipid panel. Due on 025 due Goal Depression screening. Due on due Goal Sigmoidoscopy. Due on due Goal Tdap. Due on due Goal Td vaccine. Due on 25 due Goal FOBT. Due on due Goal Pap/HPV testing. Due on due Goal Zoster vaccine. Due on due Goal Influenza vaccine. Due on due Goal Influenza vaccine. Due on due Goal Lipid panel. [...] Influenza vaccine. Due on Se due Goal Depression screening. Due on due [...] on due Goal Influenza vaccine. Due on Ma due Goal Sigmoidoscopy. Due on due Goal Lipid panel. Due on due Goal Lipid panel. Due on due Goal Sigmoidoscopy. Due on due Goal Influenza vaccine. Due on Ma due Goal Tdap. Due on due Goal [...] on due Goal Td vaccine. Due on 19 due Goal Tdap. Due on due Goal FOBT. Due on due Goal Colonoscopy. Due on due Goal Depression screening. Due on due Goal Lipid panel. Due on due Goal Tobacco cessation counseling completed Goal Special diet education compl eted Goal Sigmoidoscopy. Due on due Goal Pap/HPV testing. Due on due Goal Influenza vaccine. Due on due Goal Td vaccine. Due on 19 due Goal Tdap. Due on due Goal FOBT. Due on due Goal Colonoscopy. Due on due Goal Depression screening. Due on due Goal Lipid panel. Due on due Goal Special diet education compl eted Goal Tobacco cessation counseling completed Goal Sigmoidoscopy. Due on due Goal Pap/HPV testing. Due on due Goal Influenza vaccine. Due on due Goal Td vaccine. Due on 19 due Goal Tdap. Due on due Goal FOBT. Due on due Goal Colonoscopy. Due on due Goal Depression screening. Due on due Goal Lipid panel. Due on due Goal Special diet education compl eted Goal Tobacco cessation counseling completed Goal Sigmoidoscopy. Due on due Goal Pap/HPV [...] Goal Influenza vaccine. Due on due Goal Special diet education compl eted Goal Tobacco cessation counseling completed Goal Td vaccine. Due on 18 due [...] Td vaccine. Due on 18 due Goal Lipid panel. Due on due [...] Td vaccine. Due on 18 due Goal Influenza vaccine. Due on due Goal Tdap. Due on due Goal FOBT. Due on due Goal Depression screening. Due on due Goal FOBT. Due on due Goal Td vaccine. Due on 17 due Goal Colonoscopy. Due on due Goal Depression screening. Due on due Goal Sigmoidoscopy. Due on due Goal Pap/HPV testing. Due on due Goal Tdap. Due on due Goal Influenza vaccine. Due on due Goal Influenza vaccine. Due on due Goal Depression screening. Due on due Goal Colonoscopy. Due on due Goal Sigmoidoscopy. Due on due Goal Td vaccine. Due on 17 due Goal FOBT. Due on due Goal Pap/HPV testing. Due on due Goal Tdap. Due on due Goal Td vaccine. Due on 17 due Goal Depression screening. Due on due [...] on due Goal Td vaccine. Due on 17 due Goal Pap/HPV testing. Due on due Goal Depression screening. Due on due Goal Colonoscopy. Due on due Goal Td vaccine. Due on 17 due Goal Influenza vaccine. Due on due [...] on 16 due Goal Colonoscopy. Due on due Goal [...] Goal Colonoscopy. Due on 015 due Goal Pap/HPV testing. Due on due [...] Goal Colonoscopy. Due on 015 due Goal Pap/HPV testing. Due on due [...] Goal Tobacco cessation counseling completed Referral Ordered: [place] ARTERIAL DOPPLER ordered Referral Ordered: Plastic Surgery (related to Nevus, non-neoplastic) ordered Referral Ordered: Referrals: Plastic Surgery. Evaluate and treat ordered Referral Referred To: Rodolfo Johnson [address] [place] [address], [phone] Ordered: Referrals: Rodolfo Johnson. Evaluate and treat ordered Referral Ordered: Cardiology (related to Arteriosclerosis of [place] coronary artery without angina pectoris) ordered Referral Ordered: Referrals: Cardiology. Evaluate and treat ordered Referral Ordered: Wes Adorno [facility] : Psychiatry & Neurology : Neurology (related to Migraine w/o aura, not intractable, w/o status migrainosus) ordered Referral Referred To: Wes Adorno [address] [place] [address]
[address] [place], [place] [id number] Ordered: Referrals: [facility] : Psychiatry & Neurology : Neurology. Wes Adorno. Evaluate and treat ordered Referral Ordered: Urology (related to Hematuria) ordered Referral Ordered: Referrals: Urology. Evaluate and treat ordered Referral Ordered: MRI BRAIN W/O DYE ordered Referral Referred To: Cesia HOBBS, Kandace Padilla [id number] [facility]
[address], [place], [id number] Ordered: Referrals: Cesia HOBBS, Kandace Padilla. Evaluate and treat ordered Referral Ordered: COLONOSCOPY AND BIOPSY ordered Referral Ordered: Hematology (related to Secondary polycythemia) ordered Referral Ordered: Referrals: Hematology. Evaluate and treat ordered Referral Ordered: Pulmonology (related to Emphysema) ordered Referral Ordered: [facility] (related to Nevus, non-neoplastic) ordered Referral Referred To: Deep Toribio [address] [place], [place] [id number] Ordered: Referrals: Deep Toribio. Evaluate and treat ordered Referral Ordered: LAURI HERNANDEZ (related to Mixed incontinence) ordered Referral Referred To: LAURI HERNANDEZ [address] [place], [place], [id number] Ordered: Referrals: LAURI HERNANDEZ. Evaluate and treat [...] [place] [address] [place], [id number] Ordered: Referrals: Angel Luis Velasco. Evaluate and [...] Date Complaint History Of Prese nt Illness pain Pt has chronic l ow back pain. Pt denies any worsening pain Pt denies any loss of bladder control. .Pt failed NSAID and ultram and neurontin. Pt denies any saddle area paresthesia. Pt had MRI done which showed mild DDD only . Pt doing ok with norco 10 mg ADD Patient has ADD. Patient has inattentive type. Patient feels scatterbrained. Patient feel poor focus and difficulty completing tasks. Patient states that Adderall is helping with symptoms. Patient feels more focused. Pt feels more energy. Patient denies any headache, dry mouth, headache, chest pain. Patient denies any appetite loss. anxiety1 Pt has chronic a nxiety and depression Pt takes cymbalta and klonopin PRN and doing ok Pt denies any suicidal or homicidal thought Pt denies any crying spells. pain Pt has chronic l ow back pain. Pt denies any worsening pain Pt denies any loss of bladder control. .Pt failed NSAID and ultram and neurontin. Pt denies any saddle area paresthesia. Pt had MRI done which showed mild DDD only . Pt doing ok with norco 10 mg leg pain Additional infor mation: Pt c/o bilateral leg pain recently after walking in [facility] for long time. Pt denies any paresthesia . Pt denies any dark toes or cold extremity. ADD Patient has ADD. Patient has inattentive type. Patient feels scatterbrained. Patient feel poor focus and difficulty completing tasks. Patient states that Adderall is helping with symptoms. Patient feels more focused. Pt feels more energy. Patient denies any headache, dry mouth, headache, chest pain. Patient denies any appetite loss. anxieyt1 Pt has chronic a nxiety and depression [...] done which showed mild DDD only . Pt doing ok with norco 10 mg ADD Patient has ADD. Patient has inattentive type. Patient feels scatterbrained. Patient feel poor focus and difficulty completing tasks. Patient states that Adderall is helping with symptoms. Patient feels more focused. Pt feels more energy. Patient denies any headache, dry mouth, headache, chest pain. Patient denies any appetite loss. anxiety1 Pt has chronic a nxiety and depression Pt takes cymbalta and klonopin PRN and doing ok Pt denies any suicidal or homicidal thought Pt denies any crying spells. claudication1 Pt c/o bilateral leg pain recently after walking in [place] for long time. Pt denies any paresthesia . Pt denies any dark toes or cold extremity COPD1 Pt has COPD with lung nodule pt sees pulmonary and she is on trelegy Pt still smoking Pt had chest CT done which showed stable nodule pain Pt has chronic l ow back pain. Pt denies any worsening pain Pt denies any loss of bladder control. .Pt failed NSAID and ultram and neurontin. Pt denies any saddle area paresthesia. Pt c/o worsening low back pain with left sciatica and left upper leg paresthesia. Pt had MRI done which showed mild DDD only . Pt has been on norco 7.5 mg for long time Pt states that it no longer helps her pain ADD Patient has ADD. Patient has inattentive type. Patient feels scatterbrained. Patient feel poor focus and difficulty completing tasks. Patient states that Adderall is helping with symptoms. Patient feels more focused. Pt feels more energy. Patient denies any headache, dry mouth, headache, chest pain. Patient denies any appetite loss. anxiety1 Pt has chronic a nxiety and [...] chest pain. Patient denies any appetite loss. insomnia1 Pt has chronic i nsomnia. Pt takes amitriptyline qhs and doing ok Pt states that she needs amitriptyline refilled pain Pt has chronic l ow [...] chest pain. Patient denies any appetite loss. pain1 Pt has chronic l ow back pain. Pt denies any worsening pain Pt denies any loss of bladder control. .Pt failed NSAID and ultram and neurontin. Pt denies any saddle area paresthesia. Pt c/o worsening low back pain with left sciatica and left upper leg paresthesia. Pt had MRI done which showed mild DDD only . ADD Patient has ADD. Patient has inattentive type. Patient feels scatterbrained. Patient feel poor focus and difficulty completing tasks. Patient states that Adderall is helping with symptoms. Patient feels more focused. Pt feels more energy. Patient denies any headache, dry mouth, headache, chest pain. Patient denies any appetite loss. anxiety1 Pt has chronic a nxiety and depression Pt takes cymbalta and klonopin PRN and doing ok Pt denies any suicidal or homicidal thought Pt denies any crying spells. COPD1 pt has COPD Pt i s on trelegy and she uses albuterol 1-2 per week. Pt just saw pulmonary recently and she is doing ok pain Pt has chronic l [...] wants to go higher dose of adderall HLP Pt has HLP Pt ta kelaurent crestor. Pt denies any myalgia She did not do lipid profile since insurance does not cover it per lab thyroid Pt has slightly suppressed tsh but t4 and t3 ok physical Pt needs annual physical. Pt has [...] any hemoptysis Pt denies any worsening sob. anxiety1 Pt [...] done which showed mild DDD only . skin Pt has dark pigm ented skin [...] homicidal thought. Pt denies any crying spells insomnia Pt has chronic i nsomnia due to [...] day HTN Pt states that h er identification officer took her off toprol recently. Pt denies any chest pain. Her bp is ok bulge1 Pt notices a bul ge around epigastric area whenever she coughs or lying flat. Pt denies any pain Pt did have surgical scar around the area. Pt denies any pain kCL Pt has low KCL. Pt is on KCL. Pt needs refilled anxiety1 Pt has chronic a nxiety and [...] and she wants more norco per day hematuria1 Pt has hematuria . pt has mild proteinuria. Pt had negative CTU and also cytology and also cystoscope by urology last year. Pt denies any urinary symptoms Pt denies any flank pain pt had repeat UA done which showed hematuria polycythemia1 Pt has secondary polycythemia Pt is seeing hematology without any diagnosis. Pt does smoke and she has untreated sleep apnea. lung nodule1 Pt has lung nodu le [...] homicidal thought. Pt denies any crying spells physical Pt needs annual physical. Pt has [...] neurontin. Pt denies any saddle area paresthesia osteopenia1 Pt has osteopeni a. Pt takes calcium and D. Pt denies any fx CAD Pt has CAD with atrial myxoma removal recently. Pt denies any chest pain or sob Pt is off eliquis now Pt is on Toprol anxiety1 Pt has chronic a nxiety and [...] PPD. Pt wants to quit smoking . CAD Pt has CAD and s he [...] Pt denies any chest pain or sob anxiety1 Pt has chronic a nxiety and [...] denies any myalgia. Pt [facility]. PT denies any chest [...] or sob or fever or weakness . Oct-18-2022 pain Pt has chronic l ow back [...] neurontin. Pt denies any saddle area paresthesia gastritis Pt has gastritis and gastric polyp Pt [...] Pt denies any saddle area paresthesia anxiety1 anxiety Pt has chronic a nxiety and depression Pt takes cymbalta and klonopin and doing ok. Pt weaned herself off lamictal due to weird dreams. Pt denies any suicidal or homicidal thought pt denies any crying spells. Pt doing ok with Cymbalta and klonopin GERD Pt has gastritis and some adenoma gastric [...] any crying spells. Pt is seeing psychiatry [facility] at [place] and she takes cymbalta, klonopin and lamictal [...] any crying spells. Pt is seeing psychiatry [facility] at [place] and she takes cymbalta, klonopin and lamictal [...] any crying spells. Pt is seeing psychiatry [facility] at [place] and she takes cymbalta, klonopin and lamictal [...] any br east issue .Pt needs mammogram physical Pt needs annual physical. Pt has [...] any crying spells. Pt is seeing psychiatry [facility] at [place] and she takes cymbalta, klonopin and risperdal and doing ok currently pain Pt has chronic l ow back pain. Pt denies any worsening pain Pt denies any loss of bladder control. Pt takes norco PRN and doing ok. Pt denies any new symptoms .Pt failed NSAID and ultram and neurontin. Pt denies any saddle area paresthesia anxiety Pt has chronic a nxiety and depression and mood swings Pt denies any suicidal or homicidal thought. Pt denies any crying spells. Pt is seeing psychiatry [facility] at [place] and she takes cymbalta, klonopin and risperdal [...] neurontin. Pt denies any saddle area paresthesia anxiety Pt has chronic a nxiety and depression and mood swings Pt denies any suicidal or homicidal thought. Pt denies any crying spells. Pt is seeing psychiatry [facility] at [place] and she takes cymbalta, klonopin and risperdal [...] with mood swings Pt is seeing psychiatry [facility] at [place] and she takes cymbalta, klonopin and risperdal and doing ok pain Pt has chronic l ow back pain. Pt denies any worsening pain Pt denies any loss of bladder control. Pt takes norco PRN and doing ok. Pt denies any new symptoms .Pt failed NSAID and ultram and neurontin nausea1 Pt has history o f nausea [...] with mood swings Pt is seeing psychiatry [facility] at [place] and she takes cymbalta, klonopin and risperdal [...] kcl and her renal function is ok pain1 Pt has chronic l ow [...] with mood swings Pt saw a psychiatry [facility] at [place] and she was started on risperdal but she has not started it yet . 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 Pt was told by nurse that she needs to repeat endoscopy in 5 years. Pt denies any GI bleeding Pt is on omeprazole daily and no nausea anxiety1 Pt has chronic a nxiety and [...] NSAID and ultram and neurontin headache1 Pt has chronic l ow back pain. Pt denies any worsening pain Pt denies any loss of bladder control. Pt takes norco PRN and doing ok. Pt denies any new symptoms .Pt failed NSAID and ultram anxiety Pt has chronic a nxiety and [...] has EGD and colonoscopy scheduled this Thursday. hematuria1 Pt denies any ut i symptoms .Pt could not urinate during last lab. Pt will go back tomorrow for above headache1 Pt still has lexx quent stress headache Pt denies any head injury or waking up at night with headache Pt has not done MRi yet. pain Pt has chronic l ow back [...] homicidal thought. Pt denies any crying spells. nausea1 Pt states that n ausea resolved with omeprazole Pt denies any GERD Pt still has chronic non bloody diarrhea. Pt has trae with GI next month. Pt denies any abd pain headache1 pt c/o recurrent throbbing headache for [...] is around 6/10. Pt denies any radiculopathy COPD Pt has COPD Pt t ildefonso bowman .Pt states that she has not heard from pulmonary yet. Pt denies any hemoptysis worsening sob or any cough pain Pt has chronic l ow [...] homicidal thought. Pt denies any crying spells. headache1 pt c/o recurrent throbbing headache for 3-4 months Pt denies any head injury or waking up at night with headache Pt notices pain around back of neck and frontal area as well. Pt has headache almost daily. Pt states that topamax has not helped at all. nausea1 Pt has chronic n ausea and [...] ventolin PRN. Pt denies any other complaints pain Pt has chronic l ow back [...] crying spells Pt denies any mood swings. ear pain1 Pt c/o left ear pain [...] ok currently. Pt denies any crying spells. pain Pt [...] ok currently. Pt denies any crying spells. COPD1 Pt has COPD .Pt denies any acute sob. PT denies any hemoptysis Pt takes anoro and she uses albuterol 2-3 per week tobacco1 Pt still smoking Pt had negative [...] h/o fracture sleep apnea1 Pt has sleep cover creaser ea and fatigue. Pt snores. Pt does not use CPAP. pt states that she could not tolerate CPAP chronic pain Pt has chronic l ow [...] and mood swings. Pt doing ok currently anxiety1 Pt has chronic a nxiety and [...] and ultram sleep apnea1 Pt has sleep cover creaser ea. Pt does not use CPAP. Pt is noncompliant. Pt does feel fatigue and she does snore osteopenia1 Pt has mild oste openia left hip area. Pt denies any fracture. Pt takes calcium and vitamin nD folate1 Pt stopped takin g folic acid on her own. Her folate was ok recently anxiety1 Pt has chronic a nxiety and depression Pt takes cymbalta, latuda and klonopin PRN and doing ok. Pt sees psychiatrist Pt denies any suicidal or homicidal thought back pain1 Pt has chronic l ow back pain due to DDD Pt denies any worsening pain pt denies any loss of bladder control. Pt failed NSAID and ultram chronic pain Pt has chronic b ack [...] denies any crying spells COPD1 Pt has emphysema . Pt still smoking. Pt uses Anoro and also albuterol PRn. Pt denies any acute sob. Pt states that she uses albuterol daily pt is out of albuterol and she wants ventolin refilled and she could not get a hold of her pulmonary. Pt denies any coughing or hemoptysis shoulder pain1 Pt c/o left shou lder blader pain for several weeks with radiation to left elbow. Pt denies any numbness Pt denies any weakness. Pt denies any neck pain. sleep apnea1 Pt has sleep cover creaser ea but she does NOT use CPAP. [...] acute sob. sleep apnea1 Pt has sleep cover creaser ea pt is noncompliant with cpap. Pt does not use daily. 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 Patient complained of mild sciatica with right leg numbness and tingling. Patient denies any loss of bowel bladder control. Patient failed NSAID and tramadol. Patient has 6 out of 10 pain daily. Patient complained of sharp pain. Patient denies any worsening pain. Pt has DDD on MRI anxiety1 Patient has director food safety pipe anxiety and depression. Patient denies any suicidal homicidal thoughts. Patient denies any crying spells. Patient denies any hopelessness. Patient takes Cymbalta, Latuda, Klonopin, and trazodone. Patient sees psychiatrist folate1 Pt has history o f low folate and she is on folate. Her folic acid is normal polycythermia1 polycythemia res olved. Her level is ok now. Her iron is ok sleep apnea1 Pt has sleep cover creaser ea. Pt uses cpap nightly and doing [...] worse lately. Pt sees pulmonary for COPD. polycythermia1 Pt has polycythe dalia. Pt smokes [...] albuterol refilled. Pt denies any acute sob D Pt has low vitam in D [...] crying spells sleep anpea1 Pt has sleep cover creaser ea. Pt has been using CPAP nightly [...] and A1c pt denies any polyuria, polydipsia chronic pain1 Pt has chronic l ow back pain. pt has DDD pt has sciatica and leg numbness. Pt failed NSAID and ultram. Pt has been on opioid for long time. anxiety1 Pt has chronic a nxiety and depression. pt takes cymbalta, trazodone and klonopin PRN and doing ok. pt denies any suicidal or homicidal thought. Pt denies any crying spells COPD1 Pt is on anoro o nly now She stopped incruse. COPD1 Pt has COPD. Pt just seen pulmonary. Pt is on incruse and ventolin and neb. Pt was started on anoro also? chronic pain Pt has chronic b ack pain Pt denies any worsening pain Pt denies any loss of bladder control. aniety1 Pt has chronic a nxiety and depression and bipolar disorder. Pt takes cymbalta, Lamictal and trazodone and latuda and klonopin PRN. Pt is seeing psychiatrist. Pt denies any suicidal or homicidal thought. Pt denies any crying spells chronic pain Pt has chronic l ow back pain. Pt has DDD Pt denies any worsening pain. Pt denies any loss of bladder control. Pt has 7/10 pain HLP Pt has HLP pt [place] s been doing low fat and low carb diet. COPD1 Pt has copd. Pt has NO [...] any crying spells COPD1 Pt has COPD. pt stills smoking. [...] homicidal thought. Pt denies any crying spells rib fx1 pt slipped and f ell and she has right rib fracture 3 weeks. Pt was admited to [facility]. Pt had collapsed lung and she was on oxygen. SHe is ok now. Pt was told by hospital MD that she may need daily oxygen tobacco1 Pt has COPD. Pt takes incurse [...] urinary frequency and uregency. Pt is seeing women[facility] health care nurse practitioner urology and she is on oxybutynin. Pt [...] SOB only sleep apnea1 Pt has sleep cover creaser ea. Pt uses CPAP nightly. Pt doing [...] low folate. pt denies any polyuria, polydipsia anxiety1 Pt [...] any loss of bowel or bladder control COPD1 Pt has COPD. Pt uses ellipta once per day and she uses ventolin up to 3 times per day .Pt still feels SOB tobacco1 Pt has 30 pack y ear history of smoking. COPD1 Pt has COPD. Pt was given [...] 4 per day. Pt has 6/10 pain anxiety1 Pt has anxiety a nd depression. Pt takes klonpin and also wellbutrin and paxil and buspar and abilify now. PT denies any sucidial or homicidal thought bronchitis1 Pt c/o acute cou ghing for one week with green phlegm. Pt denies any chest pain or SOB. Pt has COPD. Pt failed OTC meds Pt denies any fever COPD1 Pt has been [facility] and [place] and doing ok. Pt denies any acute SOB back pain1 Pt has chronic l ow back pain. Pt denies any worsening pain .Pt denies any loss of bowel or bladder control. Pt has 7/10 back pain daily anxiety1 Pt is seeing gianni chiatrist. Pt is on klonpin. Pt is on buspar. Pt is on other SSRI but she does not remember the name. Pt doing ok. IPt denies any suicidal or homicdial thought. Pt still feels irritable COPD1 Pt states that a trovent is not coverred. Pt feels soB frequently. Pt still smoking LBP Pt has chronic L BP. Pt denies any worsening panir or any loss of amber or bladder control. Pt has sciatica and leg numbness but not worse COPD Pt has COPD. Pt takes atrovent and feels less SOB and overall better Pt uses albuterol BID PRN for now. Pt still smoking Anxiety1 Pt has chronic a nxeity and depression and bipolar Pt takes wellbutrin, paxil, bupsar, seroquel now. Pt is not on lamictal anymore. Pt sees psychaitrist. pt denies any suciiadl or homicdial thought Physical Pt needs annual physical. Pt has [...] homicidal thought. sleep apnea1 Pt has sleep cover creaser ea. Pt just started CPAP and she [...] pt still feels depressed and stressed out back pain Additional infor mation: Pt has chronic low back pain. Pt denies any worsening pain. Pt denies any loss of bowel or bladder control. sleep apnea Relevant history : a BMI of 28.67. Additional information: Pt just had CPAP done last Thursday. Pt has sleep apnea. anxiety1 Pt has severe an xiety and depression. Pt takes wellbutirn, paxil, klonpin, seroquel and buspar Pt denies any suicidal or homicidal thought. Pt does have crying spells. Pt has a lot of social stress. Pt checked herself into [facility] for 5 days due to stress. Pt felt better now. Pt unable to see psychiatrit due to insurance. chronic pain Pt has chronic l ow back pain. Pt denies any loss of bowel or bladder control. Pt has severe pain. Pt is nonsurgical. PT has sciatica and leg numnbess. Pt takes pain meds. sleep apnea Relevant history : a BMI of 28.67. Additional information: Pt has sleep apnea. Pt is waiting for CPAP study. PT feels chronic fatigue. anxiety1 Pt has chronic a nxiety and depression and bipolar. Pt takes paxil, wellbutrin, klonopin, buspar and seroquel. Pt just seen psychiatrist recently from the disabiltiy. Pt is seeing counselor now. Pt is working on disability. Pt unable to work and she feels extremely stressed out. Pt denies any suicidal or homicidal thought. Pt denies any feeling of hopelessness. PT has crying spells. Anxiety1 Pt has chronic a nxiety and depression. Pt has severe mood swings. pt denies any sucididal or homicidal thought. Pt is extremely stressed out. Pt is taking wellbutrin, buspar klopin, paxil and seroquel now Pt doing ok. Pt has appoitnment with psychiatrist next week. Pt still has crying spells. LBP Pt has chronic L BP. Pt has severe pain. Pt has dDD. Pt is not surgical candidate Pt denies any loss of bowel or bladder control sleep apnea Relevant history : a BMI [...] or recent travel. Pt failed OTC meds axillary pain Pt has bilateral axillary pain [...] bilateral sciatica, Pt has chornic leg numbness Anxiety1 Pt has chronic a nxiety and [...] any claudication. Pt denies any calf pain back pain Additional infor mation: Pt has [...] all day. Pt is seeing counselor at [facility] now. axillary pain Pt has bilateral axillary pain. Pt has some benign lymphnode on ultrasound anxiety back apin Pt has chrnic lo [...] any suicidal thought. 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 [...] smoking Related to Gener alized anxiety disorder Special diet education Related t o Body mass index (BMI) 27.0-27.9, adult Increase physical activity Relat ed to Chronic [...] (BMI) 28.0-28.9, adult Quit smoking Related to Yuri marina polycythemia Special diet education Related t o [...] Quit smoking Related to Emphy sema Prescribed Diet Educ ation/Lifestyle Education Regarding Diet Related to Dietary Surveillance and Counseling Prescribed Activity and Exercise Education Related to Dietary Surveillance and Counseling Quit [...] Surveillance and Counseling Quit smoking Related to Gener alized anxiety disorder Weight management Related to Gen eralized anxiety disorder Prescribed Activity and Exercise Education Related to Dietary Surveillance and Counseling Prescribed Diet Educ ation/Lifestyle Education Regarding Diet Related to Dietary Surveillance and Counseling Increase physical activity Relat ed to Generalized anxiety disorder Prescribed Activity and Exercise Education [...] management Related to Chr onic pain syndrome Increase activity. Related to En cntr for [...] adult medical exam w/o abnormal findings Quit smoking Related to Liver disease Prescribed [...] surveillance counseling Assessments Type Assessment Date assessment Attention deficit assessment Chronic pain syndrome assessment Generalized anxiety disorder Dec Mental Status Date Cognitive Assessment Orientation - [place] ed to time, place, person, situation.
--- NOTE | ~2024-12-22 | US_ITS ---
US art doppler w press LE BI INDICATION: Peripheral vascular disease TECHNIQUE: Segmental pressures and plethysmographic and Doppler waveforms of the brachial and lower extremity arteries were obtained. COMPARISON: None. FINDINGS: Right and left brachial artery pressures of 125 mm Hg and 116 mm Hg, respectively, are concordant (normal difference <= 30 mmHg). The right ankle-brachial index (PHILL) is 0.99 (normal >= 0.9-1.0). The right great toe-brachial index (TBI) is 0.58 (normal >= 0.60). The left PHILL is 1.06. The left TBI is 0.66. IMPRESSION: 1. Mildly decreased right toe brachial index consistent with mild peripheral arterial disease. 2: Normal left ankle and toe brachial indices. Reviewed, dictated and finalized at location O. IMPRESSION: 1. Mildly decreased right toe brachial index consistent with mild peripheral ar terial disease. 2: Normal left ankle and toe brachial indices.
--- OUTSIDE RECORDS SUMMARY | 2024-12-22 09:07 | XMS_ITS | Clinical Summary ---
Author Organization [facility] Address [address] [place] [id number] Care Team Providers Care Reimbursement Representative Name Role Phone Syed Llamas MD Primary Care Provider + [phone] Syed Llamas MD Unavailable [phone] Allergies No known active allergies Medications cyanocobalamin [...] Active Additional Information Patient not taking.Reported on 09/22/2024 rosuvastatin (CRESTOR) 5 mg tablet Take 1 [...] Active Additional Information Patient not taking.Reported on 09/22/2024 dextroamphetami ne-amphetamine (ADDERALL) 10 mg tablet Take 1 tablet (10 mg total) by mouth daily before breakfast 4 Active amitriptyline (ELAVIL) 50 mg tablet Take 1 tablet (50 mg total) by mouth nightly at bedtime Active cyanocobalamin 2,000 mcg tablet Take 1 tablet (2,000 mcg total) by mouth daily Active Trelegy Ellipta 100-62.5-25 mcg inhalerIndicati ons:Centrilobul ar emphysema (HCC) INHALE 1 PUFF BY MOUTH EVERY NIGHT 60 each 5 5 Active Additional Information Patient not taking.Reported on 09/22/2024 nicotine (NICODERM CQ) [address] 1 patch on the skin daily for 24 hours 30 patch 3 5 Active albuterol HFA (PROVENTIL HFA,VENTOLIN HFA,PROAIR HFA) 90 mcg/actuation inhalerIndicati ons:Centrilobul ar emphysema (HCC) INHALE 2 PUFFS BY MOUTH EVERY 6 HOURS NEEDED FOR WHEEZING OR SHORTNESS OF BREATH 8.5 g 5 5 Active Active Problems Problem Noted Date Diagnosed Date Centrilobular emphysema 03/05/2022 Assessment & Plan (05/18/2024 1:59 PM ONLINE MERCHANDISER): The patient had recent PFTs consistent with stage III COPD. She continues on Trelegy 1 puff daily and has an albuterol inhaler use on a p.r.n. basis. Assessment & Plan (11/04/2023 3:02 PM CDT): The patient has a history of stage III COPD and continues on Trelegy 1 puff daily and albuterol MDI on a p.r.n. basis. I will reorder PFTs since her last PFTs were from 2021 Assessment & Plan (04/29/2023 2:34 PM ONLINE MERCHANDISER): The patient will continue with Trelegy 1 [...] basis. Assessment & Plan (03/05/2022 9:57 AM ONLINE MERCHANDISER): The patient has stage III COPD. She will continue with Trelegy 1 puff daily and albuterol MDI p.r.n.. MARGARITA (obstructive sleep apnea) 03/05/2022 Assessment & Plan (05/18/2024 2:00 PM ONLINE MERCHANDISER): She was intolerant of CPAP therapy. Assessment & Plan (11/04/2023 3:02 PM CDT): She is intolerant of CPAP therapy Assessment & Plan (04/29/2023 2:02 PM ONLINE MERCHANDISER): Intolerant to CPAP therapy continues positional therapy [...] sleeping. Assessment & Plan (03/05/2022 9:58 AM ONLINE MERCHANDISER): She continues to use oxygen at 2 liters/minute via nasal cannula while sleeping. She was intolerant of CPAP. Coronary artery disease [place] coronary artery of [place] heart without angina pectoris 02/04/2022 Hypokalemia 01/30/2022 Influenza A with respiratory manifestations 01/05 Left atrial mass 01/29/2022 Assessment & Plan (04/29/2023 2:02 PM ONLINE MERCHANDISER): Resected without complication. Dr. Melo monitoring Assessment & Plan (10/22/2022 1:54 PM CDT): Resected by April 2022. No complication Assessment & Plan (07/16/2022 2:58 PM CDT): Will continue to follow with Dr. 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 She has decided to postpone the procedure and will have it done in April 2022 at [facility] by Dr. Valentino Melo. Hyponatremia 01/29/2022 Personal history of tobacco use 01/29/2022 Assessment & Plan (05/18/2024 2:00 PM ONLINE MERCHANDISER): I strongly encouraged the patient to quit smoking she continues to smoke 1 pack of cigarettes per day. She will follow up with Dr. Mcconnell in 4 months after the next screening chest CT has been performed. Assessment & Plan (11/04/2023 3:01 PM CDT): The patient continues to smoke 1 pack of cigarettes per day and has smoked for 40 years. I did encourage her to quit smoking. I will order another screening chest CT for August 2024 Assessment & Plan (04/29/2023 2:01 PM ONLINE MERCHANDISER): Continues to decrease number cigarettes with ultimate [...] requirements. Assessment & Plan (03/05/2022 9:58 AM ONLINE MERCHANDISER): She continues to smoke 1/2 pack of cigarettes per day and is trying to quit. Lung nodule 01/29/2022 Assessment & Plan (05/18/2024 2:00 PM ONLINE MERCHANDISER): The lung nodules will be followed on the next chest CT. Assessment & Plan (11/04/2023 3:01 PM CDT): The lung nodules are stable on the most recent screening chest CT Assessment & Plan (04/29/2023 2:02 PM ONLINE MERCHANDISER): CT scan ordered for August of 2023 Assessment & Plan (10/22/2022 1:55 PM CDT): CT scan has been ordered for August of 2023 Assessment & Plan (07/16/2022 2:56 PM CDT): I have ordered a CT scan. Assessment & Plan (03/05/2022 9:58 AM ONLINE MERCHANDISER): The patient has pulmonary nodules measuring up to 7 mm in diameter. If she does not come back to see me, she states that she will have serial chest CTs performed by Dr. Llamas in [place]. I did recommend that she follow-up with me in 3 months and I will order another chest CT at that time if she decides to continue to follow with me. B12 deficiency 12/26/2021 Polycythemia secondary to smoking 04/08/2019 Assessment & Plan (11/04/2023 3:02 PM CDT): The most recent CBC in our system revealed a normal H&H. Assessment & Plan (04/29/2023 2:01 PM ONLINE MERCHANDISER): Patient continues to try to decrease the [...] Encounters Date Type Department Care Team Description 09/22/2024 2:00 PM CDT Office Visit [facility] Pulmonology [address] [place] [phone] Flora Mcconnell MD Pulmonary emphysema, unspecified emphysema type (HCC) (Primary Dx); Personal history of nicotine dependence from Last 3 Months Immunizations Immunization Administration Dates Next Due Hep A, Unspecified 04/06/1998 Influenza, Trivalent, Preservative Free, Intramu scular 04/06/2009 PPD TEST 11/04/2010 Surgical History Surgery Date Site/Laterality Comments NH SALPINGO-OOPHORECTOMY COMPL/PRTL UNI/BI SPX Salpingo-oophorectomy Right Side - (Added by TW Conv) Medical History Medical History Date Comments Smoker For years Coronary artery disease [place] coronary artery of [place] heart without angina pectoris 02/04/2022 Essential hypertension [...] on file Legal Sex Female 8:18 AM ONLINE MERCHANDISER Gender Identity Not on file Sexual Orientation Not on file Obstetrics History Last Filed Vital Signs Vital Sign Reading Time Taken Comments Blood Pressure 124/79 09/22/2024 1:39 PM CDT Pulse 92 09/22/2024 1:39 PM CDT Temperature 36.6 C (97.9 F) 09/22/2024 1:39 PM CDT Respiratory Rate 18 09/22/2024 1:39 PM CDT Oxygen Saturation 94% 09/22/2024 1:39 PM CDT Inhaled Oxygen Concentration - - Weight 70.3 kg (155 lb) 09/22/2024 1:39 PM CDT Height 160 cm (5' 3) 09/22/2024 1:39 PM CDT Body Mass Index 27.46 09/22/2024 1:39 PM CDT Plan of Treatment Health Maintenance [...] PCV) 01/14/2019 01/14/2018, 03/01/2017 Influenza Vaccine (#1) 2024 9, 01/14/2018, 03/01/2017, Additional history exists Lung Cancer Screening 08/28/2025 08/27/2024, 024 Medical Devices Implanted Type Area Senior Java Programmer Device Identifier Shelf Expiration Date Model / Serial / Lot [employer] Device Clsr Perclose Prostyle Sut-Mediatd Closure-Repair Sys [id number] - [id number] Implanted:Qty: 1 on 02/03/2022 by Issac Gonzáles MD at [facility] [employer] 11/04/2023 [id number] / / [id number] Procedures Procedure Name Priority Date/Time Associated Diagnosis Comments CT LUNG CANCER SCREENING Schedule Routine, Read Routine (OP Routine) 08/27/2024 1:03 PM CDT Personal history of tobacco use SCREENING MAMMOGRAM 2D BILATERAL Routine 09/18/2012 9:11 AM CDT from Last 3 Months or Most Recently Relevant to Health Maintenance Results * CT Lung Cancer Screening (08/27/2024 1:03 PM CDT) Anatomical Region Laterality Modality Chest N/A Computed Tomogra phy 09/08/2024 9:56 AM CDT Narrative 09/08/2024 10:04 AM CDT EXAM DESCRIPTION: CT LUNG CANCER SCREENING REASON FOR STUDY: Screening CT of the chest in a current smoker with a 31 pack year smoking history. Additional history: None. [...] DOSE: CT dose index volume (CTDIvol) = 2.00 mGy COMPARISON: 08/12/2023 FINDINGS: SMOKING RELATED LUNG DISEASE: There are mild emphysematous changes of lungs with scattered mild subsegmental atelectasis and scarring. There is no definite evidence of a pneumothorax. There is scattered mild bronchial wall thickening, which is likely related to mild chronic bronchitis/bronchiolitis. There is no definite evidence of a focal consolidation or pleural effusion. There are scattered calcified granulomas noted. LUNG NODULES: There are scattered pulmonary nodules noted, similar to the prior study. For example, there is a stable subtle subpleural 0.2 cm pulmonary nodule in the posterior right upper lobe (axial image 41). There is a stable subpleural 0.6 cm pulmonary nodule in the posterior right upper lobe (axial image 50). There is a stable subpleural 0.3 cm pulmonary nodule in the anterior right upper lobe (axial image 84). There is a stable subpleural 0.3 cm pulmonary nodule in the posterolateral right upper lobe (axial image 80). There is a stable subpleural 0.4 cm pulmonary nodule in the posterior left upper lobe (axial image 40). There is a stable elongated pulmonary nodule in the posterior left upper lobe measuring 0.5 cm abutting the left major fissure (axial image 50). There is a stable subpleural 0.3 cm pulmonary nodule in the lateral left upper lobe (axial image 54). CORONARY ARTERY CALCIFICATION: Present. OTHER: The heart size is stable. There is no definite evidence of a pericardial effusion. There are atherosclerotic changes of the thoracic aorta and coronary vessels. Postsurgical changes with midline sternotomy wires are noted. There is no definite unenhanced CT evidence of mediastinal, hilar, or axillary lymphadenopathy. There are scattered calcified mediastinal and right hilar lymph nodes noted. The bilateral adrenal glands are grossly stable and unremarkable. There are calcified granulomas noted in the spleen. There is a supraumbilical ventral abdominal wall hernia containing a nonobstructed portion of the stomach. There is a mild levoscoliotic curvature of the spine degenerative changes. IMPRESSION: Redemonstration of scattered pulmonary nodules measuring up to 0.6 cm, grossly similar to the prior study. No definite evidence of a new suspicious pulmonary nodule. Mild emphysematous changes of lungs with scattered mild subsegmental atelectasis and scarring. Scattered mild bronchial wall thickening, which is likely related to mild chronic bronchitis/bronchiolitis. Evidence of prior granulomatous disease. Lung-RADS category 2: Benign appearance or behavior. Recommendation: Low dose Screening CT of chest in 12 months. THIS IS AN ELECTRONICALLY VERIFIED FINAL REPORT 09/08/2024 10:04 AM - Electronically signed by Alexandra GOMES T: Report ID: [id number] Reading Location: [place] [id number] Procedure Note Alexandra Keller, DO - 09/08/2024 EXAM DESCRIPTION: CT LUNG CANCER SCREENING REASON FOR STUDY: Screening CT of the chest in a current smoker with a31 pack year smoking history. Additional history: None. [...] DOSE: CT dose index volume (CTDIvol) = 2.00 mGy COMPARISON: 08/12/2023 FINDINGS: SMOKING RELATED LUNG DISEASE: There are mild emphysematouschanges of lungs with scattered mild subsegmental atelectasis and scarring. Thereis no definite evidence of a pneumothorax. There is scattered mild bronchial wall thickening, which is likely related to mild chronic bronchitis/bronchiolitis. There is no definite evidence of a focal consolidation or pleural effusion. There are scattered calcifiedgranulomas noted. LUNG NODULES: There are scattered pulmonary nodules noted, similar tothe prior study. For example, there is a stable subtle subpleural 0.2 cm pulmonary nodule in the posterior right upper lobe (axial image 41).There is a stable subpleural 0.6 cm pulmonary nodule in the posterior right upperlobe (axial image 50). There is a stable subpleural 0.3 cm pulmonary nodule inthe anterior right upper lobe (axial image 84). There is a stable subpleural0.3 cm pulmonary nodule in the posterolateral right upper lobe (axial image80). There is a stable subpleural 0.4 cm pulmonary nodule in the posterior left upper lobe (axial image 40). There is a stable elongated pulmonary nodulein the posterior left upper lobe measuring 0.5 cm abutting the left majorfissure (axial image 50). There is a stable subpleural 0.3 cm pulmonary nodule inthe lateral left upper lobe (axial image 54). CORONARY ARTERY CALCIFICATION: Present. OTHER: The heart size is stable. There is no definite evidence of a pericardial effusion. There are atherosclerotic changes of the thoracicaorta and coronary vessels. Postsurgical changes with midline sternotomy wiresare noted. There is no definite unenhanced CT evidence of mediastinal, hilar, oraxillary lymphadenopathy. There are scattered calcified mediastinal and righthilar lymph nodes noted. The bilateral adrenal glands are grossly stable and unremarkable. Thereare calcified granulomas noted in the spleen. There is a supraumbilicalventral abdominal wall hernia containing a nonobstructed portion of the stomach. There is a mild levoscoliotic curvature of the spine degenerative changes. IMPRESSION: Redemonstration of scattered pulmonary nodules measuring up to 0.6 cm, grossly similar to the prior study. No definite evidence of a newsuspicious pulmonary nodule. Mild emphysematous changes of lungs with scattered mild subsegmental atelectasis and scarring. Scattered mild bronchial wall thickening, which is likely related to mild chronic bronchitis/bronchiolitis. Evidence of prior granulomatous disease. Lung-RADS category 2: Benign appearance or behavior. Recommendation: Low dose Screening CT of chest in 12 months. THIS IS AN ELECTRONICALLY VERIFIED FINAL REPORT 09/08/2024 10:04 AM - Electronically signed by Alexandra Keller D.O. PS T: Report ID: [id number] Reading Location: [id number] Johnson Marrero MD IMG CT PROCEDURES Final R esult * Screening Mammogram 2D Bilateral (09/18/2012 9:11 [...] [EOD] Narrative 09/29/2012 1:03 PM CDT EXAMINATION: BILATERAL DIGITAL SCREENING MAMMOGRAM HISTORY: Routine [...] ELECTRONICALLY VERIFIED REPORT 09/29/2012 1:01 PM: Armani Deut[employer]c M.D. Armani Deutsch M.D. [place]:jose carlos 09:28 AM 12:51 PM [EOD] Syed Llamas MD IMG MAMMO PROCEDURES Final R esult from Last 3 Months or Most Recently Relevant to Health Maintenance Insurance [facility] MEDICARE ADVANTAGE [facility] MEDICARE ADVANTAGE IDPA IDPA Advance Directives For more information, please contact: [phone] * Full Code (Latest Code Status on File) Date Activated Date Inactivated Comments 01/29/2022 3:57 PM 02/06/2022 9:47 PM Care Teams Reimbursement Representative Relationship Specialty Start Date End Date Syed Llamas MD [address] [place] [address] PCP - General Family Medicine 10/26/22 Syed Llamas MD [address] [place] [address] Family Medicine 01/29/22
== END 2024-12-22 08:47 | disposition home or self-care (01) ==
PROVIDERS: PCP Emergency Medicine; Visit Provider Emergency Medicine
DX: I73.9 Peripheral vascular disease, unspecified (principal)
CPT/HCPCS: 93923